=== PATIENT | male | born 1940 | race Caucasian/White ===

== ENCOUNTER → 2017-06-04 | Outpatient (CLI) | payer MEDICARE ==
[~2017-06-04] MED LIST: AMLO2.5T PO; ASPI-435 PO; CALC500C3 PO; CHOL100027 PO; DIPH-437 PO; ESCI10TA17 PO; ESCI1TAB6 PO; HYDR-3983 PO; INSDGI SC; INSHNI SQ; INSU100I SQ; INSU100I2 SQ; IPRA0.037 NAE; LEVAAER2 INH; LISI5TAB PO; MAGN400T6 PO; NSNN50; POLY335019 PO; ROPI1TAB PO; ROSU40TA PO; SULF-183 PO
[2017-06-04 12:46] LABS: ESTIMATED AVERAGE GLUCOSE 169 mg/dl; HA1C FLAG Normal (Normal)
== END | disposition home or self-care (01) ==
LOC: C.LAB1850 09:53
PROVIDERS: ATTEND Nurse Practitioner Adult Health
DX: E10.8 Type 1 diabetes mellitus with unspecified complications (principal)

== ENCOUNTER → 2017-10-07 | Outpatient (CLI) | payer MEDICARE ==
[2017-10-08 06:12] LABS: ESTIMATED AVERAGE GLUCOSE 180 mg/dl; HA1C FLAG Normal (Normal)
== END | disposition home or self-care (01) ==
LOC: C.LAB1850 13:59
PROVIDERS: ATTEND Nurse Practitioner Adult Health
DX: E10.49 Type 1 diabetes mellitus with other diabetic neurological complication (principal)

== ENCOUNTER → 2018-02-03 | Outpatient (CLI) | payer MEDICARE ==
[~2018-02-03] MED LIST changes: -AMLO2.5T PO; -ESCI1TAB6 PO; -HYDR-3983 PO; -LEVAAER2 INH; -MAGN400T6 PO; -SULF-183 PO
[2018-02-03 16:34] LABS: BASO % 0.3 %; BASO ABS # 0.04 K/uL (0-0.2); EOS % 3.7 %; EOS ABS # 0.44 K/uL (0-0.5); HEMATOCRIT 46.7 % (42-52); HEMOGLOBIN 15.7 g/dL (14.0-18.0); IG# 0.02 K/uL (0.00-0.02); LYMPH % 16.7 %; MEAN CELL VOLUME 96.9 fL (80-100); MEAN CORPUSCULAR HEMOGLOBIN 32.6 pg (25-34); MEAN CORPUSCULAR HGB CONC 33.6 g/dl (32-36); MEAN PLATELET VOLUME 11.1 fL (7.4-10.4); MONO % 5.3 %; MONO ABS # 0.64 K/uL (0.11-0.59); NEUT % 73.8 %; NEUT ABS # 8.83 K/uL (1.4-6.5); PLATELET COUNT 206 K/uL (130-400); RED CELL DISTRIBUTION WIDTH CV 13.3 % (11.5-14.5); RED CELL DISTRIBUTION WIDTH SD 47.2 fL (36.4-46.3); WHITE BLOOD COUNT 11.97 K/uL (4.8-10.8)
[2018-02-03 17:05] LABS: ALBUMIN 3.8 gm/dl (3.4-5.0); ALT/SGPT 46 U/L (12-78); BLOOD UREA NITROGEN 19 mg/dl (7-18); CALCIUM 10.1 mg/dl (8.5-10.1); CARBON DIOXIDE 33 mmol/L (21-32); CREATININE 1.01 mg/dl (0.60-1.40); GLUCOSE 189 mg/dl (70-99); POTASSIUM 4.2 mmol/L (3.5-5.1); SODIUM 138 mmol/L (136-145)
[2018-02-03 17:08] LABS: ALKALINE PHOSPHATASE 94 U/L (45-117); AST/SGOT 29 U/L (15-37); TOTAL PROTEIN 7.5 gm/dl (6.4-8.2)
[2018-02-04 06:06] LABS: HEMOGLOBIN A1C 7.4 % (4.5-5.6)
== END | disposition home or self-care (01) ==
LOC: C.LAB1850 15:06
PROVIDERS: ATTEND Nurse Practitioner Adult Health
DX: E10.49 Type 1 diabetes mellitus with other diabetic neurological complication (principal)

== ENCOUNTER 2019-05-25 09:43 | Inpatient (IN) ==
--- OUTSIDE RECORDS SUMMARY | 2019-05-25 09:45 | External Medical Summary | Continuity of Care Document ---
:1940 Author Name Rama Reilly, Provider Address Unavailable Unavailable , Care Team Providers Name Role Phone Pat Nina GUIDRY Unavailable [email or web address] Unavailable [email or web address] Irene Goodman M.D. Unavailable [email or web address] Dmitri GOODMAN M.D. 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, with long-term current use of insulin (250.51) (E10.319) Current some day smoker (305.1) (F17.200) History of depression (V11.8) (Z86.59) S tatus: Resolved Dyslipidemia (272.4) (E78.5) Weight loss, unintentional (783.21) (R63.4) S/P CABG (coronary artery bypass graft) (V45.81) (Z95.1) Abnormal liver function test (790.6) (R94.5) Diabetic peripheral neuropathy (250.60) (E11.42) Elevated liver enzymes (790.5) (R74.8) Solitary pulmonary nodule (793.11) (R91.1) Bilateral diabetic retinopathy (250.50) (E11.319) Alteration in tactile sense (782.0) (R20.9) Trigger finger (727.03) (M65.30) Proliferative diabetic retinopathy (250.50) (E11.3599) Weight loss (783.21) (R63.4) Complete below knee amputation of left lower extremity (897. 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) (N52.9) Leukocytosis (288.60) (D72.829) Disorder of ejaculation (608.89) (N53.19) Vasomotor rhinitis (477.9) (J30.0) Restless legs syndrome (333.94) (G25.81) Hypertension (401.9) (I10) 3-vessel coronary artery disease (414.00) (I25.10) 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 Refills: 0 D 1000 1000 UNIT Oral Capsule; TAKE 1 CAPSULE Daily Refills: 0 Ecotrin Low Strength 81 MG Oral Tablet D elayed Release; take 2 tablets by mouth daily Melba Goodman Start: 02-Aug-2014 Refills: 0 rOPINIRole HCl - 1 MG Oral Tablet; TAKE 1 TABLET AT BE DTIME. Melba Goodman Start: 26-May-2014 Quantity: 90 Refills: 1 Ventolin HFA 108 (90 Base) MCG/ACT Inhal ation Aerosol Solution; INHALE 2 PUFFS EVERY 4-6 HOURS NEEDED. CHARITY Castano Start: 17-Dec-2018 Quantity: 1 8 GM Inhaler Refills: 11 HumuLIN N KwikPen 100 UNIT/ML Subcutaneo us Suspension Pen-injector; 5-10 units at bedtime BREA Stewart Start: 28-Mar-2014 Quantity: 2 5 x 3 ML Pen Refills: 3 Escitalopram Oxalate 10 MG Oral Tablet; TAKE 1 TABLET BY MOUTH EVERY DAY Melba Goodman Start: 30-Mar-2019 Quantity: 90 Refills: 1 OneTouch Ultra Blue In Vitro Strip; TEST 4 TIMES DAILY. Quantity: 3 Refills: 6 One Touch Fine Point Lancets MISC Refills: 0 Stool Softener TABS; take 1 tablet by mouth once daily Refills: 0 BD Pen Needle Kelli U/F 32G X 4 MM; USE A S DIRECTED FIVE TIMES DAILY WITH INSULIN PENS BREA Stewart Start: 27-Feb-2018 Quantity: 5 100 Unit Box Refills: 3 Mupirocin 2 % External Ointment; APPLY A SMALL AMOUNT 3 TIMES DAILY DIRECTED. 15 GM Tube Refills: 0 Rosuvastatin Calcium 40 MG Oral Tablet; Take 1 tablet daily Melba Goodman Start: 06-Aug-2016 Quantity: 90 Refills: 3 HumaLOG KwikPen 100 UNIT/ML Subcutaneous Solution Pen-injector; INJECT 15 UNITS BASE DOSE UNDER THE SKIN AT BREAKFAST, AND LUNCH, 15 UNITS AT DINNER PLUS SLIDING SCALE, TOTAL DAILY DOSE 80 UNITS BREA Stewart Start: 09-Jan-2015 Quantity: 5 5 x 3 ML Pen Refills: 3 BD Swab Single Use Regular Pad; USE WITH INFECTIONS AND FINGERSTICK UP TO 10 PER DAY BREA Stewart Start: 07-Oct-2013 Quantity: 9 Refills: 3 MiraLax Oral Powder; MIX 17 GRAMS IN 8 OUNCES OF WATER AND D RINK TWICE DAILY. Refills: 0 Tylenol TABS; Take 2 tablets at night for pain. Refills: 0 Lantus SoloStar 100 UNIT/ML Subcutaneous Solution Pen-injector; INJECT UP TO 35 UNITS UNDER THE SKIN AT BEDTIME BREA Stewart Start: 23-Feb-2013 Quantity: 45 Refills: 3 Procedures History of Amputation Of Leg Below Knee Status: Completed History of Cholecystectomy Status: Compl eted S/P CABG (coronary artery bypass graft) Immunizations Pneumococcal polysaccharide vaccine, 23 valent On: 9 0:00 Influenza On: 04-Sep-2011 13:14 Lot #: [id number], [employer] Fluzone INJ On: 25-Aug-2012 13:58 Lot #: [id number], [employer] Influenza On: 06-Sep-2014 Prevnar 13 Intramuscular Suspension On: 07-Mar-2015 9:16 Lot #: [id number], [employer] Influenza On: 24-Sep-2016 Family History Mother No pertinent family history (V49.89) (Z78.9) Status: Active Father Family history of diabetes mellitus (V18.0) (Z83.3) Status: Active Social History - Smoking Status Current some day smoker Plan of Treatment Planned Encounters Appointment; Nina Stewart CRNP Start: 14-Sep-2019 10:00 R equest Planned Observations Planned Goals not documented Results No Known Results Results not documented Encounters Appointment; Nina Stewart CRNP 09-Mar-2019 14:30 Encounter Diagnosis: Problem not documented Appointment; Damián Goodman M.D. 16-Feb-2019 12:45 Encounter Diagnosis: Problem not documented Appointment; Damián Goodman M.D. 11-Aug-2018 9:15 Encounter Diagnosis: Problem not documented Appointment; Nina Stewart CRNP 25-May-2018 10:00 Encounter Diagnosis: Problem not documented Appointment; Damián Goodman M.D. 03-Feb-2018 14:30 Encounter Diagnosis: Problem not documented Appointment; Nina Stewart CRNP 08-Dec-2017 10:30 Encounter Diagnosis: Problem not documented Appointment; Damián Goodman M.D. 07-Oct-2017 13:00 Encounter Diagnosis: Problem not documented Appointment; Nina Stewart CRNP 04-Jun-2017 10:30 Encounter Diagnosis: Problem not documented Appointment; Nina Stewart CRNP 14-Sep-2019 10:00 Encounter Diagnosis: Problem not documented
[2019-05-25] MEDS ORDERED: CEFAZOLIN 1000MG 1,000 MG/7.5 ML SYR IV STA (10:04)
[2019-05-25] MEDS ORDERED: DIPHTHERIA/TETANUS/PERTUSSIS 0.5 ML SYR/VIAL IM ONE (10:04)
--- NOTE | 2019-05-25 10:13 | Emergency Department Note ---
ED Visit Note I assisted in the care of this patient with Dr. Krishnan. Please refer to her note for additional details. . Resident Activity Tracking Resident Involvement: Resident Care Provided Care Provided: Adult ED
[2019-05-25 10:18] LABS: Basophils # (auto) 0.01 K/uL (0-0.2); Basophils % (auto) 0.1 %; Eosinophils # (auto) 0.02 K/uL (0-0.5); Eosinophils % (auto) 0.1 %; Hematocrit (blood only) 41.5 % (42-52); Immature Granulocytes # (auto) 0.04 K/uL (0.00-0.02); Immature Granulocytes % (auto) 0.3 %; Lymphocytes # (auto) 1.14 K/uL (1.2-3.4); Lymphocytes % (auto) 7.6 %; Mean Corpuscular Hgb Conc 33.7 g/dL (32-36); Mean Corpuscular Volume 93.5 fL (80-100); Mean Platelet Volume 11.8 fL (7.4-10.4); Monocytes # (auto) 1.05 K/uL (0.11-0.59); Neutrophils # (auto) 12.83 K/uL (1.4-6.5); Neutrophils % (auto) 84.9 %; Platelet Count 195 K/uL (130-400); RDW Coefficient of Variation 14.7 % (11.5-14.5); RDW Standard Deviation 50.1 fL (36.4-46.3); Red Blood Count 4.44 M/uL (4.7-6.1); White Blood Count 15.09 K/uL (4.8-10.8)
--- NOTE | 2019-05-25 10:19 | XRay Report ---
XR ankle RT min 3V routine HISTORY: 78 years-old Male OBVIOUS DEFORMITY acute right ankle pain status post fall COMPARISON: None available TECHNIQUE: 3 views of the right ankle FINDINGS: Mildly demineralized appearance of the bones. Moderate degenerative changes of the ankle, midfoot and hindfoot. Acute bimalleolar ankle fracture with distal fibular fracture extending to the level of th e tibial plafond and demonstrating 8 mm lateral and 12 mm posterior displacement. Separation of the m edial malleolar fracture fragments measures up to 7 mm. Moderate circumferential soft tissue swelling with foci of deep tissue air. Peripheral arterial calcifications are noted. The talus appears intact . IMPRESSION: 1. Acute displaced bimalleolar fracture. 2. Moderate soft tissue swelling with deep tissue air suggestive of open fracture component. The above report was generated using voice recognition software. It may contain grammatical, syntax o r spelling errors. Electronically signed by: Chapito Zacarias M.D. 05/25/2019 10:18 AM
[2019-05-25 10:29] LABS: Albumin Level 3.2 gm/dl (3.4-5.0); BUN Creatinine Ratio 15.7 (10-20); Calcium 9.6 mg/dl (8.5-10.1); Est GFR (African American) 84.6; Potassium 4.2 mmol/L (3.5-5.1)
[2019-05-25 10:35] LABS: Albumin Globulin Ratio 0.7 (0.9-2); Bilirubin,Total 1.3 mg/dl (0.2-1); Globulin 4.3 gm/dl (2.5-4.0); Total Protein 7.5 gm/dl (6.4-8.2)
[2019-05-25] MEDS ORDERED: GLUCOSE 10 TABS/TUBE PO PRN (11:01)
[2019-05-25] MEDS ORDERED: GLUCAGON FOR INJ 1 MG VIAL SQ PRN (11:01)
[2019-05-25] MEDS ORDERED: CARBOHYDRATES FOR HYPOGLYCEMIA PO PRN (11:01)
[2019-05-25] MEDS ORDERED: GLUCOSE 40% GEL 15 GM TUBE PO PRN (11:01)
[2019-05-25] MEDS ORDERED: DEXTROSE 50% 50 ML SYRINGE IV PRN (11:01)
[2019-05-25] MEDS ORDERED: ACETAMINOPHEN 325 MG TAB PO PRN (11:01)
[2019-05-25] MEDS ORDERED: ONDANSETRON INJ 2 MG/ML 2 ML VIAL IV PRN ×2 (11:01→16:31)
--- NOTE | 2019-05-25 11:26 | History & Physical Report ---
Date of Service May 25, 2019 Assessment & Plan (1) Bimalleolar fracture of right ankle: -Admit to [facility] -Orthopedics consulted, Dr. Price -Imaging reviewed and is acute displaced fracture with possible free air. -No pain medication required as the patient has such severe peripheral neur opathy he does not feel any pain. -No chemical DVT prophylaxis secondary to possible procedure -Continue n.p.o. -Bowel regimen ordered -Patient's has taken his left LE prosthetic out to the car and will keep it herself. (2) HTN (hypertension): -Blood pressure well controlled, continue lisinopril 5 mg HS (3) HLD (hyperlipidemia): -Continue rosuvastatin 40 mg HS (4) Tobacco abuse: -Cessation encouraged -We will provide a nicotine patch, 21 mcg -Patient has been smoking 2 packs/day since age 17. (5) DVT prophylaxis: (6) DM type 2 (diabetes mellitus, type 2): -Will decrease Lantus to 15 units HS tonight as patient is currently n.p.o. -patient routinely takes 25 to 30 units HS -Holding NPH -ISS with Accu-Cheks ACHS or every 6 hours while n.p.o. -Last A1c was 7.3 in January 2019 (7) Peripheral neuropathy: -Stable (8) History of left below knee amputation: -Noted, PT OT on board, has taken prosthetic and will keep it at home. History of Present Illness Primary Care Provider: Damián Goodman MD This is a 78-year-old male with past medical history of DM type II, HTN, HLD, depression, osteoporosis, current tobacco use, smokes 2 packs/day since age 17, s/p left BKA, peripheral neuropathy, constipation who presents after fall sustained this morning. Patient's is present at bedside. The patient reports that he was attempting to put on his prosthetic leg and that hit was not put on correctly therefore he fell to the right onto the floor causing severe laceration to the right ankle. Patient denies any acute pain due to peripheral neuropathy at this time. He took all his morning medications. Patient ate br eakfast at 6 AM today. Allergies Allergy/AdvReac Type Severity Reaction Status Date / Time chlorpromazine Allergy Unknown "SHAKING" Verified 05/25/19 11:15 Insulins Allergy Unknown BEEF/PORK Verified 05/25/19 11:15 INSULINS lorazepam AdvReac Unknown DELUSIONS Verified 05/25/19 11:15 Home Medications Home Medications Medication Instructions Recorded Confirmed Type aspirin [Aspir-81] 162 mg PO QAM 01/11/19 05/25/19 History calcium carbonate [Tums] 2 tabs PO UD PRN 01/11/19 05/25/19 History cholecalciferol (vitamin D3) 1,000 unit PO QAM 01/11/19 05/25/19 History diphenhydramine-acetaminophen 2 tab PO HS 01/11/19 05/25/19 History [Tylenol PM Extra Strength] escitalopram oxalate 10 mg PO QAM 01/11/19 05/25/19 History insulin NPH isoph U-100 human 5 unit SUBCUT HS 01/11/19 05/25/19 History insulin glargine [Lantus Solostar 25 - 30 units SUBCUT HS 01/11/19 05/25/19 History U-100 Insulin] insulin lispro [Humalog U-100 1 sliding scale dose SUBCUT AC 01/11/19 05/25/19 History Insulin] lisinopril 5 mg PO HS 01/11/19 05/25/19 History polyethylene glycol 3350 [Miralax] 17 g PO HS 01/11/19 05/25/19 History ropinirole 1 mg PO HS 01/11/19 05/25/19 History rosuvastatin 40 mg PO HS 01/11/19 05/25/19 History docusate sodium [Stool Softener] 100 mg PO HS 05/25/19 05/25/19 History Past Med/Surg History Medical History History of left below knee amputation Peripheral neuropathy DM type 2 (diabetes mellitus, type 2) Tobacco abuse HLD (hyperlipidemia) HTN (hypertension) Bimalleolar fracture of right ankle Bronchitis Social History Preferred Language: Armenian Communication Ability: Effective Scrap Iron Cutter Required: No Beliefs That Will Affect Care: None Current Living Situation: Spouse Other Information That Helps Us Care for You: No Feels Safe at Home: Yes Safety Concerns: Feels Safe At This Time Smoking Status: Current every day smoker Tobacco Type: cigarettes Cigarettes Per Day: 40 Do You Dip or Chew Tobacco: No Second Hand Exposure: No Tobacco Cessation Education Requested by Patient: No Hx Alcohol Use: No Hx Substance Use: No Review of Systems Review of Systems: Constitutional: No fever, sweats or chills, + thin Eyes: No diplopia, no worsening or blurred vision ENT: normal hearing, no trouble swallowing Respiratory: + Coarse cough, no sputum, dyspnea at rest or on exertion, does not wear oxygen at baseline. Cardiovascular: No chest pain, tightness or palpitations Abdomen: No pain, nausea, vomiting, diarrhea, + constipation, last bowel movement today Musculoskeletal: + Left BKA, right ankle laceration, no joint pain, calf pain, swelling Neurologic: No weakness, + peripheral neuropathy, + restless leg, no other numbness/tingling, or balance problems Psychiatric: History of depression, controlled on meds Skin: No rash or itch Physical Exam Physical Exam: General: awake, alert, no apparent distress, thin Head: Normocephalic, atraumatic ENT: PERRL, EOMI, no pharyngeal exudate, mucous membranes moist Chest: Coarse breath sounds, on 4 L via NC, no adventitious breath sounds Cardiac: Regular rate and rhythm, no murmur, + few extra beats, no JVD, normal peripheral pulses, good capillary refill Abdominal: NABS x 4 quadrants, soft, nontender to palpation, no rebound, guarding or tenderness Extremities: Left BKA, right lower extremity wrapped in Hemal bandaging, clean/dry/intact, no peripheral edema or erythema. Psych: Normal mood and affect Neuro: AAO x 3, no motor deficits, speech is clear, + peripheral sensory deficits in the RLE Skin: no rash or erythema Results & Data Vital Signs (Past 12 Hours) Vital Signs Temp Pulse Pulse Resp BP BP Pulse Ox 05/25/19 10:37 95 05/25/19 10:30 86 14 138/77 95 05/25/19 09:55 36.4 C L 90 16 134/62 89 L Diagnostic Findings XR ankle RT min 3V routine HISTORY: 78 years-old Male OBVIOUS DEFORMITY acute right ankle pain status post fall COMPARISON: None available TECHNIQUE: 3 views of the right ankle FINDINGS: Mildly demineralized appearance of the bones. Moderate degenerative changes of the ankle, midfoot and hindfoot. Acute bimalleolar ankle fracture with distal fibular fracture extending to the level of the tibial plafond and demonstrating 8 mm lateral and 12 mm posterior displacement. Separation of the medial mal leolar fracture fragments measures up to 7 mm. Moderate circumferential soft tissue swelling with foci of deep tissue air. Peripheral arterial calcifications are noted. The talus appears intact. IMPRESSION: 1. Acute displaced bimalleolar fracture. 2. Moderate soft tissue swelling with deep tissue air suggestive of open fracture component. Code Status & VTE Plan Code Status Full code discussed with the patient at bedside Supervising Physician Co-Signing Physician Notes PA Physician Supervision Note: I interviewed and examined the patient. Discussed with Nikky Mckinney PAC and agree with findings and plan as documented in the note. Any exceptions or clarifications are listed here: None Patient was seen in the room he has no pain due to neuropathy he understands he will need surgery. He said no previous problems with surgery anesthesia he has had no current problems or chest pain pressure shortness of breath. He does use as needed inhalers as he is continuing to smoke and has occasional bouts of shortness of breath. His vital signs are stable cardiac exam sounds to be regular there is no murmurs or bruits his lungs actually with surprisingly good breath sounds his abdomen is normal active bowel sounds are soft and his extremity is with a bandage in place. He has a BKA on the left. Open fracture patient will need to have urgent surgical repair he does carry cardiovascular risk given age and diabetes however he has no symptoms of unstable angina or heart failure at this time Documented By: Kyle Schmitt PG Care Time/CCT Total # of Minutes Spent Total Time Spent with Patient: Total time spent is greater than 50% in coordination of care (as documented) at patient's floor/unit and/or counseling patient:
[2019-05-25] MEDS ORDERED: NICOTINE 21 MG/24 HR TDSY TD SCH (11:30)
[2019-05-25] MEDS ORDERED: INSULIN ASPART 100 UNITS/ML 3 ML PEN SC SCH ×2 (11:30→18:00)
[2019-05-25] MEDS ORDERED: Nursing to Pharmacy Communication ONE ×2 (13:09→19:49)
--- NOTE | 2019-05-25 13:20 | Anesthesiology Consultation ---
Date of Service May 25, 2019 Assessment & Plan (1) Encounter for pre-operative examination: Chart Review Chart Review: Acceptable Risk for Surgery (Urgent due to open fracture component) and Patient NOT seen in Pre Admission Testing Consults Requested none Pt being managed by hospitalist team and has been seen by Dr. Schmitt ASA ASA3 Proposed Anesthesia Anesthesia Type: General Risk / Benefits Reviewed With: PT / POA / Parent / Guardian, Accepts Plan and Informed Consent Obtained History Surgery Operation Date: 05/25/19 10:40 Proposed Procedures p Right Ankle Bimalleolar Fracture Open Reduction Internal Fixation - Sesar Lancaster, Height/Weight Height: 6 ft Weight: 74 kg Allergies Allergy/AdvReac Type Severity Reaction Status Date / Time chlorpromazine Allergy Unknown "SHAKING" Verified 05/25/19 11:15 Insulins Allergy Unknown BEEF/PORK Verified 05/25/19 11:15 INSULINS lorazepam AdvReac Unknown DELUSIONS Verified 05/25/19 11:15 Medications Home Medications Medication Instructions Recorded Confirmed Last Taken aspirin [Aspir-81] 162 mg PO QAM 01/11/19 05/25/19 05/25/19 calcium carbonate [Tums] 2 tabs PO UD PRN 01/11/19 05/25/19 05/25/19 06:00 1 tab cholecalciferol (vitamin D3) 1,000 unit PO QAM 01/11/19 05/25/19 05/25/19 diphenhydramine-acetaminophen 2 tab PO HS 01/11/19 05/25/19 05/24/19 [Tylenol PM Extra Strength] escitalopram oxalate 10 mg PO QAM 01/11/19 05/25/19 05/25/19 insulin NPH isoph U-100 human 5 unit SUBCUT HS 01/11/19 05/25/19 05/22/19 insulin glargine [Lantus Solostar 25 - 30 units SUBCUT HS 01/11/19 05/25/19 05/24/19 U-100 Insulin] 25 units insulin lispro [Humalog U-100 1 sliding scale dose SUBCUT AC 01/11/19 05/25/19 05/25/19 06:30 Insulin] 12 units lisinopril 5 mg PO HS 01/11/19 05/25/19 05/24/19 polyethylene glycol 3350 [Miralax] 17 g PO HS 01/11/19 05/25/19 05/24/19 ropinirole 1 mg PO HS 01/11/19 05/25/19 05/24/19 rosuvastatin 40 mg PO HS 01/11/19 05/25/19 05/24/19 docusate sodium [Stool Softener] 100 mg PO HS 05/25/19 05/25/19 05/24/19 NPO Date Last Intake of Fluids: 05/25/19 Time Last Intake of Fluids: 06:00 Date Last Intake of Solids: 05/25/19 Time Last Intake of Solids: 06:00 Past Medical History Medical History Type 1 diabetes Peripheral neuropathy Tobacco abuse HLD (hyperlipidemia) HTN (hypertension) Bimalleolar fracture of right ankle Bronchitis Emphysema of lung Diagnosed by CT scan History of MS (myocardial infarction) 2000 Exercise / Class Metabolic Activity III < 4 Walking/Shop/Light housework (Limited ambulation) denies CP with ambulation, reports occasional SOB Past Surgical History Surgical History History of left below knee amputation H/O eye surgery History of cholecystectomy History of transurethral resection of prostate S/P CABG (coronary artery bypass graft) 2000 Past Anesthesia History No Hx of Anesthesia Complications History of PONV No Hx of PONV and No Hx of Motion Sickness Social History Smoking Status: Current every day smoker tobacco type: cigarettes Smoking cigarettes per day: 40 Do You Dip or Chew Tobacco: No Hx Alcohol Use: No Hx Substance Use: No substance use type: does not use Review of Systems Patient denies active symptoms of GERD. Positive for hiccups. Physical Exam Vital Signs Last Vital Signs Temp 37.3 C 05/25/19 14:43 Pulse 93 H 05/25/19 14:43 Resp 18 05/25/19 14:43 BP 162/85 H 05/25/19 14:43 Pulse Ox 92 05/25/19 14:43 Constitutional not obese ENMT Mouth: not edentulous Thyromental Distance: > or= 3.5 Finger Breadths Mallampati Class: II Neck normal visual inspection; neck extension not limited Respiratory normal respiratory effort Auscultation: + rhonchi (Right lobe) Cardiovascular Rate/Rhythm: regular rate and regular rhythm Heart Sounds: no murmur Neurologic moves all extremities Motor/Sensory: + sensory deficit (Neuropathy ) Psychiatric Orientation: alert and oriented x 3 Testing Laboratory Results 05/25/19 10:00 05/25/19 10:00 Electrocardiogram Date: 05/25/19 Findings: + NSR @ (89 bpm with frequent PVCs) Left axis deviation Abnormal QRS-T angle, consider primary T wave abnormality
--- NOTE | 2019-05-25 13:49 | Orthopedic Consultation ---
Date of Consultation May 25, 2019 Assessment & Plan (1) Bimalleolar fracture of right ankle: He last had something to eat or drink at 6am. He's npo now. He reports that this is open, with laceration on the lateral aspect of the ankle. We will plan on taking him to the OR today for I & D and ORIF of right ankle fx. Risks and benefits were explained, including risks of infection especiallly with this open and that he's diabetic. History of Present Illness Reason for Consultation: Right ankle fracture Attending Physician: Kyle Schmitt MD History of Present Illness Doyle is a 78 y/o diabetic male with a h/o bka on LLE. This morning around 8:30 am he was putting on his prosthesis and fell, injuring his right ankle. He noticed blood around his ankle but had no pain. He does have neuropathy and no sensation in his foot. Allergies Allergy/AdvReac Type Severity Reaction Status Date / Time chlorpromazine Allergy Unknown "SHAKING" Verified 05/25/19 11:15 Insulins Allergy Unknown BEEF/PORK Verified 05/25/19 11:15 INSULINS lorazepam AdvReac Unknown DELUSIONS Verified 05/25/19 11:15 Home Medications Home Medications Medication Instructions Recorded Confirmed Type aspirin [Aspir-81] 162 mg PO QAM 01/11/19 05/25/19 History calcium carbonate [Tums] 2 tabs PO UD PRN 01/11/19 05/25/19 History cholecalciferol (vitamin D3) 1,000 unit PO QAM 01/11/19 05/25/19 History diphenhydramine-acetaminophen 2 tab PO HS 01/11/19 05/25/19 History [Tylenol PM Extra Strength] escitalopram oxalate 10 mg PO QAM 01/11/19 05/25/19 History insulin NPH isoph U-100 human 5 unit SUBCUT HS 01/11/19 05/25/19 History insulin glargine [Lantus Solostar 25 - 30 units SUBCUT HS 01/11/19 05/25/19 History U-100 Insulin] insulin lispro [Humalog U-100 1 sliding scale dose SUBCUT AC 01/11/19 05/25/19 History Insulin] lisinopril 5 mg PO HS 01/11/19 05/25/19 History polyethylene glycol 3350 [Miralax] 17 g PO HS 01/11/19 05/25/19 History ropinirole 1 mg PO HS 01/11/19 05/25/19 History rosuvastatin 40 mg PO HS 01/11/19 05/25/19 History docusate sodium [Stool Softener] 100 mg PO HS 05/25/19 05/25/19 History Patient History Medical History Type 1 diabetes Peripheral neuropathy Tobacco abuse HLD (hyperlipidemia) HTN (hypertension) Bimalleolar fracture of right ankle Bronchitis Emphysema of lung Diagnosed by CT scan History of [place] (myocardial infarction) 2000 Surgical History History of left below knee amputation H/O eye surgery History of cholecystectomy History of transurethral resection of prostate S/P CABG (coronary artery bypass graft) 2000 Social History Preferred Language: Moroccan Communication Ability: Effective Grinder Needle Tip Required: No Beliefs That Will Affect Care: None Current Living Situation: Spouse Other Information That Helps Us Care for You: No Feels Safe at Home: Yes Safety Concerns: Feels Safe At This Time Smoking Status: Current every day smoker Tobacco Type: cigarettes Cigarettes Per Day: 40 Do You Dip or Chew Tobacco: No Second Hand Exposure: No Tobacco Cessation Education Requested by Patient: No Hx Alcohol Use: No Hx Substance Use: No Physical Exam Physical Exam: He has a splint on the RLE. He has minimal motion of his toes. No sensation to light touch of his toes. Brisk refill. Results & Data Vital Signs (Past 12 Hours) Vital Signs Temp Pulse Pulse Pulse Resp BP BP 05/25/19 11:50 36.8 C 92 H 18 153/74 H 05/25/19 11:30 88 19 162/89 H 05/25/19 11:20 88 16 05/25/19 11:10 87 15 05/25/19 11:03 87 19 150/74 H 05/25/19 11:00 87 9 L 05/25/19 10:50 89 26 H 05/25/19 10:40 87 14 05/25/19 10:37 05/25/19 10:31 87 12 138/77 05/25/19 10:30 86 86 12 138/77 05/25/19 10:20 85 20 05/25/19 10:10 88 18 05/25/19 10:00 90 13 05/25/19 09:59 89 18 05/25/19 09:55 36.4 C L 90 15 134/62 Pulse Ox 05/25/19 11:50 91 05/25/19 11:30 05/25/19 11:20 96 05/25/19 11:10 96 05/25/19 11:03 97 05/25/19 11:00 98 05/25/19 10:50 98 05/25/19 10:40 95 05/25/19 10:37 95 05/25/19 10:31 94 05/25/19 10:30 95 05/25/19 10:20 93 05/25/19 10:10 94 05/25/19 10:00 91 05/25/19 09:59 90 05/25/19 09:55 89 L Diagnostic Findings xrays show displaced bimalleolor ankle fx
--- NOTE | 2019-05-25 14:34 | Emergency Department Note ---
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 The patient reports that he was sitting in the toilet when suddenly his right leg shifted as his left leg prosthetic fell off and he injured his right ankle. He denies any pain and explains he has a history of diabetic neuropathy. He states that he last ate some oatmeal at 0600 this morning. Home Medications Home Medications Medication Instructions Recorded Confirmed Type aspirin [Aspir-81] 162 mg PO QAM 01/11/19 05/25/19 History calcium carbonate [Tums] 2 tabs PO UD PRN 01/11/19 05/25/19 History cholecalciferol (vitamin D3) 1,000 unit PO QAM 01/11/19 05/25/19 History diphenhydramine-acetaminophen 2 tab PO HS 01/11/19 05/25/19 History [Tylenol PM Extra Strength] escitalopram oxalate 10 mg PO QAM 01/11/19 05/25/19 History insulin NPH isoph U-100 human 5 unit SUBCUT HS 01/11/19 05/25/19 History insulin glargine [Lantus Solostar 25 - 30 units SUBCUT HS 01/11/19 05/25/19 History U-100 Insulin] insulin lispro [Humalog U-100 1 sliding scale dose SUBCUT AC 01/11/19 05/25/19 History Insulin] lisinopril 5 mg PO HS 01/11/19 05/25/19 History polyethylene glycol 3350 [Miralax] 17 g PO HS 01/11/19 05/25/19 History ropinirole 1 mg PO HS 01/11/19 05/25/19 History rosuvastatin 40 mg PO HS 01/11/19 05/25/19 History docusate sodium [Stool Softener] 100 mg PO HS 05/25/19 05/25/19 History Allergies Allergy/AdvReac Type Severity Reaction Status Date / Time chlorpromazine Allergy Unknown "SHAKING" Verified 05/25/19 11:15 Insulins Allergy Unknown BEEF/PORK Verified 05/25/19 11:15 INSULINS lorazepam AdvReac Unknown DELUSIONS Verified 05/25/19 11:15 Past Med/Surg History Medical History Type 1 diabetes Peripheral neuropathy Tobacco abuse HLD (hyperlipidemia) HTN (hypertension) Bimalleolar fracture of right ankle Bronchitis Emphysema of lung Diagnosed by CT scan History of MA (myocardial infarction) 2000 Surgical History History of left below knee amputation H/O eye surgery History of cholecystectomy History of transurethral resection of prostate S/P CABG (coronary artery bypass graft) 2000 Social History Preferred Language: Italian Communication Ability: Effective Radio Intelligence Operator Required: No Beliefs That Will Affect Care: None marital status: Current Living Situation: Spouse Other Information That Helps Us Care for You: No Feels Safe at Home: Yes Safety Concerns: Feels Safe At This Time Smoking Status: Current every day smoker Tobacco Type: cigarettes Cigarettes Per Day: 40 Do You Dip or Chew Tobacco: No Second Hand Exposure: No Tobacco Cessation Education Requested by Patient: No Hx Alcohol Use: No Hx Substance Use: No Review of Systems See HPI for pertinent positives & negatives. and A total of 10 systems reviewed and were otherwise negative Physical Exam Vital Signs Vital Signs - 24 hr 05/25/19 09:55 05/25/19 09:59 05/25/19 10:00 Temperature 36.4 C L Temperature Source Oral Sepsis Recent Fever Within 48 Hours No Sepsis New/Unexplained Change in Mental Status No Sepsis Action Taken by Nursing No Action Required Pulse Rate 90 89 90 Pulse Rate [Apical] Pulse Rate from SpO2 Sensor 90 90 90 Respiratory Rate 15 18 13 Blood Pressure 134/62 Blood Pressure [Left Arm] Blood Pressure Mean 86 Blood Pressure Mean [Left Arm] Pulse Oximetry 89 L 90 91 Oxygen Delivery Method Room Air Oxygen Flow Rate 05/25/19 10:10 05/25/19 10:20 05/25/19 10:30 Temperature Temperature Source Sepsis Recent Fever Within 48 Hours Sepsis New/Unexplained Change in Mental Status Sepsis Action Taken by Nursing Pulse Rate 88 85 86 Pulse Rate [Apical] 86 Pulse Rate from SpO2 Sensor 88 84 Respiratory Rate 18 20 12 Blood Pressure Blood Pressure [Left Arm] 138/77 Blood Pressure Mean Blood Pressure Mean [Left Arm] 97 Pulse Oximetry 94 93 95 Oxygen Delivery Method Nasal Cannula Oxygen Flow Rate 2 05/25/19 10:31 05/25/19 10:37 05/25/19 10:40 Temperature Temperature Source Sepsis Recent Fever Within 48 Hours Sepsis New/Unexplained Change in Mental Status Sepsis Action Taken by Nursing Pulse Rate 87 87 Pulse Rate [Apical] Pulse Rate from SpO2 Sensor 87 87 Respiratory Rate 12 14 Blood Pressure 138/77 Blood Pressure [Left Arm] Blood Pressure Mean 97 Blood Pressure Mean [Left Arm] Pulse Oximetry 94 95 95 Oxygen Delivery Method Nasal Cannula Oxygen Flow Rate 2 05/25/19 10:50 Temperature Temperature Source Sepsis Recent Fever Within 48 Hours Sepsis New/Unexplained Change in Mental Status Sepsis Action Taken by Nursing Pulse Rate 89 Pulse Rate [Apical] Pulse Rate from SpO2 Sensor 89 Respiratory Rate 26 H Blood Pressure Blood Pressure [Left Arm] Blood Pressure Mean Blood Pressure Mean [Left Arm] Pulse Oximetry 98 Oxygen Delivery Method Oxygen Flow Rate Vital signs reviewed. General: Chronically ill appearing, nasal cannula in place. HEENT: No scleral icterus, PERRLA, neck supple. Atraumatic. Cardiovascular: Regular rate and rhythm, no extra sounds. Pulmonary: Coarse breath sounds, normal work of breathing. Abdomen: Soft, nontender, nondistended, positive bowel sounds. Musculoskeletal: No peripheral edema. Deformed right ankle with a medial 4 cm laceration with sol protrusion. DP palpated. Left BKA. Neurologic: Patient awake alert and oriented x 3 Skin: Warm, dry, no rash Course 0959: I evaluated the patient in room C5 in conjunction with the resident, Dr. Aguayo - PGY 3, and guided management for the patient. A complete history and physical examination was performed. 1025: I updated the patient. 1036: I discussed the patients case with Dr. Jazz [facility]. He will discuss the patients case with Dr. Lancaster and call back. 1044: I reviewed the patients case with Dr. Jazz [facility]. He requested that medicine admit the patient to be cleared for surgery. 1056: Dr. Aguayo discussed the patients case with Dr. Schmitt [facility] Hospitalist who accepted the patient into his care and will evaluate him for further management. Administered Medications Acetaminophen (Tylenol) 1,[address] [facility] Stop: 06/24/19 20:59 Last Admin: 05/28/19 20:43 Dose: 1,000 mg Documented by: [id number] Admin: 05/27/19 20:20 Dose: 1,000 mg Documented by: [id number] Admin: 05/26/19 21:06 Dose: 1,000 mg Documented by: [id number] Admin: 05/25/19 21:17 Dose: 1,000 mg Documented by: [id number] Aspirin (Ecotrin Ectab) 162 mg [facility] [place] Stop: 06/25/19 08:59 Last Admin: 05/28/19 08:51 Dose: 162 mg Documented by: [id number] Admin: 05/27/19 09:11 Dose: 162 mg Documented by: [id number] Admin: 05/26/19 09:12 Dose: 162 mg Documented by: [id number] Baclofen (Lioresal) 10 mg PO TID PRN PRN Reason: hiccups Stop: 06/25/19 08:59 Last Admin: 05/26/19 09:13 Dose: 10 mg Documented by: [id number] Calcium Carbonate (Tums) 1,500 mg PO Q8H PRN PRN Reason: Indigestion Stop: 06/25/19 16:38 Last Admin: 05/26/19 17:19 Dose: 1,500 mg Documented by: [id number] Diphenhydramine HCl (Benadryl Capsule) [address] [facility] Stop: 06/24/19 20:59 Last Admin: 05/28/19 20:44 Dose: 50 mg Documented by: [id number] Admin: 05/27/19 20:21 Dose: 50 mg Documented by: [id number] Admin: 05/26/19 21:06 Dose: 50 mg Documented by: [id number] Admin: 05/25/19 21:16 Dose: 50 mg Documented by: [id number] Docusate Sodium (Colace) 100 mg PO BID [facility] Stop: 06/24/19 20:59 Last Admin: 05/28/19 20:42 Dose: 100 mg Documented by: [id number] Admin: 05/28/19 08:51 Dose: 100 mg Documented by: [id number] Admin: 05/27/19 20:20 Dose: 100 mg Documented by: [id number] Admin: 05/27/19 09:11 Dose: 100 mg Documented by: [id number] Admin: 05/26/19 21:06 Dose: 100 mg Documented by: [id number] Admin: 05/26/19 09:10 Dose: 100 mg Documented by: [id number] Admin: 05/25/19 21:16 Dose: 100 mg Documented by: [id number] Enoxaparin Sodium (Lovenox) 40 mg SQ Q24H [facility] Stop: 06/27/19 15:59 Last Admin: 05/28/19 17:10 Dose: 40 mg Documented by: [id number] Escitalopram Oxalate (Lexapro Tab) 10 mg PO HS [facility] Stop: 06/25/19 20:59 Last Admin: 05/28/19 20:42 Dose: 10 mg Documented by: [id number] Admin: 05/27/19 20:20 Dose: 10 mg Documented by: [id number] Admin: 05/26/19 21:05 Dose: 10 mg Documented by: [id number] Hydroxyzine HCl (Vistaril) 10 mg PO Q6H PRN PRN Reason: Anxiety Stop: 06/25/19 16:38 Last Admin: 05/26/19 17:19 Dose: 10 mg Documented by: [id number] Ceftriaxone Sodium 1,000 mg/ (Dextrose) 60 mls @ 120 mls/hr IV Q24H [facility] Stop: 06/04/19 19:59 Last Infusion: 05/28/19 21:08 Dose: 0 mls/hr Documented by: [id number] Admin: 05/28/19 20:38 Dose: 120 mls/hr Documented by: [id number] Infusion: 05/27/19 20:40 Dose: 0 mls/hr Documented by: [id number] Admin: 05/27/19 20:10 Dose: 120 mls/hr Documented by: [id number] Infusion: 05/26/19 22:08 Dose: 0 mls/hr Documented by: [id number] Admin: 05/26/19 21:05 Dose: 120 mls/hr Documented by: [id number] Infusion: 05/25/19 20:30 Dose: 0 mls/hr Documented by: [id number] Admin: 05/25/19 20:00 Dose: 120 mls/hr Documented by: [id number] Insulin Aspart (Novolog Flexpen) 0 units SC ACHS [facility] Stop: 06/24/19 08:29 Last Admin: 05/28/19 20:50 Dose: 6 units Documented by: [id number] Cosigned by: [id number] Admin: 05/28/19 18:02 Dose: 9 units Documented by: [id number] Cosigned by: [id number] Admin: 05/28/19 13:12 Dose: 17 units Documented by: [id number] Cosigned by: [id number] Admin: 05/28/19 08:50 Dose: 4 units Documented by: [id number] Cosigned by: [id number] Admin: 05/27/19 21:36 Dose: 12 units Documented by: [id number] Cosigned by: [id number] Admin: 05/27/19 18:33 Dose: 8 units Documented by: [id number] Cosigned by: [id number] Admin: 05/27/19 13:05 Dose: 9 units Documented by: [id number] Cosigned by: [id number] Admin: 05/27/19 09:12 Dose: 4 units Documented by: [id number] Cosigned by: [id number] Admin: 05/26/19 21:15 Dose: 5 units Documented by: [id number] Cosigned by: [id number] Admin: 05/26/19 18:00 Dose: 3 units Documented by: [id number] Cosigned by: [id number] Admin: 05/26/19 12:45 Dose: 8 units Documented by: [id number] Cosigned by: [id number] Admin: 05/26/19 09:15 Dose: 5 units Documented by: [id number] Cosigned by: [id number] Insulin Glargine (Lantus Solostar Pen) 25 units SQ HS [facility]; Protocol Stop: 06/27/19 20:59 Last Admin: 05/28/19 20:48 Dose: 25 units Documented by: [id number] Cosigned by: [id number] Lisinopril (Zestril) 5 mg PO HS [facility] Stop: 06/24/19 20:59 Last Admin: 05/28/19 20:44 Dose: 5 mg Documented by: [id number] Admin: 05/27/19 20:20 Dose: 5 mg Documented by: [id number] Admin: 05/26/19 21:07 Dose: 5 mg Documented by: [id number] Admin: 05/25/19 21:17 Dose: 5 mg Documented by: [id number] Metoclopramide HCl (Reglan) 10 mg IV Q6H PRN PRN Reason: singultus (hiccups) Stop: 06/24/19 18:33 Last Admin: 05/29/19 03:08 Dose: 10 mg Documented by: [id number] Admin: 05/28/19 21:10 Dose: 10 mg Documented by: [id number] Admin: 05/28/19 00:07 Dose: 10 mg Documented by: [id number] Admin: 05/27/19 16:48 Dose: 10 mg Documented by: [id number] Admin: 05/26/19 12:09 Dose: 10 mg Documented by: [id number] Multivitamins (Multivitamin Tab) 1 tab PO QAM [facility] Stop: 06/25/19 08:59 Last Admin: 05/28/19 08:51 Dose: 1 tab Documented by: [id number] Admin: 05/27/19 09:12 Dose: 1 tab Documented by: [id number] Admin: 05/26/19 09:12 Dose: 1 tab Documented by: [id number] Polyethylene Glycol (Miralax Powder Packet) 17 gm PO BID [facility] Stop: 06/27/19 14:44 Last Admin: 05/28/19 20:45 Dose: 17 gm Documented by: [id number] Admin: 05/28/19 16:03 Dose: 17 gm Documented by: [id number] Ropinirole HCl (Requip) [address] [facility] Stop: 06/24/19 20:59 Last Admin: 05/28/19 20:44 Dose: 1 mg Documented by: [id number] Admin: 05/27/19 20:20 Dose: 1 mg Documented by: [id number] Admin: 05/26/19 21:04 Dose: 1 mg Documented by: [id number] Admin: 05/25/19 21:16 Dose: 1 mg Documented by: [id number] Rosuvastatin Calcium (Crestor) [address] [facility] Stop: 06/24/19 20:59 Last Admin: 05/28/19 20:45 Dose: 40 mg Documented by: [id number] Admin: 05/27/19 20:20 Dose: 40 mg Documented by: [id number] Admin: 05/26/19 21:05 Dose: 40 mg Documented by: [id number] Admin: 05/25/19 21:16 Dose: 40 mg Documented by: [id number] Sennosides (Senokot) 17.2 mg PO BID [facility] Stop: 06/27/19 20:59 Last Admin: 05/28/19 20:43 Dose: 17.2 mg Documented by: [id number] Discontinued Medications Azithromycin (Zithromax) 500 mg PO NOW ONE Stop: 05/28/19 08:45 Last Admin: 05/28/19 09:05 Dose: 500 mg Documented by: [id number] Bacitracin (Bacitracin) Confirm Administered Dose 50,000 units .ROUTE .STK-MED ONE Stop: 05/25/19 15:27 Last Admin: 05/25/19 16:59 Dose: 50,000 units Documented by: [id number] Bupivacaine HCl/Epinephrine Bitart (Sensorcaine/Epinephrine 0.5% Mpf 1:200,000) Confirm Administered Dose 30 ml .ROUTE .[facility] ONE Stop: 05/25/19 15:27 Last Admin: 05/25/19 16:59 Dose: 10 ml Documented by: [id number] Cefazolin Sodium (Ancef 1000mg) Confirm Administered Dose 1,000 mg IV .[facility] ONE Stop: 05/25/19 15:45 Last Admin: 05/25/19 15:51 Dose: 1,000 mg Documented by: [id number] Diphtheria/Pertussis/Tetanus Vacc (Adacel) 0.5 ml IM .ONCE ONE Stop: 05/25/19 10:05 Last Admin: 05/25/19 11:02 Dose: 0.5 ml Documented by: [id number] Escitalopram Oxalate (Lexapro Tab) 10 mg PO QAM [facility] Stop: 06/25/19 08:59 Last Admin: 05/26/19 09:20 Dose: Not Given Documented by: [id number] Cefazolin Sodium (Ancef 1000mg) 1,000 mg in 7.5 mls @ 2.5 mls/min IV NOW STA Stop: 05/25/19 10:06 Last Admin: 05/25/19 10:38 Dose: 2.5 mls/min Documented by: [id number] Sodium Chloride (Nss 1000ml) 1,000 mls @ 100 mls/hr IV .Q10H [facility] Stop: 05/26/19 06:00 Last Admin: 05/26/19 05:30 Dose: Not Given Documented by: [id number] Infusion: 05/26/19 05:30 Dose: 0 mls/hr Documented by: [id number] Admin: 05/25/19 20:00 Dose: 100 mls/hr Documented by: [id number] Insulin Aspart (Novolog Flexpen) 0 units SC ACHS [facility] Stop: 06/24/19 11:29 Last Admin: 05/26/19 12:02 Dose: Not Given Documented by: [id number] Cosigned by: [id number] Insulin Aspart (Novolog Flexpen) 0 units SC Q6 [facility] Stop: 06/24/19 17:59 Last Admin: 05/25/19 19:28 Dose: 6 units Documented by: [id number] Cosigned by: [id number] Insulin Aspart (Novolog Flexpen) 0 units SC ACHS [facility] Stop: 06/24/19 20:59 Last Admin: 05/26/19 12:00 Dose: Not Given Documented by: [id number] Cosigned by: [id number] Admin: 05/25/19 21:19 Dose: 7 units Documented by: [id number] Cosigned by: [id number] Insulin Glargine (Lantus Solostar Pen) [address] [facility] Stop: 06/24/19 20:59 Last Admin: 05/25/19 21:17 Dose: 15 units Documented by: [id number] Cosigned by: [id number] Insulin Glargine (Lantus Solostar Pen) 15 units SC ONCE ONE Stop: 05/26/19 08:26 Last Admin: 05/26/19 09:14 Dose: 15 units Documented by: [id number] Cosigned by: [id number] Insulin Glargine (Lantus Solostar Pen) [address] [facility] Stop: 06/25/19 20:59 Last Admin: 05/27/19 21:35 Dose: 30 units Documented by: [id number] Cosigned by: [id number] Admin: 05/26/19 21:20 Dose: 30 units Documented by: [id number] Cosigned by: [id number] Insulin Human Regular (Novolin R U-100 Per Unit) Confirm Administered Dose 4 units .ROUTE .STK-MED ONE Stop: 05/25/19 17:42 Last Admin: 05/25/19 17:47 Dose: 4 units Documented by: [id number] Cosigned by: [id number] Polyethylene Glycol (Miralax Powder Packet) 17 gm PO ONCE ONE Stop: 05/26/19 16:46 Last Admin: 05/26/19 17:41 Dose: 17 gm Documented by: [id number] Polyethylene Glycol (Miralax Powder Packet) [address] [facility] Stop: 06/24/19 20:59 Last Admin: 05/27/19 20:43 Dose: 17 gm Documented by: [id number] Admin: 05/26/19 21:06 Dose: 17 gm Documented by: [id number] Admin: 05/25/19 21:16 Dose: 17 gm Documented by: [id number] Sennosides (Senokot) 17.[address] [facility] Stop: 06/24/19 20:59 Last Admin: 05/27/19 20:20 Dose: 17.2 mg Documented by: [id number] Admin: 05/26/19 21:05 Dose: 17.2 mg Documented by: [id number] Admin: 05/25/19 21:17 Dose: 17.2 mg Documented by: [id number] Medical Decision Making Differential Diagnosis Differential diagnosis includes: fracture, dislocation, neurovascular compromise, compartment syndrome, soft tissue injury, as well as others were entertained. Medical Records Attestation: I reviewed the patient's medical records. Home Medications Current Medication List: was personally reviewed by me Laboratory Data Attestation: I reviewed the patient's lab results. Result diagrams: 05/29/19 06:01 05/29/19 06:01 Lab Results 05/25/19 05/25/19 Range/Units 10:00 10:00 WBC 15.09 H (4.8-10.8) K/uL RBC 4.44 L (4.7-6.1) M/uL Hgb 14.0 (14.0-18.0) g/dL Hct 41.5 L (42-52) % MCV 93.5 (80-100) fL MCH 31.5 (25-34) pg MCHC 33.7 (32-36) g/dL RDW Std Deviation 50.1 H (36.4-46.3) fL RDW Coeff of Johnathan 14.7 H (11.5-14.5) % Plt Count 195 (130-400) K/uL MPV 11.8 H (7.4-10.4) fL Immature Gran % (Auto) 0.3 % Neut % (Auto) 84.9 % Lymph % (Auto) 7.6 % [place] % (Auto) 7.0 % Eos % (Auto) 0.1 % Baso % (Auto) 0.1 % Immature Gran # (Auto) 0.04 H (0.00-0.02) K/uL Neut # (Auto) 12.83 H (1.4-6.5) K/uL Lymph # (Auto) 1.14 L (1.2-3.4) K/uL [place] # (Auto) 1.05 H (0.11-0.59) K/uL Eos # (Auto) 0.02 (0-0.5) K/uL Baso # (Auto) 0.01 (0-0.2) K/uL Sodium 137 (136-145) mmol/L Potassium 4.2 (3.5-5.1) mmol/L Chloride 102 (98-107) mmol/L Carbon Dioxide 31 (21-32) mmol/L Anion Gap 4.0 (3-11) BUN 15 (7-18) mg/dl Creatinine 0.98 (0.6-1.4) mg/dl Est Cr Clr Drug Dosing 64.0 ml/min Est GFR ( Amer) 84.6 Est GFR (Non-Af Amer) 73.0 BUN/Creatinine Ratio 15.7 (10-20) Glucose 157 H (70-99) mg/dl Calcium 9.6 (8.5-10.1) mg/dl Total Bilirubin 1.3 H (0.2-1) mg/dl AST 32 (15-37) U/L ALT 50 (12-78) U/L Alkaline Phosphatase 321 H (45-117) U/L Total Protein 7.5 (6.4-8.2) gm/dl Albumin 3.2 L (3.4-5.0) gm/dl Globulin 4.3 H (2.5-4.0) gm/dl Albumin/Globulin Ratio 0.7 L (0.9-2) Imaging Data Radiologist's Impression: Radiology results as stated below per my review and the radiologist's interpretation: XR ankle RT min 3V routine HISTORY: 78 years-old Male OBVIOUS DEFORMITY acute right ankle pain status post fall COMPARISON: None available TECHNIQUE: 3 views of the right ankle FINDINGS: Mildly demineralized appearance of the bones. Moderate degenerative changes of the ankle, midfoot and hindfoot. Acute bimalleolar ankle fracture with distal fibular fracture extending to the level of the tibial plafond and demonstrating 8 mm lateral and 12 mm posterior displacement. Separation of the medial malleolar fracture fragments measures up to 7 mm. Moderate circumferential soft tissue swelling with foci of deep tissue air. Peripheral arterial calcifications are noted. The talus appears intact. IMPRESSION: 1. Acute displaced bimalleolar fracture. 2. Moderate soft tissue swelling with deep tissue air suggestive of open fracture component. The above report was generated using voice recognition software. It may contain grammatical, syntax or spelling errors. Electronically signed by: Chapito Zacarias M.D. 05/25/2019 10:18 AM ECG Data Attestation: I personally reviewed and interpreted this ECG as follows: Indication: tachycardia Rate (beats per minute): 89 Rhythm: sinus rhythm Findings: + other (non-specific intraventricular conduction delay, T wave flattening in the lateral leads) and + PVC; no acute ischemic change Blood Pressure Blood Pressure Findings: Elevated blood pressure Blood Pressure Disposition: further management by hospitalist MDM Narrative This pt was evaluated and appeared to be in no distress. XR confirms a bimalleolar fracture with open medial malleolus. IV access was obtained and lab work was drawn. IV ancef 1 gm was administered, wet dressing and splint applied. TD was updated and IVF administered. PT was d/w [facility] on behalf of Dr Lancaster. They have requested medical admit and plan for surgery later today. Pt denies any other injury and has no pain d/t advanced neuropathy. Pt and are aware of the plan and agree. Impression & Plan Open right ankle fracture Discharge Plan Visit Data *Final* Discharge Date/Time: 05/25/19 11:40 Chief Complaint: Fall Stated Complaint: ankle fracture ED Provider: Cesilia Krishnan ED Midlevel Provider: Avi Aguayo Discharge Problem: Open right ankle fracture Patient Disposition: Admitted As Inpatient Discharge Instructions Interventions: ED Discharge Assessment Last Done: 05/25/19 11:40 Discharge Problem: Open right ankle fracture Qualifiers: Encounter type: initial encounter The scribe's documentation has been prepared under my direction and personally reviewed by me in its entirety. I confirm that the note above accurately reflects all work, treatment, procedures, and medical decision making performed by me.
[2019-05-25] MEDS ORDERED: DEXAMETHASONE SOD INJ 4 MG/ML VIAL ONE (15:14)
[2019-05-25] MEDS ORDERED: LIDOCAINE HCL 2% 2 ML VIAL/AMP(20MG/ML) INFIL ONE (15:14)
[2019-05-25] MEDS ORDERED: PROPOFOL IV EMULSION 10 MG/ML 20 ML VIAL IV ONE (15:14)
[2019-05-25] MEDS ORDERED: ONDANSETRON INJ 2 MG/ML 2 ML VIAL ONE (15:14)
[2019-05-25] MEDS ORDERED: MIDAZOLAM HCL 1 MG/ML 2ML VIAL ONE (15:15)
[2019-05-25] MEDS ORDERED: fentaNYL citrate 100 MCG/2 ML VIAL ONE (15:15)
[2019-05-25] MEDS ORDERED: PHENYLEPHRINE 100MCG/ML 5ML SYR ONE (15:19)
[2019-05-25] MEDS ORDERED: ePHEDrine sulfate 50 MG/ML SYR ONE (15:19)
[2019-05-25] MEDS ORDERED: BUPIVACAINE/EPINEPHRINE 0.5% MPF 1:200,000 30 ML VIAL ONE (15:26)
[2019-05-25] MEDS ORDERED: BACITRACIN INJ 50,000 UNIT VIAL ONE (15:26)
[2019-05-25] MEDS ORDERED: CEFAZOLIN 1,000 MG/7.5 ML IV PUSH IV ONE (15:44)
--- NOTE | 2019-05-25 15:46 | History & Physical Bridge Note ---
Date of Service May 25, 2019 History & Physical Bridge Note I have examined the patient, reviewed the History & Physical and in the interval since the performance of the History & Physical I have noted the following changes of clinical significance: no changes noted
[2019-05-25] MEDS ORDERED: SUCCINYLCHOLINE CHLORIDE 20 MG/ML 10 ML VIAL ONE (16:13)
[2019-05-25] MEDS ORDERED: ePHEDrine sulfate 50 MG/ML AMP IV PRN (16:31)
[2019-05-25] MEDS ORDERED: fentaNYL citrate 100 MCG/2 ML VIAL IV PRN (16:31)
[2019-05-25] MEDS ORDERED: ATROPINE SULFATE 0.1 MG/ML 10ML SYR IV PRN (16:31)
[2019-05-25] MEDS ORDERED: LARYING-O-JET KIT (LTA) ONE (17:04)
--- NOTE | 2019-05-25 17:04 | Operative Report ---
Post Operative Report Pre & Post Diagnosis Operation Date: 05/25/19 10:40 Pre-Op Diagnosis: Open right bimalleolar ankle fracture Post-Op Diagnosis: Open right bimalleolar ankle fracture Procedure Operation Date: 05/25/19 10:40 Actual Procedures p Right Ankle Bimalleolar Fracture Open Reduction Internal Fixation, with irrigation and debridement(Right) - Sesar Lancaster DO Surgeon Sesar Lancaster DO [employer] Supervisor Dima Chamberlain PAC Estimated Blood Loss 20 Findings Consistent with Post-Op Diagnosis Specimens None Complications none Disposition Disposition: Recovery Room Indications Doyle is a pleasant 78-year-old male who has a below-knee amputation on his left leg. He has a prosthetic. Unfortunately twisted his right ankle in the bathroom earlier today. He sustained an open bimalleolar ankle fracture. He came to the emergency room and the ankle was reduced. He was then admitted to the medical service. The orthopedics was consulted. We decided taken directly to the operating room. Description of Procedure On May 25, 2019 he arrived at the preoperative holding area. The operative extremity was identified and signed. He is given a preoperative antibiotic. He is seen back to the operating room and laid on the table in the supine position. He was put under general anesthesia. The right ankle was then prepped and draped in sterile fashion. A timeout was done. The patient and the operative extremity was properly identified. There was a 3 cm open transverse laceration medially. This was explored and there was no debris within the wound. The wound was then debrided and irrigated with 3 L normal saline solution with bacitracin. Attention was then turned to the lateral side. A longitudinal incision was made over the distal fibula. Dissection was taken down to the fibula. The fracture was identified and reduced. A Synthes 4 hole distal fibular locking plate was then placed. A single proximal and distal screw was then placed. Fluoroscopic images showed anatomic alignment. The remainder of the proximal and distal screws were then placed. Attention was then turned to the medial side. A curvilinear incision was made distal to the transverse open wound. The medial malleolus fragment was identified. The fragment was then reduced with a reduction clamp. 2 guide pins were placed. Two 4.0 mm cannulated cancellus screws were then placed with washers. I used a washer because the bone quality was poor. This gave a nice fixation. The clamp was removed. Final fluoroscopic images showed anatomic alignment. The wounds were then irrigated. The medial wound was closed with 3- 0 nylon suture in mattress fashion. The lateral wound was closed with a 3-0 Vicryl suture to close the deep layer and asa. He was then placed in a soft dressing and a trauma splint. He was then extubated transferred to a [facility]. He was taken to the postanesthesia care unit in stable condition. He tolerated the procedure well. I attest to the content of the Intraoperative Record and any orders documented therein. Any exceptions are noted below.
--- NOTE | 2019-05-25 17:11 | Fluoroscopy Report ---
FL ankle RT 2V CLINICAL HISTORY: ORIF RIGHT ANKLE COMPARISON STUDY: 05/25/2019 FLUOROSCOPY TIME: 26 seconds NUMBER OF FLUOROSCOPIC IMAGES: 3 FINDINGS: Anatomic alignment post open reduction internal fixation right ankle IMPRESSION: Anatomic alignment post open reduction internal fixation right ankle. The above report was generated using voice recognition software. It may contain grammatical, syntax or spelling errors. Electronically signed by: Rainer Hough M.D. 05/25/2019 5:10 PM
[2019-05-25] MEDS ORDERED: NovoLIN-R INSULIN PER UNIT CHARGE ONE (17:41)
[2019-05-25] MEDS ORDERED: INSULIN HUMAN REGULAR PER UNIT 4 UNITS in SYRINGE 0 ML IV STA (17:47)
[2019-05-25] MEDS ORDERED: NALOXONE HCL 0.4 MG/1 ML VIAL/CARP IV PRN (18:34)
[2019-05-25] MEDS ORDERED: GENTAMICIN SULFATE 380 MG in DEXTROSE 5% 100 ML IV SCH (18:34)
[2019-05-25] MEDS ORDERED: TRAMADOL HCL 50 MG TABLET PO PRN (18:34)
[2019-05-25] MEDS ORDERED: HYDROmorphone INJ 0.5 MG/0.5 ML SYR IV PRN (18:34)
[2019-05-25] MEDS ORDERED: BISACODYL 10 MG SUPP PR PRN (18:34)
[2019-05-25] MEDS ORDERED: MAGNESIUM HYDROXIDE SUSP 30 ML UDC PO PRN (18:34)
[2019-05-25] MEDS ORDERED: GENTAMICIN CONSULT ACTIVE PRN (18:34)
[2019-05-25] MEDS: SODIUM CHLORIDE 0.9% 1000ML 1,000 ML IV SCH (20:00)
[2019-05-25] MEDS: cefTRIAXone SODIUM 1,000 MG in DEXTROSE 5% 50 ML IV SCH (20:00)
[2019-05-25] MEDS ORDERED: INSULIN GLARGINE SOLOSTAR 100 UNITS/ML 3 ML PEN SQ SCH (21:00)
[2019-05-25] MEDS ORDERED: DOCUSATE SODIUM 100 MG CAP PO SCH (21:00)
[2019-05-25] MEDS ORDERED: NON-FORMULARY MEDICATION (Diphenhydramine-Acetaminophen [Tylenol Pm Extra Strength] 2 TAB) PO SCH (21:00)
[2019-05-25] MEDS: DOCUSATE SODIUM 100 MG CAP PO SCH (21:16)
[2019-05-25] MEDS: ROPINIROLE HCL 1 MG TABLET PO SCH (21:16)
[2019-05-25] MEDS: ROSUVASTATIN CALCIUM 20 MG TAB PO SCH (21:16)
[2019-05-25] MEDS: POLYETHYLENE (MIRALAX) 17 GM PACK PO SCH (21:16)
[2019-05-25] MEDS: LISINOPRIL 5 MG TAB PO SCH (21:17)
[2019-05-25] MEDS: SENNA 8.6 MG TAB PO SCH (21:17)
[2019-05-25] MEDS: ACETAMINOPHEN 500 MG TAB PO SCH (21:17)
[2019-05-25] MEDS: INSULIN ASPART 100 UNITS/ML 3 ML PEN SC SCH (21:19)
[2019-05-25] MEDS ORDERED: CEFAZOLIN 1000MG 1,000 MG/7.5 ML SYR IV SCH (22:00)
--- NOTE | 2019-05-26 00:52 | Anesthesiology Progress Note ---
Date of Service May 26, 2019 Anesthesia Post Procedure Vital Signs Vital Signs: Temp Pulse Pulse Pulse Resp BP BP 05/25/19 23:11 05/25/19 23:10 36.7 C 84 16 109/62 05/25/19 21:30 36.9 C 88 17 144/72 H 05/25/19 20:45 36.8 C 90 18 144/63 H 05/25/19 19:30 36.8 C 91 H 18 142/67 H 05/25/19 19:01 38.2 C H 92 H 18 140/69 05/25/19 18:31 37.2 C 84 16 129/61 05/25/19 18:20 36.4 C L 84 16 127/58 L 05/25/19 18:10 84 16 135/61 05/25/19 18:00 85 16 142/62 H 05/25/19 17:50 85 16 146/67 H 05/25/19 17:40 84 16 149/68 H 05/25/19 17:30 85 16 154/71 H 05/25/19 17:20 36.9 C 88 16 156/100 H 05/25/19 14:43 37.3 C 93 H 18 162/85 H 05/25/19 11:50 36.8 C 92 H 18 153/74 H 05/25/19 11:30 88 19 162/89 H 05/25/19 11:20 88 16 05/25/19 11:10 87 15 05/25/19 11:03 87 19 150/74 H 05/25/19 11:00 87 9 L 05/25/19 10:50 89 26 H 05/25/19 10:40 87 14 05/25/19 10:37 05/25/19 10:31 87 12 138/77 05/25/19 10:30 86 86 12 138/77 05/25/19 10:20 85 20 05/25/19 10:10 88 18 05/25/19 10:00 90 13 05/25/19 09:59 89 18 05/25/19 09:55 36.4 C L 90 15 134/62 Pulse Ox 05/25/19 23:11 92 05/25/19 23:10 88 L 05/25/19 21:30 95 05/25/19 20:45 98 05/25/19 19:30 95 05/25/19 19:01 96 05/25/19 18:31 94 05/25/19 18:20 93 05/25/19 18:10 94 05/25/19 18:00 96 05/25/19 17:50 96 05/25/19 17:40 100 05/25/19 17:30 100 05/25/19 17:20 100 05/25/19 14:43 92 05/25/19 11:50 91 05/25/19 11:30 05/25/19 11:20 96 05/25/19 11:10 96 05/25/19 11:03 97 05/25/19 11:00 98 05/25/19 10:50 98 05/25/19 10:40 95 05/25/19 10:37 95 05/25/19 10:31 94 05/25/19 10:30 95 05/25/19 10:20 93 05/25/19 10:10 94 05/25/19 10:00 91 05/25/19 09:59 90 05/25/19 09:55 89 L Transfer of Care Handoff Completed per policy Notes Mental Status: alert / awake / arousable and participated in evaluation Patient Amnestic to Procedure: Yes Nausea / Vomiting: adequately controlled Pain: adequately controlled Airway Patency, RR, SpO2: stable & adequate BP & HR: stable & adequate Hydration State: stable & adequate Anesthetic Complications: no major complications apparent and Pt Satisfied with anesthetic care
[2019-05-26] MEDS: SODIUM CHLORIDE 0.9% 1000ML 1,000 ML IV SCH (05:30)
--- NOTE | 2019-05-26 06:53 | Orthopedic Progress Note ---
Date of Service May 26, 2019 Assessment & Plan (1) Open right ankle fracture: Overall is doing very well. I have him on Rocephin for 2 doses for the open fracture. He is nonweightbearing on the right lower extremity. He says he uses a wheelchair often at home and has no problems going home and using a wheelchair while being nonweightbearing. We will likely keep him in the hospital today and make sure he gets his full dose of antibiotics. He is orthopedically stable for discharge tomorrow. If you have any questions please feel free to contact me personally on my cell phone at [phone]. He can follow-up with orthopedics in 2 weeks. Discharge instructions were placed in the discharge summary report under additional provider instructions. Present on Admission?: Yes Subjective Doyle was seen and examined at bedside this morning. Overall he is doing very well. Is not having any pain in the right ankle, however, he does not have any feeling to his right lower extremity. He has his right leg elevated. He was able to get some sleep last night. He has no complaints. Physical Exam Musculoskeletal: On physical examination of the right ankle, the trauma splint is in place. He has active motion of all of his toes. Results & Data Vital Signs (Past 12 Hours) Vital Signs Temp Pulse Pulse Resp BP Pulse Ox 05/26/19 03:22 36.8 C 80 16 126/55 L 96 05/25/19 23:11 92 05/25/19 23:10 36.7 C 84 16 109/62 88 L 05/25/19 21:30 36.9 C 88 17 144/72 H 95 05/25/19 20:45 36.8 C 90 18 144/63 H 98 05/25/19 19:30 36.8 C 91 H 18 142/67 H 95 05/25/19 19:01 38.2 C H 92 H 18 140/69 96 (1) Open right ankle fracture Encounter type: initial encounter
[2019-05-26] MEDS ORDERED: BACLOFEN 10 MG TAB PO PRN (08:02)
[2019-05-26 08:17] LABS: Hematocrit (blood only) 37.6 % (42-52); Hemoglobin 12.3 g/dL (14.0-18.0); Mean Corpuscular Hgb Conc 32.7 g/dL (32-36); Mean Corpuscular Volume 95.2 fL (80-100); Mean Platelet Volume 12.1 fL (7.4-10.4); Platelet Count 187 K/uL (130-400); RDW Standard Deviation 52.5 fL (36.4-46.3); Red Blood Count 3.95 M/uL (4.7-6.1); White Blood Count 14.58 K/uL (4.8-10.8)
[2019-05-26] MEDS ORDERED: INSULIN GLARGINE SOLOSTAR 100 UNITS/ML 3 ML PEN SC ONE (08:25)
[2019-05-26 08:56] LABS: Albumin Level 2.7 gm/dl (3.4-5.0); BUN Creatinine Ratio 14.9 (10-20); Calcium 8.4 mg/dl (8.5-10.1); Est GFR (African American) 87.9; Est GFR (Non-African American) 75.8; Potassium 4.2 mmol/L (3.5-5.1)
[2019-05-26 09:00] LABS: Albumin Globulin Ratio 0.7 (0.9-2); Bilirubin,Total 1.1 mg/dl (0.2-1); Globulin 3.7 gm/dl (2.5-4.0); Total Protein 6.4 gm/dl (6.4-8.2)
[2019-05-26] MEDS ORDERED: ESCITALOPRAM OXALATE 10 MG TAB PO SCH (09:00)
[2019-05-26] MEDS: DOCUSATE SODIUM 100 MG CAP PO SCH ×2 (09:10→21:06)
[2019-05-26] MEDS: ASPIRIN 81 MG ECTAB PO SCH (09:12)
[2019-05-26] MEDS: MULTIVITAMIN TAB PO SCH (09:12)
[2019-05-26] MEDS: INSULIN ASPART 100 UNITS/ML 3 ML PEN SC SCH ×5 (09:15→21:15)
[2019-05-26] MEDS ORDERED: Nursing to Pharmacy Communication ONE (09:19)
[2019-05-26] MEDS: METOCLOPRAMIDE HCL INJ 5 MG/ML 2 ML VIAL IV PRN (12:09)
--- NOTE | 2019-05-26 13:01 | Hospitalist Progress Note ---
Date of Service May 26, 2019 Assessment & Plan (1) Bimalleolar fracture of right ankle: - S/p right ankle bimalleolar ORIF with I&D on 05/25/19, POD#1. - Pain control with Tylenol, Tramadol and Dilaudid. - DVT ppx per orthopedics. - PT/OT evaluation -- pt. is considering rehab placement at this time. - Monitor CBC daily to evaluate for acute blood loss. (2) HTN (hypertension): - Continue Lisinopril 5 mg qhs. (3) HLD (hyperlipidemia): - Continue statin as prescribed. (4) Emphysema of lung: - Long smoking history, continues to smoke at this time. - Chest imaging with advanced emphysema. - Currently requiring 2L via NC -- will attempt to wean oxygen. - Not currently on home inhalers. (5) Tobacco abuse: - Smoked 2 PPD since age of 17. - Nicotine patch ordered; tobacco cessation encouraged. (6) DM type 2 (diabetes mellitus, type 2): - Hgb A1C was 7.3 in January 2019. - Increase Lantus back to 30 units qhs as pt. is not NPO; SSI coverage. - Holding home NPH. - BG has been uncontrolled, likely related to decreased basal dose after restarting diet. Will continue to monitor. (7) Peripheral neuropathy: - Not currently on home meds. (8) History of left below knee amputation: - Has prosthetic leg. - PT/OT evaluation, discharge to rehab. (9) Elevated LFTs: - Elevated T. bili and Alk Phos -- questionable recent viral illness leading to LFT elevation. - CT A/P in Dec 2018 showed mild periportal edema, otherwise negative. - Will monitor. (10) Restless leg syndrome: - Continue Requip as prescribed. (11) Depression: - Continue Lexapro as prescribed. (12) DVT prophylaxis: - Per ortho team. Dispo: Discharge possibly to rehab on 05/27/19. Supervising Physician Co-Signing Physician Notes PA Supervision Note: I did not personally see or examine the patient today, but I verified all lutz points of RANDA Lawrence's assessment and plan with the following exceptions/additions: None Subjective Pt. is doing well with the exception of hiccups. Denies right ankle pain, chest pain, SOB, urinary retention. Review of Systems Review of Systems: All systems reviewed & are unremarkable except as noted in HPI & below Constitutional: no fever, no chills, no fatigue, no weakness and no anorexia Respiratory: no cough, no dyspnea and no dyspnea on exertion Cardiovascular: no chest pain, no palpitations and no edema Gastrointestinal: no abdominal pain, no nausea, no vomiting, no constipation and no diarrhea/loose stools Genitourinary: no difficulty urinating Musculoskeletal: no back pain and no joint pain Integumentary: no non-healing lesions Physical Exam Physical Exam: General: Resting comfortably in no apparent distress HEENT: NC/AT; PERRLA with EOMI; [place] conjunctiva, MMM. No erythema of posterior pharynx Neck: Supple and nontender Cardiac: RRR Lungs: CTA bilaterally Abdomen: Bowel normoactive X 4; Nontender to palpation Extremities: Warm. No edema present Neuro: No focal weakness Skin: No rash Results & Data Vital Signs (Past 12 Hours) Vital Signs Temp Pulse Resp BP Pulse Ox 05/26/19 12:21 36.5 C 97 H 15 142/74 H 91 05/26/19 07:12 37 C 62 16 136/67 95 05/26/19 03:22 36.8 C 80 16 126/55 L 96 Laboratory Results 05/26/19 05/26/19 05/26/19 Range/Units 12:00 08:17 07:54 WBC (4.8-10.8) K/uL RBC (4.7-6.1) M/uL Hgb (14.0-18.0) g/dL Hct (42-52) % MCV (80-100) fL MCH (25-34) pg MCHC (32-36) g/dL RDW Std Deviation (36.4-46.3) fL RDW Coeff of Johnathan (11.5-14.5) % Plt Count (130-400) K/uL MPV (7.4-10.4) fL Sodium 140 (136-145) mmol/L Potassium 4.2 (3.5-5.1) mmol/L Chloride 104 (98-107) mmol/L Carbon Dioxide 30 (21-32) mmol/L Anion Gap 6.0 (3-11) BUN 14 (7-18) mg/dl Creatinine 0.95 (0.6-1.4) mg/dl Est Cr Clr Drug Dosing 66.0 ml/min Est GFR ( Amer) 87.9 Est GFR (Non-Af Amer) 75.8 BUN/Creatinine Ratio 14.9 (10-20) Glucose 161 H (70-99) mg/dl POC Glucose 212 H 166 H (70-99) Calcium 8.4 L (8.5-10.1) mg/dl Total Bilirubin 1.1 H (0.2-1) mg/dl AST 26 (15-37) U/L ALT 35 (12-78) U/L Alkaline Phosphatase 255 H (45-117) U/L Total Protein 6.4 (6.4-8.2) gm/dl Albumin 2.7 L (3.4-5.0) gm/dl Globulin 3.7 (2.5-4.0) gm/dl Albumin/Globulin Ratio 0.7 L (0.9-2) 05/26/19 05/25/19 05/25/19 Range/Units 07:54 20:41 20:38 WBC 14.58 H (4.8-10.8) K/uL RBC 3.95 L (4.7-6.1) M/uL Hgb 12.3 L (14.0-18.0) g/dL Hct 37.6 L (42-52) % MCV 95.2 (80-100) fL MCH 31.1 (25-34) pg MCHC 32.7 (32-36) g/dL RDW Std Deviation 52.5 H (36.4-46.3) fL RDW Coeff of Johnathan 15.0 H (11.5-14.5) % Plt Count 187 (130-400) K/uL MPV 12.1 H (7.4-10.4) fL Sodium (136-145) mmol/L Potassium (3.5-5.1) mmol/L Chloride (98-107) mmol/L Carbon Dioxide (21-32) mmol/L Anion Gap (3-11) BUN (7-18) mg/dl Creatinine (0.6-1.4) mg/dl Est Cr Clr Drug Dosing ml/min Est GFR ( Amer) Est GFR (Non-Af Amer) BUN/Creatinine Ratio (10-20) Glucose (70-99) mg/dl POC Glucose 318 H* 348 H* (70-99) Calcium (8.5-10.1) mg/dl Total Bilirubin (0.2-1) mg/dl AST (15-37) U/L ALT (12-78) U/L Alkaline Phosphatase (45-117) U/L Total Protein (6.4-8.2) gm/dl Albumin (3.4-5.0) gm/dl Globulin (2.5-4.0) gm/dl Albumin/Globulin Ratio (0.9-2) 05/25/19 05/25/19 05/25/19 Range/Units 18:34 18:07 17:24 WBC (4.8-10.8) K/uL RBC (4.7-6.1) M/uL Hgb (14.0-18.0) g/dL Hct (42-52) % MCV (80-100) fL MCH (25-34) pg MCHC (32-36) g/dL RDW Std Deviation (36.4-46.3) fL RDW Coeff of Johnathan (11.5-14.5) % Plt Count (130-400) K/uL MPV (7.4-10.4) fL Sodium (136-145) mmol/L Potassium (3.5-5.1) mmol/L Chloride (98-107) mmol/L Carbon Dioxide (21-32) mmol/L Anion Gap (3-11) BUN (7-18) mg/dl Creatinine (0.6-1.4) mg/dl Est Cr Clr Drug Dosing ml/min Est GFR ( Amer) Est GFR (Non-Af Amer) BUN/Creatinine Ratio (10-20) Glucose (70-99) mg/dl POC Glucose 285 H 286 H 284 H (70-99) Calcium (8.5-10.1) mg/dl Total Bilirubin (0.2-1) mg/dl AST (15-37) U/L ALT (12-78) U/L Alkaline Phosphatase (45-117) U/L Total Protein (6.4-8.2) gm/dl Albumin (3.4-5.0) gm/dl Globulin (2.5-4.0) gm/dl Albumin/Globulin Ratio (0.9-2) 05/25/19 Range/Units 17:21 WBC (4.8-10.8) K/uL RBC (4.7-6.1) M/uL Hgb (14.0-18.0) g/dL Hct (42-52) % MCV (80-100) fL MCH (25-34) pg MCHC (32-36) g/dL RDW Std Deviation (36.4-46.3) fL RDW Coeff of Johnathan (11.5-14.5) % Plt Count (130-400) K/uL MPV (7.4-10.4) fL Sodium (136-145) mmol/L Potassium (3.5-5.1) mmol/L Chloride (98-107) mmol/L Carbon Dioxide (21-32) mmol/L Anion Gap (3-11) BUN (7-18) mg/dl Creatinine (0.6-1.4) mg/dl Est Cr Clr Drug Dosing ml/min Est GFR ( Amer) Est GFR (Non-Af Amer) BUN/Creatinine Ratio (10-20) Glucose (70-99) mg/dl POC Glucose 267 H (70-99) Calcium (8.5-10.1) mg/dl Total Bilirubin (0.2-1) mg/dl AST (15-37) U/L ALT (12-78) U/L Alkaline Phosphatase (45-117) U/L Total Protein (6.4-8.2) gm/dl Albumin (3.4-5.0) gm/dl Globulin (2.5-4.0) gm/dl Albumin/Globulin Ratio (0.9-2) PG Care Time/CCT Total # of Minutes Spent Total Time Spent with Patient: Total time spent is greater than 50% in coordination of care (as documented) at patient's floor/unit and/or counseling patient:
[2019-05-26] MEDS ORDERED: hydrOXYzine HCl 10 MG TAB PO PRN (16:39)
[2019-05-26] MEDS ORDERED: POLYETHYLENE (MIRALAX) 17 GM PACK PO ONE (16:45)
[2019-05-26] MEDS: CALCIUM CARBONATE 500 MG CHEWABLE TAB PO PRN (17:19)
[2019-05-26] MEDS: ROPINIROLE HCL 1 MG TABLET PO SCH (21:04)
[2019-05-26] MEDS: ROSUVASTATIN CALCIUM 20 MG TAB PO SCH (21:05)
[2019-05-26] MEDS: cefTRIAXone SODIUM 1,000 MG in DEXTROSE 5% 50 ML IV SCH (21:05)
[2019-05-26] MEDS: ESCITALOPRAM OXALATE 10 MG TAB PO SCH (21:05)
[2019-05-26] MEDS: SENNA 8.6 MG TAB PO SCH (21:05)
[2019-05-26] MEDS: ACETAMINOPHEN 500 MG TAB PO SCH (21:06)
[2019-05-26] MEDS: POLYETHYLENE (MIRALAX) 17 GM PACK PO SCH (21:06)
[2019-05-26] MEDS: LISINOPRIL 5 MG TAB PO SCH (21:07)
[2019-05-26] MEDS: INSULIN GLARGINE SOLOSTAR 100 UNITS/ML 3 ML PEN SQ SCH (21:20)
[2019-05-27 07:40] LABS: Hematocrit (blood only) 35.7 % (42-52); Hemoglobin 12.1 g/dL (14.0-18.0); Mean Corpuscular Hgb Conc 33.9 g/dL (32-36); Mean Corpuscular Volume 93.5 fL (80-100); Mean Platelet Volume 11.5 fL (7.4-10.4); Platelet Count 182 K/uL (130-400); RDW Coefficient of Variation 14.7 % (11.5-14.5); Red Blood Count 3.82 M/uL (4.7-6.1); White Blood Count 13.14 K/uL (4.8-10.8)
[2019-05-27 08:13] LABS: Albumin Globulin Ratio 0.7 (0.9-2); Albumin Level 2.6 gm/dl (3.4-5.0); BUN Creatinine Ratio 13.2 (10-20); Bilirubin,Total 1.3 mg/dl (0.2-1); Calcium 8.4 mg/dl (8.5-10.1); Creatinine Clr Calc Pharmacy 82.5 ml/min; Est GFR (African American) 100.6; Est GFR (Non-African American) 86.8; Globulin 3.9 gm/dl (2.5-4.0); Potassium 3.5 mmol/L (3.5-5.1); Total Protein 6.5 gm/dl (6.4-8.2)
[2019-05-27] MEDS: ASPIRIN 81 MG ECTAB PO SCH (09:11)
[2019-05-27] MEDS: DOCUSATE SODIUM 100 MG CAP PO SCH ×2 (09:11→20:20)
[2019-05-27] MEDS: MULTIVITAMIN TAB PO SCH (09:12)
[2019-05-27] MEDS: INSULIN ASPART 100 UNITS/ML 3 ML PEN SC SCH ×4 (09:12→21:36)
--- NOTE | 2019-05-27 13:37 | Hospitalist Progress Note ---
Date of Service May 27, 2019 Assessment & Plan (1) Bimalleolar fracture of right ankle: - S/p right ankle bimalleolar ORIF with I&D on 05/25/19, POD#2. - Pain control with Tylenol, Tramadol and Dilaudid. - Ceftriaxone 1 gm IV q24hr in setting of open fracture. - DVT ppx: Aspirin daily. - PT/OT evaluation -- pt would prefer rehab placement at discharge. - Monitor CBC daily - has been stable. (2) HTN (hypertension): - Continue Lisinopril 5 mg qhs. (3) HLD (hyperlipidemia): - Continue statin as prescribed. (4) Emphysema of lung: - Long smoking history, continues to smoke at this time. - Chest imaging with advanced emphysema. - Has a chronic cough -- now with green mucous production; will monitor, consider CXR to rule out PNA if necessary. - Stable on room air. - Not currently on home inhalers. (5) Tobacco abuse: - Smoked 2 PPD since age of 17. - Nicotine patch ordered; tobacco cessation encouraged. (6) Peripheral neuropathy: - Not currently on home meds. (7) History of left below knee amputation: - Has prosthetic leg. - PT/OT evaluation, discharge to rehab. (8) Elevated LFTs: - Elevated T. bili and Alk Phos -- questionable recent viral illness leading to LFT elevation. - CT A/P in Dec 2018 showed mild periportal edema, otherwise negative. (9) Restless leg syndrome: - Continue Requip as prescribed. (10) Depression: - Continue Lexapro as prescribed. (11) Type 1 diabetes: - Hgb A1C was 7.3 in January 2019. - Continue home Lantus 30 units daily; SSI coverage. - Holding home NPH. (12) CAD (coronary artery disease), [place] coronary artery: h/o CAD with CABG [address] Goodman -continue ASA, statin -not on beta logan-perhaps due to previous h/o orthostasis -continue lisinopril (13) Hx of CABG: (14) DVT prophylaxis: - Per ortho team. Dispo: Discharge to rehab pending placement. Supervising Physician Co-Signing Physician Notes PA Supervision Note: I did not personally see or examine the patient today, but I verified all lutz points of RANDA Lawrence's assessment and plan with the following exceptions/additions: none Subjective Pt. is doing well overall. He has a chronic cough -- had green mucous production overnight per nursing staff. Denies pain in foot. Is passing gas, no BM yet. Plan for rehab placement. Review of Systems Review of Systems: All systems reviewed & are unremarkable except as noted in HPI & below Constitutional: no fever, no chills, no fatigue and no weakness Respiratory: + cough (Chronic) and + sputum production; no dyspnea, no dyspnea on exertion and no wheezing Cardiovascular: no chest pain, no palpitations and no edema Gastrointestinal: + constipation; no abdominal pain, no nausea and no vomiting Genitourinary: no difficulty urinating Musculoskeletal: no back pain and no joint pain Integumentary: no non-healing lesions Physical Exam Physical Exam: General: Resting comfortably in no apparent distress HEENT: NC/AT; PERRLA with EOMI; [place] conjunctiva, MMM. No erythema of posterior pharynx Neck: Supple and nontender Cardiac: RRR Lungs: CTA bilaterally Abdomen: Bowel normoactive X 4; Nontender to palpation Extremities: Warm. No edema present Neuro: No focal weakness Skin: No rash Results & Data Vital Signs (Past 12 Hours) Vital Signs Temp Pulse Resp BP Pulse Ox 05/27/19 07:02 36.8 C 92 H 18 153/69 H 92 Laboratory Results 05/27/19 05/27/19 05/27/19 Range/Units 12:00 08:10 07:16 WBC (4.8-10.8) K/uL RBC (4.7-6.1) M/uL Hgb (14.0-18.0) g/dL Hct (42-52) % MCV (80-100) fL MCH (25-34) pg MCHC (32-36) g/dL RDW Std Deviation (36.4-46.3) fL RDW Coeff of Johnathan (11.5-14.5) % Plt Count (130-400) K/uL MPV (7.4-10.4) fL Sodium 138 (136-145) mmol/L Potassium 3.5 D (3.5-5.1) mmol/L Chloride 104 (98-107) mmol/L Carbon Dioxide 29 (21-32) mmol/L Anion Gap 6.0 (3-11) BUN 10 (7-18) mg/dl Creatinine 0.76 (0.6-1.4) mg/dl Est Cr Clr Drug Dosing 82.5 ml/min Est GFR ( Amer) 100.6 Est GFR (Non-Af Amer) 86.8 BUN/Creatinine Ratio 13.2 (10-20) Glucose 90 (70-99) mg/dl POC Glucose 153 H 112 H (70-99) Calcium 8.4 L (8.5-10.1) mg/dl Total Bilirubin 1.3 H (0.2-1) mg/dl AST 29 (15-37) U/L ALT 32 (12-78) U/L Alkaline Phosphatase 236 H (45-117) U/L Total Protein 6.5 (6.4-8.2) gm/dl Albumin 2.6 L (3.4-5.0) gm/dl Globulin 3.9 (2.5-4.0) gm/dl Albumin/Globulin Ratio 0.7 L (0.9-2) 05/27/19 05/26/19 05/26/19 Range/Units 07:16 20:54 17:02 WBC 13.14 H (4.8-10.8) K/uL RBC 3.82 L (4.7-6.1) M/uL Hgb 12.1 L (14.0-18.0) g/dL Hct 35.7 L (42-52) % MCV 93.5 (80-100) fL MCH 31.7 (25-34) pg MCHC 33.9 (32-36) g/dL RDW Std Deviation 50.0 H (36.4-46.3) fL RDW Coeff of Johnathan 14.7 H (11.5-14.5) % Plt Count 182 (130-400) K/uL MPV 11.5 H (7.4-10.4) fL Sodium (136-145) mmol/L Potassium (3.5-5.1) mmol/L Chloride (98-107) mmol/L Carbon Dioxide (21-32) mmol/L Anion Gap (3-11) BUN (7-18) mg/dl Creatinine (0.6-1.4) mg/dl Est Cr Clr Drug Dosing ml/min Est GFR ( Amer) Est GFR (Non-Af Amer) BUN/Creatinine Ratio (10-20) Glucose (70-99) mg/dl POC Glucose 259 H 177 H (70-99) Calcium (8.5-10.1) mg/dl Total Bilirubin (0.2-1) mg/dl AST (15-37) U/L ALT (12-78) U/L Alkaline Phosphatase (45-117) U/L Total Protein (6.4-8.2) gm/dl Albumin (3.4-5.0) gm/dl Globulin (2.5-4.0) gm/dl Albumin/Globulin Ratio (0.9-2) PG Care Time/CCT Total # of Minutes Spent Total Time Spent with Patient: Total time spent is greater than 50% in coordination of care (as documented) at patient's floor/unit and/or counseling patient:
[2019-05-27] MEDS: METOCLOPRAMIDE HCL INJ 5 MG/ML 2 ML VIAL IV PRN (16:48)
[2019-05-27] MEDS: cefTRIAXone SODIUM 1,000 MG in DEXTROSE 5% 50 ML IV SCH (20:10)
[2019-05-27] MEDS: ESCITALOPRAM OXALATE 10 MG TAB PO SCH (20:20)
[2019-05-27] MEDS: ACETAMINOPHEN 500 MG TAB PO SCH (20:20)
[2019-05-27] MEDS: SENNA 8.6 MG TAB PO SCH (20:20)
[2019-05-27] MEDS: ROSUVASTATIN CALCIUM 20 MG TAB PO SCH (20:20)
[2019-05-27] MEDS: LISINOPRIL 5 MG TAB PO SCH (20:20)
[2019-05-27] MEDS: ROPINIROLE HCL 1 MG TABLET PO SCH (20:20)
[2019-05-27] MEDS: POLYETHYLENE (MIRALAX) 17 GM PACK PO SCH (20:43)
[2019-05-27] MEDS: INSULIN GLARGINE SOLOSTAR 100 UNITS/ML 3 ML PEN SQ SCH (21:35)
[2019-05-28] MEDS: METOCLOPRAMIDE HCL INJ 5 MG/ML 2 ML VIAL IV PRN ×2 (00:07→21:10)
[2019-05-28 05:55] LABS: Hematocrit (blood only) 39.1 % (42-52); Mean Corpuscular Hgb Conc 33.2 g/dL (32-36); Mean Corpuscular Volume 94.4 fL (80-100); Mean Platelet Volume 11.1 fL (7.4-10.4); Platelet Count 227 K/uL (130-400); RDW Coefficient of Variation 14.6 % (11.5-14.5); RDW Standard Deviation 50.3 fL (36.4-46.3); Red Blood Count 4.14 M/uL (4.7-6.1); White Blood Count 15.16 K/uL (4.8-10.8)
[2019-05-28 06:35] LABS: Albumin Level 2.6 gm/dl (3.4-5.0); BUN Creatinine Ratio 12.8 (10-20); Calcium 8.6 mg/dl (8.5-10.1); Creatinine Clr Calc Pharmacy 83.6 ml/min; Est GFR (African American) 101.1; Est GFR (Non-African American) 87.2; Potassium 3.5 mmol/L (3.5-5.1)
[2019-05-28 06:38] LABS: Albumin Globulin Ratio 0.6 (0.9-2); Bilirubin,Total 1.3 mg/dl (0.2-1); Globulin 4.4 gm/dl (2.5-4.0)
[2019-05-28] MEDS ORDERED: AZITHROMYCIN 250 MG TAB PO ONE (08:44)
[2019-05-28] MEDS: INSULIN ASPART 100 UNITS/ML 3 ML PEN SC SCH ×4 (08:50→20:50)
[2019-05-28] MEDS: DOCUSATE SODIUM 100 MG CAP PO SCH ×2 (08:51→20:42)
[2019-05-28] MEDS: MULTIVITAMIN TAB PO SCH (08:51)
[2019-05-28] MEDS: ASPIRIN 81 MG ECTAB PO SCH (08:51)
[2019-05-28 09:46] LABS: Appearance Urine Clear (Clear); Bacteria Urine Automated Negative (Negative); Bilirubin Urine Negative (Negative); Blood Urine Negative (Negative); Cast Urine Automated 0 /lpf (0-5); Color Urine Yellow; Epithelial Cell Urine Auto 20-30 /lpf (0-5); Glucose Urine UA 1+ (Negative); Ketones Urine Negative (Negative); Leukocyte Esterase Urine Negative (Negative); Nitrite Urine Negative (Negative); Urobilinogen Urine Negative (Negative); pH Urine 7.5 (4.5-7.5)
[2019-05-28 09:50] LABS: Protein Urine 1+ (Negative)
[2019-05-28 09:53] LABS: Hepatitis B Surface Antigen Neg (Neg)
--- NOTE | 2019-05-28 09:53 | XRay Report ---
XR chest 2V routine CLINICAL HISTORY: Pneumonia COMPARISON STUDY: 11/10/2019 FINDINGS: The cardiac and mediastinal contours remain stable. There are postsurgical changes of a mid line sternotomy. There is no lobar consolidation. There are no pleural effusions. There is mild right lower lobe bronchial wall thickening. This could indicate a bronchitis. There is no failure. There a re no significant pleural effusions.[ IMPRESSION: Moderate right lower lobe bronchial wall thickening. No evidence of focal pulmonary conso lidation. Electronically signed by: Neil Wright M.D. 05/28/2019 9:52 AM
[2019-05-28 10:22] LABS: Hepatitis C IgG 13Yrs+Old_Rflx Neg (Neg)
--- NOTE | 2019-05-28 14:21 | Hospitalist Progress Note ---
Date of Service May 28, 2019 Assessment & Plan (1) Bimalleolar fracture of right ankle: - S/p right ankle bimalleolar ORIF with I&D on 05/25/19, POD#3. - Pain control with Tylenol, Tramadol and Dilaudid. - Ceftriaxone 1 gm IV q24hr due to open fracture and bronchitis. - Continue bowel regimen -- has not had a BM in >72 hours. - DVT ppx: Lovenox subQ daily. - PT/OT -- discharge to [facility] once medically stable, likely tomorrow. (2) Acute bronchitis: - Low grade fevers, tachycardia, worsening leukocytosis with bronchial wall thickening on CXR in setting of COPD. - On Ceftriaxone for open fracture; will start Azithromycin for 5 day course. - Consider addition of steroids if necessary. (3) HTN (hypertension): - Continue Lisinopril 5 mg qhs. (4) HLD (hyperlipidemia): - Continue statin as prescribed. (5) Emphysema of lung: - Long smoking history, continues to smoke at this time. - Chest imaging with advanced emphysema; treatment for acute bronchitis as noted above. - Stable on room air. - Not currently on home inhalers. (6) Tobacco abuse: - Smoked 2 PPD since age of 17. - Nicotine patch ordered; tobacco cessation encouraged. (7) Peripheral neuropathy: - Not currently on home meds. Has a h/o Charcot Eladia Tooth (8) History of left below knee amputation: - Has prosthetic leg. - PT/OT evaluation, discharge to rehab. (9) Elevated LFTs: - Elevated T. bili and Alk Phos -- questionable recent viral illness leading to LFT elevation. - CT A/P in Dec 2018 showed mild periportal edema, otherwise negative. - Hepatitis panel is pending; GGT and Direct Bili also pending. - May require further liver imaging. (10) Restless leg syndrome: - Continue Requip as prescribed. (11) Depression: - Continue Lexapro as prescribed. (12) Type 1 diabetes: Hgb A1C was 7.3 in January 2019. - AM hypoglycemia -- decrease home Lantus to 20 units qhs and tighten SSI coverage. - Holding home NPH. (13) CAD (coronary artery disease), [place] coronary artery: h/o CAD with CABG [address] Goodman -continue ASA, statin -not on beta logan-perhaps due to previous h/o orthostasis -continue lisinopril (14) Hx of CABG: (15) DVT prophylaxis: - Lovenox daily. Dispo: Discharge to [facility] on 05/29/19 pending resolution of fevers, improvement in cough and leukocytosis. Supervising Physician Co-Signing Physician Notes PA Supervision Note: I did not personally see or examine the patient today, but I verified all lutz points of RANDA Lawrence's assessment and plan with the following exceptions/additions: none Subjective Pt. had low grade fevers, tachycardia, worsening leukocytosis overnight. Has acute on chronic cough with green mucous production. Denies SOB, N/V, urinary retention. Is passing gas, no BM yet. Review of Systems Review of Systems: All systems reviewed & are unremarkable except as noted in HPI & below Constitutional: no fever, no chills, no fatigue, no weakness and no anorexia Respiratory: + cough, + change in sputum and + sputum production; no dyspnea, no dyspnea on exertion and no wheezing Cardiovascular: no chest pain, no palpitations and no edema Gastrointestinal: + constipation; no abdominal pain, no nausea and no vomiting Genitourinary: no difficulty urinating Musculoskeletal: no back pain and no joint pain Integumentary: no non-healing lesions Allergy / Immunological: no rash Physical Exam Physical Exam: General: Resting comfortably in no apparent distress HEENT: NC/AT; PERRLA with EOMI; [place] conjunctiva, MMM. No erythema of posterior pharynx Neck: Supple and nontender Cardiac: RRR Lungs: on room air; clear bilaterally Abdomen: Bowel normoactive X 4; Nontender to palpation Extremities: Warm. No edema present Neuro: No focal weakness Skin: No rash Results & Data Vital Signs (Past 12 Hours) Vital Signs Temp Pulse Resp BP Pulse Ox 05/28/19 07:28 37.1 C 96 H 18 149/69 H 91 Laboratory Results 05/28/19 05/28/19 05/28/19 Range/Units 13:08 13:02 12:59 WBC (4.8-10.8) K/uL RBC (4.7-6.1) M/uL Hgb (14.0-18.0) g/dL Hct (42-52) % MCV (80-100) fL MCH (25-34) pg MCHC (32-36) g/dL RDW Std Deviation (36.4-46.3) fL RDW Coeff of Johnathan (11.5-14.5) % Plt Count (130-400) K/uL MPV (7.4-10.4) fL Sodium (136-145) mmol/L Potassium (3.5-5.1) mmol/L Chloride (98-107) mmol/L Carbon Dioxide (21-32) mmol/L Anion Gap (3-11) BUN (7-18) mg/dl Creatinine (0.6-1.4) mg/dl Est Cr Clr Drug Dosing ml/min Est GFR ( Amer) Est GFR (Non-Af Amer) BUN/Creatinine Ratio (10-20) Glucose (70-99) mg/dl POC Glucose 315 H* 302 H* 276 H (70-99) Calcium (8.5-10.1) mg/dl Total Bilirubin (0.2-1) mg/dl Direct Bilirubin (0-0.2) mg/dl GGT AST (15-37) U/L ALT (12-78) U/L Alkaline Phosphatase (45-117) U/L Total Protein (6.4-8.2) gm/dl Albumin (3.4-5.0) gm/dl Globulin (2.5-4.0) gm/dl Albumin/Globulin Ratio (0.9-2) Urine Color Urine Appearance (Clear) Urine pH (4.5-7.5) Ur Specific [place] (1.000-1.030) Urine Protein (Negative) Urine Glucose (UA) (Negative) Urine Ketones (Negative) Urine Blood (Negative) Urine Nitrite (Negative) Urine Bilirubin (Negative) Urine Urobilinogen (Negative) Ur Leukocyte Esterase (Negative) Urine WBC (Auto) (0-5) /hpf Urine RBC (Auto) (0-4) /hpf U Hyaline Cast (Auto) (0-5) /lpf U Epithel Cells (Auto) (0-5) /lpf Urine Bacteria (Auto) (Negative) Hepatitis A IgM Ab Hep Bs Antigen (Neg) Hep B Core IgM Ab Hepatitis C Antibody (Neg) 05/28/19 05/28/19 05/28/19 Range/Units 09:22 08:57 08:57 WBC (4.8-10.8) K/uL RBC (4.7-6.1) M/uL Hgb (14.0-18.0) g/dL Hct (42-52) % MCV (80-100) fL MCH (25-34) pg MCHC (32-36) g/dL RDW Std Deviation (36.4-46.3) fL RDW Coeff of Johnathan (11.5-14.5) % Plt Count (130-400) K/uL MPV (7.4-10.4) fL Sodium (136-145) mmol/L Potassium (3.5-5.1) mmol/L Chloride (98-107) mmol/L Carbon Dioxide (21-32) mmol/L Anion Gap (3-11) BUN (7-18) mg/dl Creatinine (0.6-1.4) mg/dl Est Cr Clr Drug Dosing ml/min Est GFR ( Amer) Est GFR (Non-Af Amer) BUN/Creatinine Ratio (10-20) Glucose (70-99) mg/dl POC Glucose (70-99) Calcium (8.5-10.1) mg/dl Total Bilirubin (0.2-1) mg/dl Direct Bilirubin (0-0.2) mg/dl GGT Pending AST (15-37) U/L ALT (12-78) U/L Alkaline Phosphatase (45-117) U/L Total Protein (6.4-8.2) gm/dl Albumin (3.4-5.0) gm/dl Globulin (2.5-4.0) gm/dl Albumin/Globulin Ratio (0.9-2) Urine Color Yellow Urine Appearance Clear (Clear) Urine pH 7.5 (4.5-7.5) Ur Specific [place] 1.020 (1.000-1.030) Urine Protein 1+ H (Negative) Urine Glucose (UA) 1+ H (Negative) Urine Ketones Negative (Negative) Urine Blood Negative (Negative) Urine Nitrite Negative (Negative) Urine Bilirubin Negative (Negative) Urine Urobilinogen Negative (Negative) Ur Leukocyte Esterase Negative (Negative) Urine WBC (Auto) 1-5 (0-5) /hpf Urine RBC (Auto) 5-10 H (0-4) /hpf U Hyaline Cast (Auto) 0 (0-5) /lpf U Epithel Cells (Auto) 20-30 H (0-5) /lpf Urine Bacteria (Auto) Negative (Negative) Hepatitis A IgM Ab Pending Hep Bs Antigen (Neg) Hep B Core IgM Ab Pending Hepatitis C Antibody (Neg) 05/28/19 05/28/19 05/28/19 Range/Units 08:57 08:57 08:02 WBC (4.8-10.8) K/uL RBC (4.7-6.1) M/uL Hgb (14.0-18.0) g/dL Hct (42-52) % MCV (80-100) fL MCH (25-34) pg MCHC (32-36) g/dL RDW Std Deviation (36.4-46.3) fL RDW Coeff of Johnathan (11.5-14.5) % Plt Count (130-400) K/uL MPV (7.4-10.4) fL Sodium (136-145) mmol/L Potassium (3.5-5.1) mmol/L Chloride (98-107) mmol/L Carbon Dioxide (21-32) mmol/L Anion Gap (3-11) BUN (7-18) mg/dl Creatinine (0.6-1.4) mg/dl Est Cr Clr Drug Dosing ml/min Est GFR ( Amer) Est GFR (Non-Af Amer) BUN/Creatinine Ratio (10-20) Glucose (70-99) mg/dl POC Glucose 116 H (70-99) Calcium (8.5-10.1) mg/dl Total Bilirubin (0.2-1) mg/dl Direct Bilirubin 0.3 H (0-0.2) mg/dl GGT AST (15-37) U/L ALT (12-78) U/L Alkaline Phosphatase (45-117) U/L Total Protein (6.4-8.2) gm/dl Albumin (3.4-5.0) gm/dl Globulin (2.5-4.0) gm/dl Albumin/Globulin Ratio (0.9-2) Urine Color Urine Appearance (Clear) Urine pH (4.5-7.5) Ur Specific [place] (1.000-1.030) Urine Protein (Negative) Urine Glucose (UA) (Negative) Urine Ketones (Negative) Urine Blood (Negative) Urine Nitrite (Negative) Urine Bilirubin (Negative) Urine Urobilinogen (Negative) Ur Leukocyte Esterase (Negative) Urine WBC (Auto) (0-5) /hpf Urine RBC (Auto) (0-4) /hpf U Hyaline Cast (Auto) (0-5) /lpf U Epithel Cells (Auto) (0-5) /lpf Urine Bacteria (Auto) (Negative) Hepatitis A IgM Ab Hep Bs Antigen Neg (Neg) Hep B Core IgM Ab Hepatitis C Antibody Neg (Neg) 05/28/19 05/28/19 05/28/19 Range/Units 07:27 05:45 05:45 WBC 15.16 H (4.8-10.8) K/uL RBC 4.14 L (4.7-6.1) M/uL Hgb 13.0 L (14.0-18.0) g/dL Hct 39.1 L (42-52) % MCV 94.4 (80-100) fL MCH 31.4 (25-34) pg MCHC 33.2 (32-36) g/dL RDW Std Deviation 50.3 H (36.4-46.3) fL RDW Coeff of Johnathan 14.6 H (11.5-14.5) % Plt Count 227 (130-400) K/uL MPV 11.1 H (7.4-10.4) fL Sodium 139 (136-145) mmol/L Potassium 3.5 (3.5-5.1) mmol/L Chloride 104 (98-107) mmol/L Carbon Dioxide 30 (21-32) mmol/L Anion Gap 5.0 (3-11) BUN 10 (7-18) mg/dl Creatinine 0.75 (0.6-1.4) mg/dl Est Cr Clr Drug Dosing 83.6 ml/min Est GFR ( Amer) 101.1 Est GFR (Non-Af Amer) 87.2 BUN/Creatinine Ratio 12.8 (10-20) Glucose 61 L (70-99) mg/dl POC Glucose 83 (70-99) Calcium 8.6 (8.5-10.1) mg/dl Total Bilirubin 1.3 H (0.2-1) mg/dl Direct Bilirubin (0-0.2) mg/dl GGT AST 41 H (15-37) U/L ALT 38 (12-78) U/L Alkaline Phosphatase 249 H (45-117) U/L Total Protein 7.0 (6.4-8.2) gm/dl Albumin 2.6 L (3.4-5.0) gm/dl Globulin 4.4 H (2.5-4.0) gm/dl Albumin/Globulin Ratio 0.6 L (0.9-2) Urine Color Urine Appearance (Clear) Urine pH (4.5-7.5) Ur Specific [place] (1.000-1.030) Urine Protein (Negative) Urine Glucose (UA) (Negative) Urine Ketones (Negative) Urine Blood (Negative) Urine Nitrite (Negative) Urine Bilirubin (Negative) Urine Urobilinogen (Negative) Ur Leukocyte Esterase (Negative) Urine WBC (Auto) (0-5) /hpf Urine RBC (Auto) (0-4) /hpf U Hyaline Cast (Auto) (0-5) /lpf U Epithel Cells (Auto) (0-5) /lpf Urine Bacteria (Auto) (Negative) Hepatitis A IgM Ab Hep Bs Antigen (Neg) Hep B Core IgM Ab Hepatitis C Antibody (Neg) 05/27/19 05/27/19 05/27/19 Range/Units 21:14 21:08 17:08 WBC (4.8-10.8) K/uL RBC (4.7-6.1) M/uL Hgb (14.0-18.0) g/dL Hct (42-52) % MCV (80-100) fL MCH (25-34) pg MCHC (32-36) g/dL RDW Std Deviation (36.4-46.3) fL RDW Coeff of Johnathan (11.5-14.5) % Plt Count (130-400) K/uL MPV (7.4-10.4) fL Sodium (136-145) mmol/L Potassium (3.5-5.1) mmol/L Chloride (98-107) mmol/L Carbon Dioxide (21-32) mmol/L Anion Gap (3-11) BUN (7-18) mg/dl Creatinine (0.6-1.4) mg/dl Est Cr Clr Drug Dosing ml/min Est GFR ( Amer) Est GFR (Non-Af Amer) BUN/Creatinine Ratio (10-20) Glucose (70-99) mg/dl POC Glucose 306 H* 332 H* 218 H (70-99) Calcium (8.5-10.1) mg/dl Total Bilirubin (0.2-1) mg/dl Direct Bilirubin (0-0.2) mg/dl GGT AST (15-37) U/L ALT (12-78) U/L Alkaline Phosphatase (45-117) U/L Total Protein (6.4-8.2) gm/dl Albumin (3.4-5.0) gm/dl Globulin (2.5-4.0) gm/dl Albumin/Globulin Ratio (0.9-2) Urine Color Urine Appearance (Clear) Urine pH (4.5-7.5) Ur Specific [place] (1.000-1.030) Urine Protein (Negative) Urine Glucose (UA) (Negative) Urine Ketones (Negative) Urine Blood (Negative) Urine Nitrite (Negative) Urine Bilirubin (Negative) Urine Urobilinogen (Negative) Ur Leukocyte Esterase (Negative) Urine WBC (Auto) (0-5) /hpf Urine RBC (Auto) (0-4) /hpf U Hyaline Cast (Auto) (0-5) /lpf U Epithel Cells (Auto) (0-5) /lpf Urine Bacteria (Auto) (Negative) Hepatitis A IgM Ab Hep Bs Antigen (Neg) Hep B Core IgM Ab Hepatitis C Antibody (Neg) PG Care Time/CCT Total # of Minutes Spent Total Time Spent with Patient: Total time spent is greater than 50% in coordination of care (as documented) at patient's floor/unit and/or counseling patient:
[2019-05-28] MEDS ORDERED: PHARMACY GLYCEMIC MGMT CONSULT PRN (14:45)
[2019-05-28 15:46] LABS: INR 1.2 (0.9-1.1); Partial Thromboplastin Ratio 1.1; Partial Thromboplastin Time 28.5 Seconds (21.0-31.0); Prothrombin Time 12.6 Seconds (9.0-12.0)
--- NOTE | 2019-05-28 15:56 | Pharmacy Report ---
Glycemic Control Consultation - Date of Service May 28, 2019 - Scope Scope: Glycemic Pharmacist consulted by JOSE Ospina on 05/28 for glycemic control and to write orders per [facility] inpatient glycemic control protocol - Objective Weight: 74 kg Accuchecks BSG (last 24hrs): 05/27/19 05/27/19 05/27/19 17:08 21:08 21:14 Glucose POC Glucose 218 H 332 H* 306 H* 05/28/19 05/28/19 05/28/19 05:45 07:27 08:02 Glucose 61 L POC Glucose 83 116 H 05/28/19 05/28/19 05/28/19 12:59 13:02 13:08 Glucose POC Glucose 276 H 302 H* 315 H* Laboratory Data (last 24hrs): 05/28/19 05:45 Potassium 3.5 Carbon Dioxide 30 Anion Gap 5.0 Creatinine 0.75 Est Cr Clr Drug Dosing 83.6 - Recent Pertinent Medications Outpatient Anti-diabetic Regimen: * Lantus 25-30 units qHS * NPH 5 units qHS (takes if HS BSG ~220 mg/dL or higher and eating a snack) * Humalog with each meal, respectively + sliding scale using CF 25 mg/dL/unit * A1c = 7.3 % 02/01/19 The patient is currently receiving: * Basal insulin: Lantus 30 units every 24 hours - dosed at HS * Correctional Insulin: Novolog Correction per scale ACHS Goal Range: Low 110 mg/dL - High 140 mg/dL Correction Factor: 20 mg/dL/unit (just changed to 15 ) * Prandial insulin: Per carb ratio of 1 unit per 8 grams CHO consumed (just changed to 5) Risk Factors for Insulin Resistance: * Infection: on Rocephin (for open fracture/bronchitis), Zithromax added today for worsening bronchitis * Recent Surgery: POD 3 s/p R ankle open reduction/internal fixation * Diet: type 1 diabetes - Assessment & Plan Assessment & Plan: ASSESSMENT: * 78 y/o male admitted 05/25 for R ankle fracture s/p fall. He has a history of TYPE 1 diabetes, managed with Lantus + NPH + Humalog as an outpatient. * Outpatient management * Upon discussion with him and his today, he follows with endocrinology and has been on this regimen for awhile, with minor adjustments made over time. A1c typically ~7%, so well controlled at home. He reports occasional lows, that occur at varying times of the day. He has never counted carbs so always takes a set dose of Humalog with each meal. * Inpatient control thus far * Patient was initially given a reduced dose of Lantus while NPO but this was made up on 7/3 AM. He has since rec'd 30 units of Lantus daily. NPH has been held since admission. Fasting BSGs have been trending downwards, with a 61 mg/dL this AM. * Novolog has been ordered with a CF 20, CR 8 since admission, with patient receiving 4-12 units with each meal and postprandial BSGs elevated. Of note, today's lunch BSG was taken AFTER the patient ate so it is not a true pre-meal BSG. * To prevent further fasting hypoglycemia, basal dose will need reduced. Will not be as aggressive as 20 units that is ordered since fasting was not extremely low. Patient most likely requires a tight CR at home as he takes large doses with his meals. Will require a tightened CR to improve inpatient BSGs. Will continue to hold off on NPH at HS, especially with fasting hypoglycemia today. PLAN FOR INPATIENT GLYCEMIC CONTROL: * Basal insulin - reduce by 15% * Lantus 25 units qHS * Bolus insulin - tighten CR * NovoLog per scale ACHS or Q6hrs while NPO * Goal Range: Low 100 mg/dL - High 140 mg/dL * Correction Factor: 20 mg/dL/unit * Nutritional / Prandial insulin per carb ratio of 1 unit per 6 grams CHO consumed * A1c w/ AM labs as last A1c > 90 days Discharge Recommendations: * For discharge to [facility]: * Lantus 25 units qHS * Hold NPH unless overnight/fasting BSGs become elevated * Novolog 10 units with meals + sliding scale * Okay to resume outpatient regimen on discharge from [facility] as patient will resume outpatient diet Thank you.
[2019-05-28] MEDS: POLYETHYLENE (MIRALAX) 17 GM PACK PO SCH ×2 (16:03→20:45)
[2019-05-28] MEDS: ENOXAPARIN INJ 40 MG/0.4 ML SYR SQ SCH (17:10)
[2019-05-28] MEDS: cefTRIAXone SODIUM 1,000 MG in DEXTROSE 5% 50 ML IV SCH (20:38)
[2019-05-28] MEDS: ESCITALOPRAM OXALATE 10 MG TAB PO SCH (20:42)
[2019-05-28] MEDS: SENNA 8.6 MG TAB PO SCH (20:43)
[2019-05-28] MEDS: ACETAMINOPHEN 500 MG TAB PO SCH (20:43)
[2019-05-28] MEDS: LISINOPRIL 5 MG TAB PO SCH (20:44)
[2019-05-28] MEDS: ROPINIROLE HCL 1 MG TABLET PO SCH (20:44)
[2019-05-28] MEDS: ROSUVASTATIN CALCIUM 20 MG TAB PO SCH (20:45)
[2019-05-28] MEDS: INSULIN GLARGINE SOLOSTAR 100 UNITS/ML 3 ML PEN SQ SCH (20:48)
[2019-05-28] MEDS ORDERED: INSULIN GLARGINE SOLOSTAR 100 UNITS/ML 3 ML PEN SQ SCH (21:00)
[2019-05-29] MEDS: METOCLOPRAMIDE HCL INJ 5 MG/ML 2 ML VIAL IV PRN ×4 (03:08→21:42)
[2019-05-29 06:26] LABS: Hematocrit (blood only) 36.1 % (42-52); Hemoglobin 12.1 g/dL (14.0-18.0); Mean Corpuscular Hgb Conc 33.5 g/dL (32-36); Mean Corpuscular Volume 93.8 fL (80-100); Mean Platelet Volume 11.5 fL (7.4-10.4); Platelet Count 231 K/uL (130-400); RDW Coefficient of Variation 14.8 % (11.5-14.5); RDW Standard Deviation 51.1 fL (36.4-46.3); Red Blood Count 3.85 M/uL (4.7-6.1); White Blood Count 12.77 K/uL (4.8-10.8)
[2019-05-29 07:01] LABS: Albumin Level 2.5 gm/dl (3.4-5.0); BUN Creatinine Ratio 13.6 (10-20); Calcium 8.6 mg/dl (8.5-10.1); Creatinine Clr Calc Pharmacy 71.2 ml/min; Est GFR (African American) 94.7; Est GFR (Non-African American) 81.7; Potassium 3.7 mmol/L (3.5-5.1)
[2019-05-29 07:04] LABS: Albumin Globulin Ratio 0.6 (0.9-2); Bilirubin,Total 1.1 mg/dl (0.2-1); Globulin 4.3 gm/dl (2.5-4.0); Total Protein 6.8 gm/dl (6.4-8.2)
[2019-05-29 07:24] LABS: Estimated Average Glucose 189 mg/dl; Hemoglobin A1C 8.2 % (4.5-5.6)
[2019-05-29] MEDS: POLYETHYLENE (MIRALAX) 17 GM PACK PO SCH ×2 (08:44→20:50)
[2019-05-29] MEDS: MULTIVITAMIN TAB PO SCH (08:45)
[2019-05-29] MEDS: AZITHROMYCIN 250 MG TAB PO SCH (08:45)
[2019-05-29] MEDS: DOCUSATE SODIUM 100 MG CAP PO SCH ×2 (08:45→20:50)
[2019-05-29] MEDS: ASPIRIN 81 MG ECTAB PO SCH (08:45)
[2019-05-29] MEDS: SENNA 8.6 MG TAB PO SCH ×2 (08:45→20:50)
[2019-05-29] MEDS: INSULIN ASPART 100 UNITS/ML 3 ML PEN SC SCH ×3 (08:51→21:35)
[2019-05-29] MEDS ORDERED: Nursing to Pharmacy Communication ONE ×2 (10:45→14:40)
[2019-05-29] MEDS ORDERED: INSULIN ASPART 100 UNITS/ML 3 ML PEN SC SCH (12:00)
--- NOTE | 2019-05-29 12:29 | Hospitalist Progress Note ---
Date of Service May 29, 2019 Assessment & Plan (1) Bimalleolar fracture of right ankle: - S/p right ankle bimalleolar ORIF with I&D on 05/25/19, POD #4. - Pain control with Tylenol, Tramadol and Dilaudid. - Ceftriaxone 1 gm IV q24hr due to open fracture and bronchitis. - Continue bowel regimen; has not had a BM since admission. - DVT ppx: Lovenox subQ daily. - PT/OT -- discharge to [facility] once medically stable. (2) Acute bronchitis: - Low grade fevers, tachycardia, worsening leukocytosis with bronchial wall thickening on CXR in setting of COPD. - Continue Ceftriaxone for open fracture & pulm infection; also started Azithromycin (Day 2 of 5) - Consider addition of steroids/nebs if necessary -- has had clinical improvement over last 24 hours. (3) Elevated LFTs: - LFTs are trending up overall -- pt. does report increased LFTs following TURP procedure in the past. - CT A/P in Dec 2018 showed mild periportal edema, otherwise negative. - Hepatitis panel negative (prelim); GGT was elevated. - RUQ US pending to evaluate liver; h/o cholecystectomy. - Holding home statin. (4) HTN (hypertension): - Continue Lisinopril 5 mg qhs. (5) HLD (hyperlipidemia): - Hold statin in setting of elevated LFTs. (6) Emphysema of lung: - Long smoking history, continues to smoke at this time. - Chest imaging with advanced emphysema; treatment for acute bronchitis as noted above. - Stable on room air. - Not on home medications for COPD -- will benefit from outpatient follow up for PFTs and addition of daily inhaler for chronic cough/SOB. (7) Tobacco abuse: - Smoked 2 PPD since age of 17. - Nicotine patch ordered; tobacco cessation encouraged. (8) Peripheral neuropathy: - Not currently on home meds. 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 - PT/OT evaluation, discharge to rehab. (10) Restless leg syndrome: - Continue Requip as prescribed. (11) Depression: - Continue Lexapro as prescribed. (12) Type 1 diabetes: - Hgb A1C was 7.3 in January 2019. - AM hypoglycemia -- decrease home Lantus to 20 units qhs and tighten SSI coverage. - Holding home NPH. (13) CAD (coronary artery disease), [place] coronary artery: - H/o CAD with CABG 1999; follows with Dr. Goodman. - Continue ASA, ACEI as prescribed; holding statin in setting of elevated LFTs. - Not on beta logan - may be related to orthostasis. (14) Hx of CABG: - As noted above. (15) DVT prophylaxis: - Lovenox daily. Dispo: Discharge to [facility] over next 24-48 hours pending results of RUQ US, improvement in LFTs. Supervising Physician Co-Signing Physician Notes PA Supervision Note: I did not personally see or examine the patient today, but I verified all lutz points of RANDA Lawrence's assessment and plan with the following excep tions/additions: None Subjective Pt. is doing well overall. Cough improved, does still have minimal sputum production. Denies ankle pain, chest pain, SOB, N/V. Is passing gas, no BM yet. Review of Systems Review of Systems: All systems reviewed & are unremarkable except as noted in HPI & below Constitutional: no fever, no chills, no fatigue, no weakness and no anorexia Respiratory: + cough; no change in sputum, no dyspnea and no dyspnea on exertion Cardiovascular: no chest pain, no palpitations and no edema Gastrointestinal: + constipation; no abdominal pain, no nausea and no vomiting Genitourinary: no difficulty urinating Musculoskeletal: no back pain and no joint pain Integumentary: no non-healing lesions Physical Exam Physical Exam: General: Resting comfortably in no apparent distress HEENT: NC/AT; PERRLA with EOMI; [place] conjunctiva, MMM. No erythema of posterior pharynx Neck: Supple and nontender Cardiac: RRR Lungs: on room air; wheezing noted in upper lung figueroa, diminished in lower lung figueroa. Abdomen: Bowel normoactive X 4; Nontender to palpation Extremities: Warm. No edema present Neuro: No focal weakness Skin: No rash Results & Data Vital Signs (Past 12 Hours) Vital Signs Temp Pulse Resp BP Pulse Ox 05/29/19 07:17 37.1 C 100 H 16 150/72 H 93 Laboratory Results 05/29/19 05/29/19 05/29/19 Range/Units 12:01 08:09 07:37 WBC (4.8-10.8) K/uL RBC (4.7-6.1) M/uL Hgb (14.0-18.0) g/dL Hct (42-52) % MCV (80-100) fL MCH (25-34) pg MCHC (32-36) g/dL RDW Std Deviation (36.4-46.3) fL RDW Coeff of Johnathan (11.5-14.5) % Plt Count (130-400) K/uL MPV (7.4-10.4) fL PT (9.0-12.0) Seconds INR (0.9-1.1) APTT (21.0-31.0) Seconds PTT Ratio Sodium (136-145) mmol/L Potassium (3.5-5.1) mmol/L Chloride (98-107) mmol/L Carbon Dioxide (21-32) mmol/L Anion Gap (3-11) BUN (7-18) mg/dl Creatinine (0.6-1.4) mg/dl Est Cr Clr Drug Dosing ml/min Est GFR ( Amer) Est GFR (Non-Af Amer) BUN/Creatinine Ratio (10-20) Glucose (70-99) mg/dl POC Glucose 257 H 129 H 128 H (70-99) Estimat Average Glucose mg/dl Hemoglobin A1c (4.5-5.6) % Calcium (8.5-10.1) mg/dl Total Bilirubin (0.2-1) mg/dl GGT (3-70) U/L AST (15-37) U/L ALT (12-78) U/L Alkaline Phosphatase (45-117) U/L Total Protein (6.4-8.2) gm/dl Albumin (3.4-5.0) gm/dl Globulin (2.5-4.0) gm/dl Albumin/Globulin Ratio (0.9-2) 05/29/19 05/29/19 05/29/19 Range/Units 06:01 06:01 06:01 WBC 12.77 H (4.8-10.8) K/uL RBC 3.85 L (4.7-6.1) M/uL Hgb 12.1 L (14.0-18.0) g/dL Hct 36.1 L (42-52) % MCV 93.8 (80-100) fL MCH 31.4 (25-34) pg MCHC 33.5 (32-36) g/dL RDW Std Deviation 51.1 H (36.4-46.3) fL RDW Coeff of Johnathan 14.8 H (11.5-14.5) % Plt Count 231 (130-400) K/uL MPV 11.5 H (7.4-10.4) fL PT (9.0-12.0) Seconds INR (0.9-1.1) APTT (21.0-31.0) Seconds PTT Ratio Sodium 140 (136-145) mmol/L Potassium 3.7 (3.5-5.1) mmol/L Chloride 104 (98-107) mmol/L Carbon Dioxide 31 (21-32) mmol/L Anion Gap 6.0 (3-11) BUN 12 (7-18) mg/dl Creatinine 0.88 (0.6-1.4) mg/dl Est Cr Clr Drug Dosing 71.2 ml/min Est GFR ( Amer) 94.7 Est GFR (Non-Af Amer) 81.7 BUN/Creatinine Ratio 13.6 (10-20) Glucose 92 (70-99) mg/dl POC Glucose (70-99) Estimat Average Glucose 189 mg/dl Hemoglobin A1c 8.2 H (4.5-5.6) % Calcium 8.6 (8.5-10.1) mg/dl Total Bilirubin 1.1 H (0.2-1) mg/dl GGT (3-70) U/L AST 168 H (15-37) U/L ALT 106 H (12-78) U/L Alkaline Phosphatase 284 H (45-117) U/L Total Protein 6.8 (6.4-8.2) gm/dl Albumin 2.5 L (3.4-5.0) gm/dl Globulin 4.3 H (2.5-4.0) gm/dl Albumin/Globulin Ratio 0.6 L (0.9-2) 05/29/19 05/28/19 05/28/19 Range/Units 05:32 20:37 16:48 WBC (4.8-10.8) K/uL RBC (4.7-6.1) M/uL Hgb (14.0-18.0) g/dL Hct (42-52) % MCV (80-100) fL MCH (25-34) pg MCHC (32-36) g/dL RDW Std Deviation (36.4-46.3) fL RDW Coeff of Johnathan (11.5-14.5) % Plt Count (130-400) K/uL MPV (7.4-10.4) fL PT (9.0-12.0) Seconds INR (0.9-1.1) APTT (21.0-31.0) Seconds PTT Ratio Sodium (136-145) mmol/L Potassium (3.5-5.1) mmol/L Chloride (98-107) mmol/L Carbon Dioxide (21-32) mmol/L Anion Gap (3-11) BUN (7-18) mg/dl Creatinine (0.6-1.4) mg/dl Est Cr Clr Drug Dosing ml/min Est GFR ( Amer) Est GFR (Non-Af Amer) BUN/Creatinine Ratio (10-20) Glucose (70-99) mg/dl POC Glucose 80 255 H 151 H (70-99) Estimat Average Glucose mg/dl Hemoglobin A1c (4.5-5.6) % Calcium (8.5-10.1) mg/dl Total Bilirubin (0.2-1) mg/dl GGT (3-70) U/L AST (15-37) U/L ALT (12-78) U/L Alkaline Phosphatase (45-117) U/L Total Protein (6.4-8.2) gm/dl Albumin (3.4-5.0) gm/dl Globulin (2.5-4.0) gm/dl Albumin/Globulin Ratio (0.9-2) 05/28/19 05/28/19 05/28/19 Range/Units 15:05 13:08 13:02 WBC (4.8-10.8) K/uL RBC (4.7-6.1) M/uL Hgb (14.0-18.0) g/dL Hct (42-52) % MCV (80-100) fL MCH (25-34) pg MCHC (32-36) g/dL RDW Std Deviation (36.4-46.3) fL RDW Coeff of Johnathan (11.5-14.5) % Plt Count (130-400) K/uL MPV (7.4-10.4) fL PT 12.6 H (9.0-12.0) Seconds INR 1.2 H (0.9-1.1) APTT 28.5 (21.0-31.0) Seconds PTT Ratio 1.1 Sodium (136-145) mmol/L Potassium (3.5-5.1) mmol/L Chloride (98-107) mmol/L Carbon Dioxide (21-32) mmol/L Anion Gap (3-11) BUN (7-18) mg/dl Creatinine (0.6-1.4) mg/dl Est Cr Clr Drug Dosing ml/min Est GFR ( Amer) Est GFR (Non-Af Amer) BUN/Creatinine Ratio (10-20) Glucose (70-99) mg/dl POC Glucose 315 H* 302 H* (70-99) Estimat Average Glucose mg/dl Hemoglobin A1c (4.5-5.6) % Calcium (8.5-10.1) mg/dl Total Bilirubin (0.2-1) mg/dl GGT (3-70) U/L AST (15-37) U/L ALT (12-78) U/L Alkaline Phosphatase (45-117) U/L Total Protein (6.4-8.2) gm/dl Albumin (3.4-5.0) gm/dl Globulin (2.5-4.0) gm/dl Albumin/Globulin Ratio (0.9-2) 05/28/19 05/28/19 Range/Units 12:59 08:57 WBC (4.8-10.8) K/uL RBC (4.7-6.1) M/uL Hgb (14.0-18.0) g/dL Hct (42-52) % MCV (80-100) fL MCH (25-34) pg MCHC (32-36) g/dL RDW Std Deviation (36.4-46.3) fL RDW Coeff of Johnathan (11.5-14.5) % Plt Count (130-400) K/uL MPV (7.4-10.4) fL PT (9.0-12.0) Seconds INR (0.9-1.1) APTT (21.0-31.0) Seconds PTT Ratio Sodium (136-145) mmol/L Potassium (3.5-5.1) mmol/L Chloride (98-107) mmol/L Carbon Dioxide (21-32) mmol/L Anion Gap (3-11) BUN (7-18) mg/dl Creatinine (0.6-1.4) mg/dl Est Cr Clr Drug Dosing ml/min Est GFR ( Amer) Est GFR (Non-Af Amer) BUN/Creatinine Ratio (10-20) Glucose (70-99) mg/dl POC Glucose 276 H (70-99) Estimat Average Glucose mg/dl Hemoglobin A1c (4.5-5.6) % Calcium (8.5-10.1) mg/dl Total Bilirubin (0.2-1) mg/dl GGT 257 H (3-70) U/L AST (15-37) U/L ALT (12-78) U/L Alkaline Phosphatase (45-117) U/L Total Protein (6.4-8.2) gm/dl Albumin (3.4-5.0) gm/dl Globulin (2.5-4.0) gm/dl Albumin/Globulin Ratio (0.9-2) PG Care Time/CCT Total # of Minutes Spent Total Time Spent with Patient: Total time spent is greater than 50% in coordination of care (as documented) at patient's floor/unit and/or counseling patient:
--- NOTE | 2019-05-29 13:46 | Ultrasound Report ---
ABDOMINAL ULTRASOUND, RIGHT UPPER QUADRANT HISTORY: Right upper quadrant pain. Elevated LFTs.. COMPARISON: Abdomen and pelvis CT 06/15/2016. FINDINGS: Pancreas: The obscured by overlying bowel gas. Liver: Unremarkable. Gallbladder: The gallbladder is surgically absent. CBD: 3 mm. Right kidney: No hydronephrosis. IMPRESSION: 1. Normal liver. 2. Cholecystectomy. 3. The pancreas was obscured by overlying bowel gas. Electronically signed by: Reuben Berman M.D. 05/29/2019 1:44 PM
[2019-05-29] MEDS: ENOXAPARIN INJ 40 MG/0.4 ML SYR SQ SCH (15:50)
[2019-05-29] MEDS ORDERED: INSULIN ASPART 100 UNITS/ML 3 ML PEN SC ONE (18:00)
[2019-05-29] MEDS: cefTRIAXone SODIUM 1,000 MG in DEXTROSE 5% 50 ML IV SCH (20:48)
[2019-05-29] MEDS: ESCITALOPRAM OXALATE 10 MG TAB PO SCH (20:50)
[2019-05-29] MEDS: LISINOPRIL 5 MG TAB PO SCH (20:51)
[2019-05-29] MEDS: ACETAMINOPHEN 500 MG TAB PO SCH (20:51)
[2019-05-29] MEDS: ROPINIROLE HCL 1 MG TABLET PO SCH (20:51)
[2019-05-29] MEDS: INSULIN GLARGINE SOLOSTAR 100 UNITS/ML 3 ML PEN SQ SCH (21:35)
[2019-05-30] MEDS: INSULIN ASPART 100 UNITS/ML 3 ML PEN SC SCH ×6 (00:41→21:33)
[2019-05-30] MEDS: CALCIUM CARBONATE 500 MG CHEWABLE TAB PO PRN (03:51)
[2019-05-30 05:52] LABS: Hematocrit (blood only) 36.7 % (42-52); Hemoglobin 12.5 g/dL (14.0-18.0); Mean Corpuscular Hgb Conc 34.1 g/dL (32-36); Mean Corpuscular Volume 94.8 fL (80-100); Platelet Count 270 K/uL (130-400); RDW Coefficient of Variation 14.7 % (11.5-14.5); RDW Standard Deviation 51.4 fL (36.4-46.3); Red Blood Count 3.87 M/uL (4.7-6.1); White Blood Count 14.26 K/uL (4.8-10.8)
[2019-05-30 06:06] LABS: INR 1.2 (0.9-1.1); Prothrombin Time 12.5 Seconds (9.0-12.0)
[2019-05-30 06:27] LABS: Albumin Level 2.5 gm/dl (3.4-5.0); BUN Creatinine Ratio 16.6 (10-20); Calcium 8.9 mg/dl (8.5-10.1); Creatinine Clr Calc Pharmacy 73.8 ml/min; Est GFR (African American) 96.1; Est GFR (Non-African American) 82.9; Potassium 3.6 mmol/L (3.5-5.1)
[2019-05-30 06:30] LABS: Albumin Globulin Ratio 0.6 (0.9-2); Bilirubin,Total 0.9 mg/dl (0.2-1); Globulin 4.5 gm/dl (2.5-4.0)
[2019-05-30] MEDS: DOCUSATE SODIUM 100 MG CAP PO SCH ×2 (07:42→21:29)
[2019-05-30] MEDS: SENNA 8.6 MG TAB PO SCH ×2 (07:42→21:30)
[2019-05-30] MEDS: ASPIRIN 81 MG ECTAB PO SCH (07:42)
[2019-05-30] MEDS: MULTIVITAMIN TAB PO SCH (07:42)
[2019-05-30] MEDS: AZITHROMYCIN 250 MG TAB PO SCH (07:42)
[2019-05-30] MEDS: POLYETHYLENE (MIRALAX) 17 GM PACK PO SCH ×2 (07:47→21:30)
--- NOTE | 2019-05-30 10:30 | Hospitalist Progress Note ---
Date of Service May 30, 2019 Assessment & Plan (1) Bimalleolar fracture of right ankle: - S/p right ankle bimalleolar ORIF with I&D on 05/25/19, POD #5. - Pain control with Tylenol, Tramadol and Dilaudid. - Dressings removed today. Incisions c/d/i. Periwound hematoma noted distally to the medial incision. Discussed findings with Dr. Lancaster; not uncommon post-op finding, and recommends to reapply dressings and pad the area well. Xeroform, 4x4s, abds, webril, and splint, and jodi bandage reapplied to RLE. - Continue bowel regimen with Miralax, senokot, and colace. Pt had not had a BM since admission, provided a Dulcolax suppository this afternoon and had BM. Reports he is feeling much better since having BM. - DVT ppx: Lovenox subQ daily. - PT/OT -- discharge to [facility] once medically stable. (2) Acute bronchitis: - Fevers have resolved. Pt continues to have tachycardia, worsening leukocytosis with bronchial wall thickening on CXR in setting of COPD. Inspiratory crackles noted on exam today. -Chest x-ray and EKG repeated today. No significant changes. Procalcitonin and CK noted to be normal. Lactate and troponin normal as well. - Peripheral smear ordered as well for leukocytosis. - D/c IV ceftrixone and azithromycin d/t worsening LFTs and elevated white count. Will switch him to Levaquin. (3) Elevated LFTs: - LFTs are trending up again today -- pt. does report increased LFTs following TURP procedure in the past. - CT A/P in Dec 2018 showed mild periportal edema, otherwise negative. - Hepatitis panel negative (prelim); GGT was elevated. - RUQ US pending to evaluate liver; h/o cholecystectomy. - Holding home statin. -Will D/c Rocephin and switch him to Levaquin. -Will check an ECHO to r/o CHF. - Repeat LFTs in AM. (4) HTN (hypertension): - Pt is hypertensive this morning at 165/82. Improved to 135/69 this afternoon. - Continue Lisinopril 5 mg qhs. - Continue to monitor. (5) HLD (hyperlipidemia): - Hold statin in setting of elevated LFTs. (6) Emphysema of lung: - Long smoking history, continues to smoke at this time. - No significant changes on chest x-ray today. - Stable on room air. - Not on home medications for COPD -- will benefit from outpatient follow up for PFTs and addition of daily inhaler for chronic cough/SOB. (7) Tobacco abuse: - Smoked 2 PPD since age of 17. - Nicotine patch ordered; tobacco cessation encouraged. (8) Peripheral neuropathy: - Not currently on home meds. 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 - PT/OT evaluation, discharge to rehab. (10) Restless leg syndrome: - Continue Requip as prescribed. (11) Depression: - Continue Lexapro as prescribed. (12) Type 1 diabetes: - Hgb A1C was 7.3 in January 2019. - Poor glycemic control while inpatient. ? contributing to confusion. Pharmacy has been consulted to aid in management. - Pt has been switched to Levaquin today as well. Will need to monitor for worsening hypoglycemia while on the abx. (13) CAD (coronary artery disease), [place] coronary artery: - H/o CAD with CABG 1999; follows with Dr. Goodman. - Continue ASA, ACEI as prescribed; holding statin in setting of elevated LFTs. - Not on beta logan - may be related to orthostasis. (14) Hx of CABG: - As noted above. (15) DVT prophylaxis: - Lovenox daily. Dispo: Discharge to [facility] when clinically stable. Supervising Physician Co-Signing Physician Notes BREA Supervision Note: I did not personally see or examine the patient today, but I verified all lutz points of BREA Madrigal's assessment and plan with the following exceptions/additions: None Subjective 78 yo male admitted with bimalleolar fracture of right ankle. Pt reports this morning that his RN thought he was confused. He states to her that he "feels off." He denies any chest pain, SOB, n/v, or pain. He is able to appropriately respond to questions this morning. Review of Systems Constitutional: no fever and no chills Eyes: no worsening vision Ear, Nose, Mouth, Throat: no dizziness Respiratory: no dyspnea Cardiovascular: no chest pain Gastrointestinal: no abdominal pain, no nausea and no vomiting Psychiatric: + confusion Physical Exam Physical Exam: Temp Pulse Resp BP Pulse Ox 36.9 C 109 H 20 165/82 H 95 05/30/19 07:30 05/30/19 07:30 05/30/19 07:30 05/30/19 07:44 05/30/19 07:30 Pt is hypertensive at 165/82 and tachycardic at 109. Constitutional: + thin; no acute distress ENMT: Ears: + hearing impairment (hard of hearing ) Neck: normal visual inspection Respiratory: no respiratory distress Auscultation: + crackles (bilateral lower lobe inspiratory crackles ) Cardiovascular: Rate/Rhythm: + tachycardic; + abnormal rhythm Gastrointestinal (Abdomen): Inspection/Auscultation: normal bowel sounds Percussion/Palpation: abdomen soft; abdomen nontender Psychiatric: Orientation: alert, oriented to person, oriented to place, oriented to time and cooperative Results & Data Vital Signs (Past 12 Hours) Vital Signs Temp Pulse Resp BP BP Pulse Ox 05/30/19 07:44 165/82 H 05/30/19 07:30 36.9 C 109 H 20 175/82 H 95 05/29/19 23:00 36.9 C 92 H 16 148/69 H 94 PG Care Time/CCT Total # of Minutes Spent Total Time Spent with Patient: Total time spent is greater than 50% in coordination of care (as documented) at patient's floor/unit and/or counseling patient:
--- NOTE | 2019-05-30 11:30 | XRay Report ---
XR chest 1V portable HISTORY: 78 years-old Male bilateral lower lobe crackles acute shortness of breath with bilateral chela ng base crackles COMPARISON: Chest radiograph 05/28/2019 TECHNIQUE: AP and lateral views of the chest FINDINGS: Cardiac mediastinal and hilar silhouettes appear unchanged. Prior median sternotomy with findings sug gestive of prior CABG. Mild unchanged interstitial coarsening noted about the right lung base with pe rsistent mild right hemidiaphragmatic elevation and bibasilar bronchial wall thickening. Emphysema. N o pneumothorax, pleural effusion or overt pulmonary edema. No lobar airspace consolidation. Degenerat leon changes of the shoulders and spine. IMPRESSION: 1. No focal airspace consolidation to suggest pneumonia. 2. Unchanged mild interstitial coarsening throughout the right lung base with mild bibasilar bronchia l wall thickening. Correlate clinically to exclude bronchitis. 3. Prior median sternotomy and CABG. 4. Emphysema. The above report was generated using voice recognition software. It may contain grammatical, syntax o r spelling errors. Electronically signed by: Chapito Zacarias M.D. 05/30/2019 11:29 AM
[2019-05-30] MEDS: levoFLOXacin 500 MG TAB PO SCH (12:32)
--- NOTE | 2019-05-30 14:48 | Pharmacy Report ---
Glycemic Control Progress Note - Date of Service May 30, 2019 - Scope Glycemic Pharmacist consulted for glycemic control to write orders per [facility] inpatient glycemic control protocol. - Objective Accuchecks BSG(last 24 hours):: 05/29/19 05/29/19 05/29/19 16:52 18:01 21:24 Glucose POC Glucose 292 H 276 H 169 H 05/30/19 05/30/19 05/30/19 00:06 03:23 03:43 Glucose POC Glucose 80 57 L* 83 05/30/19 05/30/19 05/30/19 05:37 07:29 08:04 Glucose 96 POC Glucose 77 100 H 05/30/19 12:04 Glucose POC Glucose 145 H HbA1c:: Hemoglobin A1c 8.2 % (4.5-5.6) H 05/29/19 06:01 - Recent Pertinent Medications The patient is currently receiving: * Basal insulin: Lantus 25 units every 24 hours * Correctional Insulin: Novolog Correction per scale ACHS Goal Range: Low 110 mg/dL - High 140 mg/dL Correction Factor: 20 mg/dL/unit * Prandial insulin: Per carb ratio of 1 unit per 5 grams CHO consumed - Outpatient Anti-Diabetic Meds Lantus 25-30 units nightly + NPH 5 units at bedtime Humalog - Assessment & Plan ASSESSMENT: * See progress note from 05/28/19 for more background info, in short: * Pt receiving SQ basal bolus insulin regimen for hyperglycemia secondary to baseline DM (outpatient regimen on hold), infection (now on Levaquin). * Patient is currently receiving an average of 44 units of insulin per day * 25 units of basal insulin * 19 units of prandial/correctional insulin * BSGs ranging 80 - 292 mg/dl over the past 24hrs * Changes needed to insulin regimen: * AM Fasting BSG = 77 mg/dl. This is below goal range for patient based on inpatient targets and co-morbidities. The patient was hypoglycemic at 0400 this morning. This was odd as the dose of Lantus given the day before was the same dose give on 05/28 - fasting blood sugar was trending up yesterday. Will reduce further to 22 units. The patient is requiring much less insulin inhouse. * Post-prandial BSGs are difficult to evaluate as the patient was NPO yesterday then was eating trays close together. Hopefully today's values will give us some perspective on CF/CR. Based upon what I have seen, the patient needs heavy carb coverage but less CF. Goal range increased. * Total daily dose = 40-50 units. PLAN FOR INPATIENT GLYCEMIC CONTROL: * Decreasing Lantus to 22 units SQ HS * Continuing correction factor of 20 mg/dl/unit * Continuing carb ratio of 1 unit per 5 grams CHO consumed * Continuing goal range of Low 110 mg/dL - High 140 mg/dL RECOMMENDATIONS FOR DISCHARGE: * see note from 05/28/19 * Please note that the plan above was derived based on current level of insulin resistance and hospital stress. These recommendations are appropriate for inpatient admission only. Plan of care upon discharge will need to be reassessed to avoid potential outpatient hypo/hyperglycemia. Thank you.
[2019-05-30] MEDS: ENOXAPARIN INJ 40 MG/0.4 ML SYR SQ SCH (17:32)
[2019-05-30] MEDS ORDERED: INSULIN GLARGINE SOLOSTAR 100 UNITS/ML 3 ML PEN SQ SCH (21:00)
[2019-05-30] MEDS: ESCITALOPRAM OXALATE 10 MG TAB PO SCH (21:29)
[2019-05-30] MEDS: ROPINIROLE HCL 1 MG TABLET PO SCH (21:29)
[2019-05-30] MEDS: LISINOPRIL 5 MG TAB PO SCH (21:29)
[2019-05-30] MEDS: ACETAMINOPHEN 500 MG TAB PO SCH (21:30)
[2019-05-31 07:40] LABS: Albumin Level 2.4 gm/dl (3.4-5.0); Bilirubin Direct 0.2 mg/dl (0-0.2); Bilirubin,Total 1.2 mg/dl (0.2-1); Total Protein 6.8 gm/dl (6.4-8.2)
[2019-05-31] MEDS: INSULIN ASPART 100 UNITS/ML 3 ML PEN SC SCH ×2 (09:03→12:50)
[2019-05-31] MEDS: DOCUSATE SODIUM 100 MG CAP PO SCH (09:05)
[2019-05-31] MEDS: ASPIRIN 81 MG ECTAB PO SCH (09:06)
[2019-05-31] MEDS: SENNA 8.6 MG TAB PO SCH (09:07)
[2019-05-31] MEDS: POLYETHYLENE (MIRALAX) 17 GM PACK PO SCH (09:07)
[2019-05-31] MEDS: MULTIVITAMIN TAB PO SCH (09:07)
[2019-05-31] MEDS: levoFLOXacin 500 MG TAB PO SCH (10:34)
--- NOTE | 2019-05-31 17:52 | Discharge Summary ---
Date of Service May 31, 2019 Admission HPI Per Admitting Provider This is a 78-year-old male with past medical history of DM type II, HTN, HLD, depression, osteoporosis, current tobacco use, smokes 2 packs/day since age 17, s/p left BKA, peripheral neuropathy, constipation who presents after fall sustained this morning. Patient's is present at bedside. The patient reports that he was attempting to put on his prosthetic leg and that hit was not put on correctly therefore he fell to the right onto the floor causing severe laceration to the right ankle. Patient denies any acute pain due to peripheral neuropathy at this time. He took all his morning medications. Patient ate breakfast at 6 AM today. Principal Diagnosis Right ankle fracture Discharge Exam Constitutional + thin; no acute distress ENMT Ears: + hearing impairment (hard of hearing ) Neck normal visual inspection Respiratory no respiratory distress Auscultation: + crackles (bilateral lower lobe inspiratory crackles ) Cardiovascular Rate/Rhythm: + tachycardic; + abnormal rhythm Gastrointestinal (Abdomen) Inspection/Auscultation: normal bowel sounds Percussion/Palpation: abdomen soft; abdomen nontender Psychiatric Orientation: alert, oriented to person, oriented to place, oriented to time and cooperative Discharge Data Allergies Allergy/AdvReac Type Severity Reaction Status Date / Time chlorpromazine Allergy Unknown "SHAKING" Verified 05/25/19 11:15 Insulins Allergy Unknown BEEF/PORK Verified 05/25/19 11:15 INSULINS lorazepam AdvReac Unknown DELUSIONS Verified 05/25/19 11:15 Consultations 05/25/19 11:00 Consult Case Management - Discharge Planning Routine 05/25/19 11:01 ED Decision to Admit Stat 05/25/19 12:42 Consult Orthopedic Surgery Routine Procedures Performed Operation Date: 05/25/19 10:40 Actual Procedures p Right Ankle Bimalleolar Fracture Open Reduction Internal Fixation,(Right) - Sesar Lancaster DO s irrigation and debridement(Right) - Sesar Lancaster DO Ordered Studies 05/25/19 FL ankle RT 2V Routine FL fluoroscopy <1hr Routine 05/29/19 08:18 US abdomen limited Urgent Hospital Course (1) Bimalleolar fracture of right ankle: - S/p right ankle bimalleolar ORIF with I&D on 05/25/19. - Pain control with Tylenol, Tramadol and Dilaudid. - Dressings removed today. Incisions c/d/i. Periwound hematoma noted distally to the medial incision. Not uncommon post-op finding, and recommends to reapply dressings and pad the area well. Xeroform, 4x4s, abds, webril, and splint, and jodi bandage reapplied to RLE. - Continue bowel regimen with Miralax, senokot, and colace. (2) Elevated LFTs: LFTs were normal on admission, but trended up to 180s. Tbili 1.2. Patient had an episode of this in January following a TURP, then everything returned to normal. RUQ u.s on this admission was normal. CT A/P in Dec 2018 showed mild periportal edema, otherwise negative. - Hepatitis panel was negative - Holding home statin. - Will need recheck of LFTs in 1 week. If not returning to normal, consider GI consult as outpatient. (3) Acute bronchitis: - Fevers have resolved. Shortness of breath resolved. - Procalcitonin and CK noted to be normal. Lactate and troponin normal as well. - Was on abx x 5+ days. On discharge, he had returned to normal. (4) HTN (hypertension): - Pt is hypertensive this morning at 165/82. Improved to 135/69 this afternoon. - Continue Lisinopril 5 mg qhs. - Continue to monitor. (5) HLD (hyperlipidemia): - Hold statin in setting of elevated LFTs. (6) Emphysema of lung: - Long smoking history, continues to smoke at this time. - No significant changes on chest x-ray - Stable on room air. - Not on home medications for COPD -- will benefit from outpatient follow up for PFTs and addition of daily inhaler for chronic cough/SOB. (7) Tobacco abuse: - Smoked 2 PPD since age of 17. - Nicotine patch ordered; tobacco cessation encouraged. (8) Peripheral neuropathy: - Not currently on home meds. 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 - PT/OT evaluation, discharge to rehab. (10) Restless leg syndrome: - Continue Requip as prescribed. (11) Depression: - Continue Lexapro as prescribed. (12) Type 1 diabetes: - Hgb A1C was 7.3 in January 2019. - Poor glycemic control while inpatient. ? contributing to confusion. Pharmacy has been consulted to aid in management. - Pt has been switched to Levaquin today as well. Will need to monitor for worsening hypoglycemia while on the abx. (13) CAD (coronary artery disease), [place] coronary artery: - H/o CAD with CABG 1999; follows with Dr. Goodman. - Continue ASA, ACEI as prescribed; holding statin in setting of elevated LFTs. - Not on beta logan - may be related to orthostasis. (14) Hx of CABG: - As noted above. (15) DVT prophylaxis: - Lovenox daily. Dispo: Discharge to [facility] when clinically stable. Total Time Total Time Spent Total Time Spent (In Minutes): 35 Total Time Includes: Examination of the Patient and Communication With Other Providers Discharge Plan Discharge Items Patient Disposition: Transfer Inpatient Rehab Fac Reason For Visit: ankle fracture Discharge Diagnosis: Ankle fracture; elevated liver enzymes Discharge Goals: Diagnostic testing and Improve function Activity: Per 'Additional Instructions' section Weightbearing: Right non-weightbearing Non-emergency contact: Primary Care Provider and Surgeon Call non-emergency contact if: you have any medication questions and your symptoms worsen Follow-up/Referrals: Damián Goodman MD [Primary Care Provider] - Sesar Lancaster DO [Physician] - Diet: Regular Addtl Provider Instructions: Please follow up with Dr. Goodman in 1-2 weeks. Please have your liver enzymes checked in 1 week to be sure they're improving. Please hold your statin until they have resolved. ORTHOPEDIC INSTRUCTIONS Activity Recommendations: Nonweightbearing to the right lower extremity Dressing Care: Leave the trauma splint in place until follow-up appointment. Showering: Do not get trauma splint wet. Things To Watch For: 1. Drainage from the incision site that occurs more than one week after your surgery. 2. Increased redness at the incision site. 3. Fever above 102 degrees Fahrenheit. 4. Unusual chest pain or shortness of breath. 5. Call [facility] at with any of the above problems Follow-Up Visit: Follow-up with Dr. Lancaster 2-3 weeks after your day of surgery. Please call to make an appointment or be sure your rehab facility has made one. If you have any questions call Prescriptions: New baclofen 10 mg Tablet 10 mg PO TID PRN (Reason: muscle spasm) Qty: 1 RF: 0 Continued aspirin [Aspir-81] 81 mg Tablet,Delayed Release (Dr/Ec) 162 mg PO QAM RF: 0 insulin NPH isoph U-100 human 100 unit/mL Suspension 5 unit SUBCUT HS RF: 0 insulin lispro [Humalog U-100 Insulin] 100 unit/mL Solution 1 sliding scale dose SUBCUT AC RF: 0 insulin glargine 100 unit/mL (3 mL) insulin pen 25 - 30 units subcut HS RF: 0 calcium carbonate [Tums] 200 mg calcium (500 mg) Tablet,Chewable 2 tabs PO UD PRN (Reason: Gi Upset) RF: 0 ropinirole 1 mg tablet 1 mg PO HS RF: 0 escitalopram oxalate 10 mg tablet 10 mg PO QAM RF: 0 polyethylene glycol 3350 [Miralax] 17 gram/dose Powder 17 g PO HS RF: 0 lisinopril 5 mg tablet 5 mg PO HS RF: 0 diphenhydramine-acetaminophen [Tylenol PM Extra Strength] 25-500 mg Tablet 2 tab PO HS RF: 0 cholecalciferol (vitamin D3) 1,000 unit Tablet 1,000 unit PO QAM RF: 0 docusate sodium [Stool Softener] 100 mg Tablet 100 mg PO HS RF: 0 Discontinued rosuvastatin 40 mg tablet 40 mg PO HS RF: 0 Stand-Alone Forms: [facility] Discharge Orders: Discharge Order (Routine); Ordered 05/31/19 Ordered By: Richmond Martinez Skilled Items Patient informed of condition?: Yes DNR: No Discharge Level of Care: Acute rehab Communicable Disease: No Discharge Prognosis: Stable Admission Data Admit Date/Time: 05/25/19 11:00 Attending Provider: Richmond Martinez Admit Provider: Kyle Schmitt Primary Care Provider: Damián Goodman Other Providers: Ranjit Price ; Richmond Martinez Service: Medical Other Interventions: Discharge Summary Assessment (RN) Last Done: 05/31/19 11:50 DC Date/Time DO NOT enter until pt leaves facility: 05/31/19 14:36
[2019-05-31] MEDS ORDERED: INSULIN GLARGINE SOLOSTAR 100 UNITS/ML 3 ML PEN SQ SCH (21:00)
== END 2019-05-31 14:36 | DRG 494 ==
LOC: ED 09:43 → 3W 11:00 → SUATTDRO 11:00 → 3W 11:40
DX: F32.9 Major depressive disorder, single episode, unspecified; Z90.49 Acquired absence of other specified parts of digestive tract; S82.841B Displaced bimalleolar fracture of right lower leg, initial encounter for open fracture type I or II; W19.XXXA Unspecified fall, initial encounter; G25.81 Restless legs syndrome; E78.5 Hyperlipidemia, unspecified; Z79.82 Long term (current) use of aspirin; R79.89 Other specified abnormal findings of blood chemistry; I10 Essential (primary) hypertension; J20.9 Acute bronchitis, unspecified; Z89.512 Acquired absence of left leg below knee; M81.0 Age-related osteoporosis without current pathological fracture; F17.210 Nicotine dependence, cigarettes, uncomplicated; I25.2 Old myocardial infarction; Z79.4 Long term (current) use of insulin; J43.9 Emphysema, unspecified; E11.9 Type 2 diabetes mellitus without complications

== ENCOUNTER 2021-10-03 11:32 | Observation (INO) ==
[2021-10-03] MEDS ORDERED: SODIUM CHLORIDE 0.9% 1000ML 1,000 ML IV SCH (12:00)
--- NOTE | 2021-10-03 12:14 | Emergency Department Note ---
Impression & Plan Hyperglycemia due to type 1 diabetes mellitus, Acute UTI, Pleural effusion, right, Generalized weakness, Non-ST elevation CA (NSTEMI) ED Provider Note Provider: Sorin Singh MD DATE OF SERVICE: 10/03/2021 CHIEF COMPLAINT: Weakness, elevated blood sugar HISTORY OF PRESENT ILLNESS: Patient is a 81-year-old gentleman past medical history including insulin-dependent diabetes, CAD status post CABG, tobacco use, chronic dyspnea followed by pulmonology, and TURP presenting today via ambulance reporting increased generalized weakness and elevated blood sugars. Evidently over the last 2 to 3 days the patient's been feeling more weak and his blood sugars have been quite high 400s to undetectably high this morning. Patient states has been try to use more insulin at home. Denies any significant nausea, vomiting, abdominal pain. Denies chest pain. States his breathing is not the best at baseline and he continues to smoke but this is minimal right now. States he has chronic neuropathic pain in his extremities small wound on the left BKA from prosthetic that he has been wound caring over the past week. Son reports the patient's recently had a fall and has been convalescing at home with additional help from the family and the patient states that stress may be affecting him as well. He denies URI symptoms. States he did eat breakfast and did take insulin this morning. Patient states his ambulatory status has declined he went from using a cane to a walker and has been very sedentary now. REVIEW OF SYSTEMS: A total of 10 review of systems was obtained and negative e xcept as stated above in the HPI. PAST MEDICAL HISTORY: As noted above MEDICATIONS: Reviewed home medications SOCIAL HISTORY: Lives at home with , smoker PHYSICAL EXAM: GENERAL: alert and oriented in no acute distress on stretcher Head: normocephalic and atraumatic EYES: No injection, discharge or icterus. NECK: Trachea midline. Supple. ENT: Mucous membranes pink and moist. LUNGS: Airway patent. No retractions. Breath sounds clear HEART: Regular rate and rhythm. No chest wall tenderness ABDOMEN: Soft and non-tender, without guarding or rebound. SKIN: Acyanotic, warm, dry, without rashes EXTREMITIES: Without swelling, tenderness or deformity except for a left BKA with a small approximately 2 x 1 cm granulating subcutaneous wound to the left medial proximal stump without significant crepitus or discharge. Minimal erythema here. NEUROLOGICAL: Moving all extremities. No aphasia. No facial droop or slurred speech. EK bpm sinus rhythm with PVC. No acute ST segment elevation with a left axis/incomplete right bundle branch block and a QTC of 434. Comparison to pr evious from January 31 of this year improvement of previous ST segment elevation. CONTINUOUS CARDIAC MONITORING: was ordered and showed a heart rate of 70s to 90sbpm in sinus rhythm Patient's laboratory studies and imaging reviewed. Differential includes Infection, dehydration, metabolic abnormality, hypo/hyperglycemia, electrolyte disturbance, anemia, hypoxia, cardiac sources, intracerebral event, toxicologic, neurologic, as well as other pathologies. IMPRESSION/MEDICAL DECISION MAKING: Patient with several days of some generalized weakness elevated blood sugars. Patient without significant focal deficit and doubt this represents stroke or intracranial bleed. Blood work not indicative of acute DKA. Mild leukocytosis somewhat improved compared to previous. Troponin interestingly does return elevated 0.115 but the patient again denies significant chest pain. EKG actually somewhat improved compared to previous and does not show STEMI. Given aspirin here in the ER. Given some fluid hydration and additional amount of subcutaneous insulin. Procalcitonin 0.14 and doubt sepsis. However urine sample appears infected and given a dose of ceftriaxone. CT of the chest without evidence of PE and emphysematous change but significant right-sided pleural effusion likely contributing to his symptoms. Do not see clear evidence of pneumonia at this time based on the CT report. The patient did receive initially some IV fluids given his hyperglycemia. Will defer any additional at this point. Discussed with the hospitalist for further care here at the hospital. Diagnosis: Weakness, hyperglycemia secondary to type 1 diabetes, NSTEMI, acute UTI, right pleural effusion DISPOSITION: Hospitalist will evaluate Patient was agreeable with this plan. Critical Care I have personally spent 33 minutes of critical care time in the direct management of this patient. This includes bedside care, interpretation of diagnostic studies, and testing, discussion with consultants, patient, and family members, and other required patient management activities. These 33 minutes is in excess of all separately billable procedures. Past Med/Surg History Medical History (Updated 10/03/21 @ 17:23 by Sorin Singh M.D.) Abnormal CT scan, esophagus Atherosclerosis of both carotid arteries Bilateral diabetic retinopathy BPH without obstruction/lower urinary tract symptoms CAD (coronary artery disease) S/p 3 vessel CABG 2000- follows Dr. 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, with long-term current use of insulin COPD (chronic obstructive pulmonary disease) Cough Dyslipidemia Elevated LFTs Elevated PSA Emphysema of lung Diagnosed by CT scan Esophageal abnormality Gross hematuria Related to UTI - now resolved Hard of hearing extreme per > have to speak very loud History of depression History of CA (myocardial infarction) (2000) 2000> cabg HTN (hypertension) Lung nodule Male erectile disorder of organic origin Peripheral neuropathy Peripheral vascular disease S/p BKA on left side Phantom limb (syndrome) left leg Restless leg Solitary lung nodule Tobacco abuse Tobacco abuse Trigger finger Surgical History H/O eye surgery bilat cataracts History of bronchoscopy 01/31/21 with biopsy History of cholecystectomy History of esophagogastroduodenoscopy (EGD) History of left below knee amputation History of tooth extraction History of transurethral resection of prostate S/P CABG (coronary artery bypass graft) (2000) 2000 > triple > [facility] > follows with Dr. Goodman Status post open reduction with internal fixation (ORIF) of fracture of ankle (2019) right Family History Father , in his 70s Diabetes Mother , 62yo Cervical cancer Sister No problems noted. Sister No problems noted. Son No problems noted. Son No problems noted. Son No problems noted. Son Diabetes Daughter No problems noted. Other No family history of adverse response to anesthesia Social History Smoking Status: Current every day smoker Tobacco Type: Cigarettes Cigarettes Per Day: unknown; Second Hand Exposure: No; Do You Dip or Chew Tobacco: No; Tobacco Cessation Education Requested by Patient: No Hx Alcohol Use: No Hx Substance Use: No Preferred Language: Spanish Communication Ability: Effective Visual Impairment: No Limitations Hearing Ability: Hard of Hearing Administrative Assistant Receptionist Required: No Beliefs That Will Affect Care: None marital status: Current Living Situation: Spouse Current Living Situation Comment: home w/ - children help with care current occupational status: retired current occupation: Retired from [employer] Other Information That Helps Us Care for You: No Feels Safe at Home: Yes Safety Concerns: Feels Safe At This Time caffeine: Yes (2-4 cups/day) during the past year weight has: decreased > 10 lbs Assistive Devices: Denture - Upper, Denture - Lower, Glasses and Walker Allergies Allergies Allergy/AdvReac Type Severity Reaction Status Date / Time Insulins Allergy Intermediate BEEF/PORK Verified 08/17/21 10:13 INSULINS lorazepam AdvReac Intermediate DELUSIONS Verified 08/17/21 10:13 chlorpromazine AdvReac Mild "SHAKING" Verified 08/17/21 10:13 Home Meds Home Medications Medication Instructions Recorded Confirmed cholecalciferol (vitamin D3) 25 1,000 unit PO QAM 01/11/19 10/03/21 mcg (1,000 unit) tablet (Vitamin D3) albuterol sulfate 90 mcg/actuation 2 puffs INHALATION Q6H PRN #1 gm 08/02/19 10/03/21 aerosol inhaler (Ventolin HFA) diphenhydramine 25 1 tab PO HS tab 07/04/20 10/03/21 mg-acetaminophen 500 mg tablet (Tylenol PM Extra Strength) losartan 25 mg tablet (Cozaar) 25 mg PO HS 01/26/21 10/03/21 docusate sodium 100 mg capsule 100 mg PO QAM 03/01/21 10/03/21 (Colace) insulin NPH isoph U-100 human 100 5 unit SUBCUT HS 03/01/21 10/03/21 unit/mL subcutaneous suspension insulin lispro 100 unit/mL See Rx Instructions .ROUTE TID ml 03/01/21 10/03/21 subcutaneous pen (Humalog KwikPen (U-100) Insulin) polyethylene glycol 3350 17 17 g PO DAILY PRN 03/01/21 10/03/21 gram/dose oral powder (Miralax) aspirin 81 mg tablet,delayed 81 mg PO Q2D 07/24/21 10/03/21 release (Aspirin Low Dose) escitalopram oxalate 10 mg tablet 10 mg PO QAM 07/24/21 10/03/21 (Lexapro) insulin glargine 100 unit/mL (3 20 - 25 unit SQ HS 07/24/21 10/03/21 mL) subcutaneous pen (Lantus Solostar U-100 Insulin) rosuvastatin 20 mg tablet (Crestor) 20 mg PO Q2D 07/24/21 10/03/21 tiotropium bromide 1.25 2 puff INHALATION QAM 07/24/21 10/03/21 mcg/actuation mist for inhalation (Spiriva Respimat) Previous Rx's Medication Instructions Recorded ropinirole 1 mg tablet 1 mg PO HS #90 tab 02/14/21 omeprazole 20 mg capsule,delayed 20 mg PO BID #60 cap 08/13/21 release albuterol sulfate 90 mcg/actuation 1 inh INHALATION QID PRN #8.5 g 08/17/21 aerosol inhaler Results & Data (ED) Vital Signs Vital Signs - 24 hr 10/03/21 11:52 10/03/21 12:33 10/03/21 12:40 Temperature 37.6 C H Temperature Source Oral Pulse Rate 84 81 82 Pulse Rate [Right Finger] Pulse Rate from SpO2 Sensor 82 82 Pulse Rhythm Regular Pulse Strength Normal Respiratory Rate 18 20 24 Respiratory Effort / Characteristics Non-Labored Respiratory Depth Normal Respiratory Pattern Regular Blood Pressure 141/7 H Blood Pressure Mean 51 Pulse Oximetry 95 95 92 Oxygen Delivery Method Nasal Cannula Oxygen Flow Rate 2 Sepsis Recent Fever Within 48 Hours No Sepsis New/Unexplained Change in Mental Status No Sepsis Action Taken by Nursing No Action Required 10/03/21 12:50 10/03/21 13:00 10/03/21 13:10 Temperature Temperature Source Pulse Rate 78 77 85 Pulse Rate [Right Finger] Pulse Rate from SpO2 Sensor 78 84 Pulse Rhythm Pulse Strength Respiratory Rate 17 21 24 Respiratory Effort / Characteristics Respiratory Depth Respiratory Pattern Blood Pressure Blood Pressure Mean Pulse Oximetry 97 96 Oxygen Delivery Method Oxygen Flow Rate Sepsis Recent Fever Within 48 Hours Sepsis New/Unexplained Change in Mental Status Sepsis Action Taken by Nursing 10/03/21 13:20 10/03/21 13:30 10/03/21 13:47 Temperature Temperature Source Pulse Rate 82 93 H 84 Pulse Rate [Right Finger] Pulse Rate from SpO2 Sensor 79 93 H Pulse Rhythm Pulse Strength Respiratory Rate 20 18 22 Respiratory Effort / Characteristics Respiratory Depth Respiratory Pattern Blood Pressure Blood Pressure Mean Pulse Oximetry 96 96 Oxygen Delivery Method Oxygen Flow Rate Sepsis Recent Fever Within 48 Hours Sepsis New/Unexplained Change in Mental Status Sepsis Action Taken by Nursing 10/03/21 13:50 10/03/21 14:00 10/03/21 14:10 Temperature Temperature Source Pulse Rate 81 81 79 Pulse Rate [Right Finger] Pulse Rate from SpO2 Sensor 82 78 Pulse Rhythm Pulse Strength Respiratory Rate 18 21 22 Respiratory Effort / Characteristics Respiratory Depth Respiratory Pattern Blood Pressure 126/73 140/79 Blood Pressure Mean 90 99 Pulse Oximetry 99 99 Oxygen Delivery Method Oxygen Flow Rate Sepsis Recent Fever Within 48 Hours Sepsis New/Unexplained Change in Mental Status Sepsis Action Taken by Nursing 10/03/21 14:20 10/03/21 14:27 10/03/21 14:30 Temperature Temperature Source Pulse Rate 81 79 Pulse Rate [Right Finger] 84 Pulse Rate from SpO2 Sensor 81 81 Pulse Rhythm Pulse Strength Respiratory Rate 14 22 22 Respiratory Effort / Characteristics Non-Labored Spontaneous Respiratory Depth Respiratory Pattern Blood Pressure Blood Pressure Mean Pulse Oximetry 98 94 100 Oxygen Delivery Method Room Air Oxygen Flow Rate Sepsis Recent Fever Within 48 Hours Sepsis New/Unexplained Change in Mental Status Sepsis Action Taken by Nursing 10/03/21 14:43 10/03/21 14:50 10/03/21 15:00 Temperature Temperature Source Pulse Rate 82 83 83 Pulse Rate [Right Finger] Pulse Rate from SpO2 Sensor 82 86 Pulse Rhythm Pulse Strength Respiratory Rate 21 22 22 Respiratory Effort / Characteristics Respiratory Depth Respiratory Pattern Blood Pressure Blood Pressure Mean Pulse Oximetry 90 99 Oxygen Delivery Method Oxygen Flow Rate Sepsis Recent Fever Within 48 Hours Sepsis New/Unexplained Change in Mental Status Sepsis Action Taken by Nursing Laboratory Data Result diagrams: 10/03/21 11:45 10/03/21 11:45 Lab Results 10/03/21 10/03/21 10/03/21 Range/Units 11:45 11:45 11:45 WBC 11.09 H (4.8-10.8) K/uL RBC 4.87 (4.7-6.1) M/uL Hgb 11.2 L (14.0-18.0) g/dL Hct 37.9 L (42-52) % MCV 77.8 L (80-100) fL MCH 23.0 L (25-34) pg MCHC 29.6 L (32-36) g/dL RDW Std Deviation 52.8 H (36.4-46.3) fL RDW Coeff of Johnathan 18.6 H (11.5-14.5) % Plt Count 236 (130-400) K/uL MPV 10.5 H (7.4-10.4) fL Immature Gran % (Auto) 0.2 % Neut % (Auto) 87.0 % Lymph % (Auto) 5.8 % [place] % (Auto) 6.5 % Eos % (Auto) 0.4 % Baso % (Auto) 0.1 % Neut # (Auto) 9.66 H (1.4-6.5) K/uL Lymph # (Auto) 0.64 L (1.2-3.4) K/uL [place] # (Auto) 0.72 H (0.11-0.59) K/uL Eos # (Auto) 0.04 (0-0.5) K/uL Baso # (Auto) 0.01 (0-0.2) K/uL Immature Gran # (Auto) 0.02 (0.00-0.02) K/uL PT 13.0 H (9.0-12.0) Seconds INR 1.3 H (0.9-1.1) VBG pH (7.36-7.41) VBG pCO2 (38-50) mmHg VBG pO2 mmHg VBG HCO3 mmol/L VBG O2 Saturation % VBG Base Excess mEq/L Barometric Pressure mm/Hg Sodium 138 (136-145) mmol/L Potassium 3.9 (3.5-5.1) mmol/L Chloride 107 (98-107) mmol/L Carbon Dioxide 25 (21-32) mmol/L Anion Gap 7.0 (3-11) BUN 24 H (7-18) mg/dl Creatinine 1.22 (0.6-1.4) mg/dl Est Cr Clr Drug Dosing 49.3 ml/min Est GFR ( Amer) 63.6 ml/min Est GFR (Non-Af Amer) 54.9 ml/min BUN/Creatinine Ratio 19.3 (10-20) Glucose 399 H* (70-99) mg/dl POC Glucose (70-99) mg/dl Lactate (0.4-2.0) mmol/L Calcium 8.8 (8.5-10.1) mg/dl Magnesium 2.3 (1.8-2.4) mg/dl Total Bilirubin 1.4 H (0.2-1) mg/dl AST 23 (15-37) U/L ALT 35 (12-78) U/L Alkaline Phosphatase 147 H (45-117) U/L Troponin I 0.115 H* (0-0.045) ng/ml Total Protein 6.6 (6.4-8.2) gm/dl Albumin 2.4 L (3.4-5.0) gm/dl Globulin 4.2 H (2.5-4.0) gm/dl Albumin/Globulin Ratio 0.6 L (0.9-2) Beta-Hydroxybutyric Acd 1.48 (0.2-2.81) mg/dl Procalcitonin (0-0.5) ng/ml TSH 5.040 H (0.300-4.500) uIu/ml Free T4 1.18 (0.8-1.6) ng/dl Urine Color Urine Appearance (Clear) Urine pH (4.5-7.5) Ur Specific [place] (1.000-1.030) Urine Protein (Negative) Urine Glucose (UA) (Negative) Urine Ketones (Negative) Urine Blood (Negative) Urine Nitrite (Negative) Urine Bilirubin (Negative) Urine Urobilinogen (Negative) Ur Leukocyte Esterase (Negative) Urine WBC (Auto) (0-5) /hpf Urine RBC (Auto) (0-4) /hpf U Hyaline Cast (Auto) (0-5) /lpf U Epithel Cells (Auto) (0-5) /lpf Urine Bacteria (Auto) (Negative) Urine Yeast COVID-19 Eval Order SARS-CoV-2 (PCR) (Negative) 10/03/21 10/03/21 10/03/21 Range/Units 11:45 12:03 12:25 WBC (4.8-10.8) K/uL RBC (4.7-6.1) M/uL Hgb (14.0-18.0) g/dL Hct (42-52) % MCV (80-100) fL MCH (25-34) pg MCHC (32-36) g/dL RDW Std Deviation (36.4-46.3) fL RDW Coeff of Johnathan (11.5-14.5) % Plt Count (130-400) K/uL MPV (7.4-10.4) fL Immature Gran % (Auto) % Neut % (Auto) % Lymph % (Auto) % [place] % (Auto) % Eos % (Auto) % Baso % (Auto) % Neut # (Auto) (1.4-6.5) K/uL Lymph # (Auto) (1.2-3.4) K/uL [place] # (Auto) (0.11-0.59) K/uL Eos # (Auto) (0-0.5) K/uL Baso # (Auto) (0-0.2) K/uL Immature Gran # (Auto) (0.00-0.02) K/uL PT (9.0-12.0) Seconds INR (0.9-1.1) VBG pH (7.36-7.41) VBG pCO2 (38-50) mmHg VBG pO2 mmHg VBG HCO3 mmol/L VBG O2 Saturation % VBG Base Excess mEq/L Barometric Pressure mm/Hg Sodium (136-145) mmol/L Potassium (3.5-5.1) mmol/L Chloride (98-107) mmol/L Carbon Dioxide (21-32) mmol/L Anion Gap (3-11) BUN (7-18) mg/dl Creatinine (0.6-1.4) mg/dl Est Cr Clr Drug Dosing ml/min Est GFR ( Amer) ml/min Est GFR (Non-Af Amer) ml/min BUN/Creatinine Ratio (10-20) Glucose (70-99) mg/dl POC Glucose 404 H* (70-99) mg/dl Lactate 2.0 (0.4-2.0) mmol/L Calcium (8.5-10.1) mg/dl Magnesium (1.8-2.4) mg/dl Total Bilirubin (0.2-1) mg/dl AST (15-37) U/L ALT (12-78) U/L Alkaline Phosphatase (45-117) U/L Troponin I (0-0.045) ng/ml Total Protein (6.4-8.2) gm/dl Albumin (3.4-5.0) gm/dl Globulin (2.5-4.0) gm/dl Albumin/Globulin Ratio (0.9-2) Beta-Hydroxybutyric Acd (0.2-2.81) mg/dl Procalcitonin 0.14 (0-0.5) ng/ml TSH (0.300-4.500) uIu/ml Free T4 (0.8-1.6) ng/dl Urine Color Urine Appearance (Clear) Urine pH (4.5-7.5) Ur Specific [place] (1.000-1.030) Urine Protein (Negative) Urine Glucose (UA) (Negative) Urine Ketones (Negative) Urine Blood (Negative) Urine Nitrite (Negative) Urine Bilirubin (Negative) Urine Urobilinogen (Negative) Ur Leukocyte Esterase (Negative) Urine WBC (Auto) (0-5) /hpf Urine RBC (Auto) (0-4) /hpf U Hyaline Cast (Auto) (0-5) /lpf U Epithel Cells (Auto) (0-5) /lpf Urine Bacteria (Auto) (Negative) Urine Yeast COVID-19 Eval Order SARS-CoV-2 (PCR) (Negative) 10/03/21 10/03/21 10/03/21 Range/Units 12:25 13:10 13:10 WBC (4.8-10.8) K/uL RBC (4.7-6.1) M/uL Hgb (14.0-18.0) g/dL Hct (42-52) % MCV (80-100) fL MCH (25-34) pg MCHC (32-36) g/dL RDW Std Deviation (36.4-46.3) fL RDW Coeff of Johnathan (11.5-14.5) % Plt Count (130-400) K/uL MPV (7.4-10.4) fL Immature Gran % (Auto) % Neut % (Auto) % Lymph % (Auto) % [place] % (Auto) % Eos % (Auto) % Baso % (Auto) % Neut # (Auto) (1.4-6.5) K/uL Lymph # (Auto) (1.2-3.4) K/uL [place] # (Auto) (0.11-0.59) K/uL Eos # (Auto) (0-0.5) K/uL Baso # (Auto) (0-0.2) K/uL Immature Gran # (Auto) (0.00-0.02) K/uL PT (9.0-12.0) Seconds INR (0.9-1.1) VBG pH 7.46 H (7.36-7.41) VBG pCO2 39 (38-50) mmHg VBG pO2 50 mmHg VBG HCO3 27 mmol/L VBG O2 Saturation 83.6 % VBG Base Excess 2.6 mEq/L Barometric Pressure 735.8 mm/Hg Sodium (136-145) mmol/L Potassium (3.5-5.1) mmol/L Chloride (98-107) mmol/L Carbon Dioxide (21-32) mmol/L Anion Gap (3-11) BUN (7-18) mg/dl Creatinine (0.6-1.4) mg/dl Est Cr Clr Drug Dosing ml/min Est GFR ( Amer) ml/min Est GFR (Non-Af Amer) ml/min BUN/Creatinine Ratio (10-20) Glucose (70-99) mg/dl POC Glucose (70-99) mg/dl Lactate (0.4-2.0) mmol/L Calcium (8.5-10.1) mg/dl Magnesium (1.8-2.4) mg/dl Total Bilirubin (0.2-1) mg/dl AST (15-37) U/L ALT (12-78) U/L Alkaline Phosphatase (45-117) U/L Troponin I (0-0.045) ng/ml Total Protein (6.4-8.2) gm/dl Albumin (3.4-5.0) gm/dl Globulin (2.5-4.0) gm/dl Albumin/Globulin Ratio (0.9-2) Beta-Hydroxybutyric Acd (0.2-2.81) mg/dl Procalcitonin (0-0.5) ng/ml TSH (0.300-4.500) uIu/ml Free T4 (0.8-1.6) ng/dl Urine Color Urine Appearance (Clear) Urine pH (4.5-7.5) Ur Specific [place] (1.000-1.030) Urine Protein (Negative) Urine Glucose (UA) (Negative) Urine Ketones (Negative) Urine Blood (Negative) Urine Nitrite (Negative) Urine Bilirubin (Negative) Urine Urobilinogen (Negative) Ur Leukocyte Esterase (Negative) Urine WBC (Auto) (0-5) /hpf Urine RBC (Auto) (0-4) /hpf U Hyaline Cast (Auto) (0-5) /lpf U Epithel Cells (Auto) (0-5) /lpf Urine Bacteria (Auto) (Negative) Urine Yeast COVID-19 Eval Order Covid19 at [facility] SARS-CoV-2 (PCR) NEGATIVE (Negative) 10/03/21 10/03/21 Range/Units 13:31 14:59 WBC (4.8-10.8) K/uL RBC (4.7-6.1) M/uL Hgb (14.0-18.0) g/dL Hct (42-52) % MCV (80-100) fL MCH (25-34) pg MCHC (32-36) g/dL RDW Std Deviation (36.4-46.3) fL RDW Coeff of Johnathan (11.5-14.5) % Plt Count (130-400) K/uL MPV (7.4-10.4) fL Immature Gran % (Auto) % Neut % (Auto) % Lymph % (Auto) % [place] % (Auto) % Eos % (Auto) % Baso % (Auto) % Neut # (Auto) (1.4-6.5) K/uL Lymph # (Auto) (1.2-3.4) K/uL [place] # (Auto) (0.11-0.59) K/uL Eos # (Auto) (0-0.5) K/uL Baso # (Auto) (0-0.2) K/uL Immature Gran # (Auto) (0.00-0.02) K/uL PT (9.0-12.0) Seconds INR (0.9-1.1) VBG pH (7.36-7.41) VBG pCO2 (38-50) mmHg VBG pO2 mmHg VBG HCO3 mmol/L VBG O2 Saturation % VBG Base Excess mEq/L Barometric Pressure mm/Hg Sodium (136-145) mmol/L Potassium (3.5-5.1) mmol/L Chloride (98-107) mmol/L Carbon Dioxide (21-32) mmol/L Anion Gap (3-11) BUN (7-18) mg/dl Creatinine (0.6-1.4) mg/dl Est Cr Clr Drug Dosing ml/min Est GFR ( Amer) ml/min Est GFR (Non-Af Amer) ml/min BUN/Creatinine Ratio (10-20) Glucose (70-99) mg/dl POC Glucose (70-99) mg/dl Lactate (0.4-2.0) mmol/L Calcium (8.5-10.1) mg/dl Magnesium (1.8-2.4) mg/dl Total Bilirubin (0.2-1) mg/dl AST (15-37) U/L ALT (12-78) U/L Alkaline Phosphatase (45-117) U/L Troponin I 0.127 H* (0-0.045) ng/ml Total Protein (6.4-8.2) gm/dl Albumin (3.4-5.0) gm/dl Globulin (2.5-4.0) gm/dl Albumin/Globulin Ratio (0.9-2) Beta-Hydroxybutyric Acd (0.2-2.81) mg/dl Procalcitonin (0-0.5) ng/ml TSH (0.300-4.500) uIu/ml Free T4 (0.8-1.6) ng/dl Urine Color Yellow Urine Appearance Turbid A (Clear) Urine pH 5.0 (4.5-7.5) Ur Specific [place] 1.029 (1.000-1.030) Urine Protein Negative (Negative) Urine Glucose (UA) 3+ H (Negative) Urine Ketones Trace H (Negative) Urine Blood 1+ H (Negative) Urine Nitrite Negative (Negative) Urine Bilirubin Negative (Negative) Urine Urobilinogen Negative (Negative) Ur Leukocyte Esterase 2+ H (Negative) Urine WBC (Auto) >30 H (0-5) /hpf Urine RBC (Auto) 5-10 H (0-4) /hpf U Hyaline Cast (Auto) 1-5 (0-5) /lpf U Epithel Cells (Auto) 5-10 H (0-5) /lpf Urine Bacteria (Auto) 2+ H (Negative) Urine Yeast Not Reportable COVID-19 Eval Order SARS-CoV-2 (PCR) (Negative) Administered Medications Discontinued Medications Albuterol (Albut/Ipratrop 3mg/0.5mg Neb 3 Ml Vial) 3 ml NEB NOW STA Stop: 10/03/21 14:15 Last Admin: 10/03/21 14:26 Dose: 3 ml Documented by: [id number] Aspirin (Aspirin 81 Mg Chew) 324 mg PO NOW STA Stop: 10/03/21 12:47 Last Admin: 10/03/21 13:05 Dose: 324 mg Documented by: [id number] Sodium Chloride (Nss 1000ml) 1,000 mls @ 999 mls/hr IV .Q1H1M RADHA Stop: 10/03/21 13:00 Last Infusion: 10/03/21 13:31 Dose: 0 mls/hr Documented by: [id number] Admin: 10/03/21 12:30 Dose: 999 mls/hr Documented by: [id number] Ceftriaxone Sodium (Rocephin) 1,000 mg in 50 mls @ 100 mls/hr IV NOW STA Stop: 10/03/21 14:39 Last Admin: 10/03/21 17:48 Dose: Not Given Documented by: [id number] Ceftriaxone Sodium (Rocephin) 1,000 mg in 50 mls @ 100 mls/hr IV NOW STA Stop: 10/03/21 15:32 Last Infusion: 10/03/21 17:48 Dose: 0 mls/hr Documented by: [id number] Admin: 10/03/21 15:45 Dose: 100 mls/hr Documented by: [id number] Insulin Glargine (Insulin Glargine Solostar 100 Units/Ml 3 Ml Pen) 23 units SC NOW ONE Stop: 10/03/21 18:31 Last Admin: 10/03/21 18:34 Dose: 23 units Documented by: [id number] Cosigned by: [id number] Insulin Human Regular (Novolin-R Insulin Per Unit Charge) 7 units IV NOW STA Stop: 10/03/21 12:47 Last Admin: 10/03/21 13:05 Dose: 7 units Documented by: [id number] Cosigned by: [id number] Ioversol (Optiray 320 125ml) 121 ml IV ONCE ONE Stop: 10/03/21 13:44 Last Admin: 10/03/21 13:44 Dose: 121 ml Documented by: [id number] Imaging Data Radiologist's Impression: Chest X-Ray 10/03/21 11:56 SINGLE VIEW CHEST CLINICAL HISTORY: Generalized weakness. Cough. FINDINGS: 2 AP, portable, upright chest radiographs are compared to study dated 02/13/2021 and correlated with chest CT dated 07/04/2021. The the patient is status post midline sternotomy. The heart is enlarged noting atherosclerotic calcification of the thoracic aorta. There is pulmonary vascular congestion. Emphysema and chronic interstitial thickening are similar to previous. There is a layering right pleural effusion with right basilar consolidation. Additional bilateral airspace opacities are seen bilaterally. No pneumothorax is seen. The skeletal structures are osteopenic. The bony thorax is grossly intact. IMPRESSION: 1. Cardiomegaly and emphysema with evidence of congestive failure. 2. Bilateral airspace opacities could represent pulmonary edema and/or an infectious/inflammatory pneumonitis. Clinical correlation will be required and radiographic follow-up to resolution is recommended. 3. Moderate right pleural effusion with associated right basilar consolidation. ACT 112: Negative or not required by law. Electronically signed by: Paulino Lowe M.D. 10/03/2021 12:38 PM Chest CTA 10/03/21 12:46 CT angio chest PE protocol CLINICAL HISTORY: Weakness and cough, R lung conslidation vs effusion on port able chest radiograph. Evaluate for pulmonary embolus COMPARISON STUDY: Portable chest from 10/03/[address] of the chest from 07/04/[address]21 CT DOSE: 294.57 mGy.cm TECHNIQUE: CT Angio of the chest was performed.followed by image post processing with coronal, and sagittal MIP reformats. Contrast Volume: Optiray 320, 121 ml FINDINGS: Vasculature: There is homogeneous perfusion of the pulmonary vasculature bilaterally. No intraluminal filling defects or evidence for pulmonary embolus is seen. Airway: The airway is clear. No endobronchial lesion is identified. Lungs and pleural: Moderate to marked centrilobular emphysematous changes are seen particularly involving the upper lobes bilaterally. There is actually a large right pleural effusion with compressive atelectasis/collapse involving the right lower lobe with a few air filled spaces most characteristic of the johnny ent's emphysema. There is also atelectasis/collapse to a lesser extent involving the right upper and right middle lobes. Small left pleural effusion and left basilar atelectasis are also present. No definite confluent alveolar opacities or air bronchograms are seen. Mediastinum: There is no evidence for pathologic adenopathy. There is evidence for previous coronary thoracic surgery. The heart is mildly enlarged. There is coronary artery calcification. The thoracic aorta is within normal limits. Atherosclerotic calcification is present involving the thoracic aorta and origins of great vessels. There is no evidence for pericardial effusion. Upper abdomen:The adrenal glands are normal bilaterally. Osseous structures: There is no acute osseous pathology. Impression: 1. No CTA evidence for pulmonary embolus. 2. Moderate to marked centrilobular emphysematous changes particularly involving the upper lobes bilaterally. 3. Large right pleural effusion with compressive atelectasis/collapse involving the right lower lobe and to a lesser extent involving the right middle and right upper lobes. 4. Small left pleural effusion. 5. No confluent alveolar opacities are bronchograms. 7. Additional nonacute findings as delineated above. ACT 112: Negative or not required by law. Electronically signed by: Eulogio Posada M.D. 10/03/2021 2:[address] 10/03/21 14:10 CT head/brain wo con CLINICAL HISTORY: generalized confusion Technique: Contiguous axial CT images of the head were acquired from the base of the skull to the vertex without intravenous contrast administration. Images were viewed in brain, subdural and bone windows. Automated dose lowering techniques and/or adjustment according to patient size were utilized for this exam. Comparison: None available at the time of this dictation. Findings: Areas of decreased attenuation are present in the periventricular and subcortical white matter bilaterally consistent with small vessel ischemic disease. Generalized cerebral atrophy with commensurate enlargement of the ventricles, sulci, and cisterns is also present. There is no acute intracranial hemorrhage or evidence of acute territorial infarction. No shift of the midline structures, mass effect, or extra-axial abnormalities are shown. Atherosclerotic calcifications are present in the intracranial segments of the internal carotid arteries. Imaged portions of the paranasal sinuses and mastoid air cells are clear. The orbits appear normal. There are no acute fractures of the calvaria or scalp swelling. Impression: No acute intracranial hemorrhage, no evidence of acute territorial infarction or other acute intracranial disease process. ACT 112: Negative or not required by law. Electronically signed by: Segundo Conteh M.D. 10/03/2021 2:42 PM Discharge Plan Visit Data Chief Complaint: Weakness Stated Complaint: GENERALIZED WEAKNESS, HYPERGLYCEMIA ED Provider: Sorin Singh Discharge Problem: Hyperglycemia due to type 1 diabetes mellitus, Acute UTI, Pleural effusion, right, Generalized weakness, Non-ST elevation CA (NSTEMI) Patient Disposition: Admitted As Inpatient Discharge Instructions Interventions: ED Discharge Assessment Last Done: 10/03/21 17:14
[2021-10-03 12:20] LABS: Basophils # (auto) 0.01 K/uL (0-0.2); Basophils % (auto) 0.1 %; Eosinophils # (auto) 0.04 K/uL (0-0.5); Eosinophils % (auto) 0.4 %; Hematocrit (blood only) 37.9 % (42-52); Hemoglobin 11.2 g/dL (14.0-18.0); Immature Granulocytes # (auto) 0.02 K/uL (0.00-0.02); Immature Granulocytes % (auto) 0.2 %; Lymphocytes # (auto) 0.64 K/uL (1.2-3.4); Lymphocytes % (auto) 5.8 %; Mean Corpuscular Hgb Conc 29.6 g/dL (32-36); Mean Corpuscular Volume 77.8 fL (80-100); Mean Platelet Volume 10.5 fL (7.4-10.4); Monocytes # (auto) 0.72 K/uL (0.11-0.59); Monocytes % (auto) 6.5 %; Neutrophils # (auto) 9.66 K/uL (1.4-6.5); Platelet Count 236 K/uL (130-400); RDW Coefficient of Variation 18.6 % (11.5-14.5); RDW Standard Deviation 52.8 fL (36.4-46.3); Red Blood Count 4.87 M/uL (4.7-6.1); White Blood Count 11.09 K/uL (4.8-10.8)
[2021-10-03 12:32] LABS: Albumin Level 2.4 gm/dl (3.4-5.0); BUN Creatinine Ratio 19.3 (10-20); Calcium 8.8 mg/dl (8.5-10.1); Creatinine Clr Calc Pharmacy 49.3 ml/min; Est GFR (African American) 63.6 ml/min; Est GFR (Non-African American) 54.9 ml/min; Magnesium 2.3 mg/dl (1.8-2.4); Potassium 3.9 mmol/L (3.5-5.1)
[2021-10-03 12:35] LABS: INR 1.3 (0.9-1.1)
[2021-10-03 12:37] LABS: Albumin Globulin Ratio 0.6 (0.9-2); Bilirubin,Total 1.4 mg/dl (0.2-1); Globulin 4.2 gm/dl (2.5-4.0); Total Protein 6.6 gm/dl (6.4-8.2); Troponin I 0.115 ng/ml (0-0.045)
--- NOTE | 2021-10-03 12:40 | XRay Report ---
SINGLE VIEW CHEST CLINICAL HISTORY: Generalized weakness. Cough. FINDINGS: 2 AP, portable, upright chest radiographs are compared to study dated 02/13/2021 and correla darren with chest CT dated 07/04/2021. The the patient is status post midline sternotomy. The heart is en larged noting atherosclerotic calcification of the thoracic aorta. There is pulmonary vascular conges tion. Emphysema and chronic interstitial thickening are similar to previous. There is a layering righ t pleural effusion with right basilar consolidation. Additional bilateral airspace opacities are seen bilaterally. No pneumothorax is seen. The skeletal structures are osteopenic. The bony thorax is ann-marie ssly intact. IMPRESSION: 1. Cardiomegaly and emphysema with evidence of congestive failure. 2. Bilateral airspace opacities could represent pulmonary edema and/or an infectious/inflammatory pne umonitis. Clinical correlation will be required and radiographic follow-up to resolution is recommend ed. 3. Moderate right pleural effusion with associated right basilar consolidation. ACT 112: Negative or not required by law. Electronically signed by: Paulino Lowe M.D. 10/03/2021 12:38 PM
[2021-10-03 12:41] LABS: Base Excess VBG 2.6 mEq/L; Oxygen Saturation VBG 83.6 %; pH VBG 7.46 (7.36-7.41)
[2021-10-03 12:46] LABS: Beta-Hydroxybutyrate 1.48 mg/dl (0.2-2.81); Thyroid Stimulating Hormone 5.04 uIu/ml (0.300-4.500)
[2021-10-03] MEDS ORDERED: ASPIRIN 81 MG CHEW PO STA (12:46)
[2021-10-03] MEDS ORDERED: NovoLIN-R INSULIN PER UNIT CHARGE IV STA (12:46)
[2021-10-03 13:04] LABS: T4 Free Thyroxine 1.18 ng/dl (0.8-1.6)
--- NOTE | 2021-10-03 13:33 | History & Physical Report ---
Date of Service October 03, 2021 Assessment & Plan (1) Acute UTI: Plan: No specific symptoms of this but given increased confusion and generalized weakness I suspect this is driving his weakness/confusion/fatigue Ceftriaxone 1g IV daily Follow up urine and blood cultures (2) Generalized weakness: Plan: Suspect secondary to UTI (treatment as above) PT/OT (3) Pleural effusion, right: Plan: This is relatively incidental as shortness of breath is not his major complaint and doubtful infective without surrounding pneumonia. Mild hypoxia initially although was able to take him off O2 with O2 sats 93-94%. This is new since June and given shortness of breath noted by his family would recommend diagnostic and therapeutic thoracocentesis. 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 Stable since then. Continue ASA, losartan, rosuvastatin. Not on BB (prior notes mention related to orthostasis). (9) BPH without obstruction/lower urinary tract symptoms: (10) Emphysema of lung: Plan: Continue Spiriva. No recent exacerbations. No improvement of shortness of breath in ER from duoneb given therefore no COPD exacerbation suspected. (11) Tobacco abuse: Plan: Continue to encourage cessation of this Plan: VTE Prophylaxis - hold chemical prophylaxis pending thoracocentesis decision Diet - T1DM Disposition - observation status to med/tele Admission and Anticipated Discharge Date Admission Date: October 03, 2021 History of Present Illness Chief Complaint: Weakness, hyperglycemia Primary Care Provider: Damián Goodman MD Doyle Welsh is an 81 year old male who presents to the ER with generalized weakness and hyperglycemia. He has T1DM and has had more trouble remembering and managing his insulin. Glucose over the last few days has been up and down and his children have been trying to help him manage. This morning glucose over 600 therefore his children called for EMS. The patient currently feels confused but mostly at his baseline and history is taken from his son at bedside and daughter over the phone. Last 2 days he had also had increased problems sleeping with screaming in his sleep although he also notes chronic insomnia. They have also noticed increased weakness and confusion. No one sided weakness, he has started to need a walker the last 2 days, previously using a cane. His son feels he is more short of breath than usual, although again he has chronic dyspnea. Patient took 20 units Humalog this morning and in the middle of the night. He is unsure whether he took Lantus last night. In the ER troponin is elevated although no chest pain noted by patient. He is currently requiring 2LPM O2 at rest (he is not on oxygen at home). Moderate right pleural effusion noted on CXR was not previous present on June CT. UA was grossly positive for infection although not having any specific urinary symptoms. He was referred to medicine for admission and ongoing management of weakness, hyperglycemia and elevated troponin. Allergies Allergy/AdvReac Type Severity Reaction Status Date / Time Insulins Allergy Intermediate BEEF/PORK Verified 08/17/21 10:13 INSULINS lorazepam AdvReac Intermediate DELUSIONS Verified 08/17/21 10:13 chlorpromazine AdvReac Mild "SHAKING" Verified 08/17/21 10:13 Home Medications Medication Instructions Recorded Confirmed Type cholecalciferol (vitamin D3) 25 1,000 unit PO QAM 01/11/19 10/03/21 History mcg (1,000 unit) tablet (Vitamin D3) albuterol sulfate 90 mcg/actuation 2 puffs INHALATION Q6H PRN #1 gm 08/02/19 10/03/21 History aerosol inhaler (Ventolin HFA) diphenhydramine 25 1 tab PO HS tab 07/04/20 10/03/21 History mg-acetaminophen 500 mg tablet (Tylenol PM Extra Strength) losartan 25 mg tablet (Cozaar) 25 mg PO HS 01/26/21 10/03/21 History ropinirole 1 mg tablet 1 mg PO HS #90 tab 02/14/21 10/03/21 Rx docusate sodium 100 mg capsule 100 mg PO QAM 03/01/21 10/03/21 History (Colace) insulin NPH isoph U-100 human 100 5 unit SUBCUT HS 03/01/21 10/03/21 History unit/mL subcutaneous suspension insulin lispro 100 unit/mL See Rx Instructions .ROUTE TID ml 03/01/21 10/03/21 History subcutaneous pen (Humalog KwikPen (U-100) Insulin) polyethylene glycol 3350 17 17 g PO DAILY PRN 03/01/21 10/03/21 History gram/dose oral powder (Miralax) aspirin 81 mg tablet,delayed 81 mg PO Q2D 07/24/21 10/03/21 History release (Aspirin Low Dose) escitalopram oxalate 10 mg tablet 10 mg PO QAM 07/24/21 10/03/21 History (Lexapro) insulin glargine 100 unit/mL (3 20 - 25 unit SQ HS 07/24/21 10/03/21 History mL) subcutaneous pen (Lantus Solostar U-100 Insulin) rosuvastatin 20 mg tablet (Crestor) 20 mg PO Q2D 07/24/21 10/03/21 History tiotropium bromide 1.25 2 puff INHALATION QAM 07/24/21 10/03/21 History mcg/actuation mist for inhalation (Spiriva Respimat) omeprazole 20 mg capsule,delayed 20 mg PO BID #60 cap 08/13/21 10/03/21 Rx release albuterol sulfate 90 mcg/actuation 1 inh INHALATION QID PRN #8.5 g 08/17/21 10/03/21 Rx aerosol inhaler Past Med/Surg History Medical History (Updated 10/04/21 @ 08:01 by Ramakrishna Rodriguez MD) Abnormal CT scan, esophagus Atherosclerosis of both carotid arteries Bilateral diabetic retinopathy BPH without obstruction/lower urinary tract symptoms CAD (coronary artery disease) S/p 3 vessel CABG 2000- follows Dr. 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, with long-term current use of insulin COPD (chronic obstructive pulmonary disease) Cough Dyslipidemia Elevated LFTs Elevated PSA Emphysema of lung Diagnosed by CT scan Esophageal abnormality Gross hematuria Related to UTI - now resolved Hard of hearing extreme per > have to speak very loud History of depression History of CT (myocardial infarction) (2000) 2000> cabg HTN (hypertension) Lung nodule Male erectile disorder of organic origin Peripheral neuropathy Peripheral vascular disease S/p BKA on left side Phantom limb (syndrome) left leg Restless leg Solitary lung nodule Tobacco abuse Tobacco abuse Trigger finger Surgical History H/O eye surgery bilat cataracts History of bronchoscopy 01/31/21 with biopsy History of cholecystectomy History of esophagogastroduodenoscopy (EGD) History of left below knee amputation History of tooth extraction History of transurethral resection of prostate S/P CABG (coronary artery bypass graft) (2000) 2000 > triple > [facility] > follows with Dr. Goodman Status post open reduction with internal fixation (ORIF) of fracture of ankle (2019) right Family History Father , in his 70s Diabetes Mother , 62yo Cervical cancer Sister No problems noted. Sister No problems noted. Son No problems noted. Son No problems noted. Son No problems noted. Son Diabetes Daughter No problems noted. Other No family history of adverse response to anesthesia Social History Smoking Status: Current every day smoker Tobacco Type: Cigarettes Cigarettes Per Day: unknown; Second Hand Exposure: No; Do You Dip or Chew Tobacco: No; Tobacco Cessation Education Requested by Patient: No Hx Alcohol Use: No Hx Substance Use: No Preferred Language: Libyan Communication Ability: Effective Visual Impairment: No Limitations Hearing Ability: Hard of Hearing Pathology Transcriptionist Required: No Beliefs That Will Affect Care: None marital status: Current Living Situation: Spouse Current Living Situation Comment: home w/ - children help with care current occupational status: retired current occupation: Retired from [employer] Other Information That Helps Us Care for You: No Feels Safe at Home: Yes Safety Concerns: Feels Safe At This Time caffeine: Yes (2-4 cups/day) during the past year weight has: decreased > 10 lbs Assistive Devices: Denture - Upper, Denture - Lower, Glasses and Oxygen - Continuous Review of Systems Review of Systems: All systems reviewed & are unremarkable except as noted in HPI & below Physical Exam Constitutional: WD/WN, vitals as above + frail appearing Eyes: PERRL, conjunctivae normal, anicteric sclerae ENMT: Mouth: + dry oral mucous membranes Neck: trachea midline, no thyromegaly Respiratory: + uses accessory muscles, able to speak in complete sentences and + prolonged expiratory phase; no cough Auscultation: + breath sounds absent (Right base); no crackles, no rales, no rhonchi and no wheezes Cardiovascular: RRR, no murmur, no edema Gastrointestinal (Abdomen): normal bowel sounds, soft, nontender, no hepatosplenomegaly Musculoskeletal: no cyanosis or clubbing, extremities motor strength 5/5 Skin: no rashes, warm and dry Neurologic: moves all extremities and awake; no focal motor deficits (no lateralizing deficit) and not confused Psychiatric: A+Ox3, euthymic affect Genitourinary: no CVA tenderness Results & Data Results & Data ([facility]) Vital Signs (Past 12 Hours) Vital Signs Temp Pulse Resp BP Pulse Ox 10/03/21 11:52 37.6 C H 84 18 141/7 H 95 Laboratory Results Abnormal lab results 10/03/21 10/03/21 10/03/21 Range/Units 11:45 11:45 11:45 WBC 11.09 H (4.8-10.8) K/uL Hgb 11.2 L (14.0-18.0) g/dL Hct 37.9 L (42-52) % MCV 77.8 L (80-100) fL MCH 23.0 L (25-34) pg MCHC 29.6 L (32-36) g/dL RDW Std Deviation 52.8 H (36.4-46.3) fL RDW Coeff of Johnathan 18.6 H (11.5-14.5) % MPV 10.5 H (7.4-10.4) fL Neut # (Auto) 9.66 H (1.4-6.5) K/uL Lymph # (Auto) 0.64 L (1.2-3.4) K/uL [place] # (Auto) 0.72 H (0.11-0.59) K/uL PT 13.0 H (9.0-12.0) Seconds INR 1.3 H (0.9-1.1) VBG pH (7.36-7.41) BUN 24 H (7-18) mg/dl Glucose 399 H* (70-99) mg/dl POC Glucose (70-99) mg/dl Total Bilirubin 1.4 H (0.2-1) mg/dl Alkaline Phosphatase 147 H (45-117) U/L Troponin I 0.115 H* (0-0.045) ng/ml Albumin 2.4 L (3.4-5.0) gm/dl Globulin 4.2 H (2.5-4.0) gm/dl Albumin/Globulin Ratio 0.6 L (0.9-2) TSH 5.040 H (0.300-4.500) uIu/ml 10/03/21 10/03/21 Range/Units 12:03 12:25 WBC (4.8-10.8) K/uL Hgb (14.0-18.0) g/dL Hct (42-52) % MCV (80-100) fL MCH (25-34) pg MCHC (32-36) g/dL RDW Std Deviation (36.4-46.3) fL RDW Coeff of Johnathan (11.5-14.5) % MPV (7.4-10.4) fL Neut # (Auto) (1.4-6.5) K/uL Lymph # (Auto) (1.2-3.4) K/uL [place] # (Auto) (0.11-0.59) K/uL PT (9.0-12.0) Seconds INR (0.9-1.1) VBG pH 7.46 H (7.36-7.41) BUN (7-18) mg/dl Glucose (70-99) mg/dl POC Glucose 404 H* (70-99) mg/dl Total Bilirubin (0.2-1) mg/dl Alkaline Phosphatase (45-117) U/L Troponin I (0-0.045) ng/ml Albumin (3.4-5.0) gm/dl Globulin (2.5-4.0) gm/dl Albumin/Globulin Ratio (0.9-2) TSH (0.300-4.500) uIu/ml Diagnostic Findings SINGLE VIEW CHEST CLINICAL HISTORY: Generalized weakness. Cough. FINDINGS: 2 AP, portable, upright chest radiographs are compared to study dated 02/13/2021 and correlated with chest CT dated 07/04/2021. The the patient is status post midline sternotomy. The heart is enlarged noting atherosclerotic calcification of the thoracic aorta. There is pulmonary vascular congestion. Emphysema and chronic interstitial thickening are similar to previous. There is a layering right pleural effusion with right basilar consolidation. Additional bilateral airspace opacities are seen bilaterally. No pneumothorax is seen. The skeletal structures are osteopenic. The bony thorax is grossly intact. IMPRESSION: 1. Cardiomegaly and emphysema with evidence of congestive failure. 2. Bilateral airspace opacities could represent pulmonary edema and/or an infectious/inflammatory pneumonitis. Clinical correlation will be required and radiographic follow-up to resolution is recommended. 3. Moderate right pleural effusion with associated right basilar consolidation. Medications Administered ER Medications Given: NSS 1L bolus Aspirin 324mg PO Insulin 7 units IV ECG Indication: SOB/dyspnea Rate (beats per minute): 81 Rhythm: normal sinus Findings: no acute ischemic change Comparison ECG Date: from (January 31, 2021) Change: the following changes noted (PVCs and PACs present, ST elevation no longer present in anterior leads) Code Status & VTE Plan Code Status Full VTE Prophylaxis Plan VTE Prophylaxis will be ordered: Yes PG Care Time/CCT Total # of Minutes Spent Total Time Spent with Patient: Total time spent is greater than 50% in coordination of care (as documented) at patient's floor/unit and/or counseling patient: Coding Level of Care Code INT OBSERVATION CARE 70M LVL 3 Diagnoses Pleural effusion, right J90 Generalized weakness R53.1 Hyperglycemia R73.9 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
[2021-10-03] MEDS ORDERED: OPTIRAY 320 125ml IV ONE (13:43)
[2021-10-03 13:46] LABS: Appearance Urine Turbid (Clear); Bacteria Urine Automated 2+ (Negative); Bilirubin Urine Negative (Negative); Blood Urine 1+ (Negative); Color Urine Yellow; Glucose Urine UA 3+ (Negative); Ketones Urine Trace (Negative); Leukocyte Esterase Urine 2+ (Negative); Nitrite Urine Negative (Negative); Protein Urine Negative (Negative); Specific Gravity Urine 1.029 (1.000-1.030); Urobilinogen Urine Negative (Negative); WBC Urine Automated >30 /hpf (0-5)
--- NOTE | 2021-10-03 13:56 | Electrocardiogram Report ---
Test Reason : Blood Pressure : / mmHG Vent. Rate : 081 BPM Atrial Rate : 081 BPM P-R Int : 146 ms QRS Dur : 116 ms QT Int : 374 ms P-R-T Axes : -22 -42 129 degrees QTc Int : 434 ms Sinus rhythm with frequent Premature ventricular complexes and Premature atrial complexes Left axis deviation Anterior infarct (cited on or before 30-MAY-2019) Abnormal ECG When compared with ECG of 31-JAN-2021 06:15, Premature ventricular complexes are now Present Premature atrial complexes are now Present Questionable change in initial forces of Lateral leads ST no longer elevated in Anterior leads Confirmed by Zach Da Silva ([id number]) on 10/03/2021 1:56:19 PM Referred By: ED Confirmed By:Zach Da Silva
[2021-10-03] MEDS ORDERED: cefTRIAXone SODIUM 1,000 MG/50 ML BAG IV STA ×2 (14:10→15:03)
--- NOTE | 2021-10-03 14:10 | CT Scan Report ---
CT angio chest PE protocol CLINICAL HISTORY: Weakness and cough, R lung conslidation vs effusion on portable chest radiograph. E valuate for pulmonary embolus COMPARISON STUDY: Portable chest from 10/03/[address] of the chest from 07/04/2021 CT DOSE: 294.57 mGy.cm TECHNIQUE: CT Angio of the chest was performed.followed by image post processing with coronal, and s agittal MIP reformats. Contrast Volume: Optiray 320, 121 ml FINDINGS: Vasculature: There is homogeneous perfusion of the pulmonary vasculature bilaterally. No intraluminal filling defects or evidence for pulmonary embolus is seen. Airway: The airway is clear. No endobronchial lesion is identified. Lungs and pleural: Moderate to marked centrilobular emphysematous changes are seen particularly invol ving the upper lobes bilaterally. There is actually a large right pleural effusion with compressive a telectasis/collapse involving the right lower lobe with a few air filled spaces most characteristic o f the patient's emphysema. There is also atelectasis/collapse to a lesser extent involving the right upper and right middle lobes. Small left pleural effusion and left basilar atelectasis are also prese nt. No definite confluent alveolar opacities or air bronchograms are seen. Mediastinum: There is no evidence for pathologic adenopathy. There is evidence for previous coronary thoracic surgery. The heart is mildly enlarged. There is coronary artery calcification. The thoracic aorta is within normal limits. Atherosclerotic calcification is present involving the thoracic aorta and origins of great vessels. There is no evidence for pericardial effusion. Upper abdomen:The adrenal glands are normal bilaterally. Osseous structures: There is no acute osseous pathology. Impression: 1. No CTA evidence for pulmonary embolus. 2. Moderate to marked centrilobular emphysematous changes particularly involving the upper lobes bila terally. 3. Large right pleural effusion with compressive atelectasis/collapse involving the right lower lobe and to a lesser extent involving the right middle and right upper lobes. 4. Small left pleural effusion. 5. No confluent alveolar opacities are bronchograms. 7. Additional nonacute findings as delineated above. ACT 112: Negative or not required by law. Electronically signed by: Eulogio Posada M.D. 10/03/2021 2:09 PM
[2021-10-03] MEDS ORDERED: ALBUT/IPRATROP 3MG/0.5MG NEB 3 ML VIAL NEB STA (14:14)
[2021-10-03] MEDS ORDERED: INSULIN GLARGINE SOLOSTAR 100 UNITS/ML 3 ML PEN SC STA (14:28)
--- NOTE | 2021-10-03 14:44 | CT Scan Report ---
CT head/brain wo con CLINICAL HISTORY: generalized confusion Technique: Contiguous axial CT images of the head were acquired from the base of the skull to the todd daquan without intravenous contrast administration. Images were viewed in brain, subdural and bone [facility] . Automated dose lowering techniques and/or adjustment according to patient size were utilized for this exam. Comparison: None available at the time of this dictation. Findings: Areas of decreased attenuation are present in the periventricular and subcortical white matter bilate rally consistent with small vessel ischemic disease. Generalized cerebral atrophy with commensurate e nlargement of the ventricles, sulci, and cisterns is also present. There is no acute intracranial hem orrhage or evidence of acute territorial infarction. No shift of the midline structures, mass effect, or extra-axial abnormalities are shown. Atherosclerotic calcifications are present in the intracran ial segments of the internal carotid arteries. Imaged portions of the paranasal sinuses and mastoid air cells are clear. The orbits appear normal. There are no acute fractures of the calvaria or scalp swelling. Impression: No acute intracranial hemorrhage, no evidence of acute territorial infarction or other acute intracra nial disease process. ACT 112: Negative or not required by law. Electronically signed by: Segundo Conteh M.D. 10/03/2021 2:42 PM
[2021-10-03] MEDS ORDERED: PHARMACY GLYCEMIC MGMT CONSULT PRN (17:46)
[2021-10-03] MEDS ORDERED: ROSUVASTATIN CALCIUM 20 MG TAB PO SCH (18:30)
[2021-10-03] MEDS ORDERED: INSULIN GLARGINE SOLOSTAR 100 UNITS/ML 3 ML PEN SC ONE (18:30)
[2021-10-03] MEDS: PANTOprazole 40 MG TAB PO SCH (19:48)
[2021-10-03] MEDS: ENOXAPARIN INJ 40 MG/0.4 ML SYR SQ SCH (19:49)
[2021-10-03] MEDS: rOPINIRole HCL 1 MG TABLET PO SCH (19:49)
[2021-10-03] MEDS: LOSARTAN POTASSIUM 25 MG TAB PO SCH (19:49)
[2021-10-03] MEDS: INSULIN ASPART 100 UNITS/ML 3 ML PEN SC SCH ×2 (20:53)
[2021-10-03] MEDS: NSS + 20MEQ KCL 20 MEQ/1,000 ML BAG IV SCH (22:15)
[2021-10-04] MEDS: INSULIN ASPART 100 UNITS/ML 3 ML PEN SC SCH ×6 (00:13→21:34)
[2021-10-04 06:43] LABS: Basophils # (auto) 0.01 K/uL (0-0.2); Basophils % (auto) 0.1 %; Eosinophils # (auto) 0.17 K/uL (0-0.5); Eosinophils % (auto) 1.3 %; Hemoglobin 11.4 g/dL (14.0-18.0); Immature Granulocytes # (auto) 0.02 K/uL (0.00-0.02); Immature Granulocytes % (auto) 0.2 %; Lymphocytes # (auto) 0.84 K/uL (1.2-3.4); Lymphocytes % (auto) 6.7 %; Mean Corpuscular Volume 76.8 fL (80-100); Mean Platelet Volume 10.2 fL (7.4-10.4); Monocytes # (auto) 0.82 K/uL (0.11-0.59); Monocytes % (auto) 6.5 %; Neutrophils # (auto) 10.75 K/uL (1.4-6.5); Neutrophils % (auto) 85.2 %; Nucleated RBC # (auto) 0.02 K/uL (0-0); Nucleated RBC % (auto) 0.1 %; Platelet Count 207 K/uL (130-400); RDW Coefficient of Variation 18.7 % (11.5-14.5); RDW Standard Deviation 52.3 fL (36.4-46.3); Red Blood Count 4.95 M/uL (4.7-6.1); White Blood Count 12.61 K/uL (4.8-10.8)
[2021-10-04 07:20] LABS: BUN Creatinine Ratio 18.9 (10-20); Calcium 9.1 mg/dl (8.5-10.1); Est GFR (African American) 89.5 ml/min; Est GFR (Non-African American) 77.2 ml/min
[2021-10-04] MEDS: PANTOprazole 40 MG TAB PO SCH ×2 (09:00→21:36)
[2021-10-04] MEDS: ASPIRIN 81 MG ECTAB PO SCH (09:00)
[2021-10-04] MEDS: DOCUSATE SODIUM 100 MG CAP PO SCH (09:00)
[2021-10-04] MEDS: CHOLECALCIFEROL 1,000 UNITS 25 MCG TAB PO SCH (09:00)
[2021-10-04] MEDS: ESCITALOPRAM OXALATE 10 MG TAB PO SCH (09:00)
[2021-10-04] MEDS: UMECLIDINIUM BROMIDE 62.5MCG/BLISTER 7 PUFFS/INHALER INH SCH (09:02)
--- NOTE | 2021-10-04 09:24 | XCELERA ---
[id number]
[2021-10-04] MEDS: NSS + 20MEQ KCL 20 MEQ/1,000 ML BAG IV SCH ×2 (10:38→18:24)
[2021-10-04] MEDS ORDERED: carvediloL 3.125 MG TAB PO ONE (13:30)
--- NOTE | 2021-10-04 13:36 | Hospitalist Progress Note ---
Date of Service October 04, 2021 Assessment & Plan (1) Acute UTI: Plan: Urinalysis shows evidence of UTI Urine cultures pending Continue empiric IV ceftriaxone (2) Acute exacerbation of CHF (congestive heart failure): Plan: ECHO showed EF of 25-30% Will start lasix 20mg daily, coreg 3.125mg Patient already on ACEI at home Monitor I/O, daily weight Check BNP consult cardiology (3) Generalized weakness: Plan: Most likely multi factorial UTI, CHF exacerbation Continue treatment for UTI and CHF Physical therapy (4) Pleural effusion, right: Plan: Contributing to his shoertness of breath, most likely from CHf exacerbation Pulmonology on consult [facility] need thoracentesis (5) Hyperglycemia: Plan: Blood glucose is now under better control, continue home insulin regimen Add insulin sliding scale (6) 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 Stable since then. Continue ASA, losartan, rosuvastatin. Not on BB (prior notes mention related to orthostasis). (10) BPH without obstruction/lower urinary tract symptoms: (11) Emphysema of lung: Plan: Continue Spiriva. No recent exacerbations. No improvement of shortness of breath in ER from duoneb given therefore no COPD exacerbation suspected. (12) Tobacco abuse: Plan: Continue to encourage cessation of this Plan: VTE Prophylaxis - hold chemical prophylaxis pending thoracocentesis decision Diet - T1DM Disposition - observation status to med/tele Admission and Anticipated Discharge Date Admission Date: October 03, 2021 Subjective Patient seen and examined, still a bit short of breath Review of Systems Review of Systems: All systems reviewed are negative, apart from the ones contained in the history. Physical Exam Physical Exam: The patient is awake, alert and oriented 3, well developed and well nourished, normocephalic and atraumatic, lying in bed and in no acute distress. HEENT--PERRL, EOMI, mucous membranes and oropharynx mildly dry Neck--supple. No JVD. No bruits. Thyroid normal, trachea midline, no adenopathy. Heart--normal S1 and S2. No murmurs, rubs or gallops. Lungs--Reduce air entry on auscultation, wheeze and crackles Abdomen--normal bowel sounds and soft. Mild epigastric and left sided abdominal pain Extremities--left AKA Dermatologic--normal skin turgor, normal color, no abnormal lymph nodes, no rash. Neurologic--cranial nerves II through XII grossly intact. Rheumatologic--normal range of motion. Psychiatric--normal affect. Results & Data Results & Data ([facility]) Vital Signs (Past 12 Hours) Vital Signs Temp Pulse Pulse Resp BP Pulse Ox 10/04/21 10:58 97.3 F L 84 19 144/78 H 94 10/04/21 08:22 97.9 F 81 19 137/89 96 10/04/21 08:00 88 10/04/21 03:54 98.4 F 86 20 126/76 91 Laboratory Results Laboratory Results - last 24 hr 10/03/21 10/03/21 10/03/21 11:45 13:10 13:31 WBC RBC Hgb Hct MCV MCH MCHC RDW Std Deviation RDW Coeff of Johnathan Plt Count MPV Immature Gran % (Auto) Neut % (Auto) Lymph % (Auto) [place] % (Auto) Eos % (Auto) Baso % (Auto) Neut # (Auto) Lymph # (Auto) [place] # (Auto) Eos # (Auto) Baso # (Auto) Immature Gran # (Auto) Absolute Nucleated RBC Nucleated RBC % (auto) Sodium Potassium Chloride Carbon Dioxide Anion Gap BUN Creatinine Est Cr Clr Drug Dosing Est GFR ( Amer) Est GFR (Non-Af Amer) BUN/Creatinine Ratio Glucose POC Glucose Calcium Troponin I Procalcitonin 0.14 Urine Color Yellow Urine Appearance Turbid A Urine pH 5.0 Ur Specific [place] 1.029 Urine Protein Negative Urine Glucose (UA) 3+ H Urine Ketones Trace H Urine Blood 1+ H Urine Nitrite Negative Urine Bilirubin Negative Urine Urobilinogen Negative Ur Leukocyte Esterase 2+ H Urine WBC (Auto) >30 H Urine RBC (Auto) 5-10 H U Hyaline Cast (Auto) 1-5 U Epithel Cells (Auto) 5-10 H Urine Bacteria (Auto) 2+ H Urine Yeast Not Reportable SARS-CoV-2 (PCR) NEGATIVE 10/03/21 10/03/21 10/03/21 14:59 15:59 17:38 WBC RBC Hgb Hct MCV MCH MCHC RDW Std Deviation RDW Coeff of Johnathan Plt Count MPV Immature Gran % (Auto) Neut % (Auto) Lymph % (Auto) [place] % (Auto) Eos % (Auto) Baso % (Auto) Neut # (Auto) Lymph # (Auto) [place] # (Auto) Eos # (Auto) Baso # (Auto) Immature Gran # (Auto) Absolute Nucleated RBC Nucleated RBC % (auto) Sodium Potassium Chloride Carbon Dioxide Anion Gap BUN Creatinine Est Cr Clr Drug Dosing Est GFR ( Amer) Est GFR (Non-Af Amer) BUN/Creatinine Ratio Glucose POC Glucose 350 H* 307 H* Calcium Troponin I 0.127 H* Procalcitonin Urine Color Urine Appearance Urine pH Ur Specific [place] Urine Protein Urine Glucose (UA) Urine Ketones Urine Blood Urine Nitrite Urine Bilirubin Urine Urobilinogen Ur Leukocyte Esterase Urine WBC (Auto) Urine RBC (Auto) U Hyaline Cast (Auto) U Epithel Cells (Auto) Urine Bacteria (Auto) Urine Yeast SARS-CoV-2 (PCR) 10/03/21 10/03/21 10/03/21 20:20 20:22 22:20 WBC RBC Hgb Hct MCV MCH MCHC RDW Std Deviation RDW Coeff of Johnathan Plt Count MPV Immature Gran % (Auto) Neut % (Auto) Lymph % (Auto) [place] % (Auto) Eos % (Auto) Baso % (Auto) Neut # (Auto) Lymph # (Auto) [place] # (Auto) Eos # (Auto) Baso # (Auto) Immature Gran # (Auto) Absolute Nucleated RBC Nucleated RBC % (auto) Sodium Potassium Chloride Carbon Dioxide Anion Gap BUN Creatinine Est Cr Clr Drug Dosing Est GFR ( Amer) Est GFR (Non-Af Amer) BUN/Creatinine Ratio Glucose POC Glucose 318 H* 340 H* Calcium Troponin I 0.096 H* Procalcitonin Urine Color Urine Appearance Urine pH Ur Specific [place] Urine Protein Urine Glucose (UA) Urine Ketones Urine Blood Urine Nitrite Urine Bilirubin Urine Urobilinogen Ur Leukocyte Esterase Urine WBC (Auto) Urine RBC (Auto) U Hyaline Cast (Auto) U Epithel Cells (Auto) Urine Bacteria (Auto) Urine Yeast SARS-CoV-2 (PCR) 10/04/21 10/04/21 10/04/21 00:11 05:03 06:33 WBC 12.61 H RBC 4.95 Hgb 11.4 L Hct 38.0 L MCV 76.8 L MCH 23.0 L MCHC 30.0 L RDW Std Deviation 52.3 H RDW Coeff of Johnathan 18.7 H Plt Count 207 MPV 10.2 Immature Gran % (Auto) 0.2 Neut % (Auto) 85.2 Lymph % (Auto) 6.7 [place] % (Auto) 6.5 Eos % (Auto) 1.3 Baso % (Auto) 0.1 Neut # (Auto) 10.75 H Lymph # (Auto) 0.84 L [place] # (Auto) 0.82 H Eos # (Auto) 0.17 Baso # (Auto) 0.01 Immature Gran # (Auto) 0.02 Absolute Nucleated RBC 0.02 H Nucleated RBC % (auto) 0.1 Sodium Potassium Chloride Carbon Dioxide Anion Gap BUN Creatinine Est Cr Clr Drug Dosing Est GFR ( Amer) Est GFR (Non-Af Amer) BUN/Creatinine Ratio Glucose POC Glucose 256 H 210 H Calcium Troponin I Procalcitonin Urine Color Urine Appearance Urine pH Ur Specific [place] Urine Protein Urine Glucose (UA) Urine Ketones Urine Blood Urine Nitrite Urine Bilirubin Urine Urobilinogen Ur Leukocyte Esterase Urine WBC (Auto) Urine RBC (Auto) U Hyaline Cast (Auto) U Epithel Cells (Auto) Urine Bacteria (Auto) Urine Yeast SARS-CoV-2 (PCR) 10/04/21 10/04/21 10/04/21 06:33 06:33 07:37 WBC RBC Hgb Hct MCV MCH MCHC RDW Std Deviation RDW Coeff of Johnathan Plt Count MPV Immature Gran % (Auto) Neut % (Auto) Lymph % (Auto) [place] % (Auto) Eos % (Auto) Baso % (Auto) Neut # (Auto) Lymph # (Auto) [place] # (Auto) Eos # (Auto) Baso # (Auto) Immature Gran # (Auto) Absolute Nucleated RBC Nucleated RBC % (auto) Sodium 142 Potassium 4.0 Chloride 111 H Carbon Dioxide 27 Anion Gap 4.0 BUN 17 Creatinine 0.92 D Est Cr Clr Drug Dosing 63.0 Est GFR ( Amer) 89.5 Est GFR (Non-Af Amer) 77.2 BUN/Creatinine Ratio 18.9 Glucose 179 H POC Glucose 168 H Calcium 9.1 Troponin I 0.094 H* Procalcitonin Urine Color Urine Appearance Urine pH Ur Specific [place] Urine Protein Urine Glucose (UA) Urine Ketones Urine Blood Urine Nitrite Urine Bilirubin Urine Urobilinogen Ur Leukocyte Esterase Urine WBC (Auto) Urine RBC (Auto) U Hyaline Cast (Auto) U Epithel Cells (Auto) Urine Bacteria (Auto) Urine Yeast SARS-CoV-2 (PCR) 10/04/21 11:42 WBC RBC Hgb Hct MCV MCH MCHC RDW Std Deviation RDW Coeff of Johnathan Plt Count MPV Immature Gran % (Auto) Neut % (Auto) Lymph % (Auto) [place] % (Auto) Eos % (Auto) Baso % (Auto) Neut # (Auto) Lymph # (Auto) [place] # (Auto) Eos # (Auto) Baso # (Auto) Immature Gran # (Auto) Absolute Nucleated RBC Nucleated RBC % (auto) Sodium Potassium Chloride Carbon Dioxide Anion Gap BUN Creatinine Est Cr Clr Drug Dosing Est GFR ( Amer) Est GFR (Non-Af Amer) BUN/Creatinine Ratio Glucose POC Glucose 191 H Calcium Troponin I Procalcitonin Urine Color Urine Appearance Urine pH Ur Specific [place] Urine Protein Urine Glucose (UA) Urine Ketones Urine Blood Urine Nitrite Urine Bilirubin Urine Urobilinogen Ur Leukocyte Esterase Urine WBC (Auto) Urine RBC (Auto) U Hyaline Cast (Auto) U Epithel Cells (Auto) Urine Bacteria (Auto) Urine Yeast SARS-CoV-2 (PCR) PG Care Time/CCT Total # of Minutes Spent Total Time Spent with Patient: Total time spent is greater than 50% in coordination of care (as documented) at patient's floor/unit and/or counseling patient: Coding Level of Care Code 97500 Subseq Hosp Care Lvl 2 Diagnoses Acute UTI N39.0 Generalized weakness R53.1 Pleural effusion, right J90 Hyperglycemia R73.9 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
--- NOTE | 2021-10-04 14:06 | Pulmonary Consultation ---
Date of Consultation October 04, 2021 Assessment & Plan (1) Acute exacerbation of CHF (congestive heart failure): (2) Emphysema of lung: (3) Pulmonary nodule: (4) Pleural effusion: (5) Hypoxemia: Impression: 81-year-old male admitted with UTI and decrease in systolic function on echocardiogram. He has bilateral pleural effusions right greater than left. He had a pulmonary nodule on the right side previously however this is incompletely evaluated on the current film due to compressive atelectasis from the pleural effusion. Recommendations: 1. Pleural effusion: Discussed thoracentesis with the patient. He agrees to proceed. We will conduct ultrasound-guided catheter thoracentesis and send fluid for routine microbiologic and cytologic analysis. Follow-up chest x-ray will be obtained. Given the bilateral nature, its entirely possible these effusions may be related to congestive heart failure and management per primary service and cardiology is recommended. 2. Hypoxemia: We will see how his oxygen requirement response with thoracentesis. Patient may require supplemental oxygen at discharge. 3. Pulmonary nodule: Incompletely evaluated on the current film. He is following with Dr. Peralta in the outpatient setting. 4. Discussed with son at bedside. Recommend addressing CODE STATUS. Given his comorbidities, consideration for palliative care may be appropriate. Additional recommendations will depend on results of the pleural fluid sample. History of Present Illness Attending Physician: Josué Lake MD History of Present Illness Asked by hospitalist to assist in evaluation and management this patient with pleural effusion. History is obtained from review electronic medical record as well as discussion with the patient. Patient is an 81-year-old male who is followed by Dr. Peralta in the outpatient setting and was last seen in July. He has a history of a pulmonary nodule and chronic dyspnea and has been on Spiriva for presumptive COPD. He was admitted to the hospital yesterday with weakness and hyperglycemia. Patient had some initial confusion. Family believes the patient had more shortness of br eath. Patient required oxygen in the emergency room and a CT scan was performed showing a right-sided pleural effusion which is new compared to June. He was admitted to the medicine service for evaluation management of urinary tract infection and pulmonary was consulted for evaluation of his pleural effusion. Patient denies any chest pain or palpitations. He is not noted any significant lower extremity edema. No fevers chills or night sweats. No history of trauma to the chest. He states his breathing is actually pretty good currently. He is on supplemental oxygen which is a new finding for him. Allergies Allergy/AdvReac Type Severity Reaction Status Date / Time Insulins Allergy Intermediate BEEF/PORK Verified 08/17/21 10:13 INSULINS lorazepam AdvReac Intermediate DELUSIONS Verified 08/17/21 10:13 chlorpromazine AdvReac Mild "SHAKING" Verified 08/17/21 10:13 Home Medications Medication Instructions Recorded Confirmed Type cholecalciferol (vitamin D3) 25 1,000 unit PO QAM 01/11/19 10/03/21 History mcg (1,000 unit) tablet (Vitamin D3) albuterol sulfate 90 mcg/actuation 2 puffs INHALATION Q6H PRN #1 gm 08/02/19 10/03/21 History aerosol inhaler (Ventolin HFA) diphenhydramine 25 1 tab PO HS tab 07/04/20 10/03/21 History mg-acetaminophen 500 mg tablet (Tylenol PM Extra Strength) losartan 25 mg tablet (Cozaar) 25 mg PO HS 01/26/21 10/03/21 History ropinirole 1 mg tablet 1 mg PO HS #90 tab 02/14/21 10/03/21 Rx docusate sodium 100 mg capsule 100 mg PO QAM 03/01/21 10/03/21 History (Colace) insulin NPH isoph U-100 human 100 5 unit SUBCUT HS 03/01/21 10/03/21 History unit/mL subcutaneous suspension insulin lispro 100 unit/mL See Rx Instructions .ROUTE TID ml 03/01/21 10/03/21 History subcutaneous pen (Humalog KwikPen (U-100) Insulin) polyethylene glycol 3350 17 17 g PO DAILY PRN 03/01/21 10/03/21 History gram/dose oral powder (Miralax) aspirin 81 mg tablet,delayed 81 mg PO Q2D 07/24/21 10/03/21 History release (Aspirin Low Dose) escitalopram oxalate 10 mg tablet 10 mg PO QAM 07/24/21 10/03/21 History (Lexapro) insulin glargine 100 unit/mL (3 20 - 25 unit SQ HS 07/24/21 10/03/21 History mL) subcutaneous pen (Lantus Solostar U-100 Insulin) rosuvastatin 20 mg tablet (Crestor) 20 mg PO Q2D 07/24/21 10/03/21 History tiotropium bromide 1.25 2 puff INHALATION QAM 07/24/21 10/03/21 History mcg/actuation mist for inhalation (Spiriva Respimat) omeprazole 20 mg capsule,delayed 20 mg PO BID #60 cap 08/13/21 10/03/21 Rx release albuterol sulfate 90 mcg/actuation 1 inh INHALATION QID PRN #8.5 g 08/17/21 10/03/21 Rx aerosol inhaler Patient History Medical History (Updated 10/04/21 @ 14:03 by Darnell Dover MD) Abnormal CT scan, esophagus Atherosclerosis of both carotid arteries Bilateral diabetic retinopathy BPH without obstruction/lower urinary tract symptoms CAD (coronary artery disease) S/p 3 vessel CABG 2000- follows Dr. 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, with long-term current use of insulin COPD (chronic obstructive pulmonary disease) Cough Dyslipidemia Elevated LFTs Elevated PSA Emphysema of lung Diagnosed by CT scan Esophageal abnormality Gross hematuria Related to UTI - now resolved Hard of hearing extreme per > have to speak very loud History of depression History of HI (myocardial infarction) (2000) 2000> cabg HTN (hypertension) Lung nodule Male erectile disorder of organic origin Peripheral neuropathy Peripheral vascular disease S/p BKA on left side Phantom limb (syndrome) left leg Restless leg Solitary lung nodule Tobacco abuse Tobacco abuse Trigger finger Surgical History H/O eye surgery bilat cataracts History of bronchoscopy 01/31/21 with biopsy History of cholecystectomy History of esophagogastroduodenoscopy (EGD) History of left below knee amputation History of tooth extraction History of transurethral resection of prostate S/P CABG (coronary artery bypass graft) (2000) 2000 > triple > [facility] > follows with Dr. Goodman Status post open reduction with internal fixation (ORIF) of fracture of ankle (2018) right Family History Father , in his 70s Diabetes Mother , 62yo Cervical cancer Sister No problems noted. Sister No problems noted. Son No problems noted. Son No problems noted. Son No problems noted. Son Diabetes Daughter No problems noted. Other No family history of adverse response to anesthesia Social History Smoking Status: Current every day smoker Tobacco Type: Cigarettes Cigarettes Per Day: unknown; Second Hand Exposure: No; Do You Dip or Chew Tobacco: No; Tobacco Cessation Education Requested by Patient: No Hx Alcohol Use: No Hx Substance Use: No Preferred Language: Arabic Communication Ability: Effective Visual Impairment: No Limitations Hearing Ability: Hard of Hearing Bingo Manager Required: No Beliefs That Will Affect Care: None marital status: Current Living Situation: Spouse Current Living Situation Comment: home w/ - children help with care current occupational status: retired current occupation: Retired from [employer] Other Information That Helps Us Care for You: No Feels Safe at Home: Yes Safety Concerns: Feels Safe At This Time caffeine: Yes (2-4 cups/day) during the past year weight has: decreased > 10 lbs Assistive Devices: Cane, Walker and Wheelchair Review of Systems Review of Systems: Please refer to admission H&P. I have no additions or deletions Physical Exam Constitutional: WD/WN, vitals as above + frail appearing Eyes: PERRL, conjunctivae normal, anicteric sclerae ENMT: Mouth: + dry oral mucous membranes Neck: trachea midline, no thyromegaly Respiratory: + uses accessory muscles, able to speak in complete sentences and + prolonged expiratory phase; no cough Auscultation: + breath sounds absent (Right base); no crackles, no rales, no rhonchi and no wheezes Cardiovascular: RRR, no murmur, no edema Gastrointestinal (Abdomen): normal bowel sounds, soft, nontender, no hepatosplenomegaly Musculoskeletal: no cyanosis or clubbing, extremities motor strength 5/5 Skin: no rashes, warm and dry Neurologic: moves all extremities and awake; no focal motor deficits (no lateralizing deficit) and not confused Psychiatric: A+Ox3, euthymic affect Genitourinary: no CVA tenderness Results & Data Results & Data ([facility]) Vital Signs (Past 12 Hours) Vital Signs Temp Pulse Pulse Resp BP Pulse Ox 10/04/21 10:58 36.3 C L 84 19 144/78 H 94 10/04/21 08:22 36.6 C 81 19 137/89 96 10/04/21 08:00 88 10/04/21 03:54 36.9 C 86 20 126/76 91 Laboratory Results 10/04/21 06:33 10/04/21 06:33 INR is 1.3 Venous blood gas showed pH 7.46 with a CO2 of 39 Initial troponin 0 0.115 now downtrending Procalcitonin negative at 0.14 Diagnostic Findings Echocardiogram performed today showed an ejection fraction of 25 to 30% with global hypokinesis and akinetic apex with concentric LVH. Right ventricle was dilated with left atrial dilatation. Aortic valve was sclerotic without stenosis. Moderate mitral regurgitation was noted. Systolic function is decreased from previous. Grade [address] diastolic dysfunction was noted. CT angio chest PE protocol independently reviewed from 10/03/2021 CLINICAL HISTORY: Weakness and cough, R lung conslidation vs effusion on portable chest radiograph. Evaluate for pulmonary embolus COMPARISON STUDY: Portable chest from 10/03/[address] of the chest from 07/04/[address]21 CT DOSE: 294.57 mGy.cm TECHNIQUE: CT Angio of the chest was performed.followed by image post processing with coronal, and sagittal MIP reformats. Contrast Volume: Optiray 320, 121 ml FINDINGS: Vasculature: There is homogeneous perfusion of the pulmonary vasculature bilaterally. No intraluminal filling defects or evidence for pulmonary embolus is seen. Airway: The airway is clear. No endobronchial lesion is identified. Lungs and pleural: Moderate to marked centrilobular emphysematous changes are seen particularly involving the upper lobes bilaterally. There is actually a large right pleural effusion with compressive atelectasis/collapse involving the right lower lobe with a few air filled spaces most characteristic of the patient's emphysema. There is also atelectasis/collapse to a lesser extent involving the right upper and right middle lobes. Small left pleural effusion and left basilar atelectasis are also present. No definite confluent alveolar opacities or air bronchograms are seen. Mediastinum: There is no evidence for pathologic adenopathy. There is evidence for previous coronary thoracic surgery. The heart is mildly enlarged. There is coronary artery calcification. The thoracic aorta is within normal limits. Atherosclerotic calcification is present involving the thoracic aorta and origins of great vessels. There is no evidence for pericardial effusion. Upper abdomen:The adrenal glands are normal bilaterally. Osseous structures: There is no acute osseous pathology. Impression: 1. No CTA evidence for pulmonary embolus. 2. Moderate to marked centrilobular emphysematous changes particularly involving the upper lobes bilaterally. 3. Large right pleural effusion with compressive atelectasis/collapse involving the right lower lobe and to a lesser extent involving the right middle and right upper lobes. 4. Small left pleural effusion. 5. No confluent alveolar opacities are bronchograms. 7. Additional nonacute findings as delineated above. PG Care Time/CCT Total # of Minutes Spent Total Time Spent with Patient: Total time spent is greater than 50% in coordination of care (as documented) at patient's floor/unit and/or counseling patient: Coding Level of Care Code 89513 Initial Inpt Care Lvl 3 Diagnoses Acute exacerbation of CHF (congestive heart failure) I50.9 Emphysema of lung J43.9 Pulmonary nodule R91.1 Pleural effusion J90 Hypoxemia R09.02
--- NOTE | 2021-10-04 14:45 | Pharmacy Report ---
Pharmacy Glycemic Short Note 2 - Date of Service October 04, 2021 - Glycemic Short BSG Results (Last 24 hours): 10/03/21 10/03/21 10/03/21 15:59 17:38 20:20 Glucose POC Glucose 350 H* 307 H* 318 H* 10/03/21 10/04/21 10/04/21 20:22 00:11 05:03 Glucose POC Glucose 340 H* 256 H 210 H 10/04/21 10/04/21 10/04/21 06:33 07:37 11:42 Glucose 179 H POC Glucose 168 H 191 H OUTPATIENT ANTIDIABETIC REGIMEN: * Lantus 20-25 units SQ at bedtime * NPH 5 units SQ with Lantus at bedtime * HbA1c: pending with AM labs ASSESSMENT: * Mr Welsh is an 81yo diabetic gentleman admitted with confusion/weakness. * Pt was hyperglycemic on admission last night, but BSGs have since improved. * Pt is receiving IV Rocephin for UTI. * Will continue to adjust regimen as required. PLAN FOR INPATIENT GLYCEMIC CONTROL: * Hold outpatient oral diabetes medications * Basal insulin * Lantus 25-25 units SQ qPM * Bolus insulin * NovoLog per scale ACHS or Q6hrs while NPO * Goal Range: Low 120 mg/dL - High 160 mg/dL * Correction Factor: 25 mg/dL/unit * Nutritional / Prandial insulin per carb ratio of 1 unit per 9 grams CHO consumed PLAN FOR DISCHARGE: * tbd
[2021-10-04] MEDS: ALBUT/IPRATROP 3MG/0.5MG NEB 3 ML VIAL NEB SCH ×3 (14:55→23:15)
--- NOTE | 2021-10-04 15:16 | Procedure Note ---
Procedure Note Date of Service October 04, 2021 Note Procedure: Diagnostic therapeutic ultrasound-guided catheter thoracentesis Nuclear Medicine Officer: Dr. Darnell Dover Indication: Pleural effusion Consent: Signed by patient and verified with timeout prior to procedure Anesthesia: 8 mL's 1% lidocaine without epinephrine local. Procedure: Consent was verified and timeout performed. Appropriate imaging studies were reviewed prior to the procedure. Patient was placed in a seated position and limited thoracic ultrasound was performed of the bilateral chest. A very small effusion was identified on the left. Moderate-sized pleural effusion with compressive atelectasis identified on the right. Site appropriate for thoracentesis on the right was selected. The skin was prepped and draped in normal sterile fashion. Lidocaine was used for local analgesia. Fluid was aspirated via the finder needle. A small skin joey was made with the scalpel and the catheter over the needle apparatus was advanced over the rib into the pleural space. Using the syringe one-way valve system, a total of 1600mL's of clear yellowfluid was removed. Procedure was terminated due to concern about reexpansion pulmonary edema. The catheter was removed and observed to be intact. A sterile dressing was applied. Post procedure chest x-ray was ordered. Fluid was sent for cell count differential, cytology, Gram stain and culture, LDH, glucose, total protein. The patient tolerated the procedure well without obvious complication Coding CPT Codes Pulmonary/Thoracic - Pulmonary and Thoracic: 64758 Thoracentesis w imaging ([id number]) [facility] [place] ([place]arges[place] Pulmonary/Thoracic Procedure 1: Pulmonary and Thoracic: 50644 Thoracentesis w imaging
[2021-10-04 15:51] LABS: Glucose Pleural Fluid 226 mg/dl
[2021-10-04] MEDS ORDERED: cefTRIAXone SODIUM 1,000 MG in DEXTROSE 5% 50 ML IV SCH (16:00)
--- NOTE | 2021-10-04 16:01 | XRay Report ---
XR chest 1V portable CLINICAL HISTORY: S/P right-sided Thoracentesis. Evaluate for pneumothorax COMPARISON STUDY: 10/03/2021 TECHNIQUE: 1 view of the chest FINDINGS: Single frontal view of the chest demonstrates the heart to be mildly enlarged status post previous ca rdiothoracic surgery. The patient is status post right thoracentesis with only mild residual blunting of the right costophrenic angle present along with residual right basilar atelectasis. There is no e vidence for pneumothorax. There are no confluent alveolar opacities. There is no left pleural effusio n. There is no evidence for vascular congestion. There is no acute osseous pathology. IMPRESSION: Status post right thoracentesis with minimal residual blunting of the right costophrenic angle and right basilar atelectasis. No evidence for pneumothorax. ACT 112: Negative or not required by law. Electronically signed by: Eulogio Posada M.D. 10/04/2021 4:00 PM
[2021-10-04 16:05] LABS: LDH Pleural Fluid 76 U/L; Total Protein Pleural Fluid 2.1 g/dl
[2021-10-04 16:24] LABS: Appearance Pleural Fluid CLEAR; Basophils, Fluid 0 %; Color Pleural Fluid YELLOW; Eosinophils, Fluid 0 %; Lymphocytes, Fluid 32 %; Mono,Macrophage,Mesothelial 35 %; Neutrophils, Fluid 33 %; RBC Pleural Fluid (A) < 3000 /uL; Source Pleural Fluid RIGHT LUNG; WBC Pleural Fluid (A) 276 /uL
--- NOTE | 2021-10-04 16:56 | Cardiology Consultation ---
Date of Consultation October 04, 2021 Assessment & Plan (1) Cardiomyopathy: (2) CAD (coronary artery disease): (3) S/P CABG (coronary artery bypass graft): (4) Tobacco abuse: (5) Pleural effusion: (6) Pulmonary nodule: (7) Elevated troponin: (8) SOB (shortness of breath): (9) Nonsustained paroxysmal ventricular tachycardia: ASSESSMENT/PLAN: 1. Cardiomyopathy: He does not appear to be significantly hypervolemic and in fact breathing has been better laying supine, even before thoracentesis. He is on losartan and lisinopril was reduced and discontinued in the past due to orthostatic symptoms. Titrating medications may be difficult. Given ventricular tachycardia on monitor, history of CAD, and severely reduced LV systolic function, recommend metoprolol succinate 25 mg once daily. These medications can be titrated upward if tolerated over time. If LV systolic function does not improve on optimal therapy or maximal tolerated therapy, could consider ICD for primary prevention at that time if clinically applicable and desired by patient. There is no urgent indication for cardiac catheterization. He did not present with acute coronary syndrome. Further evaluation can be decided upon in the future with his primary newspaper delivery counselor, Dr. Goodman. Recommend low-sodium diet. 2. CAD s/p CABG: He reports 4 vessel bypass 20 years ago. No angina. Continue aspirin 81 mg daily. Would recommend low-dose beta-logan as above if tolerated. He is tolerating statin therapy. 3. Elevated troponin: He did not present with acute coronary syndrome. There is no urgent indication for ischemic evaluation. 4. Shortness of breath: He has documented COPD/emphysema per records, right pulmonary nodule concerning for malignancy in the past treated with XRT, and pleural effusion, also in the setting of reduced LV systolic function. Shortness of breath may be multifactorial. He reports significant improvement without diuresis. Clinically, he does not appear significantly hypervolemic based on exam. 5. Pulmonary nodule/pleural effusion: Pulmonology following. Continue to monitor diagnostic evaluation of pleural fluid. Pulmonary nodule reported as likely primary bronchogenic neoplasm in the past, which could be contributing to his significant right-sided pleural effusion. Clinically does not appear to be significantly hypervolemic. 6. Tobacco abuse: Recommended that he stop smoking. 7. Ventricular tachycardia: Nonsustained and appears to have been asymptomatic. Start low-dose beta-logan as above. 8. Disposition: Patient care discussed with his primary newspaper delivery counselor, Dr. Goodman to keep him up-to-date with presentation and findings as well as treatment plan. Plan of care communicated with primary hospitalist, Dr. Lake. On discharge, he should follow-up with Dr. Goodman within 1-2 weeks. Please call with any other questions or concerns. Thank you for allowing me to participate in the care of your patient. Please call for any other questions or concerns. Sincerely, Juan Arroyo M.D. History of Present Illness Reason for Consultation: "CHF exacerbation" Requesting Physician: Josué Lake MD Attending Physician: Josué Lake MD History of Present Illness Mr. Welsh is a pleasant 81-year-old gentleman with history significant for multivessel CAD s/p CABG x 4, type 1 diabetes, tobacco abuse, left BKA, COPD/emphysema, lung nodule, hypertension, dyslipidemia, and cardiomyopathy. His primary newspaper delivery counselor is Dr. Goodman. In regards to his pulmonary nodule history, he had abnormal PET scans, concerning for malignancy. He underwent radiation therapy with decreased size of right lower lobe pulmonary nodule. He also was noted to have mildly enlarged mediastinal lymphadenopathy. He follows with pulmonology. Regarding his cardiac history, he underwent CABG x4 in [address] Goodman, however he has not been seenin the office since 07/04/2020 at which time a 6 month follow-up was recommended. Echo on 05/30/2019 reported EF of 40- 45% with severe apical hypokinesis, akinetic inferior wall, and otherwise no significant valvular abnormalities. He was admitted on 10/03/2021 after having issues with shortness of breath and confusion at home. Apparently the symptoms had been occurring 4-5 days prior to presentation. His son, Arcenio, was present in his hospital room and help provide some of the history. He lives at home with his but his fell this past weekend and their children have been taking turns staying with him 24/ since then. He has been experiencing intermittent dysuria and overall shortness of breath. He reports that his breathing was better while lying supine and denies any chest discomfort. He denies syncope but has had issues with near syncope at times when getting up from a seated position, especially near dinner time and wh en glucose levels were not controlled. Prior to presentation, his glucose levels at home have been ranging in the 400s to over 600s for the past few days. While here, he was noted to have right-sided pleural effusion, incidentally the same side of his pulmonary nodule. He underwent thoracentesis today removing 1.6 L according to records. Overall, his breathing has improved as has his confusion. He denies edema, palpitations, or bleeding such as melena, hematochezia, or hematuria. His breathing here has improved despite no diuretic therapy. Diuretic was ordered today to start tomorrow morning by primary service after echo was completed. His echo today demonstrated reduced LV systolic function compared to most recent in 2019. Review of systems: As above. Review of systems otherwise negative/unremarkable. Family history: No known premature CAD. Social history: Smokes 1 pack per day and has smoked for many years. No alcohol or drugs. Lives at home with his . Five children. Children have been taking turns staying with he and his more recently since his had a fall. His son, Arcenio, was present at the bedside. Allergies Allergy/AdvReac Type Severity Reaction Status Date / Time Insulins Allergy Intermediate BEEF/PORK Verified 08/17/21 10:13 INSULINS lorazepam AdvReac Intermediate DELUSIONS Verified 08/17/21 10:13 chlorpromazine AdvReac Mild "SHAKING" Verified 08/17/21 10:13 Home Medications Medication Instructions Recorded Confirmed Type cholecalciferol (vitamin D3) 25 1,000 unit PO QAM 01/11/19 10/03/21 History mcg (1,000 unit) tablet (Vitamin D3) albuterol sulfate 90 mcg/actuation 2 puffs INHALATION Q6H PRN #1 gm 08/02/19 10/03/21 History aerosol inhaler (Ventolin HFA) diphenhydramine 25 1 tab PO HS tab 07/04/20 10/03/21 History mg-acetaminophen 500 mg tablet (Tylenol PM Extra Strength) losartan 25 mg tablet (Cozaar) 25 mg PO HS 01/26/21 10/03/21 History ropinirole 1 mg tablet 1 mg PO HS #90 tab 02/14/21 10/03/21 Rx docusate sodium 100 mg capsule 100 mg PO QAM 03/01/21 10/03/21 History (Colace) insulin NPH isoph U-100 human 100 5 unit SUBCUT HS 03/01/21 10/03/21 History unit/mL subcutaneous suspension insulin lispro 100 unit/mL See Rx Instructions .ROUTE TID ml 03/01/21 10/03/21 History subcutaneous pen (Humalog KwikPen (U-100) Insulin) polyethylene glycol 3350 17 17 g PO DAILY PRN 03/01/21 10/03/21 History gram/dose oral powder (Miralax) aspirin 81 mg tablet,delayed 81 mg PO Q2D 07/24/21 10/03/21 History release (Aspirin Low Dose) escitalopram oxalate 10 mg tablet 10 mg PO QAM 07/24/21 10/03/21 History (Lexapro) insulin glargine 100 unit/mL (3 20 - 25 unit SQ HS 07/24/21 10/03/21 History mL) subcutaneous pen (Lantus Solostar U-100 Insulin) rosuvastatin 20 mg tablet (Crestor) 20 mg PO Q2D 07/24/21 10/03/21 History tiotropium bromide 1.25 2 puff INHALATION QAM 07/24/21 10/03/21 History mcg/actuation mist for inhalation (Spiriva Respimat) omeprazole 20 mg capsule,delayed 20 mg PO BID #60 cap 08/13/21 10/03/21 Rx release albuterol sulfate 90 mcg/actuation 1 inh INHALATION QID PRN #8.5 g 08/17/21 10/03/21 Rx aerosol inhaler Patient History Medical History (Updated 10/04/21 @ 17:31 by Niko Arroyo MD) Abnormal CT scan, esophagus Atherosclerosis of both carotid arteries Bilateral diabetic retinopathy BPH without obstruction/lower urinary tract symptoms CAD (coronary artery disease) Cardiomyopathy Zmionxc-Gnqiz-Odgeh disease Chronic constipation Chronic dyspnea 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, with long-term current use of insulin COPD (chronic obstructive pulmonary disease) Cough Dyslipidemia Elevated LFTs Elevated PSA Emphysema of lung Diagnosed by CT scan Esophageal abnormality Gross hematuria Related to UTI - now resolved Hard of hearing extreme per > have to speak very loud History of depression History of [place] (myocardial infarction) (2000) 2000> cabg HTN (hypertension) Lung nodule Male erectile disorder of organic origin Peripheral neuropathy Peripheral vascular disease S/p BKA on left side Phantom limb (syndrome) left leg Restless leg Solitary lung nodule Tobacco abuse Tobacco abuse Trigger finger Surgical History (Updated 10/04/21 @ 17:18 by Niko Arroyo MD) H/O eye surgery bilat cataracts History of bronchoscopy 01/31/21 with biopsy History of cholecystectomy History of esophagogastroduodenoscopy (EGD) History of left below knee amputation History of tooth extraction History of transurethral resection of prostate S/P CABG (coronary artery bypass graft) (2000) Status post open reduction with internal fixation (ORIF) of fracture of ankle (2018) right Family History Father , in his 70s Diabetes Mother , 62yo Cervical cancer Sister No problems noted. Sister No problems noted. Son No problems noted. Son No problems noted. Son No problems noted. Son Diabetes Daughter No problems noted. Other No family history of adverse response to anesthesia Social History Smoking Status: Current every day smoker Tobacco Type: Cigarettes Cigarettes Per Day: unknown; Second Hand Exposure: No; Do You Dip or Chew Tobacco: No; Tobacco Cessation Education Requested by Patient: No Hx Alcohol Use: No Hx Substance Use: No Preferred Language: Slovak Communication Ability: Effective Visual Impairment: No Limitations Hearing Ability: Hard of Hearing Operations Label Clerk Required: No Beliefs That Will Affect Care: None marital status: Current Living Situation: Spouse Current Living Situation Comment: home w/ - children help with care current occupational status: retired current occupation: Retired from [employer] Other Information That Helps Us Care for You: No Feels Safe at Home: Yes Safety Concerns: Feels Safe At This Time caffeine: Yes (2-4 cups/day) during the past year weight has: decreased > 10 lbs Assistive Devices: Cane, Walker and Wheelchair Physical Exam Physical Exam: Gen.: No acute distress. Alert and oriented to self, month, year. He did not know where he was. HEENT: Anicteric sclera. Neck: No JVD. No hepatic jugular reflux. No bruits. Normal carotid upstrokes bilaterally. Cardiac: PMI was nondisplaced. No ventricular heave. Regular. Normal S1-S2. No murmurs, rubs, or gallops. Pulmonary: Decreased breath sounds at the right base. Faint crackles at the left base. Abdomen: Soft, nontender, nondistended, with normoactive bowel sounds. No bruits noted. Extremities: 2+ radial pulses bilaterally. 2+ posterior tibialis pulses bilaterally. Trace right pedal edema. Left BKA. No cyanosis. Psychiatric: Affect appears appropriate. Results & Data ([facility]) Vital Signs (Past 12 Hours) Vital Signs Temp Pulse Pulse Resp BP Pulse Ox 10/04/21 16:29 36.3 C L 82 18 134/75 92 10/04/21 16:00 96 H 10/04/21 14:55 85 18 94 10/04/21 10:58 36.3 C L 84 19 144/78 H 94 10/04/21 08:22 36.6 C 81 19 137/89 96 10/04/21 08:00 88 Laboratory Results Laboratory Results - last 24 hr 10/03/21 10/03/21 10/03/21 17:38 20:20 20:22 WBC RBC Hgb Hct MCV MCH MCHC RDW Std Deviation RDW Coeff of Johnathan Plt Count MPV Immature Gran % (Auto) Neut % (Auto) Lymph % (Auto) [place] % (Auto) Eos % (Auto) Baso % (Auto) Neut # (Auto) Lymph # (Auto) [place] # (Auto) Eos # (Auto) Baso # (Auto) Immature Gran # (Auto) Absolute Nucleated RBC Nucleated RBC % (auto) Sodium Potassium Chloride Carbon Dioxide Anion Gap BUN Creatinine Est Cr Clr Drug Dosing Est GFR ( Amer) Est GFR (Non-Af Amer) BUN/Creatinine Ratio Glucose POC Glucose 307 H* 318 H* 340 H* Calcium Troponin I NT-Pro-B Natriuret Pep Fluid Neutrophils % Fluid Lymphocytes % Fluid Eosinophils % Fluid Basophils % Fluid Meso/Macro/[place] % Fluid Comment Pleural Fluid Source Pleural Color Pleural Appearance Pleural pH Pleural WBC Pleural RBC Pleural Total Protein Pleural LDH Pleural Glucose 10/03/21 10/04/21 10/04/21 22:20 00:11 05:03 WBC RBC Hgb Hct MCV MCH MCHC RDW Std Deviation RDW Coeff of Johnathan Plt Count MPV Immature Gran % (Auto) Neut % (Auto) Lymph % (Auto) [place] % (Auto) Eos % (Auto) Baso % (Auto) Neut # (Auto) Lymph # (Auto) [place] # (Auto) Eos # (Auto) Baso # (Auto) Immature Gran # (Auto) Absolute Nucleated RBC Nucleated RBC % (auto) Sodium Potassium Chloride Carbon Dioxide Anion Gap BUN Creatinine Est Cr Clr Drug Dosing Est GFR ( Amer) Est GFR (Non-Af Amer) BUN/Creatinine Ratio Glucose POC Glucose 256 H 210 H Calcium Troponin I 0.096 H* NT-Pro-B Natriuret Pep Fluid Neutrophils % Fluid Lymphocytes % Fluid Eosinophils % Fluid Basophils % Fluid [place] % Fluid Comment Pleural Fluid Source Pleural Color Pleural Appearance Pleural pH Pleural WBC Pleural RBC Pleural Total Protein Pleural LDH Pleural Glucose 10/04/21 10/04/21 10/04/21 06:33 06:33 06:33 WBC 12.61 H RBC 4.95 Hgb 11.4 L Hct 38.0 L MCV 76.8 L MCH 23.0 L MCHC 30.0 L RDW Std Deviation 52.3 H RDW Coeff of Johnathan 18.7 H Plt Count 207 MPV 10.2 Immature Gran % (Auto) 0.2 Neut % (Auto) 85.2 Lymph % (Auto) 6.7 [place] % (Auto) 6.5 Eos % (Auto) 1.3 Baso % (Auto) 0.1 Neut # (Auto) 10.75 H Lymph # (Auto) 0.84 L [place] # (Auto) 0.82 H Eos # (Auto) 0.17 Baso # (Auto) 0.01 Immature Gran # (Auto) 0.02 Absolute Nucleated RBC 0.02 H Nucleated RBC % (auto) 0.1 Sodium 142 Potassium 4.0 Chloride 111 H Carbon Dioxide 27 Anion Gap 4.0 BUN 17 Creatinine 0.92 D Est Cr Clr Drug Dosing 63.0 Est GFR ( Amer) 89.5 Est GFR (Non-Af Amer) 77.2 BUN/Creatinine Ratio 18.9 Glucose 179 H POC Glucose Calcium 9.1 Troponin I 0.094 H* NT-Pro-B Natriuret Pep Fluid Neutrophils % Fluid Lymphocytes % Fluid Eosinophils % Fluid Basophils % Fluid [place] % Fluid Comment Pleural Fluid Source Pleural Color Pleural Appearance Pleural pH Pleural WBC Pleural RBC Pleural Total Protein Pleural LDH Pleural Glucose 10/04/21 10/04/21 10/04/21 07:37 11:42 13:57 WBC RBC Hgb Hct MCV MCH MCHC RDW Std Deviation RDW Coeff of Johnathan Plt Count MPV Immature Gran % (Auto) Neut % (Auto) Lymph % (Auto) [place] % (Auto) Eos % (Auto) Baso % (Auto) Neut # (Auto) Lymph # (Auto) [place] # (Auto) Eos # (Auto) Baso # (Auto) Immature Gran # (Auto) Absolute Nucleated RBC Nucleated RBC % (auto) Sodium Potassium Chloride Carbon Dioxide Anion Gap BUN Creatinine Est Cr Clr Drug Dosing Est GFR ( Amer) Est GFR (Non-Af Amer) BUN/Creatinine Ratio Glucose POC Glucose 168 H 191 H Calcium Troponin I 0.068 H* NT-Pro-B Natriuret Pep Fluid Neutrophils % Fluid Lymphocytes % Fluid Eosinophils % Fluid Basophils % Fluid [place] % Fluid Comment Pleural Fluid Source Pleural Color Pleural Appearance Pleural pH Pleural WBC Pleural RBC Pleural Total Protein Pleural LDH Pleural Glucose 10/04/21 10/04/21 10/04/21 13:57 15:00 15:00 WBC RBC Hgb Hct MCV MCH MCHC RDW Std Deviation RDW Coeff of Johnathan Plt Count MPV Immature Gran % (Auto) Neut % (Auto) Lymph % (Auto) [place] % (Auto) Eos % (Auto) Baso % (Auto) Neut # (Auto) Lymph # (Auto) [place] # (Auto) Eos # (Auto) Baso # (Auto) Immature Gran # (Auto) Absolute Nucleated RBC Nucleated RBC % (auto) Sodium Potassium Chloride Carbon Dioxide Anion Gap BUN Creatinine Est Cr Clr Drug Dosing Est GFR ( Amer) Est GFR (Non-Af Amer) BUN/Creatinine Ratio Glucose POC Glucose Calcium Troponin I NT-Pro-B Natriuret Pep 87255 H Fluid Neutrophils % 33 Fluid Lymphocytes % 32 Fluid Eosinophils % 0 Fluid Basophils % 0 Fluid Meso/Macro/[place] % 35 Fluid Comment Pleural Fluid Source RIGHT LUNG Pleural Color YELLOW Pleural Appearance CLEAR Pleural pH 7.50 H Pleural WBC 276 Pleural RBC < 3000 Pleural Total Protein 2.1 Pleural LDH 76 Pleural Glucose 226 10/04/21 16:43 WBC RBC Hgb Hct MCV MCH MCHC RDW Std Deviation RDW Coeff of Johnathan Plt Count MPV Immature Gran % (Auto) Neut % (Auto) Lymph % (Auto) [place] % (Auto) Eos % (Auto) Baso % (Auto) Neut # (Auto) Lymph # (Auto) [place] # (Auto) Eos # (Auto) Baso # (Auto) Immature Gran # (Auto) Absolute Nucleated RBC Nucleated RBC % (auto) Sodium Potassium Chloride Carbon Dioxide Anion Gap BUN Creatinine Est Cr Clr Drug Dosing Est GFR ( Amer) Est GFR (Non-Af Amer) BUN/Creatinine Ratio Glucose POC Glucose 198 H Calcium Troponin I NT-Pro-B Natriuret Pep Fluid Neutrophils % Fluid Lymphocytes % Fluid Eosinophils % Fluid Basophils % Fluid [place] % Fluid Comment Pleural Fluid Source Pleural Color Pleural Appearance Pleural pH Pleural WBC Pleural RBC Pleural Total Protein Pleural LDH Pleural Glucose Diagnostic Findings Telemetry personally reviewed: Nonsustained ventricular tachycardia, but predominantly sinus rhythm. CTA chest 10/03/2021: No PE. Emphysematous changes involving upper lobes bilaterally. Large right pleural effusion with compressive atelectasis/collapse involving right lower lobe. Small left pleural effusion. Chest x-ray 10/03/2021: Image personally reviewed. Mod-large right pleural effusion. Echo 10/04/2021: Severely reduced LV systolic function. EF 25-30%. Global hypokinesis with akinetic apex. Severely reduced RV systolic function. Mild left atrial dilation. Sclerotic aortic valve. Mild to moderate MR. Compared to 05/30/2019 echo, LV systolic function has declined. ECG 10/03/2021 personally reviewed: Sinus rhythm with PVCs 81 beats per minute. Possible anterior infarct. Nonspecific T-wave abnormality. Procedural note reviewed from 10/04/2021: 1.6 L pleural fluid removed via right-sided thoracentesis by pulmonology. Medications Administered Current Inpatient Medications Acetaminophen (Acetaminophen 325 Mg Tab) 650 mg PO Q4H PRN PRN Reason: Pain or Fever Stop: 11/02/21 17:45 Albuterol (Albut/Ipratrop 3mg/0.5mg Neb 3 Ml Vial) 3 ml NEB Q4R [facility] Stop: 11/03/21 14:59 Last Admin: 10/04/21 14:55 Dose: 3 ml Documented by: Aspirin (Aspirin 81 Mg Ectab) 81 mg PO QAM [facility] Stop: 11/03/21 08:59 Last Admin: 10/04/21 09:00 Dose: 81 mg Documented by: Docusate Sodium (Docusate Sodium 100 Mg Cap) 100 mg PO QAM [facility] Stop: 11/03/21 08:59 Last Admin: 10/04/21 09:00 Dose: 100 mg Documented by: Enoxaparin Sodium (Enoxaparin Inj 40 Mg/0.4 Ml Syr) 40 mg SQ QPM [facility] Stop: 11/02/21 20:59 Last Admin: 10/03/21 19:49 Dose: 40 mg Documented by: Escitalopram Oxalate (Escitalopram Oxalate 10 Mg Tab) 10 mg PO QAM [facility] Stop: 11/03/21 08:59 Last Admin: 10/04/21 09:00 Dose: 10 mg Documented by: Furosemide (Furosemide Inj 20 Mg/2 Ml Vial) 20 mg IV DAILY [facility] Stop: 11/04/21 08:59 Ceftriaxone Sodium 1,000 mg/ (Dextrose) 50 mls @ 100 mls/hr IV Q24H [facility]; Protocol Stop: 10/09/21 15:59 Last Infusion: 10/04/21 16:48 Dose: Infused Documented by: Potassium Chloride/Sodium Chloride (Normal Saline W/20 Meq Kcl) 20 meq in 1,000 mls @ 100 mls/hr IV .Q10H [facility] Stop: 11/02/21 20:59 Last Admin: 10/04/21 10:38 Dose: 100 mls/hr Documented by: Insulin Aspart (Insulin Aspart 100 Units/Ml 3 Ml Pen) 0 units SC ACHS [facility] Stop: 11/02/21 18:29 Last Admin: 10/04/21 12:30 Dose: 6 units Documented by: Insulin Glargine (Insulin Glargine Solostar 100 Units/Ml 3 Ml Pen) 0 units SC HS [facility]; Protocol Stop: 11/03/21 20:59 Losartan Potassium (Losartan Potassium 25 Mg Tab) 25 mg PO HS [facility] Stop: 11/02/21 20:59 Last Admin: 10/03/21 19:49 Dose: 25 mg Documented by: Miscellaneous Information (Pharmacy Glycemic Mgmt Consult) 1 ea N/A UD PRN PRN Reason: Consult Stop: 11/02/21 17:45 Pantoprazole Sodium (Pantoprazole 40 Mg Tab) 40 mg PO BID [facility] Stop: 11/02/21 20:59 Last Admin: 10/04/21 09:00 Dose: 40 mg Documented by: Ropinirole HCl (Ropinirole Hcl 1 Mg Tablet) 1 mg PO HS [facility] Stop: 11/02/21 20:59 Last Admin: 10/03/21 19:49 Dose: 1 mg Documented by: Rosuvastatin Calcium (Rosuvastatin Calcium 20 Mg Tab) 20 mg PO Q2D [facility] Stop: 11/02/21 18:29 Last Admin: 10/03/21 19:48 Dose: 20 mg Documented by: Umeclidinium [place] (Umeclidinium [place] 62.5mcg/Blister 7 Puffs/Inhaler) 1 puffs INH QAM [facility] Stop: 11/03/21 08:59 Last Admin: 10/04/21 09:02 Dose: 1 puffs Documented by: Vitamin D (Cholecalciferol 1,000 Units 25 Mcg Tab) 1,000 units PO QAM [facility] Stop: 11/03/21 08:59 Last Admin: 10/04/21 09:00 Dose: 1,000 units Documented by: PG Care Time/CCT Total # of Minutes Spent Total Time Spent with Patient: Total time spent is greater than 50% in coordination of care (as documented) at patient's floor/unit and/or counseling patient: Coding Level of Care Code 90201 Initial Inpt Care Lvl 3 Diagnoses Cardiomyopathy I42.9 CAD (coronary artery disease) I25.10 S/P CABG (coronary artery bypass graft) Z95.1 Tobacco abuse Z72.0 Pleural effusion J90 Pulmonary nodule R91.1 Elevated troponin R77.8 SOB (shortness of breath) R06.02 Nonsustained paroxysmal ventricular tachycardia I47.2
[2021-10-04] MEDS ORDERED: INSULIN GLARGINE SOLOSTAR 100 UNITS/ML 3 ML PEN SC SCH (21:00)
[2021-10-04] MEDS: LOSARTAN POTASSIUM 25 MG TAB PO SCH (21:36)
[2021-10-04] MEDS: rOPINIRole HCL 1 MG TABLET PO SCH (21:36)
[2021-10-05] MEDS: ENOXAPARIN INJ 40 MG/0.4 ML SYR SQ SCH (00:21)
[2021-10-05] MEDS: ACETAMINOPHEN 325 MG TAB PO PRN ×2 (00:32→12:53)
[2021-10-05] MEDS: NSS + 20MEQ KCL 20 MEQ/1,000 ML BAG IV SCH (05:15)
[2021-10-05] MEDS: ALBUT/IPRATROP 3MG/0.5MG NEB 3 ML VIAL NEB SCH ×3 (05:58→11:19)
--- NOTE | 2021-10-05 07:00 | CT Scan Report ---
CT SCAN OF THE BRAIN WITHOUT IV CONTRAST CLINICAL HISTORY: Fall. Head injury. COMPARISON STUDY: No priors. TECHNIQUE: Unenhanced axial CT scan of the brain is performed from the vertex to the skull base. A do se lowering technique was utilized adhering to the principles of ALARA. CT DOSE: 614.27 mGy.cm FINDINGS: Brain parenchyma: There are age-related involutional changes noting moderate subcortical and periven tricular microangiopathic change. There is no hemorrhage, mass effect, or evidence of acute territori al ischemia by CT criteria. Fernandez-white matter differentiation is preserved. No extra-axial fluid manfred ection is seen. Ventricles, sulci, cisterns: Prominent secondary to involutional change. Intracranial vasculature: There is atherosclerotic calcification of the cavernous carotid and vertebr al arteries. Calvarium: The skeletal structures are osteopenic. No depressed calvarial fracture is identified. Sinuses and mastoids: The visualized paranasal sinuses are clear. The mastoid air cells are well pneu matized. Orbits: There is chronic deformity of the left lamina papyracea. The bony orbits are otherwise grossl y intact. There are bilateral ocular lens implants. Metallic foreign body is again seen in the left l obe. IMPRESSION: There is no hemorrhage, mass effect, or evidence of acute territorial ischemia by CT noah mcdonough. ACT 112: Negative or not required by law. Electronically signed by: Paulino Lowe M.D. 10/05/2021 6:59 AM
[2021-10-05 07:34] LABS: Eosinophils # (auto) 0.18 K/uL (0-0.5); Eosinophils % (auto) 1.5 %; Hematocrit (blood only) 39.3 % (42-52); Hemoglobin 11.6 g/dL (14.0-18.0); Immature Granulocytes # (auto) 0.01 K/uL (0.00-0.02); Immature Granulocytes % (auto) 0.1 %; Lymphocytes # (auto) 0.74 K/uL (1.2-3.4); Lymphocytes % (auto) 6.4 %; Mean Corpuscular Hemoglobin 23.2 pg (25-34); Mean Corpuscular Hgb Conc 29.5 g/dL (32-36); Mean Corpuscular Volume 78.6 fL (80-100); Mean Platelet Volume 10.7 fL (7.4-10.4); Monocytes # (auto) 0.77 K/uL (0.11-0.59); Monocytes % (auto) 6.6 %; Neutrophils # (auto) 9.94 K/uL (1.4-6.5); Neutrophils % (auto) 85.4 %; Platelet Count 214 K/uL (130-400); RDW Standard Deviation 54.5 fL (36.4-46.3); White Blood Count 11.64 K/uL (4.8-10.8)
[2021-10-05 08:24] LABS: BUN Creatinine Ratio 14.7 (10-20); Calcium 8.7 mg/dl (8.5-10.1); Creatinine Clr Calc Pharmacy 63.7 ml/min; Est GFR (African American) 89.5 ml/min; Est GFR (Non-African American) 77.2 ml/min; Potassium 3.5 mmol/L (3.5-5.1)
[2021-10-05] MEDS: ESCITALOPRAM OXALATE 10 MG TAB PO SCH (08:24)
[2021-10-05] MEDS: UMECLIDINIUM BROMIDE 62.5MCG/BLISTER 7 PUFFS/INHALER INH SCH (08:24)
[2021-10-05] MEDS: CHOLECALCIFEROL 1,000 UNITS 25 MCG TAB PO SCH (08:25)
[2021-10-05] MEDS: ASPIRIN 81 MG ECTAB PO SCH (08:25)
[2021-10-05] MEDS: PANTOprazole 40 MG TAB PO SCH (08:25)
[2021-10-05] MEDS: DOCUSATE SODIUM 100 MG CAP PO SCH (08:25)
[2021-10-05] MEDS: INSULIN ASPART 100 UNITS/ML 3 ML PEN SC SCH ×2 (08:27→12:25)
[2021-10-05 08:51] LABS: Estimated Average Glucose 194 mg/dl; Hemoglobin A1C 8.4 % (4.5-5.6)
[2021-10-05] MEDS ORDERED: FUROSEMIDE INJ 20 MG/2 ML VIAL IV SCH (09:00)
[2021-10-05] MEDS ORDERED: METOPROLOL SUCC 25MG EXT REL TAB PO SCH (09:00)
--- NOTE | 2021-10-05 09:18 | Pulmonology Progress Note ---
Date of Service October 05, 2021 Assessment & Plan (1) Acute exacerbation of CHF (congestive heart failure): (2) Emphysema of lung: (3) Pulmonary nodule: (4) Pleural effusion: (5) Hypoxemia: Plan: Impression: 81-year-old male admitted with UTI and decrease in systolic function on echocardiogram. He is status post thoracentesis on the right 10/04/2021. Fluid appears consistent with transudate, likely secondary to heart failure. Recommendations: 1. Pleural effusion: Status post 1.6 L thoracentesis on the right with improved symptoms. Fluid consistent with transudate. Continued management from a cardiovascular standpoint with diuretics and targeted therapy for CHF. 2. Hypoxemia: We will see how his oxygen requirement response with thoracentesis. Patient may require supplemental oxygen at discharge. Significantly improved today. Two-step prior to discharge 3. Pulmonary nodule: Incompletely evaluated on the current film. He is following with Dr. Peralta in the outpatient setting. Pulmonary will sign off at this point time. He can follow-up with Dr. peralta in the outpatient setting. Feel free to contact us if we can be of additional assistance Admission and Anticipated Discharge Date Admission Date: October 03, 2021 Subjective Patient seen and examined. He is lying supine. He states he feels better after the thoracentesis yesterday. No chest pain. No palpitations. His oxygen requirements decreased. Review of Systems Review of Systems: All systems reviewed & are unremarkable except as noted in Subjective Physical Exam Physical Exam: Gen.: No acute distress. Alert and oriented to self, month, year. He did not know where he was. HEENT: Anicteric sclera. Neck: No JVD. No hepatic jugular reflux. No bruits. Normal carotid upstrokes bilaterally. Cardiac: PMI was nondisplaced. No ventricular heave. Regular. Normal S1-S2. No murmurs, rubs, or gallops. Pulmonary: Decreased breath sounds at the right base. Faint crackles at the left base. Abdomen: Soft, nontender, nondistended, with normoactive bowel sounds. No bruits noted. Extremities: 2+ radial pulses bilaterally. 2+ posterior tibialis pulses bilaterally. Trace right pedal edema. Left BKA. No cyanosis. Psychiatric: Affect appears appropriate. Results & Data Results & Data ([facility]) Vital Signs (Past 12 Hours) Vital Signs Temp Pulse Pulse Resp BP BP Pulse Ox 10/05/21 07:26 36.3 C L 81 18 128/66 95 10/05/21 07:25 81 10/05/21 07:15 82 18 95 10/05/21 01:10 74 10/04/21 23:19 36.7 C 72 18 121/70 93 10/04/21 23:18 81 22 94 Laboratory Results 10/05/21 07:07 10/05/21 07:07 Pleural fluid studies: Cell count differential: 33% neutrophils, 32% lymphocytes, 35% mesothelial cells pH 7.5 Total protein 2.1 LDH 76 Glucose 226 Cytology pending Culture pending Gram stain many white blood cells no organisms Diagnostic Findings Post procedure chest x-ray was independently reviewed. No pneumothorax. Improved aeration of the right lung base with some blunting of the CP angle. Persistent cardiomegaly PG Care Time/CCT Total # of Minutes Spent Total Time Spent with Patient: Total time spent is greater than 50% in coordination of care (as documented) at patient's floor/unit and/or counseling patient: Coding Level of Care Code 41060 Subseq Hosp Care Lvl 2 Diagnoses Acute exacerbation of CHF (congestive heart failure) I50.9 Emphysema of lung J43.9 Pulmonary nodule R91.1 Pleural effusion J90 Hypoxemia R09.02
--- NOTE | 2021-10-05 10:48 | Cardiology Progress Note ---
Date of Service October 05, 2021 Assessment & Plan (1) Cardiomyopathy: (2) CAD (coronary artery disease): (3) S/P CABG (coronary artery bypass graft): (4) Pleural effusion: (5) Pulmonary nodule: (6) Nonsustained paroxysmal ventricular tachycardia: (7) SOB (shortness of breath): (8) Elevated troponin: (9) Tobacco abuse: Plan: ASSESSMENT/PLAN: 1. Cardiomyopathy: He does not appear to be significantly hypervolemic. He is lying supine without shortness of breath. He is now up approximately 4 L, though, and would therefore continue gentle IV diuresis while in-patient. He is currently on low dose losartan and metoprolol succinate. The doses of the medications can be up-titrated as tolerated over time. He has had difficulty with orthostatic symptoms, therefore, titration of medications may be difficult. If LV systolic function does not improve on optimal therapy or maximal tolerated therapy, could consider ICD for primary prevention at that time if clinically applicable and desired by patient.Continue to monitor I's&O's. Daily weights. Low-sodium diet. 2. CAD s/p CABG: No angina. Continue aspirin, statin, and beta logan therapy. 3. Elevated troponin: He did not present with acute coronary syndrome. There is no urgent indication for ischemic evaluation. Ischemic evaluation could be considered as an outpatient if clinically appropriate. 4. Shortness of breath:Breathing has greatly improved. He does not appear significantly hypervolemic on exam, but recommend continuing gentle IV diuresis while inpatient. 5. Pulmonary nodule/pleural effusion: S/P Right thoracentesis with symptomatic improvement. Fluid consistent with transudate per Pulmonology note.Pulmonology is following the nodule in the outpatient setting. 6. Tobacco abuse: Recommend smoking cessation. 7. Ventricular tachycardia:No further arrhythmia on telemetry. Continue beta logan therapy. 8. Disposition: Will arrange outpatient follow-up in CHF clinic in approximately 1 week. Admission and Anticipated Discharge Date Admission Date: October 03, 2021 Subjective Patient states that his breathing has improved since admission. He is currently lying supine with no shortness of breath. He has not noted any lower extremity edema. He denies chest pain. He had some orthostatic lightheadedness yesterday, but he denies syncope. He states that he is very eager to get home to be with his . Physical Exam Physical Exam: Constitutional: Alert, oriented, in no acute distress HEENT: Head is atraumatic and normocephalic. EOMs intact. Sclera non-icteric. Face is symmetric. No perioral cyanosis. Mucous membranes moist Neck: Supple, no appreciable JVD Pulmonary: Normal respiratory effort, decreased breath sounds right lung base and faint crackles in left lung base Cardiac: Regular rate and rhythm, normal S1 and S2, no gallops, no rubs, no murmurs Extremities: Left BKA. No edema. No clubbing or cyanosis. 2+ radial pulses bilaterally Abdomen: Normal bowel sounds, soft, non-tender, no abdominal masses palpated Skin: Normal skin color, turgor, and pigmentation. No rash or skin lesions Psychiatric: Affect appropriate Results & Data ([facility]) Vital Signs (Past 12 Hours) Vital Signs Temp Pulse Pulse Resp BP BP Pulse Ox 10/05/21 10:20 91 10/05/21 07:26 97.3 F L 81 18 128/66 95 10/05/21 07:25 81 10/05/21 07:15 82 18 95 10/05/21 01:10 74 10/04/21 23:19 98.1 F 72 18 121/70 93 10/04/21 23:18 81 22 94 Laboratory Results Laboratory Results - last 24 hr 10/04/21 10/04/21 10/04/21 11:42 13:57 13:57 WBC RBC Hgb Hct MCV MCH MCHC RDW Std Deviation RDW Coeff of Johnathan Plt Count MPV Immature Gran % (Auto) Neut % (Auto) Lymph % (Auto) [place] % (Auto) Eos % (Auto) Baso % (Auto) Neut # (Auto) Lymph # (Auto) [place] # (Auto) Eos # (Auto) Baso # (Auto) Immature Gran # (Auto) Sodium Potassium Chloride Carbon Dioxide Anion Gap BUN Creatinine Est Cr Clr Drug Dosing Est GFR ( Amer) Est GFR (Non-Af Amer) BUN/Creatinine Ratio Glucose POC Glucose 191 H Estimat Average Glucose Hemoglobin A1c Calcium Troponin I 0.068 H* NT-Pro-B Natriuret Pep 72649 H Fluid Neutrophils % Fluid Lymphocytes % Fluid Eosinophils % Fluid Basophils % Fluid Meso/Macro/[place] % Fluid Comment Pleural Fluid Source Pleural Color Pleural Appearance Pleural pH Pleural WBC Pleural RBC Pleural Total Protein Pleural LDH Pleural Glucose 10/04/21 10/04/21 10/04/21 15:00 15:00 16:43 WBC RBC Hgb Hct MCV MCH MCHC RDW Std Deviation RDW Coeff of Johnathan Plt Count MPV Immature Gran % (Auto) Neut % (Auto) Lymph % (Auto) [place] % (Auto) Eos % (Auto) Baso % (Auto) Neut # (Auto) Lymph # (Auto) [place] # (Auto) Eos # (Auto) Baso # (Auto) Immature Gran # (Auto) Sodium Potassium Chloride Carbon Dioxide Anion Gap BUN Creatinine Est Cr Clr Drug Dosing Est GFR ( Amer) Est GFR (Non-Af Amer) BUN/Creatinine Ratio Glucose POC Glucose 198 H Estimat Average Glucose Hemoglobin A1c Calcium Troponin I NT-Pro-B Natriuret Pep Fluid Neutrophils % 33 Fluid Lymphocytes % 32 Fluid Eosinophils % 0 Fluid Basophils % 0 Fluid Meso/Macro/[place] % 35 Fluid Comment Pleural Fluid Source RIGHT LUNG Pleural Color YELLOW Pleural Appearance CLEAR Pleural pH 7.50 H Pleural WBC 276 Pleural RBC < 3000 Pleural Total Protein 2.1 Pleural LDH 76 Pleural Glucose 226 10/04/21 10/05/21 10/05/21 19:58 07:07 07:07 WBC 11.64 H RBC 5.00 Hgb 11.6 L Hct 39.3 L MCV 78.6 L MCH 23.2 L MCHC 29.5 L RDW Std Deviation 54.5 H RDW Coeff of Johnathan 19.0 H Plt Count 214 MPV 10.7 H Immature Gran % (Auto) 0.1 Neut % (Auto) 85.4 Lymph % (Auto) 6.4 [place] % (Auto) 6.6 Eos % (Auto) 1.5 Baso % (Auto) 0.0 Neut # (Auto) 9.94 H Lymph # (Auto) 0.74 L [place] # (Auto) 0.77 H Eos # (Auto) 0.18 Baso # (Auto) 0.00 Immature Gran # (Auto) 0.01 Sodium 146 H Potassium 3.5 Chloride 113 H Carbon Dioxide 27 Anion Gap 6.0 BUN 14 Creatinine 0.92 Est Cr Clr Drug Dosing 63.7 Est GFR ( Amer) 89.5 Est GFR (Non-Af Amer) 77.2 BUN/Creatinine Ratio 14.7 Glucose 76 POC Glucose 209 H Estimat Average Glucose Hemoglobin A1c Calcium 8.7 Troponin I NT-Pro-B Natriuret Pep Fluid Neutrophils % Fluid Lymphocytes % Fluid Eosinophils % Fluid Basophils % Fluid Meso/Macro/[place] % Fluid Comment Pleural Fluid Source Pleural Color Pleural Appearance Pleural pH Pleural WBC Pleural RBC Pleural Total Protein Pleural LDH Pleural Glucose 10/05/21 10/05/21 07:07 07:35 WBC RBC Hgb Hct MCV MCH MCHC RDW Std Deviation RDW Coeff of Johnathan Plt Count MPV Immature Gran % (Auto) Neut % (Auto) Lymph % (Auto) [place] % (Auto) Eos % (Auto) Baso % (Auto) Neut # (Auto) Lymph # (Auto) [place] # (Auto) Eos # (Auto) Baso # (Auto) Immature Gran # (Auto) Sodium Potassium Chloride Carbon Dioxide Anion Gap BUN Creatinine Est Cr Clr Drug Dosing Est GFR ( Amer) Est GFR (Non-Af Amer) BUN/Creatinine Ratio Glucose POC Glucose 77 Estimat Average Glucose 194 Hemoglobin A1c 8.4 H Calcium Troponin I NT-Pro-B Natriuret Pep Fluid Neutrophils % Fluid Lymphocytes % Fluid Eosinophils % Fluid Basophils % Fluid Meso/Macro/[place] % Fluid Comment Pleural Fluid Source Pleural Color Pleural Appearance Pleural pH Pleural WBC Pleural RBC Pleural Total Protein Pleural LDH Pleural Glucose Diagnostic Findings Telemetry: Sinus with PVCs. 80s-110s. PG Care Time/CCT Total # of Minutes Spent Total Time Spent with Patient: Total time spent is greater than 50% in coordination of care (as documented) at patient's floor/unit and/or counseling patient: Coding Level of Care Code 39752 Subseq Hosp Care Lvl 3 Diagnoses Cardiomyopathy I42.9 CAD (coronary artery disease) I25.10 S/P CABG (coronary artery bypass graft) Z95.1 Pleural effusion J90 Pulmonary nodule R91.1 Nonsustained paroxysmal ventricular tachycardia I47.2 SOB (shortness of breath) R06.02 Elevated troponin R77.8 Tobacco abuse Z72.0
--- NOTE | 2021-10-05 12:00 | Communication Note ---
Date of Service: October 05, [address] Lake as patient is nearing discharge and describing depression. Screened by liaison, PHQ-9= 13 (scoring mainly for low mood and sleep difficulties, denied SI for 20 years). The patient is not interested in therapy but may like some medication for depression and panic attacks. Reviewed local resources with hospitalist. Chart reviewed--no hyponatremia, already on Lexapro [address] Goodman since November. TSH >5 with nl ft4. Repeat thyroid panel when not medically ill, could have early hypothyroidism, f/u with Dr. Goodman for possible Lexapro increase to 15 mg daily. I'd avoid sleep meds given age/fall risk. Patient is allergic to Ativan and would not recommend antihistamine like Vistaril as anticholinergic.
--- NOTE | 2021-10-05 14:30 | Discharge Summary ---
Date of Service October 05, 2021 Admission HPI Per Admitting Provider Doyle Welsh is an 81 year old male who presents to the ER with generalized weakness and hyperglycemia. He has T1DM and has had more trouble remembering and managing his insulin. Glucose over the last few days has been up and down and his children have been trying to help him manage. This morning glucose over 600 therefore his children called for EMS. The patient currently feels confused but mostly at his baseline and history is taken from his son at bedside and daughter over the phone. Last 2 days he had also had increased problems sleeping with screaming in his sleep although he also notes chronic insomnia. They have also noticed increased weakness and confusion. No one sided weakness, he has started to need a walker the last 2 days, previously using a cane. His son feels he is more short of breath than usual, although again he has chronic dyspnea. Patient took 20 units Humalog this morning and in the middle of the night. He is unsure whether he took Lantus last night. In the ER troponin is elevated although no chest pain noted by patient. He is currently requiring 2LPM O2 at rest (he is not on oxygen at home). Moderate right pleural effusion noted on CXR was not previous present on June CT. UA was grossly positive for infection although not having any specific urinary symptoms. He was referred to medicine for admission and ongoing management of weakness, hyperglycemia and elevated troponin. Principal Diagnosis UTI, pleural effusion, CHF exacerbation Discharge Exam The patient is awake, alert and oriented 3, well developed and well nourished, normocephalic and atraumatic, lying in bed and in no acute distress. HEENT--PERRL, EOMI, mucous membranes and oropharynx mildly dry Neck--supple. No JVD. No bruits. Thyroid normal, trachea midline, no adenopathy. Heart--normal S1 and S2. No murmurs, rubs or gallops. Lungs--Reduce air entry on auscultation, wheeze and crackles Abdomen--normal bowel sounds and soft. Mild epigastric and left sided abdominal pain Extremities--left AKA Dermatologic--normal skin turgor, normal color, no abnormal lymph nodes, no rash. Neurologic--cranial nerves II through XII grossly intact. Rheumatologic--normal range of motion. Psychiatric--normal affect. Discharge Data Allergies Allergy/AdvReac Type Severity Reaction Status Date / Time Insulins Allergy Intermediate BEEF/PORK Verified 08/17/21 10:13 INSULINS lorazepam AdvReac Intermediate DELUSIONS Verified 08/17/21 10:13 chlorpromazine AdvReac Mild "SHAKING" Verified 08/17/21 10:13 Consultations 10/03/21 13:28 ED Decision to Admit Stat 10/03/21 17:46 Consult Pulmonology Routine 10/04/21 13:49 Consult Cardiology Routine 10/05/21 10:08 Consult Behavioral Health Liaison Routine Ordered Studies 10/03/21 12:46 CT angio chest PE protocol Stat 10/03/21 14:10 CT head/brain wo con Stat 10/04/21 21:02 CT head/brain wo con Urgent Hospital Course (1) Acute UTI: Urinalysis shows evidence of UTI Urine cultures pending Continue empiric IV ceftriaxone Discharged on oral levaquin for 5 days (2) Acute exacerbation of CHF (congestive heart failure): ECHO showed EF of 25-30% Will start lasix 20mg daily, coreg 3.125mg Patient already on ACEI at home Monitor I/O, daily weight Check BNP consult cardiology Upon discharge, cardiology recommended metoprolo 25mg daily, lasix 20mg daily And to follow up with cardiology (3) Generalized weakness: Most likely multi factorial UTI, CHF exacerbation Continue treatment for UTI and CHF Physical therapy (4) Pleural effusion, right: Received thoracentesis with removal of 1600cc of fluid (5) Hyperglycemia: Blood glucose is now under better control, continue home insulin regimen Add insulin sliding scale (6) 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 Stable since then. Continue ASA, losartan, rosuvastatin. Not on BB (prior notes mention related to orthostasis). (10) BPH without obstruction/lower urinary tract symptoms: (11) Emphysema of lung: Continue Spiriva. No recent exacerbations. No improvement of shortness of breath in ER from duoneb given therefore no COPD exacerbation suspected. (12) Tobacco abuse: Continue to encourage cessation of this VTE Prophylaxis - hold chemical prophylaxis pending thoracocentesis decision Diet - T1DM Disposition - observation status to med/tele Total Time Total Time Spent Total Time Spent (In Minutes): 35 min Discharge Plan Discharge Items Patient Disposition: Home - Self-Care Reason For Visit: ELEVATED TROPONIN, CONFUSION, WEAKNESS Discharge Diagnosis: UTI, CHF exacerbation, Pleural effusion Condition on Discharge: Fair Activity: Resume your previous activity Non-emergency contact: Primary Care Provider Call non-emergency contact if: you have any medication questions and your symptoms worsen Follow-up/Referrals: Damián Goodman MD [Primary Care Provider] - 10/25/21 11:00 am (THE OFFICE HAS ADDED YOU TO THE WAIT LIST FOR ANY CANCELLATIONS TO POSSIBLY GET YOU AN EARLIER APPOINTMENT.) Diet: Regular Addtl Attending Provider Instructions: Please make appointment to follow up with your PCP and also cardiology Pending Studies at Discharge: No Stand-Alone Forms: My [facility] Medications and DC Order Prescriptions: New metoprolol succinate 25 mg Tablet Extended Release 24 Hr 25 mg PO QAM 30 Days Qty: 30 RF: 0 furosemide [Lasix] 20 mg tablet 20 mg PO DAILY Qty: 30 RF: 0 Continued docusate sodium [Colace] 100 mg capsule 100 mg PO QAM RF: 0 polyethylene glycol 3350 [Miralax] 17 gram/dose powder 17 g PO DAILY PRN (Reason: Constipation) RF: 0 insulin lispro [Humalog KwikPen Insulin] 100 unit/mL insulin pen See Rx Instructions .ROUTE TID RF: 0 ropinirole 1 mg tablet 1 mg PO HS Qty: 90 RF: 3 omeprazole 20 mg capsule,delayed release(DR/EC) 20 mg PO BID Qty: 60 RF: 5 albuterol sulfate 90 mcg/actuation HFA aerosol inhaler 1 inh inhalation QID PRN (Reason: shortness of breath or wheezing) Qty: 8.5 RF: 3 albuterol sulfate [Ventolin HFA] 90 mcg/actuation HFA aerosol inhaler 2 puffs inhalation Q6H PRN (Reason: shortness of breath) Qty: 1 RF: 0 cholecalciferol (vitamin D3) [Vitamin D3] 1,000 unit Tablet 1,000 unit PO QAM RF: 0 diphenhydramine-acetaminophen [Tylenol PM Extra Strength] 25-500 mg tablet 1 tab PO HS RF: 0 insulin NPH isoph U-100 human 100 unit/mL suspension 5 unit SUBCUT HS RF: 0 losartan [Cozaar] 25 mg tablet 25 mg PO HS RF: 0 aspirin [Aspirin Low Dose] 81 mg Tablet,Delayed Release (Dr/Ec) 81 mg PO Q2D RF: 0 escitalopram oxalate [Lexapro] 10 mg tablet 10 mg PO QAM RF: 0 rosuvastatin [Crestor] 20 mg tablet 20 mg PO Q2D RF: 0 Lantus Solostar U-100 Insulin 100 unit/mL (3 mL) insulin pen 20 - 25 unit SQ HS RF: 0 Spiriva Respimat 1.25 mcg/actuation mist 2 puff inhalation QAM RF: 0 Discharge Orders: Discharge Order (Routine); Ordered 10/05/21 Ordered By: Josué Lau/Other Patient Handouts: [facility] for Diabetes Admission Data Admit Date/Time: 10/03/21 15:02 Attending Provider: Josué Lake Admit Provider: Ramakrishna Rodriguez Primary Care Provider: Damián Goodman Other Providers: Ramakrishna Rodriguez ; Darnell Dover ; Niko Arroyo Other Interventions: Discharge Summary Assessment (RN) Last Done: 10/05/21 14:02 Coding Level of Care Code D/C DAY MANAGEMENT >30 MINS Diagnoses Acute UTI N39.0 Acute exacerbation of CHF (congestive heart failure) I50.9 Generalized weakness R53.1 Pleural effusion, right J90 Hyperglycemia R73.9 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
[2021-10-05 15:19] VITALS: BP 121/72; TEMP 97.3; O2SAT 93
[2021-10-05 15:30] VITALS: PULSE 72
== END 2021-10-05 15:40 | disposition home or self-care (01) ==
LOC: 2W 11:32 → ED 11:32 → SUATTDRO 15:02 → 2W 17:14

== ENCOUNTER 2021-10-06 22:24 | Observation (INO) ==
[2021-10-06 23:14] LABS: Basophils # (auto) 0.01 K/uL (0-0.2); Basophils % (auto) 0.1 %; Eosinophils # (auto) 0.13 K/uL (0-0.5); Eosinophils % (auto) 1.1 %; Hematocrit (blood only) 39.8 % (42-52); Hemoglobin 11.6 g/dL (14.0-18.0); Immature Granulocytes # (auto) 0.03 K/uL (0.00-0.02); Immature Granulocytes % (auto) 0.2 %; Lymphocytes # (auto) 0.48 K/uL (1.2-3.4); Mean Corpuscular Hgb Conc 29.1 g/dL (32-36); Mean Platelet Volume 10.5 fL (7.4-10.4); Monocytes % (auto) 5.8 %; Neutrophils # (auto) 10.78 K/uL (1.4-6.5); Neutrophils % (auto) 88.8 %; Platelet Count 205 K/uL (130-400); RDW Coefficient of Variation 19.2 % (11.5-14.5); RDW Standard Deviation 54.5 fL (36.4-46.3); Red Blood Count 5.04 M/uL (4.7-6.1); White Blood Count 12.13 K/uL (4.8-10.8)
[2021-10-06 23:31] LABS: Albumin Level 2.6 gm/dl (3.4-5.0); BUN Creatinine Ratio 18.1 (10-20); Creatinine Clr Calc Pharmacy 83.1 ml/min; Est GFR (African American) 73.7 ml/min; Est GFR (Non-African American) 63.6 ml/min; Magnesium 2.2 mg/dl (1.8-2.4); Potassium 3.8 mmol/L (3.5-5.1)
[2021-10-06 23:50] LABS: Albumin Globulin Ratio 0.6 (0.9-2); Bilirubin,Total 1.2 mg/dl (0.2-1); Globulin 4.5 gm/dl (2.5-4.0); Thyroid Stimulating Hormone 10.3 uIu/ml (0.300-4.500); Total Protein 7.1 gm/dl (6.4-8.2); Troponin I 0.039 ng/ml (0-0.045)
[2021-10-07 00:06] LABS: T4 Free Thyroxine 1.39 ng/dl (0.8-1.6)
[2021-10-07] MEDS ORDERED: OPTIRAY 320 125ml IV ONE (00:30)
[2021-10-07] MEDS ORDERED: FUROSEMIDE 40 MG/4 ML VIAL IV ONE (01:30)
--- NOTE | 2021-10-07 01:47 | Emergency Department Note ---
Impression & Plan Hypoxemia, CHF (congestive heart failure), Hypoglycemia ED Provider Note INFORMANT: Patient and family ED PROVIDER(S): Rommel Dalton MD CHIEF COMPLAINT: Altered mental status PLAN: Disposition: Admitted Condition: Good Outpatient prescription management: none Referral: None MEDICAL DECISION MAKING: Patient presented with altered mental status. Have hypoglycemia and this was corrected. Patient also had hypoxia. Chest imaging was concerning for right- sided effusion and findings consistent with CHF. The patient does have an elevated BNP. His troponin was negative. CBC shows a slight leukocytosis. TSH is abnormal but not significantly different than prior. Patient has a mild elevation of LFTs which is stable. Chemistry panel is otherwise unremarkable. Patient was treated with IV Lasix and supplemental oxygen. He was doing well with this. Further management in the hospital will be necessary. CT scan of the chest raise concerns for CHF but also pneumonia. Patient was given IV cefepime. Consultation was made with Dr. Boris Goode of the [facility] service. Patient was evaluated in the ER for further management. Triage Nursing notes reviewed and agree them. Vital Signs: reviewed and remarkable for hypoxia Differential diagnosis: Infection, hypoglycemia, electrolyte abnormalities, overdose, toxicologic, cardiac sources, intracerebral event, neurologic, trauma, as well as other pathologies. Diagnostics interpreted by me: ECG: Twelve-lead ECG reveals sinus rhythm at 71 bpm. PVCs present. Left axis deviation. No ST elevation or depression. Anteroseptal Q waves present. Cardiac Monitoring: Cardiac monitoring ordered by me: The patient was placed on continuous cardiac monitoring and observed. It revealed a sinus rhythm with PVCs at 83 bpm. Imaging studies: Chest x-ray shows cardiomegaly, right-sided effusion and cephalization concerning for CHF. CT scan of the chest reveals findings concerning for CHF. Possible pneumonia also noted. HPI: The patient is a 81 year old male who presents to the Emergency Room with complaints of altered mental status. This started today and is thought to be due to low blood sugar. The patient seemed to be confused and weak. He had a blood glucose in the 40s. He was given Pepsi and crackers. EMS was summoned. They found a blood glucose of 51. Patient was given D10 and the hypoglycemia resolved. The patient was noted to be short of breath and hypoxic down to 83%. He responded well to supplemental oxygen. Patient feels generally weak. He denies any pain. Pt denies LOC, headache, fevers, chills, diaphoresis, visual changes, neck pain, chest pain, nausea, vomiting, abdominal pain, back pain, melena, hematochezia, urinary symptoms, numbness, lymphadenopathy, rash, or other complaints. ROS: See above HPI for pertinent positives & negatives. A total of 10 systems reviewed and were otherwise negative. PAST MEDICAL HISTORY:See Below , non-STEMI, diabetes PAST SURGICAL HISTORY:See Below, left BKA FAMILY HISTORY:See Below SOCIAL HISTORY:See Below, lives with family. Retired HOME MEDICATIONS:See Below ALLERGIES:See Below VITALS:See Below PHYSICAL EXAMINATION: GENERAL: Awake, tired appearing, in no distress HENT: Normocephalic, atraumatic. Oropharynx unremarkable. EYES: Normal conjunctiva. Sclera non-icteric. NECK: Inspection normal. Non-tender. Supple. No nuchal rigidity. FROM. No masses. RESPIRATORY: Scattered rales. Increased respiratory effort. CARDIAC: Normal rate. Normal rhythm. No murmurs. No rubs. Extremities warm and well perfused. Pulses equal. No JVD. GI: Soft, non-distended. No tenderness to palpation. No rebound or guarding. No masses. RECTAL: Deferred. MUSCULOSKELETAL: Atraumatic. Chest examination reveals no tenderness. The back is symmetrical on inspection without obvious abnormality. There is no CVA tenderness to palpation. No joint edema. LOWER EXTREMITIES: Right calf nontender. Left BKA present. No edema. No discoloration. NEURO: Normal sensorium. No sensory or motor deficits noted. SKIN: No rash or jaundice noted. 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, with long-term current use of insulin COPD (chronic obstructive pulmonary disease) Cough Dyslipidemia Elevated LFTs Elevated PSA Emphysema of lung Diagnosed by CT scan Esophageal abnormality Gross hematuria Related to UTI - now resolved Hard of hearing extreme per > have to speak very loud History of depression History of IL (myocardial infarction) (2000) 2000> cabg HTN (hypertension) Lung nodule Male erectile disorder of organic origin Peripheral neuropathy Peripheral vascular disease S/p BKA on left side Phantom limb (syndrome) left leg Restless leg Solitary lung nodule Tobacco abuse Tobacco abuse Trigger finger Surgical History (Updated 10/04/21 @ 17:18 by Niko Arroyo MD) H/O eye surgery bilat cataracts History of bronchoscopy 01/31/21 with biopsy History of cholecystectomy History of esophagogastroduodenoscopy (EGD) History of left below knee amputation History of tooth extraction History of transurethral resection of prostate S/P CABG (coronary artery bypass graft) (2000) Status post open reduction with internal fixation (ORIF) of fracture of ankle (2019) right Family History Father , in his 70s Diabetes Mother , 62yo Cervical cancer Sister No problems noted. Sister No problems noted. Son No problems noted. Son No problems noted. Son No problems noted. Son Diabetes Daughter No problems noted. Other No family history of adverse response to anesthesia Social History Smoking Status: Former smoker Tobacco Type: Cigarettes Cigarettes Per Day: unknown; Second Hand Exposure: No; Hx Alcohol Use: No Hx Substance Use: No Preferred Language: Malay Communication Ability: Effective Visual Impairment: No Limitations Hearing Ability: Hard of Hearing Grab Jack Man Required: No Beliefs That Will Affect Care: None marital status: Current Living Situation: Spouse Current Living Situation Comment: home w/ - children help with care current occupational status: retired current occupation: Retired from [employer] Feels Safe at Home: Yes caffeine: Yes (2-4 cups/day) during the past year weight has: decreased > 10 lbs Assistive Devices: Denture - Upper, Denture - Lower, Glasses, Oxygen - Continuous and Prosthesis Allergies Allergies Allergy/AdvReac Type Severity Reaction Status Date / Time Insulins Allergy Intermediate BEEF/PORK Verified 10/07/21 01:21 INSULINS lorazepam AdvReac Intermediate DELUSIONS Verified 10/07/21 01:21 chlorpromazine AdvReac Mild "SHAKING" Verified 10/07/21 01:21 Home Meds Home Medications Medication Instructions Recorded Confirmed cholecalciferol (vitamin D3) 25 1,000 unit PO QAM 01/11/19 10/07/21 mcg (1,000 unit) tablet (Vitamin D3) albuterol sulfate 90 mcg/actuation 2 puffs INHALATION Q6H PRN #1 gm 08/02/19 10/07/21 aerosol inhaler (Ventolin HFA) diphenhydramine 25 1 tab PO HS tab 07/04/20 10/07/21 mg-acetaminophen 500 mg tablet (Tylenol PM Extra Strength) losartan 25 mg tablet (Cozaar) 25 mg PO HS 01/26/21 10/07/21 docusate sodium 100 mg capsule 100 mg PO QAM 03/01/21 10/07/21 (Colace) insulin NPH isoph U-100 human 100 5 unit SUBCUT HS 03/01/21 10/07/21 unit/mL subcutaneous suspension insulin lispro 100 unit/mL See Rx Instructions .ROUTE TID ml 03/01/21 10/07/21 subcutaneous pen (Humalog KwikPen (U-100) Insulin) polyethylene glycol 3350 17 17 g PO DAILY PRN 03/01/21 10/07/21 gram/dose oral powder (Miralax) aspirin 81 mg tablet,delayed 81 mg PO Q2D 07/24/21 10/07/21 release (Aspirin Low Dose) escitalopram oxalate 10 mg tablet 10 mg PO QAM 07/24/21 10/07/21 (Lexapro) insulin glargine 100 unit/mL (3 20 - 25 unit SQ HS 07/24/21 10/07/21 mL) subcutaneous pen (Lantus Solostar U-100 Insulin) rosuvastatin 20 mg tablet (Crestor) 20 mg PO Q2D 07/24/21 10/07/21 tiotropium bromide 1.25 2 puff INHALATION QAM 07/24/21 10/07/21 mcg/actuation mist for inhalation (Spiriva Respimat) Previous Rx's Medication Instructions Recorded ropinirole 1 mg tablet 1 mg PO HS #90 tab 02/14/21 omeprazole 20 mg capsule,delayed 20 mg PO BID #60 cap 08/13/21 release albuterol sulfate 90 mcg/actuation 1 inh INHALATION QID PRN #8.5 g 08/17/21 aerosol inhaler furosemide 20 mg tablet (Lasix) 20 mg PO DAILY #30 tab 10/05/21 metoprolol succinate 25 mg 25 mg PO QAM 30 Days #30 tab 10/05/21 tablet,extended release 24 hr Results & Data (ED) Vital Signs Vital Signs - 24 hr 10/06/21 22:47 10/06/21 23:00 10/06/21 23:30 Pulse Rate 74 75 85 Pulse Rate from SpO2 Sensor 71 81 Respiratory Rate 20 24 19 Blood Pressure 131/75 151/71 H 156/80 H Blood Pressure Mean 93 97 105 Blood Pressure Position Lying Pulse Oximetry 91 99 98 Oxygen Delivery Method Nasal Cannula Oxymask Oxygen Flow Rate 3 2 Sepsis Recent Fever Within 48 Hours No Sepsis New/Unexplained Change in Mental Status Yes Sepsis Action Taken by Nursing No Action Required 10/07/21 00:00 10/07/21 01:30 Pulse Rate 83 83 Pulse Rate from SpO2 Sensor 82 77 Respiratory Rate 20 16 Blood Pressure 149/87 H 142/78 H Blood Pressure Mean 107 99 Blood Pressure Position Pulse Oximetry 98 Oxygen Delivery Method Oxymask Oxygen Flow Rate 2 Sepsis Recent Fever Within 48 Hours Sepsis New/Unexplained Change in Mental Status Sepsis Action Taken by Nursing Laboratory Data Result diagrams: 10/06/21 23:00 10/06/21 23:00 Lab Results 10/06/21 10/06/21 10/06/21 Range/Units 22:35 23:00 23:00 WBC 12.13 H (4.8-10.8) K/uL RBC 5.04 (4.7-6.1) M/uL Hgb 11.6 L (14.0-18.0) g/dL Hct 39.8 L (42-52) % MCV 79.0 L (80-100) fL MCH 23.0 L (25-34) pg MCHC 29.1 L (32-36) g/dL RDW Std Deviation 54.5 H (36.4-46.3) fL RDW Coeff of Johnathan 19.2 H (11.5-14.5) % Plt Count 205 (130-400) K/uL MPV 10.5 H (7.4-10.4) fL Immature Gran % (Auto) 0.2 % Neut % (Auto) 88.8 % Lymph % (Auto) 4.0 % [place] % (Auto) 5.8 % Eos % (Auto) 1.1 % Baso % (Auto) 0.1 % Neut # (Auto) 10.78 H (1.4-6.5) K/uL Lymph # (Auto) 0.48 L (1.2-3.4) K/uL [place] # (Auto) 0.70 H (0.11-0.59) K/uL Eos # (Auto) 0.13 (0-0.5) K/uL Baso # (Auto) 0.01 (0-0.2) K/uL Immature Gran # (Auto) 0.03 H (0.00-0.02) K/uL Sodium 143 (136-145) mmol/L Potassium 3.8 (3.5-5.1) mmol/L Chloride 109 H (98-107) mmol/L Carbon Dioxide 28 (21-32) mmol/L Anion Gap 6.0 (3-11) BUN 20 H (7-18) mg/dl Creatinine 1.08 (0.6-1.4) mg/dl Est Cr Clr Drug Dosing 83.1 ml/min Est GFR ( Amer) 73.7 ml/min Est GFR (Non-Af Amer) 63.6 ml/min BUN/Creatinine Ratio 18.1 (10-20) Glucose 124 H (70-99) mg/dl POC Glucose 119 H (70-99) mg/dl Calcium 9.0 (8.5-10.1) mg/dl Magnesium 2.2 (1.8-2.4) mg/dl Total Bilirubin 1.2 H (0.2-1) mg/dl AST 44 H (15-37) U/L ALT 42 (12-78) U/L Alkaline Phosphatase 156 H (45-117) U/L Troponin I 0.039 (0-0.045) ng/ml NT-Pro-B Natriuret Pep 51349 H (0-1800) pg/ml Total Protein 7.1 (6.4-8.2) gm/dl Albumin 2.6 L (3.4-5.0) gm/dl Globulin 4.5 H (2.5-4.0) gm/dl Albumin/Globulin Ratio 0.6 L (0.9-2) TSH 10.300 H (0.300-4.500) uIu/ml Free T4 1.39 (0.8-1.6) ng/dl COVID-19 Eval Order SARS-CoV-2 (PCR) (Negative) 10/06/21 10/06/21 Range/Units 23:00 23:00 WBC (4.8-10.8) K/uL RBC (4.7-6.1) M/uL Hgb (14.0-18.0) g/dL Hct (42-52) % MCV (80-100) fL MCH (25-34) pg MCHC (32-36) g/dL RDW Std Deviation (36.4-46.3) fL RDW Coeff of Johnathan (11.5-14.5) % Plt Count (130-400) K/uL MPV (7.4-10.4) fL Immature Gran % (Auto) % Neut % (Auto) % Lymph % (Auto) % [place] % (Auto) % Eos % (Auto) % Baso % (Auto) % Neut # (Auto) (1.4-6.5) K/uL Lymph # (Auto) (1.2-3.4) K/uL [place] # (Auto) (0.11-0.59) K/uL Eos # (Auto) (0-0.5) K/uL Baso # (Auto) (0-0.2) K/uL Immature Gran # (Auto) (0.00-0.02) K/uL Sodium (136-145) mmol/L Potassium (3.5-5.1) mmol/L Chloride (98-107) mmol/L Carbon Dioxide (21-32) mmol/L Anion Gap (3-11) BUN (7-18) mg/dl Creatinine (0.6-1.4) mg/dl Est Cr Clr Drug Dosing ml/min Est GFR ( Amer) ml/min Est GFR (Non-Af Amer) ml/min BUN/Creatinine Ratio (10-20) Glucose (70-99) mg/dl POC Glucose (70-99) mg/dl Calcium (8.5-10.1) mg/dl Magnesium (1.8-2.4) mg/dl Total Bilirubin (0.2-1) mg/dl AST (15-37) U/L ALT (12-78) U/L Alkaline Phosphatase (45-117) U/L Troponin I (0-0.045) ng/ml NT-Pro-B Natriuret Pep (0-1800) pg/ml Total Protein (6.4-8.2) gm/dl Albumin (3.4-5.0) gm/dl Globulin (2.5-4.0) gm/dl Albumin/Globulin Ratio (0.9-2) TSH (0.300-4.500) uIu/ml Free T4 (0.8-1.6) ng/dl COVID-19 Eval Order Covid19 at [facility] SARS-CoV-2 (PCR) NEGATIVE (Negative) Administered Medications Discontinued Medications Furosemide (Furosemide 40 Mg/4 Ml Vial) 40 mg IV ONE ONE Stop: 10/07/21 01:31 Last Admin: 10/07/21 01:39 Dose: 40 mg Documented by: [id number] Cefepime HCl (Maxipime) 2,000 mg in 20 mls @ 5 mls/min IV NOW STA; Protocol Stop: 10/07/21 02:05 Last Admin: 10/07/21 02:06 Dose: 5 mls/min Documented by: [id number] Ioversol (Optiray 320 125ml) 120 ml IV ONCE ONE Stop: 10/07/21 00:31 Last Admin: 10/07/21 00:21 Dose: 120 ml Documented by: [id number] Discharge Plan Visit Data Chief Complaint: Illness Stated Complaint: Hypoglycemia, AMS ED Provider: Rommel Dalton Discharge Problem: Hypoxemia, CHF (congestive heart failure), Hypoglycemia Forms Stand Alone Forms: My [facility] Prescriptions Prescriptions: No Action docusate sodium [Colace] 100 mg capsule 100 mg PO QAM RF: 0 polyethylene glycol 3350 [Miralax] 17 gram/dose powder 17 g PO DAILY PRN (Reason: Constipation) RF: 0 insulin lispro [Humalog KwikPen Insulin] 100 unit/mL insulin pen See Rx Instructions .ROUTE TID RF: 0 ropinirole 1 mg tablet 1 mg PO HS Qty: 90 RF: 3 omeprazole 20 mg capsule,delayed release(DR/EC) 20 mg PO BID Qty: 60 RF: 5 albuterol sulfate 90 mcg/actuation HFA aerosol inhaler 1 inh inhalation QID PRN (Reason: shortness of breath or wheezing) Qty: 8.5 RF: 3 albuterol sulfate [Ventolin HFA] 90 mcg/actuation HFA aerosol inhaler 2 puffs inhalation Q6H PRN (Reason: shortness of breath) Qty: 1 RF: 0 cholecalciferol (vitamin D3) [Vitamin D3] 1,000 unit Tablet 1,000 unit PO QAM RF: 0 diphenhydramine-acetaminophen [Tylenol PM Extra Strength] 25-500 mg tablet 1 tab PO HS RF: 0 insulin NPH isoph U-100 human 100 unit/mL suspension 5 unit SUBCUT HS RF: 0 losartan [Cozaar] 25 mg tablet 25 mg PO HS RF: 0 aspirin [Aspirin Low Dose] 81 mg Tablet,Delayed Release (Dr/Ec) 81 mg PO Q2D RF: 0 escitalopram oxalate [Lexapro] 10 mg tablet 10 mg PO QAM RF: 0 rosuvastatin [Crestor] 20 mg tablet 20 mg PO Q2D RF: 0 Lantus Solostar U-100 Insulin 100 unit/mL (3 mL) insulin pen 20 - 25 unit SQ HS RF: 0 Spiriva Respimat 1.25 mcg/actuation mist 2 puff inhalation QAM RF: 0 metoprolol succinate 25 mg Tablet Extended Release 24 Hr 25 mg PO QAM 30 Days Qty: 30 RF: 0 furosemide [Lasix] 20 mg tablet 20 mg PO DAILY Qty: 30 RF: 0 Referrals Referrals: Damián Goodman MD [Primary Care Provider] -
[2021-10-07] MEDS ORDERED: CEFEPIME 2,000 MG/20 ML VIAL IV STA (02:02)
--- NOTE | 2021-10-07 02:06 | History & Physical Report ---
Date of Service October 07, 2021 Assessment & Plan (1) Acute exacerbation of CHF (congestive heart failure): Plan: Acute exacerbation of HFrEF/right pleural effusion/EF 25-30% on October 04, 2021/CAD/cardiomyopathy/hypertension- The patient will be admitted to telemetry for serial cardiac enzymes, serial EKG's, cardiac rhythm monitoring Given Lasix 40 mg IV in the ED. Continue Lasix 40 mg IV every morning Continue aspirin, metoprolol succinate. Follow serial BMP and magnesium levels (2) Acute UTI: Plan: Previously on ceftriaxone while hospitalized, and changed to levofloxacin orally on discharge While in hospital resume IV ceftriaxone. 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 History of Present Illness Chief Complaint: The patient presents emergency department with complaint of shortness of breath and is confused Primary Care Provider: Damián Goodman MD The patient is an 81-year-old male with a past medical history including nonsustained V. tach, status post CABG in 2000, cardiomyopathy, pleural effusion, pulmonary nodule, COPD, non-STEMI, UTI, encephalopathy, CAD, diabetes mellitus with retinopathy and long-term use of insulin, tobacco abuse, lung neoplasm and esophageal abnormality. Patient was most recently admitted to [facility] from 10/03-10/05 for confusion and generalized weakness and fatigue thought secondary to urinary tract infection. The UTI was treated with IV ceftriaxone and patient was discharged on oral Levaquin. The patient this evening in the ED appears to be in CHF on chest x-ray and with right pleural effusion. Abnormal laboratories: WBC 12.13, hemoglobin 11.6, hematocrit 39.8, total bilirubin 1.2, AST 44, BNP 33051, albumin 2.6, TSH 10.30. Patient was given furosemide 40 mg IV x1 by the ED. Allergies Allergy/AdvReac Type Severity Reaction Status Date / Time Insulins Allergy Intermediate BEEF/PORK Verified 10/07/21 01:21 INSULINS lorazepam AdvReac Intermediate DELUSIONS Verified 10/07/21 01:21 chlorpromazine AdvReac Mild "SHAKING" Verified 10/07/21 01:21 Home Medications Medication Instructions Recorded Confirmed Type cholecalciferol (vitamin D3) 25 1,000 unit PO QAM 01/11/19 10/07/21 History mcg (1,000 unit) tablet (Vitamin D3) albuterol sulfate 90 mcg/actuation 2 puffs INHALATION Q6H PRN #1 gm 08/02/19 10/07/21 History aerosol inhaler (Ventolin HFA) diphenhydramine 25 1 tab PO HS tab 07/04/20 10/07/21 History mg-acetaminophen 500 mg tablet (Tylenol PM Extra Strength) losartan 25 mg tablet (Cozaar) 25 mg PO HS 01/26/21 10/07/21 History ropinirole 1 mg tablet 1 mg PO HS #90 tab 02/14/21 10/07/21 Rx docusate sodium 100 mg capsule 100 mg PO QAM 03/01/21 10/07/21 History (Colace) insulin NPH isoph U-100 human 100 5 unit SUBCUT HS 03/01/21 10/07/21 History unit/mL subcutaneous suspension insulin lispro 100 unit/mL See Rx Instructions .ROUTE TID ml 03/01/21 10/07/21 History subcutaneous pen (Humalog KwikPen (U-100) Insulin) polyethylene glycol 3350 17 17 g PO DAILY PRN 03/01/21 10/07/21 History gram/dose oral powder (Miralax) aspirin 81 mg tablet,delayed 81 mg PO Q2D 07/24/21 10/07/21 History release (Aspirin Low Dose) escitalopram oxalate 10 mg tablet 10 mg PO QAM 07/24/21 10/07/21 History (Lexapro) insulin glargine 100 unit/mL (3 20 - 25 unit SQ HS 07/24/21 10/07/21 History mL) subcutaneous pen (Lantus Solostar U-100 Insulin) rosuvastatin 20 mg tablet (Crestor) 20 mg PO Q2D 07/24/21 10/07/21 History tiotropium bromide 1.25 2 puff INHALATION QAM 07/24/21 10/07/21 History mcg/actuation mist for inhalation (Spiriva Respimat) omeprazole 20 mg capsule,delayed 20 mg PO BID #60 cap 08/13/21 10/07/21 Rx release albuterol sulfate 90 mcg/actuation 1 inh INHALATION QID PRN #8.5 g 08/17/21 10/07/21 Rx aerosol inhaler furosemide 20 mg tablet (Lasix) 20 mg PO DAILY #30 tab 10/05/21 10/07/21 Rx metoprolol succinate 25 mg 25 mg PO QAM 30 Days #30 tab 10/05/21 10/07/21 Rx tablet,extended release 24 hr Past Med/Surg History Medical History (Updated 10/07/21 @ 04:14 by Boris Goode MD) Abnormal CT scan, esophagus Atherosclerosis of both carotid arteries Bilateral diabetic retinopathy BPH without obstruction/lower urinary tract symptoms CAD (coronary artery disease) Cardiomyopathy Zljwkcb-Tyulm-Spksy disease Chronic constipation Chronic dyspnea 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, with long-term current use of insulin COPD (chronic obstructive pulmonary disease) Cough Dyslipidemia Elevated LFTs Elevated PSA Emphysema of lung Diagnosed by CT scan Esophageal abnormality Gross hematuria Related to UTI - now resolved Hard of hearing extreme per > have to speak very loud HFrEF (heart failure with reduced ejection fraction) History of depression History of HI (myocardial infarction) (2000) 2000> cabg HTN (hypertension) Lung nodule Male erectile disorder of organic origin Peripheral neuropathy Peripheral vascular disease S/p BKA on left side Phantom limb (syndrome) left leg Restless leg Solitary lung nodule Tobacco abuse Tobacco abuse Trigger finger Surgical History (Updated 10/04/21 @ 17:18 by Niko Arroyo MD) H/O eye surgery bilat cataracts History of bronchoscopy 01/31/21 with biopsy History of cholecystectomy History of esophagogastroduodenoscopy (EGD) History of left below knee amputation History of tooth extraction History of transurethral resection of prostate S/P CABG (coronary artery bypass graft) (2000) Status post open reduction with internal fixation (ORIF) of fracture of ankle (2018) right Family History Father , in his 70s Diabetes Mother , 62yo Cervical cancer Sister No problems noted. Sister No problems noted. Son No problems noted. Son No problems noted. Son No problems noted. Son Diabetes Daughter No problems noted. Other No family history of adverse response to anesthesia Social History Smoking Status: Former smoker Tobacco Type: Cigarettes Cigarettes Per Day: unknown; Second Hand Exposure: No; Hx Alcohol Use: No Hx Substance Use: No Preferred Language: Andorran Communication Ability: Effective Visual Impairment: No Limitations Hearing Ability: Hard of Hearing Manager Stone Required: No Beliefs That Will Affect Care: None marital status: Current Living Situation: Spouse Current Living Situation Comment: home w/ - children help with care current occupational status: retired current occupation: Retired from [employer] Feels Safe at Home: Yes caffeine: Yes (2-4 cups/day) during the past year weight has: decreased > 10 lbs Assistive Devices: Denture - Upper, Denture - Lower, Glasses, Oxygen - Continuous and Prosthesis Review of Systems Review of Systems: Limited review of systems due to patient confusion Physical Exam Physical Exam: The patient is awake, mildly confused, normocephalic and atrau matic, lying in bed and in no acute distress. HEENT--PERRL, EOMI, mucous membranes and oropharynx dry. Neck--supple. No JVD. No bruits. Thyroid normal, trachea midline, no adenopathy. Heart--normal S1 and S2. No murmurs, rubs or gallops. Lungs--clear bilaterally, no respiratory distress, no accessory muscle use. Abdomen--normal bowel sounds and soft. Nontender. Nondistended, no hernias or masses, no organomegaly. Extremities--no cyanosis or clubbing. No edema. Dermatologic--skin is mildly dry Neurologic--cranial nerves II through XII grossly intact. Rheumatologic--limited exam Psychiatric--mildly confused Results & Data Results & Data ([facility]) Vital Signs (Past 12 Hours) Vital Signs Pulse Resp BP Pulse Ox 10/07/21 01:30 83 16 142/78 H 98 10/07/21 00:00 83 20 149/87 H 10/06/21 23:30 85 19 156/80 H 98 10/06/21 23:00 75 24 151/71 H 99 10/06/21 22:47 74 20 131/75 91 Laboratory Results Laboratory Results WBC 12.13 K/uL (4.8-10.8) H 10/06/21 23:00 RBC 5.04 M/uL (4.7-6.1) 10/06/21 23:00 Hgb 11.6 g/dL (14.0-18.0) L 10/06/21 23:00 Hct 39.8 % (42-52) L 10/06/21 23:00 MCV 79.0 fL (80-100) L 10/06/21 23:00 MCH 23.0 pg (25-34) L 10/06/21 23:00 MCHC 29.1 g/dL (32-36) L 10/06/21 23:00 RDW Std Deviation 54.5 fL (36.4-46.3) H 10/06/21 23:00 RDW Coeff of Johnathan 19.2 % (11.5-14.5) H 10/06/21 23:00 Plt Count 205 K/uL (130-400) 10/06/21 23:00 MPV 10.5 fL (7.4-10.4) H 10/06/21 23:00 Immature Gran % (Auto) 0.2 % 10/06/21 23:00 Neut % (Auto) 88.8 % 10/06/21 23:00 Lymph % (Auto) 4.0 % 10/06/21 23:00 [place] % (Auto) 5.8 % 10/06/21 23:00 Eos % (Auto) 1.1 % 10/06/21 23:00 Baso % (Auto) 0.1 % 10/06/21 23:00 Neut # (Auto) 10.78 K/uL (1.4-6.5) H 10/06/21 23:00 Lymph # (Auto) 0.48 K/uL (1.2-3.4) L 10/06/21 23:00 [place] # (Auto) 0.70 K/uL (0.11-0.59) H 10/06/21 23:00 Eos # (Auto) 0.13 K/uL (0-0.5) 10/06/21 23:00 Baso # (Auto) 0.01 K/uL (0-0.2) 10/06/21 23:00 Immature Gran # (Auto) 0.03 K/uL (0.00-0.02) H 10/06/21 23:00 Sodium 143 mmol/L (136-145) 10/06/21 23:00 Potassium 3.8 mmol/L (3.5-5.1) 10/06/21 23:00 Chloride 109 mmol/L (98-107) H 10/06/21 23:00 Carbon Dioxide 28 mmol/L (21-32) 10/06/21 23:00 Anion Gap 6.0 (3-11) 10/06/21 23:00 BUN 20 mg/dl (7-18) H 10/06/21 23:00 Creatinine 1.08 mg/dl (0.6-1.4) 10/06/21 23:00 Est Cr Clr Drug Dosing 83.1 ml/min 10/06/21 23:00 Est GFR ( Amer) 73.7 ml/min 10/06/21 23:00 Est GFR (Non-Af Amer) 63.6 ml/min 10/06/21 23:00 BUN/Creatinine Ratio 18.1 (10-20) 10/06/21 23:00 Glucose 124 mg/dl (70-99) H 10/06/21 23:00 POC Glucose 119 mg/dl (70-99) H 10/06/21 22:35 Calcium 9.0 mg/dl (8.5-10.1) 10/06/21 23:00 Magnesium 2.2 mg/dl (1.8-2.4) 10/06/21 23:00 Total Bilirubin 1.2 mg/dl (0.2-1) H 10/06/21 23:00 AST 44 U/L (15-37) H 10/06/21 23:00 ALT 42 U/L (12-78) 10/06/21 23:00 Alkaline Phosphatase 156 U/L (45-117) H 10/06/21 23:00 Troponin I 0.039 ng/ml (0-0.045) 10/06/21 23:00 NT-Pro-B Natriuret Pep 91788 pg/ml (0-1800) H 10/06/21 23:00 Total Protein 7.1 gm/dl (6.4-8.2) 10/06/21 23:00 Albumin 2.6 gm/dl (3.4-5.0) L 10/06/21 23:00 Globulin 4.5 gm/dl (2.5-4.0) H 10/06/21 23:00 Albumin/Globulin Ratio 0.6 (0.9-2) L 10/06/21 23:00 TSH 10.300 uIu/ml (0.300-4.500) H 10/06/21 23:00 Free T4 1.39 ng/dl (0.8-1.6) 10/06/21 23:00 COVID-19 Eval Order Covid19 at [facility] 10/06/21 23:00 SARS-CoV-2 (PCR) NEGATIVE (Negative) 10/06/21 23:00 Diagnostic Findings [facility] Patient: IKER SZYMANSKI (Male) : 38 Status: ER Date: 10/07/21 00:46 Room #: History: CONFUSION , AMS , hypoxia, LLL infiltrate, EVAL FOR PE , 120 ML OPTIRAY 320 Slices: [phone] Priors: Tech: Dagoberto Leach @ [phone] Exams: CT HEAD, CTA CHEST Contrast: Accession Numbers: [id number], [id number] Referring Physician: MARA LEGGETT Preliminary Findings Only See Final Report For Complete Findings CT HEAD: Comparison made to prior study of October 04 2821 No ICH, mass effect or edema. No evidence of acute cortical stroke. Visualized sinuses and mastoid air cells are clear. CTA CHEST: No prior study for comparison. Heart is mildly enlarged. There is a left ventricular configuration. There is some calcifications possibly related to previous myocardial infarction. There are dense coronary artery atherosclerotic changes. There are mild atherosclerotic changes in the thoracic aorta. Evaluation of the distal right lower lobe basilar arteries is limited. There are no pulmonary artery filling defects. The main pulmonary artery is normal in caliber. There are increased interstitial markings with septal markings and there are bilateral pleural fluid collections. There is some focal consolidation in the right lower lobe which is partially collapsed. There is a calcified granuloma in the right lower lobe. There is a nonspecific 1.8 cm subpleural nodule in the anterior left lower lobe. There are scattered centrilobular bullous changes. Impression: Cardiomegaly with increased interstitial markings and bilateral pleural fluid collections concerning for congestive heart failure. Correlation with cardiac history and function recommended. Some focal airspace opacity at the right lung base may be related to subsegmental atelectasis due to the adjacent effusion. However, there may also be a component of associated aspiration or pneumonia. 1.8 cm nonspecific nodule in the subpleural left lower lobe. Comparison with prior studies to confirm stability recommended Radiologist: Maynor Carlson MD Study ready at 01:26 and initial results transmitted at 01:40 *This report constitutes a preliminary interpretation only. Non-acute findings felt to be unrelated to the clinical presentation may not be discussed in this report. The study will be interpreted and a final report will be generated by the local Radiologist the following shift. To reach the [facility] radiology department call [phone]. If a discrepancy is found between the preliminary and final interpretations of this study, please notify us via our Client Portal at [email or web address], under QA Exams. You can also fax this report with a description of the discrepancy, or include the final report, to our daytime fax number [phone]. If faxing, please indicate the severity of discrepancy using one of the following categories: [ ] 1 - Agree/Informational [ ] 2 - Unlikely to Affect Management [ ] 3 - Possible Eventual Change of Management [ ] 4 - Probable Immediate Change of Management For all other patient related information, please fax us at [phone]. 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
[2021-10-07] MEDS ORDERED: GLUCOSE 10 TABS/TUBE PO PRN (04:00)
[2021-10-07] MEDS ORDERED: GLUCAGON FOR INJ 1 MG VIAL SQ PRN (04:00)
[2021-10-07] MEDS ORDERED: ACETAMINOPHEN 325 MG TAB PO PRN (04:00)
[2021-10-07] MEDS ORDERED: ONDANSETRON INJ 2 MG/ML 2 ML VIAL IV PRN (04:00)
[2021-10-07] MEDS ORDERED: DEXTROSE 50% 50 ML SYRINGE IV PRN (04:00)
[2021-10-07] MEDS ORDERED: POLYETHYLENE (MIRALAX) 17 GM PACK PO PRN (04:00)
[2021-10-07] MEDS ORDERED: CARBOHYDRATES FOR HYPOGLYCEMIA PO PRN (04:00)
[2021-10-07] MEDS ORDERED: GLUCOSE 40% GEL 15 GM TUBE PO PRN (04:00)
[2021-10-07 06:44] LABS: Appearance Urine Clear (Clear); Bacteria Urine Automated Negative (Negative); Bilirubin Urine Negative (Negative); Blood Urine Negative (Negative); Color Urine Yellow; Epithelial Cell Urine Auto 0-5 /lpf (0-5); Glucose Urine UA Trace (Negative); Ketones Urine Negative (Negative); Leukocyte Esterase Urine Trace (Negative); Nitrite Urine Negative (Negative); Protein Urine Negative (Negative); RBC Urine Automated 0-4 /hpf (0-4); Specific Gravity Urine 1.013 (1.000-1.030); Urobilinogen Urine Negative (Negative)
--- NOTE | 2021-10-07 07:01 | XRay Report ---
XR chest 1V portable CLINICAL HISTORY: weakness. Evaluate cardiopulmonary status COMPARISON STUDY: 10/04/2021 TECHNIQUE: 1 view of the chest FINDINGS: Single frontal view of the chest demonstrates the heart to be mildly enlarged status post cardiothora cic surgery. There has been interval development of diffuse interstitial edema characteristic of card iac decompensation and congestive heart failure. There is haziness at the right lung base characteris tic of small pleural effusion layering along the posterior gutter. There is no evidence for left pleu ral effusion. No confluent alveolar opacities. There is no acute osseous pathology. IMPRESSION: Interval development of diffuse interstitial edema characteristic of cardiac decompensati on congestive heart failure. Evidence of small right pleural effusion. ACT 112: Negative or not required by law. Electronically signed by: Eulogio Posada M.D. 10/07/2021 6:59 AM
[2021-10-07] MEDS: ALBUT/IPRATROP 3MG/0.5MG NEB 3 ML VIAL NEB SCH ×2 (07:10→11:09)
--- NOTE | 2021-10-07 07:35 | CT Scan Report ---
CT head/brain wo con CLINICAL HISTORY: AMS . Confusion COMPARISON STUDY: 10/04/2021 CT DOSE: 2313.78 mGy.cm TECHNIQUE: Standard CT of the Brain was performed without IV contrast. A dose lowering technique was utilized adhering to the principles of ALARA. FINDINGS: Extraaxial space: There is no evidence for subdural hematoma. There are no extra-axial fluid collecti ons. Ventricles and cisterns: The ventricles are mildly dilated bilaterally. There is no evidence for mid line shift or mass effect. Parenchyma: There is no subarachnoid or intraparenchymal hemorrhage. There is no evidence for an acu te infarct or cerebral edema. There is mild cerebral cortical atrophy present. There is homogeneous a ttenuation of the brain parenchyma. There are no gross mass lesions. Osseous structures: There is no evidence for an acute fracture. The visualized paranasal sinuses are clear. The mastoid air cells are clear bilaterally. Soft tissues: There is no evidence for focal soft tissue swelling. IMPRESSION: No acute intracerebral pathology. There is again evidence for mild cerebral cortical atro phy. ACT 112: Negative or not required by law. Electronically signed by: Eulogio Posada M.D. 10/07/2021 7:34 AM
--- NOTE | 2021-10-07 07:52 | CT Scan Report ---
CT angio chest PE protocol CLINICAL HISTORY: Hypoxia with right pleural effusion and atelectasis. evaluate for pulmonary embolus COMPARISON STUDY: Portable chest from 10/04/2021 and previous CTA chest from 10/03/2021 TECHNIQUE: CT Angio of the chest was performed.followed by image post processing with coronal, and s agittal MIP reformats. Contrast Volume: Optiray 320, 120 ml FINDINGS: Vasculature: There is again homogeneous perfusion of the pulmonary vasculature bilaterally. No intral uminal filling defects or evidence for pulmonary embolus is seen. Airway: The airway is clear. No endobronchial lesion is identified. Lungs and pleural: There is again a moderate to marked right-sided pleural effusion with compressive atelectasis/collapse of the right lower lobe. No confluent alveolar opacities or air bronchograms are seen there is again a small left pleural effusion with mild atelectasis left lung base. There is no evidence for alveolar opacities. Moderate to marked centrilobular emphysematous changes are again see n particularly involving the upper lobes. There is a 1.8 cm subpleural nodule present within the left lower lobe as seen on image 35 of 301. This can be seen on the previous study and is unchanged. Mediastinum: There is no evidence for pathologic adenopathy. The patient is again status post previou s cardiothoracic surgery. The heart size is within normal limits. Extensive coronary artery calcifica tion is seen. The thoracic aorta is within normal limits. There is again atherosclerotic calcificatio n of the aortic arch and origin of great vessels. There is no evidence for pericardial effusion. Upper abdomen:The adrenal glands are normal bilaterally. Osseous structures: There is no acute osseous pathology. Impression: 1. No CTA evidence for pulmonary embolus. 2. There is again moderate to marked centrilobular emphysematous changes with no acute confluent alve olar opacity. 3. There is again moderate to marked right-sided pleural effusion with compressive atelectasis/collap se of the right lower lobe. 4. There is again small left pleural effusion with left basilar atelectasis. 5. There is a 1.8 cm pleural-based pulmonary nodule within the left lower lobe and follow-up is recom mended utilizing Fleischner criteria. 6. Additional nonacute findings are again delineated above. ACT 112: Negative or not required by law. Electronically signed by: Eulogio Posada M.D. 10/07/2021 7:51 AM
[2021-10-07] MEDS: PANTOprazole 40 MG TAB PO SCH ×2 (08:03→20:34)
[2021-10-07] MEDS: CHOLECALCIFEROL 1,000 UNITS 25 MCG TAB PO SCH (08:04)
[2021-10-07] MEDS: ASPIRIN 81 MG ECTAB PO SCH (08:04)
[2021-10-07] MEDS: METOPROLOL SUCC 25MG EXT REL TAB PO SCH (08:05)
[2021-10-07] MEDS: DOCUSATE SODIUM 100 MG CAP PO SCH (08:05)
[2021-10-07] MEDS: ESCITALOPRAM OXALATE 10 MG TAB PO SCH (08:06)
[2021-10-07] MEDS: FUROSEMIDE 40 MG/4 ML VIAL IV SCH (08:08)
[2021-10-07] MEDS: HEPARIN SOD 5,000 UNIT/0.5 ML VIAL SQ SCH ×2 (08:12→20:34)
[2021-10-07] MEDS: UMECLIDINIUM BROMIDE 62.5MCG/BLISTER 7 PUFFS/INHALER INH SCH (08:15)
[2021-10-07] MEDS: INSULIN ASPART 100 UNITS/ML 3 ML PEN SC SCH ×5 (08:27→23:58)
[2021-10-07] MEDS ORDERED: cefTRIAXone SODIUM 1,000 MG in DEXTROSE 5% 50 ML IV SCH (09:00)
[2021-10-07] MEDS: cefTRIAXone SODIUM 2,000 MG in DEXTROSE 5% 50 ML IV SCH (09:50)
[2021-10-07] MEDS ORDERED: ALBUT/IPRATROP 3MG/0.5MG NEB 3 ML VIAL NEB PRN (13:13)
--- NOTE | 2021-10-07 14:10 | Cardiology Consultation ---
Date of Consultation October 07, 2021 Assessment & Plan (1) Acute HFrEF (heart failure with reduced ejection fraction): (2) Cardiomyopathy: (3) CAD (coronary artery disease): (4) S/P CABG (coronary artery bypass graft): (5) Tobacco abuse: (6) Pleural effusion: (7) Pulmonary nodule: (8) Elevated troponin: (9) SOB (shortness of breath): (10) Nonsustained paroxysmal ventricular tachycardia: ASSESSMENT/PLAN: 1. Acute heart failure with reduced EF: He appears hypervolemic and is already -3.2 L from a fluid balance standpoint. (Volume status hypervolemic compared to 10/04/2021 consultation.) Continue diuresis. Continue metoprolol succinate and losartan. Heart failure program recommended. Will likely need a higher dose of oral diuretic on discharge. Low-sodium diet, strict I&Os, daily weights. 2. Cardiomyopathy: Continue current medical therapy. Titrating appropriate medical therapy may be difficult as lisinopril was reduced and eventually discontinued in the past due to orthostatic symptoms. If LV systolic function does not improve on optimal therapy or maximal tolerated therapy, could consider ICD for primary prevention at that time if clinically applicable and desired by patient. There is no urgent indication for cardiac catheterization. He did not present with acute coronary syndrome. Further evaluation can be decided upon in the future with his primary editorial project manager, Dr. Goodman. Recommend low-sodium diet. 3. CAD s/p CABG: He reports 4 vessel bypass 20 years ago. No angina. Continue aspirin 81 mg daily. Continue low-dose beta-logan which was recently initiated. He is tolerating statin therapy. 4. Pulmonary nodule/pleural effusion: Follows with pulmonology as an outpatient. Has undergone XRT in the past. 5. Tobacco abuse: Smoking cessation. 6. Ventricular tachycardia: Nonsustained VT during hospitalization last week. Now on beta-logan. 7. Disposition: Continue plan as above. Dr. Goodman, his primary editorial project manager, will resume cardiology care tomorrow. Patient's family, Dona, was updated via telephone. His home number was called to discuss with his , but Dona is they are caring for them and answered the phone and had contacted on-call services yesterday with her concerns. She specifically inquired about improving quality of life. These discussions can be continued throughout the hospitalization in regards to aggressiveness of care and overall patient wishes. Thank you for allowing me to participate in the care of your patient. Please call for any other questions or concerns. Sincerely, Juan Arroyo M.D. In History of Present Illness Reason for Consultation: "HFrEF exacerbation" Requesting Physician: Dr. Goode Attending Physician: Segundo Wright, DO History of Present Illness Mr. Welsh is a pleasant 81-year-old gentleman with history significant for multivessel CAD s/p CABG x 4, type 1 diabetes, tobacco abuse, left BKA, COPD/emphysema, lung nodule, hypertension, dyslipidemia, and cardiomyopathy. His primary editorial project manager is Dr. Goodman. In regards to his pulmonary nodule history, he had abnormal PET scans, concerning for malignancy. He underwent radiation therapy with decreased size of right lower lobe pulmonary nodule. He also was noted to have mildly enlarged mediastinal lymphadenopathy. He follows with pulmonology. He has had the following studies/procedures: 1. CABG x4 in 1999 2. Echo on 05/30/2019: EF 40-45% with severe apical hypokinesis, akinetic inferior wall, and otherwise no significant valvular abnormalities. 3. Echo 10/04/2021: Mildly dilated LV. EF 25-30%. Global hypokinesis with akinetic apex. RV dilated with severely reduced systolic function. Mild left atrial dilation. Sclerotic aortic valve. Mild to moderate MR. He was admitted on 10/03/2021 after having issues with shortness of breath and confusion at home. Apparently the symptoms had been occurring 4-5 days prior to presentation. He underwent right-sided thoracentesis removing 1.6 L. Symptoms were much better following thoracentesis. His fluid balance was net positive 4 L on 10/05/2021. Diuretic therapy was recommended and he was discharged on Lasix 20 mg p.o. daily. He was discharged on 10/05/2021. His daughter, Dona, call the on-call answering service last night due to shortness of breath and hypoxia. She stated that he was having bowel movements often. He was also confused at times. She found his glucose to be in the 40s. It was recommended that she call 911. He is a poor historian but did provide some history. He admits that he has been short of breath but denied orthopnea. He denies chest pain, syncope, near-syncope, palpitations, edema, or bleeding. His daughter, Dona, states that he was urinating every 45 minutes to 60 minutes overnight. To do this, he would wake up, places prosthetic leg on, and then use the restroom. It was an exhausting night. She stayed with him and was helping him through the night. She states that he has been confused for a couple of weeks and was confused last night as well. She states that his bowel movements are soft but not necessarily diarrhea. She specifically inquired about going home with a catheter in place to help with his frequent urination. She inquired also about the importance of his quality of life given his multitude of medical problems, concerned that he is slipping from a health standpoint. Review of systems:As above. Review of systems otherwise negative/unremarkable. Family history:No known premature CAD. Social history:Smokes 1 pack per day and has smoked for many years. No alcohol or drugs. Lives at home with his . Five children. Children have been taking turns staying with he and his more recently since his had a fall. Allergies Allergy/AdvReac Type Severity Reaction Status Date / Time Insulins Allergy Intermediate BEEF/PORK Verified 10/07/21 01:21 INSULINS lorazepam AdvReac Intermediate DELUSIONS Verified 10/07/21 01:21 chlorpromazine AdvReac Mild "SHAKING" Verified 10/07/21 01:21 Home Medications Medication Instructions Recorded Confirmed Type cholecalciferol (vitamin D3) 25 1,000 unit PO QAM 01/11/19 10/07/21 History mcg (1,000 unit) tablet (Vitamin D3) albuterol sulfate 90 mcg/actuation 2 puffs INHALATION Q6H PRN #1 gm 08/02/19 10/07/21 History aerosol inhaler (Ventolin HFA) diphenhydramine 25 1 tab PO HS tab 07/04/20 10/07/21 History mg-acetaminophen 500 mg tablet (Tylenol PM Extra Strength) losartan 25 mg tablet (Cozaar) 25 mg PO HS 01/26/21 10/07/21 History ropinirole 1 mg tablet 1 mg PO HS #90 tab 02/14/21 10/07/21 Rx docusate sodium 100 mg capsule 100 mg PO QAM 03/01/21 10/07/21 History (Colace) insulin NPH isoph U-100 human 100 5 unit SUBCUT HS 03/01/21 10/07/21 History unit/mL subcutaneous suspension insulin lispro 100 unit/mL See Rx Instructions .ROUTE TID ml 03/01/21 10/07/21 History subcutaneous pen (Humalog KwikPen (U-100) Insulin) polyethylene glycol 3350 17 17 g PO DAILY PRN 03/01/21 10/07/21 History gram/dose oral powder (Miralax) aspirin 81 mg tablet,delayed 81 mg PO Q2D 07/24/21 10/07/21 History release (Aspirin Low Dose) escitalopram oxalate 10 mg tablet 10 mg PO QAM 07/24/21 10/07/21 History (Lexapro) insulin glargine 100 unit/mL (3 20 - 25 unit SQ HS 07/24/21 10/07/21 History mL) subcutaneous pen (Lantus Solostar U-100 Insulin) rosuvastatin 20 mg tablet (Crestor) 20 mg PO Q2D 07/24/21 10/07/21 History tiotropium bromide 1.25 2 puff INHALATION QAM 07/24/21 10/07/21 History mcg/actuation mist for inhalation (Spiriva Respimat) omeprazole 20 mg capsule,delayed 20 mg PO BID #60 cap 08/13/21 10/07/21 Rx release albuterol sulfate 90 mcg/actuation 1 inh INHALATION QID PRN #8.5 g 08/17/21 10/07/21 Rx aerosol inhaler furosemide 20 mg tablet (Lasix) 20 mg PO DAILY #30 tab 10/05/21 10/07/21 Rx metoprolol succinate 25 mg 25 mg PO QAM 30 Days #30 tab 10/05/21 10/07/21 Rx tablet,extended release 24 hr Patient History Medical History Abnormal CT scan, esophagus Atherosclerosis of both carotid arteries Bilateral diabetic retinopathy BPH without obstruction/lower urinary tract symptoms CAD (coronary artery disease) Cardiomyopathy Zzkkzki-Dqqrv-Itsen disease Chronic constipation Chronic dyspnea 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, with long-term current use of insulin COPD (chronic obstructive pulmonary disease) Cough Dyslipidemia Elevated LFTs Elevated PSA Emphysema of lung Diagnosed by CT scan Esophageal abnormality Gross hematuria Related to UTI - now resolved Hard of hearing extreme per > have to speak very loud HFrEF (heart failure with reduced ejection fraction) History of depression History of MT (myocardial infarction) (2000) 2001> cabg HTN (hypertension) Lung nodule Male erectile disorder of organic origin Peripheral neuropathy Peripheral vascular disease S/p BKA on left side Phantom limb (syndrome) left leg Restless leg Solitary lung nodule Tobacco abuse Tobacco abuse Trigger finger Surgical History (Updated 10/04/21 @ 17:18 by Niko Arroyo MD) H/O eye surgery bilat cataracts History of bronchoscopy 01/31/21 with biopsy History of cholecystectomy History of esophagogastroduodenoscopy (EGD) History of left below knee amputation History of tooth extraction History of transurethral resection of prostate S/P CABG (coronary artery bypass graft) (2000) Status post open reduction with internal fixation (ORIF) of fracture of ankle (2018) right Family History Father , in his 70s Diabetes Mother , 62yo Cervical cancer Sister No problems noted. Sister No problems noted. Son No problems noted. Son No problems noted. Son No problems noted. Son Diabetes Daughter No problems noted. Other No family history of adverse response to anesthesia Social History Smoking Status: Unknown if ever smoked Tobacco Type: Cigarettes Cigarettes Per Day: unknown; Second Hand Exposure: No; Hx Alcohol Use: No Hx Substance Use: No Preferred Language: Icelandic Communication Ability: Effective Visual Impairment: No Limitations Hearing Ability: Hard of Hearing Marketing Administrator Required: No Beliefs That Will Affect Care: None marital status: Current Living Situation: Spouse Current Living Situation Comment: home w/ - children help with care current occupational status: retired current occupation: Retired from [employer] Feels Safe at Home: Yes caffeine: Yes (2-4 cups/day) during the past year weight has: decreased > 10 lbs Assistive Devices: Denture - Upper, Denture - Lower, Glasses, Oxygen - Continuous and Prosthesis Physical Exam Physical Exam: Gen.: No acute distress. Alert. HEENT: Anicteric sclera. Neck: Elevated JVD. Hepatic jugular reflux noted. No bruits. Normal carotid upstrokes bilaterally. Cardiac: PMI was nondisplaced. No ventricular heave. Regular. Normal S1-S2. No murmurs, rubs, or gallops. Pulmonary: Decreased breath sounds at the right base. Otherwise, clear to auscultation. Abdomen: Soft, nontender, nondistended, with normoactive bowel sounds. No bruits noted. Extremities: 2+ radial pulses bilaterally. 2+ posterior tibialis pulses bilaterally. 1+ right lower extremity edema. Left BKA. No cyanosis. Psychiatric: Affect appears appropriate. Results & Data ([facility]) Vital Signs (Past 12 Hours) Vital Signs Pulse Pulse Resp BP BP Pulse Ox Pulse Ox 10/07/21 11:09 80 16 95 10/07/21 10:12 96 10/07/21 08:00 93 H 18 141/68 H 97 10/07/21 07:11 91 H 18 97 10/07/21 04:37 86 20 141/73 H 96 10/07/21 04:00 86 17 154/82 H 97 10/07/21 03:30 85 20 155/83 H 99 10/07/21 02:30 83 22 148/83 H 96 Intake & Output 10/05/21 10/06/21 10/07/21 10/08/21 06:59 06:59 06:59 06:59 Intake Total 570 / 570 Output Total 1500 / 1500 2250 / 2250 Balance -1500 / -1500 -1680 / -1680 Weight 171 lb 15.369 oz Laboratory Results Laboratory Results - last 24 hr 10/06/21 10/06/21 10/06/21 22:35 23:00 23:00 WBC 12.13 H RBC 5.04 Hgb 11.6 L Hct 39.8 L MCV 79.0 L MCH 23.0 L MCHC 29.1 L RDW Std Deviation 54.5 H RDW Coeff of Johnathan 19.2 H Plt Count 205 MPV 10.5 H Immature Gran % (Auto) 0.2 Neut % (Auto) 88.8 Lymph % (Auto) 4.0 [place] % (Auto) 5.8 Eos % (Auto) 1.1 Baso % (Auto) 0.1 Neut # (Auto) 10.78 H Lymph # (Auto) 0.48 L [place] # (Auto) 0.70 H Eos # (Auto) 0.13 Baso # (Auto) 0.01 Immature Gran # (Auto) 0.03 H Sodium 143 Potassium 3.8 Chloride 109 H Carbon Dioxide 28 Anion Gap 6.0 BUN 20 H Creatinine 1.08 Est Cr Clr Drug Dosing 83.1 Est GFR ( Amer) 73.7 Est GFR (Non-Af Amer) 63.6 BUN/Creatinine Ratio 18.1 Glucose 124 H POC Glucose 119 H Calcium 9.0 Magnesium 2.2 Total Bilirubin 1.2 H AST 44 H ALT 42 Alkaline Phosphatase 156 H Troponin I 0.039 NT-Pro-B Natriuret Pep 27206 H Total Protein 7.1 Albumin 2.6 L Globulin 4.5 H Albumin/Globulin Ratio 0.6 L TSH 10.300 H Free T4 1.39 Urine Color Urine Appearance Urine pH Ur Specific [place] Urine Protein Urine Glucose (UA) Urine Ketones Urine Blood Urine Nitrite Urine Bilirubin Urine Urobilinogen Ur Leukocyte Esterase Urine WBC (Auto) Urine RBC (Auto) U Hyaline Cast (Auto) U Epithel Cells (Auto) Urine Bacteria (Auto) COVID-19 Eval Order SARS-CoV-2 (PCR) 10/06/21 10/06/21 10/07/21 23:00 23:00 04:35 WBC RBC Hgb Hct MCV MCH MCHC RDW Std Deviation RDW Coeff of Johnathan Plt Count MPV Immature Gran % (Auto) Neut % (Auto) Lymph % (Auto) [place] % (Auto) Eos % (Auto) Baso % (Auto) Neut # (Auto) Lymph # (Auto) [place] # (Auto) Eos # (Auto) Baso # (Auto) Immature Gran # (Auto) Sodium Potassium Chloride Carbon Dioxide Anion Gap BUN Creatinine Est Cr Clr Drug Dosing Est GFR ( Amer) Est GFR (Non-Af Amer) BUN/Creatinine Ratio Glucose POC Glucose Calcium Magnesium Total Bilirubin AST ALT Alkaline Phosphatase Troponin I 0.038 NT-Pro-B Natriuret Pep Total Protein Albumin Globulin Albumin/Globulin Ratio TSH Free T4 Urine Color Urine Appearance Urine pH Ur Specific [place] Urine Protein Urine Glucose (UA) Urine Ketones Urine Blood Urine Nitrite Urine Bilirubin Urine Urobilinogen Ur Leukocyte Esterase Urine WBC (Auto) Urine RBC (Auto) U Hyaline Cast (Auto) U Epithel Cells (Auto) Urine Bacteria (Auto) COVID-19 Eval Order Covid19 at [facility] SARS-CoV-2 (PCR) NEGATIVE 10/07/21 10/07/2110/07/21 06:35 07:22 11:30 WBC RBC Hgb Hct MCV MCH MCHC RDW Std Deviation RDW Coeff of Johnathan Plt Count MPV Immature Gran % (Auto) Neut % (Auto) Lymph % (Auto) [place] % (Auto) Eos % (Auto) Baso % (Auto) Neut # (Auto) Lymph # (Auto) [place] # (Auto) Eos # (Auto) Baso # (Auto) Immature Gran # (Auto) Sodium Potassium Chloride Carbon Dioxide Anion Gap BUN Creatinine Est Cr Clr Drug Dosing Est GFR ( Amer) Est GFR (Non-Af Amer) BUN/Creatinine Ratio Glucose POC Glucose 295 H 334 H* Calcium Magnesium Total Bilirubin AST ALT Alkaline Phosphatase Troponin I NT-Pro-B Natriuret Pep Total Protein Albumin Globulin Albumin/Globulin Ratio TSH Free T4 Urine Color Yellow Urine Appearance Clear Urine pH 5.0 Ur Specific [place] 1.013 Urine Protein Negative Urine Glucose (UA) Trace H Urine Ketones Negative Urine Blood Negative Urine Nitrite Negative Urine Bilirubin Negative Urine Urobilinogen Negative Ur Leukocyte Esterase Trace H Urine WBC (Auto) 1-5 Urine RBC (Auto) 0-4 U Hyaline Cast (Auto) 1-5 U Epithel Cells (Auto) 0-5 Urine Bacteria (Auto) Negative COVID-19 Eval Order SARS-CoV-2 (PCR) 10/07/21 12:48 WBC RBC Hgb Hct MCV MCH MCHC RDW Std Deviation RDW Coeff of Johnathan Plt Count MPV Immature Gran % (Auto) Neut % (Auto) Lymph % (Auto) [place] % (Auto) Eos % (Auto) Baso % (Auto) Neut # (Auto) Lymph # (Auto) [place] # (Auto) Eos # (Auto) Baso # (Auto) Immature Gran # (Auto) Sodium Potassium Chloride Carbon Dioxide Anion Gap BUN Creatinine Est Cr Clr Drug Dosing Est GFR ( Amer) Est GFR (Non-Af Amer) BUN/Creatinine Ratio Glucose POC Glucose Calcium Magnesium Total Bilirubin AST ALT Alkaline Phosphatase Troponin I 0.038 NT-Pro-B Natriuret Pep Total Protein Albumin Globulin Albumin/Globulin Ratio TSH Free T4 Urine Color Urine Appearance Urine pH Ur Specific [place] Urine Protein Urine Glucose (UA) Urine Ketones Urine Blood Urine Nitrite Urine Bilirubin Urine Urobilinogen Ur Leukocyte Esterase Urine WBC (Auto) Urine RBC (Auto) U Hyaline Cast (Auto) U Epithel Cells (Auto) Urine Bacteria (Auto) COVID-19 Eval Order SARS-CoV-2 (PCR) Diagnostic Findings Echo report reviewed as noted above in HPI. Chart reviewed. ECG personally reviewed 10/06/2021: Sinus rhythm 71 beats per minute. PVCs. Septal infarct. CTA chest 10/07/2021: No PE. Moderate to marked centrilobular emphysematous changes. Moderate to marked right-sided pleural effusion with compressive atelectasis/collapse of right lower lobe. Small left pleural effusion with left basilar atelectasis. 1.8 cm pleural based pulmonary nodule left lower lobe. Medications Administered Current Inpatient Medications Acetaminophen (Acetaminophen 325 Mg Tab) 650 mg PO Q4H PRN PRN Reason: Pain or Fever Stop: 11/06/21 03:59 Albuterol (Albut/Ipratrop 3mg/0.5mg Neb 3 Ml Vial) 3 ml NEB QIDR PRN PRN Reason: Shortness Of Breath Or Wheezing Stop: 11/06/21 06:59 Aspirin (Aspirin 81 Mg Ectab) 81 mg PO Q2D@0900 [facility] Stop: 11/06/21 08:59 Last Admin: 10/07/21 08:04 Dose: 81 mg Documented by: Dextrose (Dextrose 50% 50 Ml Syringe) 25 - 50 ml IV UD PRN; Protocol PRN Reason: Hypoglycemia Protocol Stop: 11/06/21 03:59 Docusate Sodium (Docusate Sodium 100 Mg Cap) 100 mg PO QAM [facility] Stop: 11/06/21 08:59 Last Admin: 10/07/21 08:05 Dose: 100 mg Documented by: Escitalopram Oxalate (Escitalopram Oxalate 10 Mg Tab) 10 mg PO QAM [facility] Stop: 11/06/21 08:59 Last Admin: 10/07/21 08:06 Dose: 10 mg Documented by: Furosemide (Furosemide 40 Mg/4 Ml Vial) 40 mg IV QAM [facility] Stop: 11/06/21 08:59 Last Admin: 10/07/21 08:08 Dose: 40 mg Documented by: Glucagon (Glucagon For Inj 1 Mg Vial) 1 mg SQ UD PRN; Protocol PRN Reason: Hypoglycemia Protocol Stop: 11/06/21 03:59 Glucose (Glucose 10 Tabs/Tube) 4 - 8 tabs PO UD PRN; Protocol PRN Reason: Hypoglycemia Protocol Stop: 11/06/21 03:59 Glucose (Glucose 40% Gel 15 Gm Tube) 15 - 30 gm PO UD PRN; Protocol PRN Reason: Hypoglycemia Protocol Stop: 11/06/21 03:59 Heparin Sodium (Porcine) (Heparin Sod 5,000 Unit/0.5 Ml Vial) 5,000 units SQ Q12 [facility] Stop: 11/06/21 08:59 Last Admin: 10/07/21 08:12 Dose: 5,000 units Documented by: Ceftriaxone Sodium 2,000 mg/ (Dextrose) 70 mls @ 140 mls/hr IV Q24H [facility] Stop: 10/12/21 08:59 Last Infusion: 10/07/21 10:28 Dose: Infused Documented by: Insulin Aspart (Insulin Aspart 100 Units/Ml 3 Ml Pen) 0 units SC ACHS [facility] Stop: 11/06/21 07:29 Last Admin: 10/07/21 12:08 Dose: 9 units Documented by: Insulin Glargine (Insulin Glargine Solostar 100 Units/Ml 3 Ml Pen) 20 units SQ HS [facility] Stop: 11/06/21 20:59 Losartan Potassium (Losartan Potassium 25 Mg Tab) 25 mg PO HS [facility] Stop: 11/06/21 20:59 Metoprolol Succinate (Metoprolol Succ 25mg Ext Rel Tab) 25 mg PO QAM [facility] Stop: 11/06/21 08:59 Last Admin: 10/07/21 08:05 Dose: 25 mg Documented by: Miscellaneous (Carbohydrates For Hypoglycemia ) 15 - 30 gm PO UD PRN PRN Reason: Hypoglycemia Protocol Stop: 11/06/21 03:59 Ondansetron HCl (Ondansetron Inj 2 Mg/Ml 2 Ml Vial) 4 mg IV Q6H PRN PRN Reason: Nausea Stop: 11/06/21 03:59 Pantoprazole Sodium (Pantoprazole 40 Mg Tab) 40 mg PO BID [facility] Stop: 11/06/21 08:59 Last Admin: 10/07/21 08:03 Dose: 40 mg Documented by: Polyethylene Glycol (Polyethylene (Miralax) 17 Gm Pack) 17 gm PO DAILY PRN PRN Reason: Constipation Stop: 11/06/21 03:59 Ropinirole HCl (Ropinirole Hcl 1 Mg Tablet) 1 mg PO HS [facility] Stop: 11/06/21 20:59 Rosuvastatin Calcium (Rosuvastatin Calcium 20 Mg Tab) 20 mg PO Q2D@0900 [facility] Stop: 11/07/21 08:59 Umeclidinium [place] (Umeclidinium [place] 62.5mcg/Blister 7 Puffs/Inhaler) 1 puffs INH QAM [facility] Stop: 11/06/21 08:59 Last Admin: 10/07/21 08:15 Dose: 1 puffs Documented by: Vitamin D (Cholecalciferol 1,000 Units 25 Mcg Tab) 1,000 units PO QAM [facility] Stop: 11/06/21 08:59 Last Admin: 10/07/21 08:04 Dose: 1,000 units Documented by: PG Care Time/CCT Total # of Minutes Spent Total Time Spent with Patient: Total time spent is greater than 50% in coordination of care (as documented) at patient's floor/unit and/or counseling patient: Coding Level of Care Code 42838 Initial Inpt Care Lvl 3 Diagnoses Cardiomyopathy I42.9 CAD (coronary artery disease) I25.10 S/P CABG (coronary artery bypass graft) Z95.1 Tobacco abuse Z72.0 Pleural effusion J90 Pulmonary nodule R91.1 Elevated troponin R77.8 SOB (shortness of breath) R06.02 Nonsustained paroxysmal ventricular tachycardia I47.2 Acute HFrEF (heart failure with reduced ejection fraction) I50.21
[2021-10-07] MEDS ORDERED: PHARMACY GLYCEMIC MGMT CONSULT PRN (20:16)
[2021-10-07] MEDS: LOSARTAN POTASSIUM 25 MG TAB PO SCH (20:34)
[2021-10-07] MEDS: rOPINIRole HCL 1 MG TABLET PO SCH (20:34)
[2021-10-07] MEDS ORDERED: INSULIN GLARGINE SOLOSTAR 100 UNITS/ML 3 ML PEN SQ SCH ×2 (21:00)
[2021-10-07] MEDS ORDERED: NovoLIN-N (NPH) PER UNIT CHARGE SQ SCH (21:00)
--- NOTE | 2021-10-07 21:42 | History & Physical Bridge Note ---
Date of Service October 07, 2021 History & Physical Bridge Note I have examined the patient, reviewed the History & Physical and in the interval since the performance of the History & Physical I have noted the following changes of clinical significance: as below Mr. Welsh was recently admitted due to generalized weakness and hyperglycemia. He was found to have UTI and treatment initiated. Also noted to be in CHF and ultimately underwent thoracentesis x 1600 mL removal of transudative fluid. Upon return home he had more weakness and low BSGs and was brought back to the hospital. He was found to be in a CHF exacerbation. Reports feeling improved since arriving to hospital. Since admission he is - 3.3 L with IV Lasix. He reports his breathing feels better but still on supplemental O2. Reports he normally doesnt utilize O2 at home. He was seen by Dr. Arroyo and discussed with him. Recommend continued diuresis. BP currently allows for diuresis. Was intolerant of Lisinopril in the past due to orthostasis and could consider ICD for primary prevention given his reduced EF. Dr. Arroyo did discuss with daughter who addressed concerns for improving quality of life (patrick due to frequent urination...) - BSGs are brittle - glycemic management added and appreciate assistance - TSH - elevated on last admission and now at 10 - but free T4 normal but on the higher end of normal - could be sick euthyroid syndrome however given the weakness and rapid worsening of CHF it is possibly this could be instigated by hypothyroidism?? -- Does have H/O nonsustained VT so would have to watch for overcorrection with medical management to not induce rapid HRs -- Could also recheck in a couple weeks given normal T4 - Continue diuresis - currently down 3.3 L -- JVD present on exam; However diminished breath sounds - Continue Tx for alpha strep not enterococcus UTI - Rocephin - Of note, patient is legally blind and heard of hearing PHYSICAL EXAM General Appearance: frail elderly male NAD who is A&O x 3 HEENT: Head is normocephalic/atraumatic; [place] Neck: Supple; Trachea midline; JVD+ Heart: RRR with no M/G/R Lungs: CTA in all lung figueroa bilaterally but diminished; Respirations unlabored; Neg accessory muscle use Abdomen: Soft, non-tender, non-distended; Positive BS x 4 quadrants Extremities: Neg cyanosis ; L BKA Neurological: Speech clear Psychiatric: Appropriate mood/affect Skin: Normal Color; Warm/Dry
--- NOTE | 2021-10-07 23:33 | Electrocardiogram Report ---
Test Reason : Blood Pressure : / mmHG Vent. Rate : 071 BPM Atrial Rate : 071 BPM P-R Int : 156 ms QRS Dur : 118 ms QT Int : 450 ms P-R-T Axes : 079 -49 092 degrees QTc Int : 489 ms Sinus rhythm with occasional Premature ventricular complexes Left axis deviation Anteroseptal infarct (cited on or before 30-MAY-2019) Non-specific intra-ventricular conduction delay Nonspecific ST and T wave abnormality Abnormal ECG When compared with ECG of 03-OCT-2021 11:53, Premature atrial complexes are no longer Present QT has lengthened Confirmed by Niko Arroyo ([id number]) on 10/07/2021 11:32:52 PM Referred By: REFERRED SELF Confirmed By:Niko Arroyo
[2021-10-08] MEDS: INSULIN ASPART 100 UNITS/ML 3 ML PEN SC SCH ×5 (03:44→20:12)
[2021-10-08 04:52] LABS: Basophils # (auto) 0.01 K/uL (0-0.2); Basophils % (auto) 0.1 %; Eosinophils # (auto) 0.14 K/uL (0-0.5); Eosinophils % (auto) 1.2 %; Hematocrit (blood only) 32.8 % (42-52); Hemoglobin 9.7 g/dL (14.0-18.0); Immature Granulocytes # (auto) 0.02 K/uL (0.00-0.02); Immature Granulocytes % (auto) 0.2 %; Lymphocytes # (auto) 0.91 K/uL (1.2-3.4); Lymphocytes % (auto) 7.8 %; Mean Corpuscular Hemoglobin 22.9 pg (25-34); Mean Corpuscular Hgb Conc 29.6 g/dL (32-36); Mean Corpuscular Volume 77.5 fL (80-100); Mean Platelet Volume 10.5 fL (7.4-10.4); Monocytes # (auto) 0.86 K/uL (0.11-0.59); Monocytes % (auto) 7.4 %; Neutrophils # (auto) 9.69 K/uL (1.4-6.5); Neutrophils % (auto) 83.3 %; Platelet Count 180 K/uL (130-400); RDW Coefficient of Variation 18.9 % (11.5-14.5); RDW Standard Deviation 53.3 fL (36.4-46.3); Red Blood Count 4.23 M/uL (4.7-6.1); White Blood Count 11.63 K/uL (4.8-10.8)
[2021-10-08 05:12] LABS: Albumin Level 1.9 gm/dl (3.4-5.0); BUN Creatinine Ratio 20.1 (10-20); Calcium 8.4 mg/dl (8.5-10.1); Creatinine Clr Calc Pharmacy 50.4 ml/min; Est GFR (African American) 69.8 ml/min; Est GFR (Non-African American) 60.2 ml/min; Magnesium 2.2 mg/dl (1.8-2.4); Potassium 3.3 mmol/L (3.5-5.1)
[2021-10-08 05:25] LABS: Albumin Globulin Ratio 0.5 (0.9-2); Bilirubin,Total 1.1 mg/dl (0.2-1); Globulin 3.7 gm/dl (2.5-4.0); Total Protein 5.6 gm/dl (6.4-8.2)
[2021-10-08] MEDS: cefTRIAXone SODIUM 2,000 MG in DEXTROSE 5% 50 ML IV SCH (07:54)
[2021-10-08] MEDS: METOPROLOL SUCC 25MG EXT REL TAB PO SCH (07:59)
[2021-10-08] MEDS: CHOLECALCIFEROL 1,000 UNITS 25 MCG TAB PO SCH (07:59)
[2021-10-08] MEDS: ESCITALOPRAM OXALATE 10 MG TAB PO SCH (07:59)
[2021-10-08] MEDS: HEPARIN SOD 5,000 UNIT/0.5 ML VIAL SQ SCH ×2 (08:00→20:11)
[2021-10-08] MEDS: PANTOprazole 40 MG TAB PO SCH ×2 (08:00→20:12)
[2021-10-08] MEDS: DOCUSATE SODIUM 100 MG CAP PO SCH (08:00)
[2021-10-08] MEDS: FUROSEMIDE 40 MG/4 ML VIAL IV SCH (08:02)
[2021-10-08] MEDS: UMECLIDINIUM BROMIDE 62.5MCG/BLISTER 7 PUFFS/INHALER INH SCH (08:02)
[2021-10-08] MEDS ORDERED: POTASSIUM CHLORIDE CRTAB 20 MEQ TABCR PO STA (08:22)
[2021-10-08] MEDS ORDERED: ROSUVASTATIN CALCIUM 20 MG TAB PO SCH (09:00)
--- NOTE | 2021-10-08 11:21 | Hospitalist Progress Note ---
Date of Service October 08, 2021 Assessment & Plan (1) Acute exacerbation of CHF (congestive heart failure): Plan: Acute exacerbation of HFrEF/right pleural effusion/EF 25-30% on October 04, 2021/CAD/cardiomyopathy/hypertension- Presented with worsening weakness, urinary frequency, found to have increased right pleural effusion with mod-large plueral effusion with compressive atelectasis on CTA Chest, neg for PE With hypoxic resp failure now improving, on 3LNC I/O net neg 3L now after receiving lasix 40mg IV x 2 doses Serial trop mildly elevated x 3 but likely demand ischemia from acute CHF Pleural effusion tapped last admission and was transudative, cytology neg for malignancy Appreciate Cardiology consultation--> plan to be cautious with overdiuresis, hold further IV lasix until reassess in AM, may need just weight based prn diuretics after today -hold lasix -follow BMP, Mag in AM -Replace potassium with 40 mEq (2) Acute UTI: Plan: Previously on ceftriaxone while hospitalized, and changed to levofloxacin orally on discharge While in hospital resume IV ceftriaxone. 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, with long-term current use of insulin: Plan: Pharmacy is managing With hypoglycemia this morning Recommend to lower dosing of insulin Holding home NPH and continuing Lantus and NovoLog here Hemoglobin A1c is 8.4% which is fairly well controlled for his age and comorbidities (7) Pleural effusion, right: Plan: Most likely secondary to CHF, status post thoracentesis last admission as above was transudate of Cytology negative There is a chance this could be related to previous malignancy of the lung- recommend follow-up with pulmonology as an outpatient Continue diuresis (8) Generalized weakness: Plan: Generalized weakness and confusion- Multifactorial: UTI, HFrEF exacerbation, general debilitation Continue to treat UTI, CHF PT/OT ordered (9) Confusion: Plan: Resolved (10) Emphysema of lung: Plan: Hold albuterol HFA and nebulizer Hold Spiriva Respimat Duonebs every 4 hours while awake and every 2 hours when necessary. (11) Nonsustained paroxysmal ventricular tachycardia: Plan: With nonsustained V. tach Continue metoprolol Replace electrolytes Consider ICD if EF not improved within the next few months with guideline directed medical therapy Monitor on telemetry Plan: DVT prophylaxis-Heparin 5000 SQ every 12 hours Disposition-improving, PT/OT consulted, plan for discharge likely to home in the next 2 days or so if improving Admission and Anticipated Discharge Date Admission Date: October 07, 2021 Subjective Pt feels better than when he came in, has diuresed quite a bit. is lying flat when I saw him, denied SOB, Tele with NSR and 12 beat run of NSVT. Has restless legs and arms when sleeping Denies chest pain, no nausea or abd pain I discussed his care with Cardiology Review of Systems Review of Systems: All systems reviewed & are unremarkable except as noted in HPI & below Physical Exam Constitutional: WD/WN, vitals as above Eyes: + anicteric sclerae Neck: trachea midline, no thyromegaly Respiratory: normal respiratory effort; no cough Auscultation: + diminished lung sounds (at right base); no rhonchi and no wheezes Cardiovascular: Rate/Rhythm: regular rate and regular rhythm Heart Sounds: no murmur Extremities: + edema (trace edema right leg) Chest (Breasts): Chest: normal inspection of chest Gastrointestinal (Abdomen): normal bowel sounds, soft, nontender, no hepatosplenomegaly Musculoskeletal: Extremities: + 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), no cyanosis and no clubbing Skin: no rashes, warm and dry Neurologic: moves all extremities and awake; no focal motor deficits Psychiatric: A+Ox3, euthymic affect Lymphatic: no lymphedema Results & Data Results & Data ([facility]) Vital Signs (Past 12 Hours) Vital Signs Temp Pulse Resp BP BP Pulse Ox 10/08/21 08:00 36.3 C L 67 23 120/58 L 95 10/08/21 03:46 37 C 61 20 98/43 L 95 10/08/21 00:00 36.9 C 60 17 97/43 L 95 Laboratory Results 10/08/21 10/08/21 10/08/21 Range/Units 16:26 11:58 08:13 WBC (4.8-10.8) K/uL RBC (4.7-6.1) M/uL Hgb (14.0-18.0) g/dL Hct (42-52) % MCV (80-100) fL MCH (25-34) pg MCHC (32-36) g/dL RDW Std Deviation (36.4-46.3) fL RDW Coeff of Johnathan (11.5-14.5) % Plt Count (130-400) K/uL MPV (7.4-10.4) fL Immature Gran % (Auto) % Neut % (Auto) % Lymph % (Auto) % [place] % (Auto) % Eos % (Auto) % Baso % (Auto) % Neut # (Auto) (1.4-6.5) K/uL Lymph # (Auto) (1.2-3.4) K/uL [place] # (Auto) (0.11-0.59) K/uL Eos # (Auto) (0-0.5) K/uL Baso # (Auto) (0-0.2) K/uL Immature Gran # (Auto) (0.00-0.02) K/uL Sodium (136-145) mmol/L Potassium (3.5-5.1) mmol/L Chloride (98-107) mmol/L Carbon Dioxide (21-32) mmol/L Anion Gap (3-11) BUN (7-18) mg/dl Creatinine (0.6-1.4) mg/dl Est Cr Clr Drug Dosing ml/min Est GFR ( Amer) ml/min Est GFR (Non-Af Amer) ml/min BUN/Creatinine Ratio (10-20) Glucose (70-99) mg/dl POC Glucose 193 H 129 H 93 (70-99) mg/dl Calcium (8.5-10.1) mg/dl Magnesium (1.8-2.4) mg/dl Total Bilirubin (0.2-1) mg/dl AST (15-37) U/L ALT (12-78) U/L Alkaline Phosphatase (45-117) U/L Troponin I (0-0.045) ng/ml Total Protein (6.4-8.2) gm/dl Albumin (3.4-5.0) gm/dl Globulin (2.5-4.0) gm/dl Albumin/Globulin Ratio (0.9-2) 10/08/21 10/08/21 10/08/21 Range/Units 07:40 07:38 04:42 WBC (4.8-10.8) K/uL RBC (4.7-6.1) M/uL Hgb (14.0-18.0) g/dL Hct (42-52) % MCV (80-100) fL MCH (25-34) pg MCHC (32-36) g/dL RDW Std Deviation (36.4-46.3) fL RDW Coeff of Johnathan (11.5-14.5) % Plt Count (130-400) K/uL MPV (7.4-10.4) fL Immature Gran % (Auto) % Neut % (Auto) % Lymph % (Auto) % [place] % (Auto) % Eos % (Auto) % Baso % (Auto) % Neut # (Auto) (1.4-6.5) K/uL Lymph # (Auto) (1.2-3.4) K/uL [place] # (Auto) (0.11-0.59) K/uL Eos # (Auto) (0-0.5) K/uL Baso # (Auto) (0-0.2) K/uL Immature Gran # (Auto) (0.00-0.02) K/uL Sodium 141 (136-145) mmol/L Potassium 3.3 L (3.5-5.1) mmol/L Chloride 106 (98-107) mmol/L Carbon Dioxide 33 H (21-32) mmol/L Anion Gap 2.0 L (3-11) BUN 23 H (7-18) mg/dl Creatinine 1.13 (0.6-1.4) mg/dl Est Cr Clr Drug Dosing 50.4 ml/min Est GFR ( Amer) 69.8 ml/min Est GFR (Non-Af Amer) 60.2 ml/min BUN/Creatinine Ratio 20.1 H (10-20) Glucose 73 (70-99) mg/dl POC Glucose 54 L* 50 L* (70-99) mg/dl Calcium 8.4 L (8.5-10.1) mg/dl Magnesium 2.2 (1.8-2.4) mg/dl Total Bilirubin 1.1 H (0.2-1) mg/dl AST 27 (15-37) U/L ALT 29 (12-78) U/L Alkaline Phosphatase 115 (45-117) U/L Troponin I (0-0.045) ng/ml Total Protein 5.6 L D (6.4-8.2) gm/dl Albumin 1.9 L (3.4-5.0) gm/dl Globulin 3.7 (2.5-4.0) gm/dl Albumin/Globulin Ratio 0.5 L (0.9-2) 10/08/21 10/08/21 10/07/21 Range/Units 04:42 03:37 23:51 WBC 11.63 H (4.8-10.8) K/uL RBC 4.23 L (4.7-6.1) M/uL Hgb 9.7 L (14.0-18.0) g/dL Hct 32.8 L (42-52) % MCV 77.5 L (80-100) fL MCH 22.9 L (25-34) pg MCHC 29.6 L (32-36) g/dL RDW Std Deviation 53.3 H (36.4-46.3) fL RDW Coeff of Johnathan 18.9 H (11.5-14.5) % Plt Count 180 (130-400) K/uL MPV 10.5 H (7.4-10.4) fL Immature Gran % (Auto) 0.2 % Neut % (Auto) 83.3 % Lymph % (Auto) 7.8 % [place] % (Auto) 7.4 % Eos % (Auto) 1.2 % Baso % (Auto) 0.1 % Neut # (Auto) 9.69 H (1.4-6.5) K/uL Lymph # (Auto) 0.91 L (1.2-3.4) K/uL [place] # (Auto) 0.86 H (0.11-0.59) K/uL Eos # (Auto) 0.14 (0-0.5) K/uL Baso # (Auto) 0.01 (0-0.2) K/uL Immature Gran # (Auto) 0.02 (0.00-0.02) K/uL Sodium (136-145) mmol/L Potassium (3.5-5.1) mmol/L Chloride (98-107) mmol/L Carbon Dioxide (21-32) mmol/L Anion Gap (3-11) BUN (7-18) mg/dl Creatinine (0.6-1.4) mg/dl Est Cr Clr Drug Dosing ml/min Est GFR ( Amer) ml/min Est GFR (Non-Af Amer) ml/min BUN/Creatinine Ratio (10-20) Glucose (70-99) mg/dl POC Glucose 71 159 H (70-99) mg/dl Calcium (8.5-10.1) mg/dl Magnesium (1.8-2.4) mg/dl Total Bilirubin (0.2-1) mg/dl AST (15-37) U/L ALT (12-78) U/L Alkaline Phosphatase (45-117) U/L Troponin I (0-0.045) ng/ml Total Protein (6.4-8.2) gm/dl Albumin (3.4-5.0) gm/dl Globulin (2.5-4.0) gm/dl Albumin/Globulin Ratio (0.9-2) 10/07/21 10/07/21 Range/Units 21:06 20:24 WBC (4.8-10.8) K/uL RBC (4.7-6.1) M/uL Hgb (14.0-18.0) g/dL Hct (42-52) % MCV (80-100) fL MCH (25-34) pg MCHC (32-36) g/dL RDW Std Deviation (36.4-46.3) fL RDW Coeff of Johnathan (11.5-14.5) % Plt Count (130-400) K/uL MPV (7.4-10.4) fL Immature Gran % (Auto) % Neut % (Auto) % Lymph % (Auto) % [place] % (Auto) % Eos % (Auto) % Baso % (Auto) % Neut # (Auto) (1.4-6.5) K/uL Lymph # (Auto) (1.2-3.4) K/uL [place] # (Auto) (0.11-0.59) K/uL Eos # (Auto) (0-0.5) K/uL Baso # (Auto) (0-0.2) K/uL Immature Gran # (Auto) (0.00-0.02) K/uL Sodium (136-145) mmol/L Potassium (3.5-5.1) mmol/L Chloride (98-107) mmol/L Carbon Dioxide (21-32) mmol/L Anion Gap (3-11) BUN (7-18) mg/dl Creatinine (0.6-1.4) mg/dl Est Cr Clr Drug Dosing ml/min Est GFR ( Amer) ml/min Est GFR (Non-Af Amer) ml/min BUN/Creatinine Ratio (10-20) Glucose (70-99) mg/dl POC Glucose 241 H (70-99) mg/dl Calcium (8.5-10.1) mg/dl Magnesium (1.8-2.4) mg/dl Total Bilirubin (0.2-1) mg/dl AST (15-37) U/L ALT (12-78) U/L Alkaline Phosphatase (45-117) U/L Troponin I 0.049 H* (0-0.045) ng/ml Total Protein (6.4-8.2) gm/dl Albumin (3.4-5.0) gm/dl Globulin (2.5-4.0) gm/dl Albumin/Globulin Ratio (0.9-2) PG Care Time/CCT Total # of Minutes Spent Total Time Spent with Patient: Total time spent is greater than 50% in coordination of care (as documented) at patient's floor/unit and/or counseling patient: Coding Level of Care Code 78161 Subseq Hosp Care Lvl 3 Diagnoses Acute exacerbation of CHF (congestive heart failure) I50.9 Acute UTI N39.0 Cardiomyopathy I42.9 HFrEF (heart failure with reduced ejection fraction) I50.20 CAD (coronary artery disease) I25.10 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
--- NOTE | 2021-10-08 11:28 | Pharmacy Report ---
Pharmacy Glycemic Short Note 2 - Date of Service October 08, 2021 - Glycemic Short BSG Results (Last 24 hours): 10/07/21 10/07/21 10/07/21 11:30 17:11 20:24 Glucose POC Glucose 334 H* 301 H* 241 H 10/07/21 10/08/21 10/08/21 23:51 03:37 04:42 Glucose 73 POC Glucose 159 H 71 10/08/21 10/08/21 10/08/21 07:38 07:40 08:13 Glucose POC Glucose 50 L* 54 L* 93 OUTPATIENT ANTIDIABETIC REGIMEN: * Lantus 20-25units Q HS * NPH 5 units Q HS (for john phenomenon) * Humalog 15 units w/ each meal and per sliding scale * A1c = 8.4% 10/05/21 ASSESSMENT: * Type 1 diabetic admitted for ADHF * Patient received his usual home dose of NPH and Lantus last evening however developed fasting hypoglycemia this AM. Will d/c the NPH for john phenomenon and add overnight Novolog coverage instead. Will decrease Lantus dose ~75% tonight given this AM's low. * Novolog CF and CR doses will be based upon out-pt total daily insulin doses of ~70-80 units/day PLAN FOR INPATIENT GLYCEMIC CONTROL: * Basal insulin - decrease * Lantus 18 units SQ HS * Bolus insulin * NovoLog per scale ACHS and at 0200 tonight * Goal Range: Low 120 mg/dL - High 150 mg/dL * Correction Factor: 20 mg/dL/unit * Nutritional / Prandial insulin per carb ratio of 1 unit per 7 grams CHO consumed PLAN FOR DISCHARGE: * to be determined
--- NOTE | 2021-10-08 12:28 | Cardiology Progress Note ---
Date of Service October 08, 2021 Assessment & Plan (1) Acute HFrEF (heart failure with reduced ejection fraction): (2) Cardiomyopathy: (3) S/P CABG (coronary artery bypass graft): (4) Nonsustained paroxysmal ventricular tachycardia: (5) Pleural effusion: (6) Generalized weakness: Plan: Patient well-known to me from long-term outpatient care. He presented 5 days ago with nonspecific symptoms and a large right pleural effusion for which he underwent thoracentesis. He may have been having increased dyspnea on exertion, but did not have any leg edema, orthopnea, PND, or other overt heart failure symptoms. During his hospitalization he received IV fluids for an apparent UTI, he was discharged home 2 days after admission. 1 day later, he returned with more overt heart failure symptoms and recurrent right pleural effusion as well as new evidence of heart failure on his chest x-ray. He had been discharged home on furosemide 20 mg daily. In the ER he received 40 mg IV furosemide with excellent diuresis (over 3 L). He appears comfortable and euvolemic presently. He does have markedly reduced systolic function (a relatively new finding for him). 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 Alternatively, given the marked asymmetry on his initial chest x-ray (10/03/2021), there should be a high index of suspicion for recurrent carcinoma. Since his recent baseline included the right pleural effusion but no overt volume overload (based on initial chest x-ray and exam at that time), he likely would benefit from a weight-based diuretic regimen. He appears euvolemic today, received furosemide 40 mg IV earlier. Hold diuretic tomorrow, reassess volume status, upon discharge would recommend weight-based regimen with doses held for significant weight loss and doubling of dose for abrupt weight gain. Given his multiple debilitating medical conditions, I did have a long discussion with him today regarding aggressiveness of care. He would like to return home, he will then discuss with his family his inclination for future repeated hospitalization versus palliative care. Will follow along during this hospitalization. Admission and Anticipated Discharge Date Admission Date: October 07, 2021 Subjective Patient comfortable lying flat on supplemental oxygen (nasal cannula). No dyspnea, chest discomfort, palpitations, or other somatic complaints. Rhythm sinus with PACs, PVCs, and occasional nonsustained runs of ventricular tachycardia. Physical Exam Physical Exam: Chronically ill-appearing but not acutely distressed. Normotensive. Pulse 64 bpm and regular with ectopy. Skin: no ecchymoses or generalized lesions. HEENT: Poorly fitting dentures (falling out of place), otherwise unremarkable. Neck: Jugular venous pulse just above the clavicle at 45 degrees, no carotid bruits. Lungs: Dullness right base, decreased breath sounds throughout. No obvious wheezing or crackles. No accessory muscle use. Cardiac: regular rhythm, no murmur or gallop. Abdomen: benign. Extremities: Left BKA. Right leg with at most trace edema. Neurologic: normal affect and conversation, grossly nonfocal. Results & Data ([facility]) Vital Signs (Past 12 Hours) Vital Signs Temp Pulse Resp BP BP Pulse Ox 10/08/21 08:00 97.3 F L 67 23 120/58 L 95 10/08/21 03:46 98.6 F 61 20 98/43 L 95 Laboratory Results Hemoglobin 9.7 with white count 11.6 and normal platelet count. Potassium 3.3, BUN 23, creatinine 1.13 (up from 1.08). Normal transaminases. Troponin 0 0.039 and 0.049. Albumin 1.9. Diagnostic Findings ECG today showed sinus rhythm with PACs, incomplete left bundle branch block, diffuse T wave flattening. Compared with 10/06/2021 ECG, no significant change. PG Care Time/CCT Total # of Minutes Spent Total Time Spent with Patient: Total time spent is greater than 50% in coordination of care (as documented) at patient's floor/unit and/or counseling patient: Coding Level of Care Code 84862 Subseq Hosp Care Lvl 3 Diagnoses Acute HFrEF (heart failure with reduced ejection fraction) I50.21 Cardiomyopathy I42.9 S/P CABG (coronary artery bypass graft) Z95.1 Nonsustained paroxysmal ventricular tachycardia I47.2 Pleural effusion J90 Generalized weakness R53.1
--- NOTE | 2021-10-08 16:25 | Electrocardiogram Report ---
Test Reason : Blood Pressure : / mmHG Vent. Rate : 065 BPM Atrial Rate : 065 BPM P-R Int : 154 ms QRS Dur : 120 ms QT Int : 464 ms P-R-T Axes : -14 -37 201 degrees QTc Int : 482 ms Sinus rhythm with Premature atrial complexes Left axis deviation Old Anteroseptal infarct Incomplete left bundle block Diffuse Minor Nonspecific ST and T wave abnormality Abnormal ECG When compared with ECG of 06-OCT-2021 22:36, Premature ventricular complexes no longer present Otherwise no significant change Confirmed by Damián Goodman ([id number]) on 10/08/2021 4:25:09 PM Referred By: REFERRED SELF Confirmed By:Damián Goodman
[2021-10-08] MEDS: rOPINIRole HCL 1 MG TABLET PO SCH (20:11)
[2021-10-08] MEDS: LOSARTAN POTASSIUM 25 MG TAB PO SCH (20:11)
[2021-10-08] MEDS ORDERED: INSULIN GLARGINE SOLOSTAR 100 UNITS/ML 3 ML PEN SQ SCH (21:00)
[2021-10-09] MEDS ORDERED: INSULIN ASPART 100 UNITS/ML 3 ML PEN SC SCH (02:00)
[2021-10-09 05:59] LABS: Basophils # (auto) 0.01 K/uL (0-0.2); Basophils % (auto) 0.1 %; Eosinophils # (auto) 0.12 K/uL (0-0.5); Eosinophils % (auto) 1.5 %; Hematocrit (blood only) 33.4 % (42-52); Hemoglobin 9.7 g/dL (14.0-18.0); Immature Granulocytes # (auto) 0.01 K/uL (0.00-0.02); Immature Granulocytes % (auto) 0.1 %; Mean Corpuscular Hemoglobin 22.7 pg (25-34); Mean Platelet Volume 11.3 fL (7.4-10.4); Monocytes % (auto) 8.8 %; Neutrophils # (auto) 6.33 K/uL (1.4-6.5); Neutrophils % (auto) 79.5 %; Platelet Count 168 K/uL (130-400); RDW Coefficient of Variation 18.9 % (11.5-14.5); RDW Standard Deviation 53.6 fL (36.4-46.3); Red Blood Count 4.28 M/uL (4.7-6.1); White Blood Count 7.97 K/uL (4.8-10.8)
[2021-10-09 06:28] LABS: Albumin Globulin Ratio 0.5 (0.9-2); BUN Creatinine Ratio 21.3 (10-20); Calcium 8.7 mg/dl (8.5-10.1); Creatinine Clr Calc Pharmacy 66.2 ml/min; Est GFR (African American) 93.6 ml/min; Est GFR (Non-African American) 80.8 ml/min; Globulin 3.8 gm/dl (2.5-4.0); Magnesium 2.3 mg/dl (1.8-2.4); Potassium 3.6 mmol/L (3.5-5.1); Total Protein 5.8 gm/dl (6.4-8.2)
[2021-10-09] MEDS ORDERED: POTASSIUM CHLORIDE CRTAB 20 MEQ TABCR PO STA (07:30)
--- NOTE | 2021-10-09 08:14 | Electrocardiogram Report ---
Test Reason : Blood Pressure : / mmHG Vent. Rate : 070 BPM Atrial Rate : 070 BPM P-R Int : 152 ms QRS Dur : 118 ms QT Int : 424 ms P-R-T Axes : 024 -30 155 degrees QTc Int : 457 ms Sinus rhythm with Premature atrial complexes Left axis deviation Old Anterior infarct Diffuse Nonspecific T wave abnormality Abnormal ECG When compared with ECG of 08-OCT-2021 05:50, Nonspecific T wave abnormality has replaced inverted T waves in Anterior leads Confirmed by Damián Goodman ([id number]) on 10/09/2021 8:14:07 AM Referred By: REFERRED SELF Confirmed By:Damián Goodman
[2021-10-09 08:15] VITALS: TEMP 97.9
[2021-10-09] MEDS: ASPIRIN 81 MG ECTAB PO SCH (08:32)
[2021-10-09] MEDS: DOCUSATE SODIUM 100 MG CAP PO SCH (08:33)
[2021-10-09] MEDS: METOPROLOL SUCC 25MG EXT REL TAB PO SCH (08:35)
[2021-10-09] MEDS: HEPARIN SOD 5,000 UNIT/0.5 ML VIAL SQ SCH (08:35)
[2021-10-09] MEDS: CHOLECALCIFEROL 1,000 UNITS 25 MCG TAB PO SCH (08:36)
[2021-10-09] MEDS: ESCITALOPRAM OXALATE 10 MG TAB PO SCH (08:36)
[2021-10-09] MEDS: PANTOprazole 40 MG TAB PO SCH (08:36)
[2021-10-09] MEDS: UMECLIDINIUM BROMIDE 62.5MCG/BLISTER 7 PUFFS/INHALER INH SCH (08:37)
[2021-10-09] MEDS: INSULIN ASPART 100 UNITS/ML 3 ML PEN SC SCH ×2 (08:37→12:27)
[2021-10-09] MEDS: cefTRIAXone SODIUM 2,000 MG in DEXTROSE 5% 50 ML IV SCH (08:40)
[2021-10-09] MEDS: FUROSEMIDE 40 MG/4 ML VIAL IV SCH (08:42)
--- NOTE | 2021-10-09 11:49 | Pharmacy Report ---
Pharmacy Glycemic Short Note 2 - Date of Service October 09, 2021 - Glycemic Short BSG Results (Last 24 hours): 10/08/21 10/08/21 10/08/21 11:58 16:26 20:09 Glucose POC Glucose 129 H 193 H 256 H 10/09/21 10/09/21 10/09/21 01:32 05:26 07:33 Glucose 133 H POC Glucose 160 H 134 H 10/09/21 11:34 Glucose POC Glucose 182 H OUTPATIENT ANTIDIABETIC REGIMEN: * Lantus 20-25units Q HS * NPH 5 units Q HS (for john phenomenon) * Humalog 15 units w/ each meal and per sliding scale * A1c = 8.4% 10/05/21 ASSESSMENT: 10/09 * BSGs did climb as high as 256 last evening - however this was explainable as pt had refused prandial and correctional insulin coverage * Pt did allow correctional Novolog at HS last evening in addition to reduced dose of Lantus. Fasting BSG at goal this AM (FBS 134) w/ 18 units Lantus on board and after receiving 5 units Novolog correction at HS. Will continue the same basal dose for now. * Patient permitted Novolog admin w/ breakfast this AM - will continue current CF and CR for now and adjust if needed 10/08 * Type 1 diabetic admitted for ADHF * Patient received his usual home dose of NPH and Lantus last evening however developed fasting hypoglycemia this AM. Will d/c the NPH for john phenomenon and add overnight Novolog coverage instead. Will decrease Lantus dose ~75% tonight given this AM's low. * Novolog CF and CR doses will be based upon out-pt total daily insulin doses of ~70-80 units/day PLAN FOR INPATIENT GLYCEMIC CONTROL: * Basal insulin - * Lantus 18 units SQ HS * Bolus insulin * NovoLog per scale ACHS and at 0200 tonight * Goal Range: Low 120 mg/dL - High 150 mg/dL * Correction Factor: 20 mg/dL/unit * Nutritional / Prandial insulin per carb ratio of 1 unit per 7 grams CHO consumed PLAN FOR DISCHARGE: * to be determined
--- NOTE | 2021-10-09 11:52 | Cardiology Progress Note ---
Date of Service October 09, 2021 Assessment & Plan (1) Acute HFrEF (heart failure with reduced ejection fraction): (2) Cardiomyopathy: (3) S/P CABG (coronary artery bypass graft): (4) Nonsustained paroxysmal ventricular tachycardia: (5) Pleural effusion: (6) Generalized weakness: Plan: Patient is debilitated but clinically and hemodynamically stable. As noted, he strongly desires to return home, he would not consider rehabilitation hospital or assisted living at this time. Ideally, would use weight-based diuretic regimen. However, given his essentially bedridden status, it is doubtful that he will be able to obtain his weight at home. Therefore, recommend furosemide 40 mg every other day. Could titrate based on symptoms, for example if he has dyspnea on the evening after he does not take a dose, or if he notes orthostasis on the day that he does take a dose, diuretic can be adjusted. Check PRP periodically. Given his multiple major comorbidities, including advanced age, coronary artery disease with ischemic cardiomyopathy, ambulatory dysfunction, prior and possibly recurrent lung cancer, emphysema, diabetes mellitus on insulin, recurrent right pleural effusion, and significant protein malnutrition, his quality of life has markedly declined and he would likely need frequent hospitalizations with each decompensation. He has expressed a desire not to be hospitalized. We did not talk at length today, since he was a bit distraught and anxious to leave. However, I spoke with his daughter Dona today, she affirmed that he has expressed a desire not to be hospitalized in the future. Based on this, after further discussion with his daughter Dona (who I believe is the family decision maker, since the patient's has cognitive issues), feel that palliative care would be appropriate. Case discussed with Dr. Kovacs. Admission and Anticipated Discharge Date Admission Date: October 07, 2021 Subjective Patient strongly expressed his desire to return home, states that "everyone has been good to be here, I just need to be home". He was comfortable at rest on supplemental oxygen. Denied chest pain, dyspnea, lightheadedness, or subjective palpitations. Rhythm sinus with PACs, PVCs, and rare nonsustained ventricular tachycardia (12 beat episode yesterday). I/O -1595. Weight stable. Creatinine 1.13 yesterday, 0.86 today. Physical Exam Physical Exam: Chronically ill-appearing but not acutely distressed. Normotensive. Pulse 66 bpm and regular with ectopy. Skin: no ecchymoses or generalized lesions. HEENT: unremarkable. Neck: Jugular venous pulse at the clavicle at 45 degrees, no carotid bruits. Lungs: Dullness right base, decreased breath sounds throughout. No obvious wheezing or crackles. No accessory muscle use. Cardiac: regular rhythm, no murmur or gallop. Abdomen: benign. Extremities: Left BKA. Right leg without obvious edema. Neurologic: Somewhat agitated but response to questions appropriately, grossly nonfocal. Results & Data ([facility]) Vital Signs (Past 12 Hours) Vital Signs Temp Pulse Pulse Pulse Resp Resp Resp 10/09/21 10:51 65 66 20 20 10/09/21 07:35 97.9 F 83 20 10/09/21 03:00 99.0 F 69 20 10/08/21 23:59 67 24 BP BP Pulse Ox Pulse Ox Pulse Ox 10/09/21 10:51 93 87 L 10/09/21 07:35 112/68 93 10/09/21 03:00 115/58 L 96 10/08/21 23:59 115/52 L 95 Diagnostic Findings ECG showed sinus rhythm with PACs, old anterior infarct, diffuse T wave flattening. Compared with yesterday, nonspecific T wave abnormality has replaced inverted T waves in anterior leads. PG Care Time/CCT Total # of Minutes Spent Total Time Spent with Patient: Total time spent is greater than 50% in coordination of care (as documented) at patient's floor/unit and/or counseling patient: Coding Level of Care Code 67763 Subseq Hosp Care Lvl 3 Diagnoses Acute HFrEF (heart failure with reduced ejection fraction) I50.21 Cardiomyopathy I42.9 S/P CABG (coronary artery bypass graft) Z95.1 Nonsustained paroxysmal ventricular tachycardia I47.2 Pleural effusion J90 Generalized weakness R53.1
[2021-10-09 12:37] VITALS: BP 118/56; O2SAT 95
[2021-10-09 14:47] VITALS: PULSE 68
--- NOTE | 2021-10-09 14:52 | Discharge Summary ---
Date of Service October 09, 2021 Admission HPI Per Admitting Provider The patient is an 81-year-old male with a past medical history including nonsustained V. tach, status post CABG in 2000, cardiomyopathy, pleural effusion, pulmonary nodule, COPD, non-STEMI, UTI, encephalopathy, CAD, diabetes mellitus with retinopathy and long-term use of insulin, tobacco abuse, lung neoplasm and esophageal abnormality. Patient was most recently admitted to [facility] from 10/03-10/05 for confusion and generalized weakness and fatigue thought secondary to urinary tract infection. The UTI was treated with IV ceftriaxone and patient was discharged on oral Levaquin. The patient this evening in the ED appears to be in CHF on chest x-ray and with right pleural effusion. Abnormal laboratories: WBC 12.13, hemoglobin 11.6, hematocrit 39.8, total bilirubin 1.2, AST 44, BNP 72294, albumin 2.6, TSH 10.30. Patient was given furosemide 40 mg IV x1 by the ED. Principal Diagnosis Acute on chronic systolic CHF, Urinary retention Discharge Exam Constitutional WD/WN, vitals as above Eyes + anicteric sclerae Neck trachea midline, no thyromegaly Respiratory normal respiratory effort; no cough Auscultation: + diminished lung sounds (at right base); no rhonchi and no wheezes Cardiovascular Rate/Rhythm: regular rate and regular rhythm Heart Sounds: no murmur Extremities: + edema (trace edema right leg) Chest (Breasts) Chest: normal inspection of chest Gastrointestinal (Abdomen) normal bowel sounds, soft, nontender, no hepatosplenomegaly Musculoskeletal Extremities: + 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), no cyanosis and no clubbing Skin no rashes, warm and dry Neurologic moves all extremities and awake; no focal motor deficits Psychiatric A+Ox3, euthymic affect Lymphatic no lymphedema Discharge Data Allergies Allergy/AdvReac Type Severity Reaction Status Date / Time Insulins Allergy Intermediate BEEF/PORK Verified 10/07/21 01:21 INSULINS lorazepam AdvReac Intermediate DELUSIONS Verified 10/07/21 01:21 chlorpromazine AdvReac Mild "SHAKING" Verified 10/07/21 01:21 Consultations 10/07/21 01:30 ED Decision to Admit Stat 10/07/21 04:00 Consult Cardiology Routine 10/07/21 08:33 [facility] Referral Routine 10/07/21 14:10 [facility] Referral Routine Ordered Studies 10/06/21 23:20 CT head/brain wo con Urgent 10/07/21 00:03 CT angio chest PE protocol Urgent Hospital Course (1) Acute exacerbation of CHF (congestive heart failure): Acute exacerbation of HFrEF/right pleural effusion/EF 25-30% on October 04, 2021/CAD/cardiomyopathy/hypertension- Presented with worsening weakness, urinary frequency, found to have increased right pleural effusion with mod-large plueral effusion with compressive atelectasis on CTA Chest, neg for PE With hypoxic resp failure now improving, on 2LNC after IV lasix x 3 doses Serial trop mildly elevated x 3 but likely demand ischemia from acute CHF Pleural effusion tapped last admission and was transudative, cytology neg for malignancy Appreciate Cardiology consultation--> plan to dc to home on Hospice on lasix 40mg po every other day f/u CHF clinic for now but is enrolling in Hospice so will not likely need future f/u with CHF (2) Acute UTI: Previously on ceftriaxone while hospitalized, and changed to levofloxacin orally on discharge While in hospital resume IV ceftriaxone. Urine is growing alpha strep non-Enterococcus from 10/03 Last day of treatment would be 10/10-will give one more day of Levaquin Has Leggett catheter in place for urinary frequency which may have been related to Lasix dosing upon discharge. 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, with long-term current use of insulin: Pharmacy is managing With hypoglycemia initially, now improved Recommend to lower dosing of insulin Holding home NPH and continuing Lantus and NovoLog here Hemoglobin A1c is 8.4% which is fairly well controlled for his age and comorbidities restart home meds on discharge (7) Pleural effusion, right: Most likely secondary to CHF, status post thoracentesis last admission as above was transudate of Cytology negative There is a chance this could be related to previous malignancy of the lung- recommend follow-up with pulmonology as an outpatient if desired Continue diuresis (8) Generalized weakness: Generalized weakness and confusion- Multifactorial: UTI, HFrEF exacerbation, general debilitation Continue to treat UTI, CHF PT/OT ordered (9) Confusion: Resolved (10) Emphysema of lung: continue albuterol HFA and nebulizer continue Spiriva Respimat (11) Nonsustained paroxysmal ventricular tachycardia: With nonsustained V. tach Continue metoprolol Replaced electrolytes Consider ICD if EF not improved within the next few months with guideline directed medical therapy, but now enrolling in [facility]sp[facility] DVT prophylaxis-Heparin 5000 SQ every 12 hours Disposition-dc to home with hospice as per discussion with family by Dr. Goodman Total Time Total Time Spent Total Time Spent (In Minutes): 35 min Discharge Plan Discharge Items Patient Disposition: Hospice - Home Reason For Visit: CHF EXACERBATION Discharge Diagnosis: CHF Exacerbation, Urinary retention Condition on Discharge: Fair Activity: As commented below Lifting: None Bathing: No limitations Exercise/Sports: As tolerated Non-emergency contact: Primary Care Provider Call non-emergency contact if: you have any medication questions and your s ymptoms worsen Follow-up/Referrals: Damián Goodman MD [Primary Care Provider] - Mulu Sharma PA-C [Physician [employer] Export Coordinator] - 10/16/21 2:00 pm (Congestive Heart Failure Program Appointment Information Early follow up is essential to managing your heart failure. An appointment has been scheduled for you with the [facility] Heart Failure Program within 7 days of discharge. Anticipate this visit to be 30-60 minutes long. Please expect a track surfacing machine operator phone call from one of our nurses approximately 48 hours from discharge. They will also be placing an order for lab work to be completed 1-2 days prior to your heart failure follow up appointment. Please be sure to have this done so we can go over the results when you come in. Office Location The cardiology office building is located in front of the hospital at [address] Bring the following with you to your follow-up doctor appointments: Please bring your daily weight log any discharge paperwork all of your medication bottles with you to this visit. ) Earl Cleveland MD [Physician] - (Please follow up with the Urologist regarding your Leggett catheter within 1-2 weeks.) Diet: Low Sodium (2gm) Addtl Attending Provider Instructions: Continue taking the lasix 40mg every other day to keep fluid off for comfort. You were retaining your urine and this is relieved with a Leggett catheter. Please keep this catheter in at home. You can follow up with the Urologist if you desire, or else can keep the catheter in place for comfort. Pending Studies at Discharge: No Stand-Alone Forms: My [facility] Medications and DC Order Prescriptions: Continued docusate sodium [Colace] 100 mg capsule 100 mg PO QAM RF: 0 polyethylene glycol 3350 [Miralax] 17 gram/dose powder 17 g PO DAILY PRN (Reason: Constipation) RF: 0 insulin lispro [Humalog KwikPen Insulin] 100 unit/mL insulin pen See Rx Instructions .ROUTE TID RF: 0 ropinirole 1 mg tablet 1 mg PO HS Qty: 90 RF: 3 omeprazole 20 mg capsule,delayed release(DR/EC) 20 mg PO BID Qty: 60 RF: 5 albuterol sulfate [Ventolin HFA] 90 mcg/actuation HFA aerosol inhaler 2 puffs inhalation Q6H PRN (Reason: shortness of breath) Qty: 1 RF: 0 cholecalciferol (vitamin D3) [Vitamin D3] 1,000 unit Tablet 1,000 unit PO QAM RF: 0 diphenhydramine-acetaminophen [Tylenol PM Extra Strength] 25-500 mg tablet 1 tab PO HS RF: 0 insulin NPH isoph U-100 human 100 unit/mL suspension 5 unit SUBCUT HS RF: 0 losartan [Cozaar] 25 mg tablet 25 mg PO HS RF: 0 aspirin [Aspirin Low Dose] 81 mg Tablet,Delayed Release (Dr/Ec) 81 mg PO Q2D RF: 0 escitalopram oxalate [Lexapro] 10 mg tablet 10 mg PO QAM RF: 0 rosuvastatin [Crestor] 20 mg tablet 20 mg PO Q2D RF: 0 Lantus Solostar U-100 Insulin 100 unit/mL (3 mL) insulin pen 20 - 25 unit SQ HS RF: 0 Spiriva Respimat 1.25 mcg/actuation mist 2 puff inhalation QAM RF: 0 metoprolol succinate 25 mg Tablet Extended Release 24 Hr 25 mg PO QAM 30 Days Qty: 30 RF: 0 Changed furosemide [Lasix] 20 mg tablet 40 mg PO Q2D Qty: 60 RF: 0 Discontinued albuterol sulfate 90 mcg/actuation HFA aerosol inhaler 1 inh inhalation QID PRN (Reason: shortness of breath or wheezing) Qty: 8.5 RF: 3 Discharge Orders: Discharge Order (Routine); Ordered 10/09/21 Ordered By: Pam Kovacs Admission Data Admit Date/Time: 10/07/21 02:05 Attending Provider: Pam Kovacs Admit Provider: Boris Goode Primary Care Provider: Damián Goodman Other Providers: Boris Goode ; Niko Arroyo ; Mulu Sharma Coding Level of Care Code D/C DAY MANAGEMENT >30 MINS Diagnoses Acute exacerbation of CHF (congestive heart failure) I50.9 Acute UTI N39.0 Cardiomyopathy I42.9 HFrEF (heart failure with reduced ejection fraction) I50.20 CAD (coronary artery disease) I25.10 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
== END 2021-10-09 16:04 | disposition hospice, home (50) ==
LOC: ED 22:24 → INTOOBSV 10-07 02:05 → SUATTDRO 10-07 03:43 → EDINP 10-07 03:43 → 1E 10-07 04:30